=== PATIENT | female | born 2000 | race Caucasian/White ===

== ENCOUNTER 2020-04-17 14:58 | Outpatient (CLI) | payer OTHER, SELFPAY ==
--- NOTE | ~2020-04-17 | US_ITS ---
EXAMINATION:US venous doppler LE BI INDICATION:Morbid obesity. 24 weeks . TECHNIQUE: Multiple grayscale, color flow and Doppler images of the right and left lower extremity de ep venous systems were obtained and reviewed. COMPARISON:No prior studies for comparison. FINDINGS: The common femoral, superficial femoral and popliteal veins demonstrate normal respiratory variation, augmentation and compressibility. Color flow is also seen within the posterior tibial, pe roneal, greater saphenous and profunda veins. IMPRESSION: 1: No lower extremity deep venous thrombosis. Reviewed, dictated and finalized at location B. RACT ADMIN
== END 2020-04-17 14:59 | disposition home or self-care (01) ==
PROVIDERS: PCP Family Medicine; Visit Provider Obstetrics & Gynecology Obstetrics
DX: E66.01 Morbid (severe) obesity due to excess calories (principal); Z68.42 Body mass index [BMI] 45.0-49.9, adult; M79.604 Pain in right leg; M79.605 Pain in left leg; Z82.49 Family history of ischemic heart disease and other diseases of the circulatory system
CPT/HCPCS: 93970

== ENCOUNTER 2020-04-26 12:29 | Outpatient (CLI) | payer OTHER, SELFPAY ==
--- NOTE | 2020-04-26 | ECHO_ITS ---
Patient Info Name: Radha Burch Age: 20 years : 2000 Gender: Female Ht: 60 in Wt: 246 lbs BSA: 2.25 m2 HR: 100 bpm BP: 135 / 92 mmHg Heart Rhythm: Sinus Rhythm Technical Quality: Fair Exam Date: 04/26/2020 1:14 PM Exam Location: [facility] Pulmonary Patient Status: Outpatient Admit Date: 04/26/2020 Staff Ordering Physician: SID LINARES MD Supervisor Instrument Maintenance: Tyler Diaz RDCS Attending Provider: SID LINARES MD Exam Type: CA echo doppler color flow Study Info Indications I10 - Essential (primary) hypertension Complete two-dimensional, color flow and Doppler transthoracic echocardiogram is performed. History/Risk Factors Hypertension and 21 weeks . Summary 1. Complete two-dimensional, color flow and Doppler transthoracic echocardiogram is performed. 2. Left ventricular chamber dimension is normal. 3. Left ventricular systolic function is normal, estimated at 60-65%. 4. There is mildly increased left ventricular wall thickness. 5. Left ventricular septal wall motion is normal. 6. The left ventricular diastolic function is normal. 7. There is mild mitral valve regurgitation. 8. There is mild tricuspid valve regurgitation. Left Ventricle Left ventricular chamber dimension is normal. Left ventricular systolic function is normal, estimated at 60-65%. There is mildly increased left ventricular wall thickness. Left ventricular septal wall motion is normal. The left ventricular diastolic function is normal. Right Ventricle Right ventricular chamber dimension is normal. Right ventricular systolic function is normal. Left Atria Left atrial chamber dimension is normal. Right Atria Right atrial chamber dimension is normal. Atrial Septum Intact interatrial septum visualized by color flow imaging. Aortic Valve The aortic valve is trileaflet. There is no aortic valve sclerosis. There is no aortic valve stenosis. Pulmonic Valve The pulmonic valve is normal. There is no pulmonic valve stenosis. There is trace pulmonic regurgitation. Mitral Valve The mitral valve has normal leaflets. There is no mitral valve stenosis. There is mild mitral valve regurgitation. Tricuspid Valve The tricuspid valve leaflets are normal. There is no significant tricuspid valve stenosis. There is mild tricuspid valve regurgitation. Pericardium/Pleural The pericardium appears normal. There is no pericardial effusion. Inferior Vena Cava Normal inferior vena cava with >50% collapse upon inspiration consistent with normal right atrial pressure, 5 mmHg. Aorta The aortic root size at the sinus of Valsalva is normal. The prox ascending aorta size is normal. Left Ventricular Outflow Tract Name Value Normal LVOT 2D LVOT Diameter 1.9 cm LVOT Doppler LVOT Peak Gradient 5 mmHg LVOT Mean Gradient 3 mmHg LVOT VTI 19 cm LVOT VTI/AV VTI Ratio 0.7 LVOT Stroke Volume 53 ml LVOT CO 4.6
== END 2020-04-26 12:30 | disposition home or self-care (01) ==
LOC: ANHCARD 12:30
PROVIDERS: Family Provider Pediatrics; PCP Family Medicine
DX: O09.629 Supervision of young multigravida, unspecified trimester (principal); I10 Essential (primary) hypertension; Z3A.21 21 weeks gestation of pregnancy; I08.1 Rheumatic disorders of both mitral and tricuspid valves
CPT/HCPCS: 93306

== ENCOUNTER 2020-05-25 12:05 | Outpatient (RCR) | payer OTHER, SELFPAY ==
[2020-05-25 12:51] LABS: Glucose Fasting Gestational 92 mg/dL (>/=95)
[2020-05-25 14:28] LABS: Glucose 1 Hour Gest 191 mg/dL (>/=180)
[2020-05-25 15:39] LABS: Glucose 2 Hour Gest 128 mg/dL (>/= 155)
[2020-05-25 16:14] LABS: Glucose 3 Hour Gest 59 mg/dL (>/=140)
[2020-05-25] MEDS: RHO(D) IMMUNE GLOBULIN 300 MCG/2 ML SYRINGE IM (16:35)
== END 2020-08-23 23:59 | disposition home or self-care (01) ==
LOC: ANHLAB 12:05
PROVIDERS: PCP Family Medicine; Visit Provider Obstetrics & Gynecology
DX: Z29.13 Encounter for prophylactic Rho(D) immune globulin (principal); O36.0990 Maternal care for other rhesus isoimmunization, unspecified trimester, not applicable or unspecified; Z3A.00 Weeks of gestation of pregnancy not specified
CPT/HCPCS: 36415; 82951; 82952; 85461; 90384; 96372; J2790

== ENCOUNTER 2020-06-19 14:17 | Outpatient (CLI) | payer OTHER, SELFPAY ==
[2020-06-19 15:35] LABS: Basophils Percent Auto 0.3 % (0.2-1.2); Eosinophils Absolute Auto 0.1 K/mm3 (0-0.3); Eosinophils Percent Auto 0.8 % (0-4.4); Hematocrit 37.9 % (37.0-47.0); Immature Granulocyte Absolute 0.15 K/mm3 (0.00-0.031); Immature Granulocyte Percent A 1.3 % (0-0.5); Lymphocytes Absolute Auto 2.77 K/mm3 (0.9-3.2); Mean Corpuscular HGB Conc 34.3 g/dl (32-36); Mean Corpuscular Volume 90.2 fl (80-100); Monocytes Absolute Auto 0.6 K/mm3 (0.1-0.6); Monocytes Percent Auto 5.5 % (2.6-8.5); Neutrophils Absolute Auto 7.9 K/mm3 (1.3-6.7); Neutrophils Percent Auto 68.1 % (45.5-73.1); Platelet Count Result 364 k/mm3 (150-375); Red Cell Distribution Width 12.9 % (11.5-14.5); White Blood Count 11.6 K/mm3 (4.5-10.0)
== END 2020-06-19 14:18 | disposition home or self-care (01) ==
PROVIDERS: PCP Family Medicine
DX: O12.00 Gestational edema, unspecified trimester (principal); Z82.49 Family history of ischemic heart disease and other diseases of the circulatory system; Z3A.00 Weeks of gestation of pregnancy not specified
CPT/HCPCS: 36415; 85025

== ENCOUNTER 2020-07-13 18:09 | Outpatient (CLI) | payer OTHER, SELFPAY ==
[2020-07-13] VITALS (11 sets, daily range): BP systolic 115–135; BP diastolic 66–104; PULSE 70–103
== END 2020-07-13 20:40 | disposition home or self-care (01) ==
PROVIDERS: PCP Family Medicine; Visit Provider Obstetrics & Gynecology
DX: O16.3 Unspecified maternal hypertension, third trimester (principal); Z3A.36 36 weeks gestation of pregnancy
CPT/HCPCS: 59025

== ENCOUNTER 2020-07-20 15:22 | Outpatient (RCR) | payer OTHER, SELFPAY ==
--- NOTE | ~2020-07-20 | US_ITS ---
US OB BPP wo non-stress DATE: 07/20/2020 16:10 INDICATION: Hypertension. History of blood clots. TECHNIQUE: Real-time imaging and Doppler analysis COMPARISON: None FINDINGS: Live romano intrauterine gestation, fetus in vertex presentation, longitudinal lie, feta l heart rate of 166 bpm. Anterior placenta. A 4.9 cm deep amniotic fluid pocket is identified. BIOPHYSICAL PROFILE reported by telecom field technician: breathin out of 2 movement: 2 out of 2 tone: 2 out of 2 Amniotic fluid pocket: 2 out of 2 Total score: 8 out of 8 IMPRESSION: Normal biophysical profile score of 8 out of 8 Reviewed, dictated and finalized at Location A. Reviewed, dictated and finalized at location A.
[2020-07-20 15:55] VITALS: BP 134/60; PULSE 89
== END 2020-09-14 11:09 | disposition home or self-care (01) ==
LOC: ANHOBOP 15:22
PROVIDERS: PCP Family Medicine; Visit Provider Obstetrics & Gynecology
DX: O16.3 Unspecified maternal hypertension, third trimester (principal); Z3A.37 37 weeks gestation of pregnancy
CPT/HCPCS: 59025; 76819

== ENCOUNTER 2020-07-23 18:02 | Inpatient (IN) | payer OTHER, SELFPAY ==
[2020-07-23] VITALS (66 sets, daily range): BP systolic 87–151; BP diastolic 46–123; PULSE 41–103; TEMP 36.3; O2SAT 82–100; BMI 51.8
--- OUTSIDE RECORDS SUMMARY | 2020-07-23 18:38 | XMS_ITS ---
:2000 Author Care Team Providers Name Role Phone Prakash Gutierres Primary Care Provider Unavailable Allergies Code Code System Name Reaction Severity Status Onset 20271014 RxNorm Depo-prove ? ? Active ? ra Medications Name Status Start Date Stop Date ? ? alcohol swabs Active ? Not available USE TWICE DAILY amoxicillin 875 mg tablet Completed ? 2016 TK 1 T PO BID aspirin Active 03/30/2020 Not available take 1 tablet po bid [place] Saline 0.65 % nasal spray aerosol Active ? Not available Take 1 spray twice a day by nasal route. Azurette (28) 0.15 mg-0.02 mg (21)/0.01 mg (5) tablet Completed ? 08/26/2016 TK 1 T PO QD BD Insulin Syringe 1 mL 25 x 1 Active ? Not available cephalexin 500 mg capsule Active ? Not av ailable TAKE 1 CAPSULE BY MOUTH EVERY 12 HOURS FOR 14 DAYS dicyclomine 20 mg tablet Completed ? 018 TK 1 T PO Q 6 H PRF ABDOMINAL CRAMPING DOK 100 mg capsule Completed ? 04/04/2017 TK 1 C BY MOUTH ONCE DAILY NEEDED FOR CONSTIPATION famotidine 20 mg tablet Active ? Not avai lable Take 1 tablet twice a day by oral route. famotidine 40 mg tablet Completed ? 04/04/19 18 TK 1 T PO QD ferrous sulfate 325 mg (65 mg Completed ? iron) tablet fluticasone propionate 50 Completed ? 2019 mcg/actuation nasal spray,suspension heparin (porcine) 10,000 unit
--- OUTSIDE RECORDS SUMMARY | 2020-07-23 18:38 | XMS_ITS ---
:2000 Author Care Team Providers Name Role Phone LEWIS SANDERS MD Primary Care Provider [phone] Allergies Code Code System Name Reaction Severity Status Onset NKDA ? Medications Name Status Start Date Stop Date ? ? amoxicillin 875 mg tablet Completed ? 2016 TK 1 T PO BID aspirin Active ? Not available take 1 tablet po bid [place] Saline 0.65 % nasal spray aerosol Active ? Not available Take 1 spray twice a day by nasal route. Azurette (28) 0.15 mg-0.02 mg (21)/0.01 mg (5) tablet Completed ? 08/26/2016 TK 1 T PO QD dicyclomine 20 mg tablet Completed ? 018 [...] QD ferrous sulfate 325 mg (65 mg iron) Completed ? 04/04/2017 tablet fluticasone propionate 50 mcg/actuation Completed ? 01/31/2020 nasal spray,suspension hydroxyzine HCl Completed ? 08/26/2016 hydroxyzine HCl 25 mg tablet Completed ? TK 1 T PO HS [place] 0.33 %-4 % shampoo Completed ? 01/17/2020 lisinopril 10 mg tablet Completed ? 01/17/20 20 magnesium oxide 400 mg (241.3 mg magnesium) tablet Active ? Not available Take 1 tablet every day by oral route for 90 day
--- OUTSIDE RECORDS SUMMARY | 2020-07-23 18:38 | XMS_ITS | Encounter Summary ---
:2000 Author Reason for Visit return OB visit Assessment and Plan 1. Routine care Discussion Note: None recorded.Patient educational handouts: No information available. Plan of Care Reminders Provider Appointments Established Isauro Scott, Patient 15 07/26/2020 3:30PM ? Procedure 15 Nilay Scott, 07/31/2020 6:00AM Lab None recorded. ? ? Referral None recorded. ? ? Procedures None recorded. ? ? Surgeries None recorded. ? ? Imaging None recorded. ? ? Medications Name Start Date ? ? alcohol swabs ? USE TWICE DAILY aspirin 03/30/2020 take 1 tablet po bid [place] Saline 0.65 % nasal spray aerosol ? Take 1 spray twice a day by nasal route. BD Insulin Syringe 1 mL 25 x 1 ? USE TWICE DAILY DIRECTED cephalexin 500 mg capsule ? TAKE 1 CAPSULE BY MOUTH EVERY 12 HOURS FOR 14 DAYS famotidine 20 mg tablet ? Take 1 tablet twice a day by oral route. heparin (porcine) 10,000 unit/mL injection solution ? INJECT 1 ML UNDER THE SKIN TWICE DAILY FOR 30 DAYS hydrocortisone 2.5 % topical cream ? APPLY THIN LAYER TOPICALLY TO THE AFFECTED AREA TWICE DAILY magnesium oxide
--- OUTSIDE RECORDS SUMMARY | 2020-07-23 18:38 | XMS_ITS | Encounter Summary ---
[...] aspirin 03/30/2020 take 1 tablet po bid [place] Saline 0.65 % nasal spray aerosol ? [...]
--- OUTSIDE RECORDS SUMMARY | 2020-07-23 18:38 | XMS_ITS | Encounter Summary ---
[...] aspirin 03/30/2020 take 1 tablet po bid [place] Saline 0.65 % nasal spray aerosol ? [...]
--- OUTSIDE RECORDS SUMMARY | 2020-07-23 18:38 | XMS_ITS | Encounter Summary ---
[...] aspirin 03/30/2020 take 1 tablet po bid [place] Saline 0.65 % nasal spray aerosol ? [...] THE AFFECTED AREA TWICE DAILY magnesium oxide 4
--- OUTSIDE RECORDS SUMMARY | 2020-07-23 18:38 | XMS_ITS | Encounter Summary ---
:2000 Author Care Team Providers Name Role Phone Luisito Gibson MD Primary Care Provider [phone] Reason for Visit return OB visit Assessment and Plan 1. Routine care Discussion Note: None recorded.Patient educational handouts: No information available. Plan of Care Reminders Provider Appointments None ? ? recorded. Lab None ? ? recorded. Referral None ? ? recorded. Procedures None ? ? recorded. Surgeries None ? ? recorded. Imaging None ? ? recorded. Medications Name Start Date ? ? aspirin ? take 1 tablet po bid [place] Saline 0.65 % nasal spray aerosol ? Take 1 spray twice a day by nasal route. famotidine 20 mg tablet ? Take 1 tablet twice a day by oral route. magnesium oxide 400 mg (241.3 mg magnesium) tablet ? Take 1 tablet every day by oral route for 90 days. ondansetron 4 mg disintegrating tablet ? Place 1 tablet every 6-8 hours by translingual route as needed. PRN nausea/vomiting riboflavin (vitamin B2) 400 mg tablet ? Take 1 tablet every day by oral route for 90 days. sertraline 50 mg tablet ? TAKE 1 TABLET BY MOUTH EVERY DAY Notes: Vitamin D, Vitamin C, pre obdulio Medications Administered None recorded. Vitals Height Weight Blood Pressure
--- OUTSIDE RECORDS SUMMARY | 2020-07-23 18:38 | XMS_ITS | Encounter Summary ---
:2000 Author Reason for Visit return OB visit Assessment and Plan 1. Routine care ? streptococcus group B, cul ture, unspecified specimen Discussion Note: None recorded.Patient educational handouts: No information available. Plan of Care Reminders Provider Appointments Established Isauro Scott MD Patient 15 07/26/2020 3:30PM ? Procedure 15 Nilay Scott MD 07/31/2020 6:00AM Lab Streptococcus Edw [facility] Group B, Culture, 07/12/2020 Center Unspecified Specimen Referral None recorded. ? ? Procedures None recorded. ? ? Surgeries None recorded. ? ? Imaging None recorded. ? ? Medications Name Start Date ? ? alcohol swabs ? USE TWICE DAILY aspirin 03/30/2020 take 1 tablet po bid [place] Saline 0.65 % nasal spray aerosol ? Take 1 spray twice a day by nasal route. BD Insulin Syringe 1 mL 25 x 1 ? USE TWICE DAILY DIRECTED cephalexin 500 mg capsule ? TAKE 1 CAPSULE BY MOUTH EVERY 12 HOURS FOR 14 DAYS famotidine 20 mg tablet ?
[2020-07-23 18:58] LABS: Basophils Percent Auto 0.2 % (0.2-1.2); Eosinophils Absolute Auto 0.1 K/mm3 (0-0.3); Eosinophils Percent Auto 0.9 % (0-4.4); Hematocrit 38.6 % (37.0-47.0); Hemoglobin 13.1 g/dL (12.0-15.0); Immature Granulocyte Absolute 0.08 K/mm3 (0.00-0.031); Immature Granulocyte Percent A 0.8 % (0-0.5); Lymphocytes Absolute Auto 2.78 K/mm3 (0.9-3.2); Lymphocytes Percent Auto 27.7 % (18.3-44.2); Mean Corpuscular HGB Conc 33.9 g/dl (32-36); Mean Corpuscular Hemoglobin 30.4 pg (26-34); Mean Corpuscular Volume 89.6 fl (80-100); Monocytes Absolute Auto 0.7 K/mm3 (0.1-0.6); Monocytes Percent Auto 6.9 % (2.6-8.5); Neutrophils Absolute Auto 6.4 K/mm3 (1.3-6.7); Neutrophils Percent Auto 63.5 % (45.5-73.1); Platelet Count Result 372 k/mm3 (150-375); Red Blood Count 4.31 M/mm3 (4.2-5.4); Red Cell Distribution Width 12.8 % (11.5-14.5)
[2020-07-23 19:14] LABS: Alanine Aminotransferase 14 U/L (4-35); Albumin Level 3.6 g/dL (3.5-5.1); Alkaline Phosphatase 197 U/L (38-126); Anion Gap 6 mmol/L (8-16); Aspartate Amino Transferase 21 U/L (14-36); Bilirubin,Total 0.3 mg/dL (0.2-1.3); Blood Urea Nitrogen 10 mg/dL (7-17); Calcium 9.6 mg/dL (8.4-10.2); Carbon Dioxide 22 mmol/L (22-30); Chloride 104 mmol/L (98-107); Estimated Glomerular Filt Rate > 60; Glucose 107 mg/dL (65-105); Potassium 4.2 mmol/L (3.4-5.0); Sodium 132 mmol/L (137-145)
[2020-07-23 19:18] LABS: Uric Acid 6.1 mg/dL (2.5-7.5)
[2020-07-23] MEDS: LACTATED RINGERS 1,000 ML 125 ML IV CONT ×2 (19:24→23:38)
[2020-07-23] MEDS: OXYTOCIN 30 UNITS/NS 500 ML 30 UNITS/500 ML BAG IV CONT (19:25)
--- NOTE | 2020-07-23 19:48 | LDADM ---
This patient, Radha Burch, was admitted to Labor/Delivery/Recovery 106 on 07/23/20 at 18:02. Plans for labor, pain management and were discussed with patient. Patient/family oriented to hospital policies and general routines including ID bracelet, bed and alarms, visiting hours, pain management, procedures, bathroom and other care routines, personal items, smoking policy, room service/diet and guest tray routines, security routines, and visiting hours. Patient/Family are encouraged to report perceived risks to care and to ask questions if they do not understand what they are told or what they should do. See OBIX for further documentation.
[2020-07-23 20:14] LABS: Amphetamine Screen Urine Negative (Negative); Barbiturate Screen Urine Negative (Negative); Benzodiazepines Screen Urine Negative (Negative); Cannabinoid Screen Urine Negative (Negative); Cocaine Screen Urine Negative (Negative); Methadone Screen Urine Negative (Negative); Opiate Screen Urine Negative (Negative); Phencyclidine Screen Urine Negative (Negative)
--- NOTE | 2020-07-23 22:27 | WPDANESEPPF ---
Anes - Initial Pre Proc Eval Procedure: labor epidural Date/Time: 07/23/20 22:03 Surgeon: Prakash Gutierres MD Pre Op Diagnosis: labor pain Pre Op Diagnosis: Leaking Patient Data Age: 20 Gender: F Height: 1.5 m Weight: 116.5 kg Last Vital Signs Temp 36.3 C L 07/23/20 18:45 Pulse 85 07/23/20 22:26 BP 122/73 07/23/20 22:26 Pulse Ox 98 07/23/20 22:25 Allergies Allergy/AdvReac Type Severity Reaction Status Date / Time Latex, Natural Rubber Allergy Mild Itching Verified 08/14/18 05:34 Home Medications Medication Instructions Recorded Confirmed Type PNV cmb#95-ferrous fumarate-FA 1 tablet PO DAILY 07/20/20 07/20/20 History [] heparin (porcine) 10,000 unit SUBCUT BID 07/20/20 07/20/20 History Laboratory Tests 07/23/20 07/23/20 07/23/20 18:52 18:52 18:52 WBC 10.0 K/mm3 K/mm3 (4.5-10.0) RBC 4.31 M/mm3 M/mm3 (4.2-5.4) Hgb 13.1 g/dL g/dL (12.0-15.0) Hct 38.6 % % (37.0-47.0) MCV 89.6 fl fl (80-100) MCH 30.4 pg pg (26-34) MCHC 33.9 g/dl g/dl (32-36) RDW 12.8 % % (11.5-14.5) Plt Count 372 k/mm3 k/mm3 (150-375) MPV 10.0 fl fl (7.4-10.4) Immature Gran % (Auto) 0.8 % H % (0-0.5) Neut % (Auto) 63.5 % % (45.5-73.1) Lymph % (Auto) 27.7 % % (18.3-44.2) [place] % (Auto) 6.9 % % (2.6-8.5) Eos % (Auto) 0.9 % % (0-4.4) Baso % (Auto) 0.2 % % (0.2-1.2) Lymph # (Auto) 2.78 K/mm3 K/mm3 (0.9-3.2) [place] # (Auto) 0.7 K/mm3 H K/mm3 (0.1-0.6) Eos # (Auto) 0.1 K/mm3 K/mm3 (0-0.3) Baso # (Auto) 0.0 K/mm3 K/mm3 (0.0-0.1) Abs Immat Gran (auto) 0.08 K/mm3 H K/mm3 (0.00-0.031) Absolute Neuts (auto) 6.4 K/mm3 K/mm3 (1.3-6.7) Absolute Nucleated RBC 0.0 K/mm3 K/mm3 (0.0-0.012) Nucleated RBC % 0.0 % % (0.0-0.2) Sodium Potassium Chloride Carbon Dioxide Anion Gap BUN Creatinine Estim Creat Clear Calc Estimated GFR Glucose Uric Acid 6.1 mg/dL mg/dL (2.5-7.5) Calcium Total Bilirubin AST ALT Alkaline Phosphatase Total Protein Albumin Urine Opiates Screen Urine Methadone Screen Ur Barbiturates Screen Ur Phencyclidine Scrn Ur Amphetamine Screen U Benzodiazepines Scrn Urine Cocaine Screen U Cannabinoids Screen RPR Pending Blood Type Antibody Screen 07/23/20 07/23/20 07/23/20 18:52 18:52 19:12 WBC RBC Hgb Hct MCV MCH MCHC RDW Plt Count MPV Immature Gran % (Auto) Neut % (Auto) Lymph % (Auto) [place] % (Auto) Eos % (Auto) Baso % (Auto) Lymph # (Auto) [place] # (Auto) Eos # (Auto) Baso # (Auto) Abs Immat Gran (auto) Absolute Neuts (auto) Absolute Nucleated RBC Nucleated RBC % Sodium 132 mmol/L L mmol/L (137-145) Potassium 4.2 mmol/L mmol/L (3.4-5.0) Chloride 104 mmol/L mmol/L (98-107) Carbon Dioxide 22 mmol/L mmol/L (22-30) Anion Gap 6 mmol/L L mmol/L (8-16) BUN 10 mg/dL mg/dL (7-17) Creatinine 0.90 mg/dL mg/dL (0.7-1.0) Estim Creat Clear Calc Not Reportable Estimated GFR > 60 (59 - ) Glucose 107 mg/dL H mg/dL (65-105) Uric Acid Calcium 9.6 mg/dL mg/dL (8.4-10.2)
[2020-07-24] VITALS (162 sets, daily range): BP systolic 67–135; BP diastolic 27–108; PULSE 53–188; RESP 16–18; TEMP 36.1–37.2; O2SAT 78–100
[2020-07-24] MEDS: LACTATED RINGERS 1,000 ML 125 ML IV CONT ×2 (01:02→05:04)
[2020-07-24] MEDS: AMPICILLIN 2 GM/NS 100 ML 2 GM/100 ML BAG IVPB (01:02)
[2020-07-24] MEDS: ONDANSETRON INJ 4 MG/2 ML VIAL IV PUSH (03:48)
[2020-07-24] MEDS: AMPICILLIN 1 GM/NS 50 ML 1 GM/50 ML BAG IVPB ×2 (05:02→08:45)
--- NOTE | 2020-07-24 06:49 | PM.IMHP ---
H&P: HPI History of Present Illness Date/Time: 07/24/20 06:49 Radha is a 20yo @ 38.2wks (MOHSEN 08/05/20) who presented to L&D last night with PROM @ 1900. She reports possible ROM @ 0700 on 07/23/20, but wasn't sure if it was just water, or only urine. She reports good movement. No fever, chills. She is not s/p epidural and comfortable. She was 1cm on admission, was started on pitocin over night, now 5-6cm. She has had regular care with [place] and [facility]. She has also been seeing Urology. 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-- w/ significant proteinuria, following w/ urology - Fetus w/ persistent L SVC; s/p echo, [facility] recommends echo - Rh negative s/p rhogam - Obesity - Elevated glucola; normal 3hr OGTT - Anxiety/depression on Zoloft 50mg daily Chief Complaint: leakage of fluid Review of Systems Review of Systems: All systems reviewed & are unremarkable except as noted in HPI and below (HPI) [facility] Social History Social History Smoking status: Former smoker Tobacco type: cigarettes Second hand tobacco smoke exposure: No Substance use: former Last use: Apr 2019 Gender identity (if verbalized by the patient): Female Sexual Orientation (if Verbalized by the Patient): Straight or Heterosexual Spiritual care concerns: No Meds Home Medications and Allergies Home Medications Medication Instructions Recorded Confirmed Type PNV cmb#95-ferrous fumarate-FA 1 tablet PO DAILY 07/20/20 07/20/20 History [] heparin (porcine) 10,000 unit SUBCUT BID 07/20/20 07/20/20 History Allergies Allergy/AdvReac Type Severity Reaction Status Date / Time Latex, Natural Rubber Allergy Mild Itching Verified 08/14/18 05:34 Vital Signs Vital Signs - 24 hr 07/23/20 18:30 07/23/20 18:32 07/23/20 18:45 Temperature 36.3 C L Pulse Rate 95 92 Blood Pressure 142/93 H 132/106 H Pulse Oximetry 07/23/20 18:46 07/23/20 19:01 07/23/20 19:31 Temperature Pulse Rate 96 74 96 Blood Pressure 139/99 H 137/87 120/73 Pulse Oximetry 07/23/20 19:46 07/23/20 20:01 07/23/20 20:16 Temperature Pulse Rate 83 92 90 Blood Pressure 123/72 114/68 130/82 Pulse Oximetry 07/23/20 20:31 07/23/20 20:46 07/23/20 21:01 Temperature Pulse Rate 85 89 62 Blood Pressure 127/89 136/84 132/89 Pulse Oximetry 07/23/20 21:16 07/23/20 21:31 07/23/20 21:46 Temperature Pulse Rate 67 83 72 Blood Pressure 140/83 151/123 H 123/71 Pulse Oximetry 07/23/20 22:00 07/23/20 22:01 07/23/20 22:04 Temperature Pulse Rate 77 91 Blood Pressure 110/74 87/46 L Pulse Oximetry 98 07/23/20 22:05 07/23/20 22:08 07/23/20 22:10 Temperature Pulse Rate 91 88 Blood Pressure 112/89 125/84 Pulse Oximetry 98 99 07/23/20 22:11 07/23/20 22:14 07/23/20 22:15 Temperature Pulse Rate 81 94 Blood Pressure 129/90 135/85 Pulse Oximetry 99 07/23/20 22:16 07/23/20 22:18 07/23/20 22:20 Temperature Pulse Rate 85 87 Blood Pressure 125/80 137/70 Pulse Oximetry 99 07/23/20 22:21 07/23/20 22:23 07/23/20 22:25 Temperature Pulse Rate 98 85 Blood Pressure 123/65 117/51 L Pulse Oximetry 98 07/23/20 22:26 07/23/20 22:28 07/23/20 22:30 Temperature Pulse Rate 85 83 Blood Pressure 122/73 128/70 Pulse Oximetry 99 07/23/20 22:31 07/23/20 22:33 07/23/20 22:35 Temperature Pulse Rate 79 80 Blood Pressure 105/68 119/62 Pulse Oximetry 100 07/23/20 22:36 07/23/20 22:38 07/23/20 22:40 Temperature Pulse Rate 78 87 Blood Pressure 122/69 105/50 L Pulse Oximetry 100 07/23/20 22:41 07/23/20 22:43 07/23/20 22:45 Temperature Pulse Rate 90 80 Bloo
--- NOTE | 2020-07-24 07:14 | WPDHPUPDATE1 ---
History and Physical Update Update Date/Time: 07/24/20 07:14 History and Physical has been reviewed, including an updated exam of the patient. There are NO changes in the patient's condition. Risks, benefits, and alternatives have been discussed and questions answered. Patient agrees to proceed with procedure.
[2020-07-24 08:00] LABS: Rapid Plasma Reagin Non-Reactive (NonReactive)
--- NOTE | 2020-07-24 09:48 | PM.OBPRVD ---
OB - Delivery Note Procedure Delivery date: 07/24/20 events: Premature Rupture of Membrane and Prolonged Rupture of Membrane (CKD, chronic hypertension, Rh negative, thrombophilia) Delivery augmentation: pitocin Delivery monitor: external FHT and internal uterine Route of delivery: Laceration Description: None Specimen: Yes Quantitative Blood Loss (ml): 150 Anesthesia type: Epidural Disposition: floor [place] Baby Date of : 07/24/20 Time of : 09:34 Weeks of gestation at delivery: 38 gender: Male Weight (pounds): 6 Weight (ounces): 3 presentation: vertex position: Left Occiput Anterior Placenta delivery description: Expressed cord vessel description: 3 Vessels score one minute: 9 score five minutes: 9 Narrative: Patient rapidly progressed to complete dilation with strong desire to push. She pushed for approximately 45 minutes with good maternal effort. She delivered the head over intact perineum. No nuchal was palpated. She delivered the shoulders and body without complications. The baby had spontaneous cry and was immediately placed skin to skin. Delayed cord clamping was performed. The umbilical cord was then clamped and cut. A segment of cord was collected for cord gases. The remaining cord blood was collected for typing. With Pitocin running and gentle downward traction on the cord the placenta delivered without complications. Good fundal tone was noted with minimal bleeding. The cervix, vagina, and perineum were examined and no lacerations were noted. Slight bleeding was then noted but responded with bimanual massage and good uterine tone was noted. Sponge, lap, and instrument counts were correct at the end the procedure. Mom and baby were left bonding in the birthing suite in stable condition.
[2020-07-24] MEDS: OXYTOCIN 30 UNITS/NS 500 ML 30 UNITS/500 ML BAG 125 UNITS IV CONT (10:09)
[2020-07-24] MEDS: ACETAMINOPHEN 325 MG TABLET 650 MG PO (11:38)
--- NOTE | 2020-07-24 11:58 | OBPPTRN ---
Patient transferred to post room # 290 via (wheelchair ). Support person present. Oriented to unit, room, information board, rooming in, admission packet and security measures. Patient verbalizes understanding. Instructions and education this shift provided by one to one discussion and mom baby care guide. No barriers to learning identified. mom and fob both recipients of instructions.
[2020-07-24] MEDS: HYDROcodone/acetaminophen (*CRX) 5-325 MG TABLET 1 TAB PO (17:59)
[2020-07-24] MEDS: DOCUSATE SODIUM 100 MG CAPSULE PO (17:59)
[2020-07-24] MEDS: ENOXAPARIN 40 MG/0.4 ML SYRINGE SUB-Q (23:45)
[2020-07-25 00:17] VITALS: BP 128/70; PULSE 60; PULSE 77; RESP 16; TEMP 36.1; O2SAT 100; O2SAT 98
[2020-07-25] MEDS: HYDROcodone/acetaminophen (*CRX) 5-325 MG TABLET 1 TAB PO (05:20)
[2020-07-25 05:44] LABS: Hematocrit 34.5 % (37.0-47.0); Hemoglobin 11.4 g/dL (12.0-15.0)
[2020-07-25 05:50] VITALS: BP 117/69; PULSE 75; RESP 18; TEMP 36.1; O2SAT 100
[2020-07-25 05:52] LABS: Alanine Aminotransferase 13 U/L (4-35); Alkaline Phosphatase 135 U/L (38-126); Anion Gap 3 mmol/L (8-16); Aspartate Amino Transferase 29 U/L (14-36); Bilirubin,Total 0.2 mg/dL (0.2-1.3); Blood Urea Nitrogen 10 mg/dL (7-17); Calcium 9.4 mg/dL (8.4-10.2); Carbon Dioxide 27 mmol/L (22-30); Chloride 105 mmol/L (98-107); Estimated Glomerular Filt Rate > 60; Glucose 85 mg/dL (65-105); Potassium 4.4 mmol/L (3.4-5.0); Sodium 135 mmol/L (137-145)
[2020-07-25 07:45] VITALS: BP 111/56; PULSE 62; RESP 16; TEMP 36.2; O2SAT 99
[2020-07-25] MEDS: MULTIVIT/MIN/PREN/FOL AC/IRON TABLET 1 TAB PO (08:21)
[2020-07-25] MEDS: ENOXAPARIN 40 MG/0.4 ML SYRINGE SUB-Q (08:21)
--- NOTE | 2020-07-25 08:25 | WPDANLDPN2 ---
Anes-Prog Note L&D Date/Time: 07/25/20 08:25 Comfortable throughout: labor Neuraxial method: epidural Epidural/Spinal procedure site: clean & non-tender Neuro status: Neuro function grossly intact. Cardiovascular status: normal Respiratory status: normal Airway patency: baseline Mental status: baseline Post-Op hydration status: normal Vital Signs: Last Vital Signs Temp 36.2 C L 07/25/20 07:45 Pulse 62 07/25/20 07:45 Resp 16 07/25/20 07:45 BP 111/56 L 07/25/20 07:45 Pulse Ox 99 07/25/20 07:45 Pain score (VAS): 0 I/O: Intake & Output 07/24/20 07/25/20 07/25/20 23:59 07:59 15:59 Intake Total 500 Balance 500 Post-procedural complaints: none Patient feedback: Patient satisfied with anesthetic care.
[2020-07-25] MEDS: RHO(D) IMMUNE GLOBULIN 300 MCG/2 ML SYRINGE IM (10:06)
--- NOTE | 2020-07-25 15:28 | P.PNOB_ITS ---
OB - PN: Subj Subjective Date/time seen: 07/25/20 15:28 PPD#1 Radha reports doing well today. She denies pain. She reports her bleeding is light. She tolerated regular diet w/o issue. She has passed gas and voided w/o issue. She is breast and bottle feeding. She would like her son to be circumcised. She would like to go home today. No CP, fever, chills, PERRY, vision changes, N/V, dizziness or palpitations. OB - PN: Obj Data Labs CBC & Chem 7: 07/25/20 05:19 07/25/20 05:19 Labs: Laboratory Results - last 24 hr 07/25/20 07/25/20 07/25/20 05:19 05:19 05:19 Hgb 11.4 L Hct 34.5 L Sodium 135 L Potassium 4.4 Chloride 105 Carbon Dioxide 27 Anion Gap 3 L BUN 10 Creatinine 0.90 Estim Creat Clear Calc Not Reportable Estimated GFR > 60 Glucose 85 Calcium 9.4 Total Bilirubin 0.2 AST 29 ALT 13 Alkaline Phosphatase 135 H Total Protein 6.0 L Albumin 3.0 L Blood Type B Negative Antibody Screen Negative Screen Negative Baby's Blood Type B pos Baby's TREVOR Negative Doses of RhIg Required 1 OB - PN A/P Assessment and Plan (1) Thrombophilia: Code(s): D68.59 - Other primary thrombophilia Status: Acute (2) Obesity: Qualifiers: Obesity type: due to excess calories Obesity classification: adult class 3 (BMI >= 40) Serious obesity comorbidity presence: without serious comorbidity Body mass index: BMI 45.0-49.9 Qualified Code(s): E66.01 - Morbid (severe) obesity due to excess calories; Z68.42 - Body mass index [BMI] 45.0- 49.9, adult Code(s): E66.9 - Obesity, unspecified Status: Acute (3) Chronic hypertension: Code(s): I10 - Essential (primary) hypertension Status: Acute (4) Normal vaginal delivery of first : Code(s): O80 - Encounter for full-term uncomplicated delivery Status: Acute Plan day: 1 Plan: routine care and discharge home Comments: - will send in meds including lovenox 40mg BID x 6wk - f/u in clinic in 2wks - ER return precautions: fever, bleeding, N/V/abd pain, HTN Time Spent With Patient Time: Total time spent is greater than 50% in coordination of care (as documented) at patient's floor/unit and/or counseling patient: Review of Systems Review of Systems: All systems reviewed & are unremarkable except as noted in HPI and below (HPI) Exam Const: General: cooperative, healthy appearing, comfortable and no acute distress Resp: Effort & Inspection: normal respiratory effort and able to speak in complete sentences Auscultation: clear to auscultation bilaterally Cardio: Rate: regular rate GI: GI Palp: No abdominal tenderness and Yes Soft to palpation Auscultation: normal bowel sounds Other: small lesions from heparin injections : Other: fundus firm below umbilicus Skin: General skin exam: normal color Neuro: General: patient oriented x3 Extrem: General: normal to inspection Psych: Appearance: grossly normal Affect: normal affect Attitude: cooperative
[2020-07-25] MEDS: MEASLES,MUMPS,RUBELLA VACCINE 0.5 ML VIAL SUB-Q (16:53)
[2020-07-26 10:08] VITALS: BP 127/62; PULSE 66; RESP 20; TEMP 36.8; O2SAT 99
--- NOTE | 2020-07-30 17:33 | PM.OBDSVD ---
DS: Admitting Diagnosis Admitting Diagnosis Admitting Diagnosis: leakage of fluid DS: Discharge Diagnosis Discharge Diagnosis (1) Normal vaginal delivery of first : Code(s): O80 - Encounter for full-term uncomplicated delivery Status: Acute (2) Obesity: Qualifiers: Obesity type: due to excess calories Obesity classification: adult class 3 (BMI >= 40) Serious obesity comorbidity presence: without serious comorbidity Body mass index: BMI 45.0-49.9 Qualified Code(s): E66.01 - Morbid (severe) obesity due to excess calories; Z68.42 - Body mass index [BMI] 45.0-49.9, adult Code(s): E66.9 - Obesity, unspecified Status: Acute (3) Chronic kidney disease: Qualifiers: Chronic kidney disease stage: unspecified stage Qualified Code(s): N18.9 - Chronic kidney disease, unspecified Code(s): N18.9 - Chronic kidney disease, unspecified Status: Acute (4) Chronic hypertension: Code(s): I10 - Essential (primary) hypertension Status: Acute (5) Thrombophilia: Code(s): D68.59 - Other primary thrombophilia Status: Acute OB - DS: Summary OB Procedures : NST, PIH Mgmt and Ultrasound OB Procedures Intrapartum: Spontaneous Vag Delivery OB Procedures: : RHo (D) lg Peripartum Data Infant Delivery Method: Natural Vaginal Laceration Description: None complications: none [place] 1: Gender: Male Disposition of : home Status at Discharge Functional status at discharge: independent ambulation Overall status at discharge: patient is back to baseline Time Spent with Patient Time attestation: Total time spent providing and/or coordinating discharge services: Exam Const: General: cooperative, comfortable and no acute distress Nutritional Appearance: obese Resp: Effort & Inspection: normal respiratory effort and able to speak in complete sentences Auscultation: clear to auscultation bilaterally Cardio: Rate: regular rate GI: Inspection: normal to inspection and non-distended GI Palp: No abdominal tenderness and Yes Soft to palpation Auscultation: normal bowel sounds : Other: fundus firm Skin: Lesions: lesion noted (on abdomen from hep injections) Neuro: General: patient oriented x3 Extrem: General: normal to inspection Psych: Appearance: grossly normal Affect: normal affect Attitude: cooperative DS: Data Data Completed and Pending Completed studies during hospitalization: Pending at discharge 05/17/21 10:18 Surgical [PTH] Routine Discharge Plan Discharge Attending physician on discharge: Yvette Scott Discharging Clinician: Yvette Scott Patient Disposition: Home, Self-Care Activity: may shower and pelvic rest Diet: regular Discharge Instructions: Education: Mom and Baby Guide Given to: Mother Follow-Up: Call your delivering provider's office for an appointment to be seen in: 2 Weeks Mom and baby should come to the [facility] for the follow-up appointment. Appointment Date/Time: July 26, 2020 at 10:00 am What to expect at your follow-up visit: Physical Assessment Call [phone] if you are unable to keep your appointment time. BREAST CARE: * Wear a snug supportive bra. * For engorgement discomfort: Bottle Feeding: * May apply ice packs EPISIOTOMY/PERINEAL CARE: * Until bleeding stops, use your trina bottle after urinating * Change your pad frequently throughout the day * No tub baths until seen by your physician - You may shower ACTIVITY: * Rest as much as possible. * Do not exercise or lift anything heavier than your baby (such as laundry or other children.) * Avoid stairs or driving as much as possible. * Do not put anything into the vagina. No douching, tampons, or sexual activity until seen by physician. NOTIFY PHYSICIAN IF YOU HAVE ANY QUESTIONS OR IF ANY OF THE FOLLOWING SYM
== END 2020-07-25 18:10 | disposition home or self-care (01) | DRG 560 ==
LOC: ANHOB2 07-25 16:23 → ANHLDR 07-26 11:30 → ANHOB2 07-26 11:30
PROVIDERS: Admitting Provider Obstetrics & Gynecology; PCP Family Medicine; Visit Provider Obstetrics & Gynecology
DX: O42.92 Full-term premature rupture of membranes, unspecified as to length of time between rupture and onset of labor (principal); Z37.0 Single live birth; Z3A.38 38 weeks gestation of pregnancy; O10.92 Unspecified pre-existing hypertension complicating childbirth; O69.89X0 Labor and delivery complicated by other cord complications, not applicable or unspecified; I12.9 Hypertensive chronic kidney disease with stage 1 through stage 4 chronic kidney disease, or unspecified chronic kidney disease; O75.9 Complication of labor and delivery, unspecified; N18.9 Chronic kidney disease, unspecified; O99.214 Obesity complicating childbirth; E66.01 Morbid (severe) obesity due to excess calories; O99.12 Other diseases of the blood and blood-forming organs and certain disorders involving the immune mechanism complicating childbirth; D68.59 Other primary thrombophilia; O26.893 Other specified pregnancy related conditions, third trimester; Z67.91 Unspecified blood type, Rh negative; O99.344 Other mental disorders complicating childbirth; F41.8 Other specified anxiety disorders; O99.02 Anemia complicating childbirth; D64.9 Anemia, unspecified
CPT/HCPCS: 36415; 80053; 80307; 84112; 84550; 85014; 85018; 85025; 85461; 86592; 86850; 86900; 86901; 88307; 90384; 90710; A9270; J0290; J1650; J2405; J2590; J2790; J2795; J7120

== ENCOUNTER 2021-10-04 12:28 | Observation (INO) | payer OTHER, SELFPAY ==
--- NOTE | ~2021-10-04 | CT_ITS ---
EXAMINATION: CT abdomen pelvis w con INDICATION: Left lower quadrant and left flank pain TECHNIQUE: Computed tomographic images of the abdomen and pelvis were obtained after the administrati on of 100 cc of Omnipaque 300 intravenous contrast. The dose-length product (DLP) was 1386.47 mGy-cm. Automated exposure control and iterative reconstruction technique were employed. COMPARISON: 02/29/2016 FINDINGS: The lung bases are clear. The heart size is normal. There is focal fatty infiltration of th e liver near the falciform ligament. The spleen, pancreas, gallbladder, and adrenal glands are normal . There is a chronic fluid collection in the right renal fossa. The left kidney is enlarged and demon strates patchy perfusion. There is urothelial enhancement of the left renal pelvis and left ureter. N o pathologically enlarged abdominal or pelvic lymph nodes are identified. There is no free intraperit han gas or evidence of bowel obstruction. An IUD is present in the uterus in expected position. The appendix is normal. IMPRESSION: 1. Acute pyelonephritis of the left kidney. Reviewed, dictated and finalized at location B.
[2021-10-04 12:29] VITALS: BP 107/81; PULSE 114; RESP 18; TEMP 37.6; O2SAT 97
[2021-10-04] MEDS: SODIUM CHLORIDE 0.9% IV 1,000 ML 999 ML IV CONT (13:01)
[2021-10-04] MEDS: ONDANSETRON INJ 4 MG/2 ML VIAL IV PUSH (13:02)
[2021-10-04] MEDS: MORPHINE SULFATE (*CRX) 4 MG/ML INJ IV PUSH ×4 (13:02→20:08)
[2021-10-04 13:04] LABS: Alanine Aminotransferase 32 U/L (6-35); Alkaline Phosphatase 124 U/L (38-126); Anion Gap 11 mmol/L (8-16); Aspartate Amino Transferase 28 U/L (14-36); Bilirubin,Total 1.1 mg/dL (0.2-1.3); Blood Urea Nitrogen 14 mg/dL (7-17); Calcium 8.4 mg/dL (8.4-10.2); Carbon Dioxide 26 mmol/L (22-30); Chloride 95 mmol/L (98-107); Estimated Glomerular Filt Rate 51; Glucose 119 mg/dL (65-110); Sodium 132 mmol/L (137-145)
[2021-10-04 13:11] LABS: Appearance Urine Clear (Clear); Bilirubin Urine Negative (Negative); Blood Urine 1+ (Negative); Color Urine Yellow (Yellow); Glucose Urine UA Negative (Negative); Ketones Urine Negative (Negative); Leukocyte Esterase Ur 1+ LEU/UL (Negative); Nitrate Urine Negative (Negative); Protein Urine 2+ mg/dL (Negative)
[2021-10-04 13:23] LABS: Mucus Urine Rare /lpf; RBC Urine 0-2 /hpf (0-2); Squamous Epithelial Cell Urine Few /hpf (Few); WBC Urine 51-75 /hpf
[2021-10-04 13:27] LABS: Basophils Percent Auto 0.2 % (0.2-1.2); Hemoglobin 13.9 g/dL (12.0-15.0); Immature Granulocyte Absolute 0.04 K/mm3 (0.00-0.031); Immature Granulocyte Percent A 0.4 % (0-0.5); Lymphocytes Absolute Auto 1.45 K/mm3 (0.9-3.2); Lymphocytes Percent Auto 13.6 % (18.3-44.2); Mean Corpuscular HGB Conc 32.3 g/dl (32-36); Mean Corpuscular Hemoglobin 28.2 pg (26-34); Mean Corpuscular Volume 87.2 fl (80-100); Mean Platelet Volume 9.7 fl (7.4-10.4); Monocytes Absolute Auto 0.7 K/mm3 (0.1-0.6); Monocytes Percent Auto 6.9 % (2.6-8.5); Neutrophils Absolute Auto 8.4 K/mm3 (1.3-6.7); Neutrophils Percent Auto 78.9 % (45.5-73.1); Platelet Count Result 244 k/mm3 (150-375); Red Blood Count 4.93 M/mm3 (4.2-5.4); Red Cell Distribution Width 13.2 % (11.5-14.5); White Blood Count 10.7 K/mm3 (4.5-10.0)
[2021-10-04 13:33] LABS: Add Urine Microscopic? YES
--- NOTE | 2021-10-04 13:43 | ED.GENADULT ---
HPI - General Adult General Chief complaint: Urogenital-Female Stated complaint: left flank pain - i only have one kidney Time Seen by Provider: 10/04/21 12:42 History of Present Illness HPI narrative: Patient is a 21-year-old female who presents ER with left-sided flank pain left-sided abdominal pain. Worsening over the last 3 days. Subjective fevers and chills. No dysuria. Has urinary frequency. No history of kidney stones. Patient reports she only has her left kidney because the right one at some point when she was a kid. Patient reports mild nausea but no vomiting. No alleviating factors. Related Data Home Medications Medication Instructions Recorded Confirmed No Home Medications 10/04/21 10/04/21 Allergies Allergy/AdvReac Type Severity Reaction Status Date / Time Latex, Natural Rubber Allergy Mild Itching Verified 10/04/21 12:31 Review of Systems Review of Systems: All systems reviewed & are unremarkable except as noted in HPI and below Constitutional: Constitutional: Reports chills and Reports fever(s) ENT: Denies nasal congestion and Denies sore throat Cardiovascular: Cardiovascular: Denies chest pain and Denies rapid heart rate Gastrointestinal: Gastrointestinal: Reports abdominal pain, Denies constipation, Denies diarrhea, Reports nausea and Denies vomiting Genitourinary: Genitourinary: Denies hematuria, Reports nocturia, Denies dysuria and Reports flank pain PMFSH Past Medical History Medical History (Updated 10/04/21 @ 15:45 by Mayco Petersen MD) Anxiety Chronic hypertension Chronic kidney disease Depression Encounter for IUD insertion owen insertion Surgical History Surgical History (Updated 10/04/21 @ 13:45 by Mayco Petersen MD) No pertinent past surgical history Family History Family History (Updated 08/15/21 @ 10:21 by Bebe Brooke MA) Other Diabetes mellitus Social History Social History (Updated 08/15/21 @ 10:22 by Bebe Brooke MA) Smoking status: Former smoker Tobacco type: cigarettes Second hand tobacco smoke exposure: No Alcohol intake: never Substance use: former Last use: Apr 2019 Gender identity (if verbalized by the patient): Female Sexual Orientation (if Verbalized by the Patient): Straight or Heterosexual Spiritual care concerns: No Exam Narrative: GENERAL: Uncomfortable appearing, obese, and in no acute distress. HEAD: Normocephalic, atraumatic. ENT: Mucous membranes moist. CHEST: Clear to auscultation. No respiratory distress. HEART: Regular rate and rhythm. Normal peripheral pulses. ABDOMEN: Soft, mildly tender left lower quadrant and left upper quadrant nondistended, normal active bowel sounds. Left CVA tenderness. EXTREMITIES: Normal range of motion. No edema. SKIN: Warm, dry, no rash. NEURO: N Alert and oriented x3. PSYCH: Normal mood and affect. Course Course Emergency Course: Patient still having pain despite morphine x2. Admit for observation and IV antibiotics given solitary kidney and pyelonephritis. Vital Signs Vital signs: Vital Signs Temperature 99.6 F 10/04/21 12:29 Pulse Rate 114 H 10/04/21 12:29 Respiratory Rate 18 10/04/21 12:29 Blood Pressure 107/81 10/04/21 12:29 Pulse Oximetry 97 10/04/21 12:29 Temperature 99.6 F 10/04/21 12:29 Pulse Rate 114 H 10/04/21 12:29 Respiratory Rate 18 10/04/21 12:29 Blood Pressure 107/81 10/04/21 12:29 Pulse Oximetry 97 10/04/21 12:29 Medical Decision Making Vital Signs Vital Signs: Vital Signs Temperature 99.6 F 10/04/21 12:29 Pulse Rate 114 H 10/04/21 12:29 Respiratory Rate 18 10/04/21 12:29 Blood Pressure 107/81 10/04/21 12:29 Pulse Oximetry 97 10/04/21 12:29 Temperature 99.6 F 10/04/21 12:29 Pulse Rate 114 H 10/04/21 12:29 Respiratory Rate 18 10/04/21 12:29 Blood Pressure 107/81 10/04/21 12:29 Pulse Oximetry 97 10/04/21 12:29 Lab Data Result diagrams:
[2021-10-04 14:30] VITALS: BP 123/88; PULSE 89; RESP 19; O2SAT 97
--- NOTE | 2021-10-04 17:05 | PM.IMHP ---
H&P: HPI History of Present Illness Date/Time: 10/04/21 17:05 <Lianne Cerna PA-C - Last Filed: 10/04/21 22:02> Chief Complaint: Left flank pain. <Lianne Cerna PA-C - Last Filed: 10/04/21 22:02> Narrative: This is a 21-year-old female who presented to the emergency department from home for evaluation of left flank pain. She has not felt well for the last 3 or 4 days with subjective fever, chills, decreased appetite, nausea, and left-sided flank pain that she is unable to qualify. The pain radiates somewhat into the left mid back and she gives no significant aggravating or alleviating factors. She has been taking Tylenol without much benefit. Ultimately she decided to come in today as she was concerned that perhaps she had a kidney stone though she has no history of such.Urinalysis showed 2+ protein, 1+ blood, 1+ leukocyte esterase, 0 to 2 RBCs, and [address] scan of the abdomen and pelvis showed acute pyelonephritis of the left kidney and she is being admitted in this setting for IV antibiotics. Her creatinine was a bit elevated at 1.30 and this is causing her quite a bit of anxiety as she was born with only one working kidney and she is afraid that she may be going into kidney failure. At the time my evaluation she is very anxious and is crying in pain. She denies dysuria and hematuria and goes on to say that she has never had pain with urinary tract infections as she apparently has neurogenic bladder and no feeling. She has not had a documented fever. No vomiting. <Lianne Cerna PA-C - Last Filed: 10/04/21 22:02> Review of Systems Review of Systems: Twelve systems were reviewed. No cold or flu symptoms. No sick contacts. No chest pain or shortness of breath. She has an IUD in place and does not usually have a menstrual cycle. Except as documented, all other systems were reviewed and are negative. <Lianne Cerna PA-C - Last Filed: 10/04/21 22:02> [facility] Past Medical History Medical History: Medical History (Updated 10/04/21 @ 21:59 by Lianne Cerna PA-C) Anxiety Congenital anomaly of kidney Depression <Lianne Cerna PA-C - Last Filed: 10/04/21 22:02> Surgical History Surgical History: Surgical History (Updated 10/04/21 @ 21:54 by Lianne Cerna PA-C) Encounter for IUD insertion Venecia insertion. No pertinent past surgical history <Lianne Cerna PA-C - Last Filed: 10/04/21 22:02> Family History Family History: Family History Other Diabetes mellitus <Lianne Cerna PA-C - Last Filed: 10/04/21 22:02> Social History Social History: Social History (Updated 10/04/21 @ 21:55 by Lianne Cerna PA-C) Social History: Surrogate medical decision maker: Melyssa Burch, mother. Code status: Full code. Smoking status: Former smoker Tobacco type: cigarettes Second hand tobacco smoke exposure: No Alcohol intake: never Additional living arrangements comments: The patient lives with her fiance and children in [place]. Occupation/Education: unemployed Spiritual care concerns: No <Lianne Cerna PA-C - Last Filed: 10/04/21 22:02> Meds Home Medications and Allergies Home medications: Home Medications Medication Instructions Recorded Confirmed Type No Home Medications 10/04/21 10/04/21 History <Lianne Cerna PA-C - Last Filed: 10/04/21 22:02> Allergies/Adverse reactions: Allergies Allergy/AdvReac Type Severity Reaction Status Date / Time Latex, Natural Rubber Allergy Mild Itching Verified 10/04/21 12:31 <Lianne Cerna PA-C - Last Filed: 10/04/21 22:02> Vital Signs Vital Signs - 24 hr 10/04/21 12:29 10/04/21 14:30 Temperature 99.6 F Pulse Rate 114 H 89 Respiratory Rate 18 19 Blood Pressure 107/81 123/88 Pulse Oximetry 97 97 <Lianne Cerna PA-C - Last Filed: 10/04/21 22:02> Ex
[2021-10-04 17:47] VITALS: BP 139/78; PULSE 88; RESP 19; O2SAT 99
[2021-10-04 18:30] VITALS: BP 103/54; PULSE 123; RESP 18; TEMP 37.4; O2SAT 94
[2021-10-04] MEDS: SODIUM CHLORIDE 0.9% IV 1,000 ML 125 ML IV CONT (18:32)
[2021-10-04 18:34] VITALS: BMI 55.3
--- NOTE | 2021-10-04 19:12 | ADMGEN ---
This patient, Radha Burch, was admitted to [facility] Surg Room 327-01. Report received from ALLAN Moralez. Patient/family oriented to hospital policies and general routines including ID bracelet, bed and alarms, visiting hours, pain management, procedures, bathroom and other care routines, personal items, smoking policy, room service/diet, and visiting hours. Information on how to activate the Rapid Response Team has been discussed. Patient/Family are encouraged to report perceived risks to care and to ask questions if they do not understand what they are told or what they should do.
[2021-10-04] MEDS: ALPRAZolam (*CRX) 0.125 MG TABLET PO (21:52)
[2021-10-04 22:00] VITALS: BP 115/83; PULSE 128; RESP 20; TEMP 36.9; O2SAT 97
[2021-10-05] MEDS: MORPHINE SULFATE (*CRX) 4 MG/ML INJ 2 MG IV PUSH (01:53)
[2021-10-05] MEDS: SODIUM CHLORIDE 0.9% IV 1,000 ML 125 ML IV CONT ×2 (04:59→12:12)
[2021-10-05 05:19] VITALS: BP 114/46; PULSE 107; RESP 18; TEMP 36.9; O2SAT 100
[2021-10-05] MEDS: HYDROcodone/acetaminophen (*CRX) 5-325 MG TABLET 1 TAB PO ×2 (06:41→18:50)
[2021-10-05 08:00] VITALS: PULSE 107; RESP 18; O2SAT 100
[2021-10-05 14:00] VITALS: BP 115/68; PULSE 120; RESP 16; TEMP 36.2; O2SAT 96
--- NOTE | 2021-10-05 14:26 | PM.IMPN ---
Progress Note: A&P Assessment and Plan (1) Pyelonephritis of left kidney: Code(s): N12 - Tubulo-interstitial nephritis, not specified as acute or chronic Status: Acute (2) Elevated serum creatinine: Code(s): R79.89 - Other specified abnormal findings of blood chemistry Status: Acute (3) Dehydration: Code(s): E86.0 - Dehydration Status: Acute (4) Anxiety: Code(s): F41.9 - Anxiety disorder, unspecified Status: Acute Plan Acute left pyelonephritis started under ceftriaxone urine culture pending TODD creatinine 1.3 on admission. Likely due to dehydration and UTI. She only has 1 working kidney. Dehydration Anxiety disorder received Xanax Recheck labs today and monitor in the morning. Continue IV fluids Subjective Date/time seen: 10/05/21 14:26 Interval history: HPI:This is a 21-year-old female who presented to the emergency department from home for evaluation of left flank pain. She has not felt well for the last 3 or 4 days with subjective fever, chills, decreased appetite, nausea, and left-sided flank pain that she is unable to qualify. The pain radiates somewhat into the left mid back and she gives no significant aggravating or alleviating factors. She has been taking Tylenol without much benefit. Ultimately she decided to come in today as she was concerned that perhaps she had a kidney stone though she has no history of such.Urinalysis showed 2+ protein, 1+ blood, 1+ leukocyte esterase, 0 to 2 RBCs, and [address] scan of the abdomen and pelvis showed acute pyelonephritis of the left kidney and she is being admitted in this setting for IV antibiotics. Her creatinine was a bit elevated at 1.30 and this is causing her quite a bit of anxiety as she was born with only one working kidney and she is afraid that she may be going into kidney failure. At the time my evaluation she is very anxious and is crying in pain. She denies dysuria and hematuria and goes on to say that she has never had pain with urinary tract infections as she apparently has neurogenic bladder and no feeling. She has not had a documented fever. No vomiting. 10/05/2021 still having pain in the left side of the flank and left upper abdomen. No fever but reports chills. No nausea vomiting. Labs reviewed patient seen and examined. Discussed with the patient. Review of Systems Review of Systems: All systems reviewed & are unremarkable except as noted in HPI and below Exam Narrative: General: Mildly ill-appearing female in the semi-Rosario position in bed. HEENT: PERRL, EOMI. Conjunctivae anicteric. Dry mucous membranes. Neck: Supple. Respiratory: Lungs are clear to auscultation bilaterally. Cardiovascular: Regular rate and rhythm with S1-S2. Gastrointestinal: Abdomen is soft, obese, and nondistended with positive bowel sounds. She is very tender to palpation in the left flank with positive left-sided CVA tenderness. Exhibits voluntary guarding but no rebound tenderness. Skin: Warm and dry. Extremities: No cyanosis, clubbing, or edema. Radial and pedal pulses intact. Neurological: Alert. Cranial nerves 2-12 are grossly intact. No gross focal deficits to casual conversation. Psychiatric: Anxious and tearful. Cooperative. Objective Data Vital Signs Vital Signs: Vital Signs - 24 hr 10/04/21 14:30 10/04/21 17:47 10/04/21 18:30 Temperature 99.4 F Pulse Rate 89 88 123 H Respiratory Rate 19 19 18 Blood Pressure 123/88 139/78 103/54 L Pulse Oximetry 97 99 94 Oxygen Delivery 10/04/21 18:33 10/04/21 22:00 10/04/21 20:00 Temperature 98.5 F Pulse Rate 128 H Respiratory Rate 20 Blood Pressure 115/83 Pulse Oximetry 97 Oxygen Delivery Room Air Room Air 10/05/21 05:19 10/05/21 08:00 Temperature 98.4 F Pulse Rate 107 H 107 H Respiratory Rate 18 18 Blood Pressure 114/46 L Pulse Oximetry 100 100 Oxygen Delivery Room Air Intake/Output Intake/Output: Intake & Output
[2021-10-05 16:31] LABS: Basophils Percent Auto 0.2 % (0.2-1.2); Eosinophils Percent Auto 0.1 % (0-4.4); Hematocrit 36.2 % (37.0-47.0); Hemoglobin 11.6 g/dL (12.0-15.0); Immature Granulocyte Absolute 0.05 K/mm3 (0.00-0.031); Immature Granulocyte Percent A 0.6 % (0-0.5); Lymphocytes Absolute Auto 1.86 K/mm3 (0.9-3.2); Mean Corpuscular Hemoglobin 28.4 pg (26-34); Mean Corpuscular Volume 88.5 fl (80-100); Mean Platelet Volume 9.9 fl (7.4-10.4); Monocytes Absolute Auto 0.9 K/mm3 (0.1-0.6); Neutrophils Percent Auto 68.1 % (45.5-73.1); Platelet Count Result 228 k/mm3 (150-375); Red Blood Count 4.09 M/mm3 (4.2-5.4); Red Cell Distribution Width 13.5 % (11.5-14.5); White Blood Count 8.9 K/mm3 (4.5-10.0)
[2021-10-05 16:42] LABS: Alanine Aminotransferase 25 U/L (6-35); Albumin Level 3.2 g/dL (3.5-5.1); Alkaline Phosphatase 101 U/L (38-126); Anion Gap 7 mmol/L (8-16); Aspartate Amino Transferase 27 U/L (14-36); Bilirubin,Total 0.7 mg/dL (0.2-1.3); Blood Urea Nitrogen 15 mg/dL (7-17); Calcium 7.7 mg/dL (8.4-10.2); Carbon Dioxide 24 mmol/L (22-30); Chloride 99 mmol/L (98-107); Estimated Glomerular Filt Rate 47; Glucose 139 mg/dL (65-110); Magnesium 1.9 mg/dL (1.6-2.3); Potassium 3.7 mmol/L (3.4-5.0); Sodium 130 mmol/L (137-145)
[2021-10-05 22:00] VITALS: BP 114/62; PULSE 120; RESP 16; TEMP 36.4; O2SAT 94
[2021-10-06] MEDS: MORPHINE SULFATE (*CRX) 4 MG/ML INJ 2 MG IV PUSH ×3 (00:04→10:50)
[2021-10-06] MEDS: SODIUM CHLORIDE 0.9% IV 1,000 ML 125 ML IV CONT (04:30)
[2021-10-06 06:00] VITALS: BP 109/74; PULSE 110; RESP 18; TEMP 36.3; O2SAT 92
[2021-10-06 06:28] LABS: Basophils Percent Auto 0.2 % (0.2-1.2); Eosinophils Absolute Auto 0.1 K/mm3 (0-0.3); Eosinophils Percent Auto 0.6 % (0-4.4); Hematocrit 34.1 % (37.0-47.0); Hemoglobin 10.7 g/dL (12.0-15.0); Immature Granulocyte Absolute 0.04 K/mm3 (0.00-0.031); Immature Granulocyte Percent A 0.5 % (0-0.5); Lymphocytes Absolute Auto 2.33 K/mm3 (0.9-3.2); Lymphocytes Percent Auto 27.6 % (18.3-44.2); Mean Corpuscular HGB Conc 31.4 g/dl (32-36); Mean Corpuscular Hemoglobin 28.2 pg (26-34); Monocytes Absolute Auto 1.2 K/mm3 (0.1-0.6); Monocytes Percent Auto 13.6 % (2.6-8.5); Neutrophils Absolute Auto 4.9 K/mm3 (1.3-6.7); Neutrophils Percent Auto 57.5 % (45.5-73.1); Platelet Count Result 231 k/mm3 (150-375); Red Blood Count 3.79 M/mm3 (4.2-5.4); Red Cell Distribution Width 13.7 % (11.5-14.5); White Blood Count 8.4 K/mm3 (4.5-10.0)
[2021-10-06 06:36] LABS: Alanine Aminotransferase 31 U/L (6-35); Alkaline Phosphatase 98 U/L (38-126); Anion Gap 10 mmol/L (8-16); Aspartate Amino Transferase 40 U/L (14-36); Bilirubin,Total 0.7 mg/dL (0.2-1.3); Blood Urea Nitrogen 13 mg/dL (7-17); Calcium 7.6 mg/dL (8.4-10.2); Carbon Dioxide 23 mmol/L (22-30); Chloride 100 mmol/L (98-107); Estimated Glomerular Filt Rate 51; Glucose 115 mg/dL (65-110); Magnesium 2.1 mg/dL (1.6-2.3); Potassium 3.6 mmol/L (3.4-5.0); Sodium 133 mmol/L (137-145)
[2021-10-06 08:00] VITALS: PULSE 110; RESP 18; O2SAT 92
[2021-10-06] MEDS: HYDROcodone/acetaminophen (*CRX) 5-325 MG TABLET 1 TAB PO (08:51)
--- NOTE | 2021-10-06 12:21 | PM.IMPN ---
Progress Note: A&P Assessment and Plan (1) Pyelonephritis of left kidney: Code(s): N12 - Tubulo-interstitial nephritis, not specified as acute or chronic Status: Acute (2) Elevated serum creatinine: Code(s): R79.89 - Other specified abnormal findings of blood chemistry Status: Acute (3) Dehydration: Code(s): E86.0 - Dehydration Status: Acute (4) Anxiety: Code(s): F41.9 - Anxiety disorder, unspecified Status: Acute Plan Acute left pyelonephritis started under ceftriaxone urine culture with E coli which is pansensitive. Change to oral at discharge TODD creatinine 1.3 on admission. Likely due to dehydration and UTI. She only has 1 working kidney. Full stop her IV fluids today kidney function slightly better today but not back to her baseline. Dehydration Anxiety disorder received Xanax Subjective Date/time seen: 10/06/21 12:21 Interval history: HPI:This is a 21-year-old female who presented to the emergency department from home for evaluation of left flank pain. She has not felt well for the last 3 or 4 days with subjective fever, chills, decreased appetite, nausea, and left-sided flank pain that she is unable to qualify. The pain radiates somewhat into the left mid back and she gives no significant aggravating or alleviating factors. She has been taking Tylenol without much benefit. Ultimately she decided to come in today as she was concerned that perhaps she had a kidney stone though she has no history of such.Urinalysis showed 2+ protein, 1+ blood, 1+ leukocyte esterase, 0 to 2 RBCs, and [address] scan of the abdomen and pelvis showed acute pyelonephritis of the left kidney and she is being admitted in this setting for IV antibiotics. Her creatinine was a bit elevated at 1.30 and this is causing her quite a bit of anxiety as she was born with only one working kidney and she is afraid that she may be going into kidney failure. At the time my evaluation she is very anxious and is crying in pain. She denies dysuria and hematuria and goes on to say that she has never had pain with urinary tract infections as she apparently has neurogenic bladder and no feeling. She has not had a documented fever. No vomiting. 10/05/2021 still having pain in the left side of the flank and left upper abdomen. No fever but reports chills. No nausea vomiting. Labs reviewed patient seen and examined. Discussed with the patient. 10/06/2021 feeling a lot better. Left-sided flank pain has improved. No fever chills still tachycardic. Review of Systems Review of Systems: All systems reviewed & are unremarkable except as noted in HPI and below Exam Narrative: General: Well-appearing female in acute distress HEENT: PERRL, EOMI. Conjunctivae anicteric. Dry mucous membranes. Neck: Supple. Respiratory: Lungs are clear to auscultation bilaterally. Cardiovascular: Regular rate and rhythm with S1-S2. Gastrointestinal: Abdomen is soft, obese, and nondistended with positive bowel sounds. Renal angle tenderness has improved Skin: Warm and dry. Extremities: No cyanosis, clubbing, or edema. Radial and pedal pulses intact. Neurological: Alert. Cranial nerves 2-12 are grossly intact. No gross focal deficits to casual conversation. Psychiatric: Anxious and tearful. Cooperative. Objective Data Vital Signs Vital Signs: Vital Signs - 24 hr 10/05/21 14:00 10/05/21 22:00 10/05/21 20:00 Temperature 97.1 F L 97.6 F Pulse Rate 120 H 120 H Respiratory Rate 16 16 Blood Pressure 115/68 114/62 Pulse Oximetry 96 94 Oxygen Delivery Room Air 10/06/21 06:00 10/06/21 08:00 Temperature 97.3 F L Pulse Rate 110 H 110 H Respiratory Rate 18 18 Blood Pressure 109/74 Pulse Oximetry 92 92 Oxygen Delivery Room Air Intake/Output Intake/Output: Intake & Output 10/03/21 10/04/21 10/05/21 10/06/21 23:59 23:59 23:59 23:59 Intake Total 1050 4660 370 Output Total 2550 Balance 105
--- NOTE | 2021-10-06 14:12 | PM.DS ---
DS: Admitting Diagnosis Discharge Date Admitting Diagnosis pyelonephritis DS: Discharge Diagnosis Discharge Diagnosis (1) Pyelonephritis of left kidney: Code(s): N12 - Tubulo-interstitial nephritis, not specified as acute or chronic Status: Acute (2) Elevated serum creatinine: Code(s): R79.89 - Other specified abnormal findings of blood chemistry Status: Acute (3) Dehydration: Code(s): E86.0 - Dehydration Status: Acute (4) Anxiety: Code(s): F41.9 - Anxiety disorder, unspecified Status: Acute Plan Acute left pyelonephritis started under ceftriaxone urine culture with E coli which is pansensitive. Change to oral cefdinir for 7 more days TODD creatinine 1.3 on admission. Likely due to dehydration and UTI. She only has 1 working kidney. continue increased intake and hydration at discharge this was discussed with the patient Dehydration Anxiety disorder received Xanax. Follow-up with PCP for this DS: Summary Hospital Course Hospital Course: see above Time Spent with Patient Time attestation: Total time spent providing and/or coordinating discharge services: Exam Narrative: General: Well-appearing female in acute distress HEENT: PERRL, EOMI. Conjunctivae anicteric. Dry mucous membranes. Neck: Supple. Respiratory: Lungs are clear to auscultation bilaterally. Cardiovascular: Regular rate and rhythm with S1-S2. Gastrointestinal: Abdomen is soft, obese, and nondistended with positive bowel sounds. Renal angle tenderness has improved Skin: Warm and dry. Extremities: No cyanosis, clubbing, or edema. Radial and pedal pulses intact. Neurological: Alert. Cranial nerves 2-12 are grossly intact. No gross focal deficits to casual conversation. Psychiatric: Anxious and tearful. Cooperative. DS: Data Data Completed and Pending Labs on day of discharge: Labs from last 24 hours 10/06/21 10/06/21 10/05/21 05:38 05:38 16:06 WBC 8.4 RBC 3.79 L Hgb 10.7 L Hct 34.1 L MCV 90.0 MCH 28.2 MCHC 31.4 L RDW 13.7 Plt Count 231 MPV 10.0 Immature Gran % (Auto) 0.5 Neut % (Auto) 57.5 Lymph % (Auto) 27.6 Hinds % (Auto) 13.6 H Eos % (Auto) 0.6 Baso % (Auto) 0.2 Lymph # (Auto) 2.33 Hinds # (Auto) 1.2 H Eos # (Auto) 0.1 Baso # (Auto) 0.0 Abs Immat Gran (auto) 0.04 H Absolute Neuts (auto) 4.9 Absolute Nucleated RBC 0.0 Nucleated RBC % 0.0 Sodium 133 L 130 L Potassium 3.6 3.7 Chloride 100 99 Carbon Dioxide 23 24 Anion Gap 10 7 L BUN 13 15 Creatinine 1.30 H 1.40 H Estim Creat Clear Calc Not Reportable Not Reportable Estimated GFR 51 L 47 L Glucose 115 H 139 H Calcium 7.6 L 7.7 L Magnesium 2.1 1.9 Total Bilirubin 0.7 0.7 AST 40 H 27 ALT 31 25 Alkaline Phosphatase 98 101 Total Protein 6.0 L 7.0 Albumin 3.0 L 3.2 L 10/05/21 16:06 WBC 8.9 RBC 4.09 L Hgb 11.6 L Hct 36.2 L MCV 88.5 MCH 28.4 MCHC 32.0 RDW 13.5 Plt Count 228 MPV 9.9 Immature Gran % (Auto) 0.6 H Neut % (Auto) 68.1 Lymph % (Auto) 21.0 Hinds % (Auto) 10.0 H Eos % (Auto) 0.1 Baso % (Auto) 0.2 Lymph # (Auto) 1.86 Hinds # (Auto) 0.9 H Eos # (Auto) 0.0 Baso # (Auto) 0.0 Abs Immat Gran (auto) 0.05 H Absolute Neuts (auto) 6.0 Absolute Nucleated RBC 0.0 Nucleated RBC % 0.0 Sodium Potassium Chloride Carbon Dioxide Anion Gap BUN Creatinine Estim Creat Clear Calc Estimated GFR Glucose Calcium Magnesium Total Bilirubin AST ALT Alkaline Phosphatase Total Protein Albumin Imaging Radiologist's impression: ITS Impressions Abdomen/Pelvis CT 10/04/21 14:49 IMPRESSION: 1. Acute pyelonephritis of the left kidney. Discharge Plan Discharge Attending physician on discharge: Tony Betts Discharging Clinician: Tony Betts Anticipated Discharge Date/Time: 10/06/21 14:0
[2021-10-06] MEDS: ACETAMINOPHEN 325 MG TABLET 650 MG PO (14:20)
--- NOTE | 2021-10-06 14:58 | PC.NURSE ---
IV removed, discharge paperwork explained, verbalized understanding, and awaiting ride home.
== END 2021-10-06 15:50 | disposition home or self-care (01) ==
LOC: ANHED 15:45 → ANH3MEDSUR 17:15
PROVIDERS: Admitting Provider Family Medicine; Emergency Provider Emergency Medicine; PCP Family Medicine; Visit Provider Internal Medicine
DX: N10 Acute pyelonephritis (principal); B96.20 Unspecified Escherichia coli [E. coli] as the cause of diseases classified elsewhere; N17.9 Acute kidney failure, unspecified; N39.0 Urinary tract infection, site not specified; R79.89 Other specified abnormal findings of blood chemistry; E86.0 Dehydration; F41.9 Anxiety disorder, unspecified; Z87.891 Personal history of nicotine dependence
CPT/HCPCS: 36415; 74177; 80053; 81001; 81025; 83735; 85025; 87077; 87086; 87088; 87186; 96361; 96365; 96375; 96376; 99285; A9270; G0378; G0379; J0696; J2270; J2405; J7030; Q9967

== ENCOUNTER 2023-03-22 19:16 | Emergency (ER) | payer OTHER, SELFPAY ==
[2023-03-22 19:26] VITALS: BP 123/111; PULSE 96; RESP 16; TEMP 36.4; O2SAT 100
--- NOTE | 2023-03-22 19:34 | ED.GENADULT ---
HPI - General Adult General Chief complaint: Vaginal Bleeding Stated complaint: MENSTRUATION/PASSING OUT Time Seen by Provider: 03/22/23 19:26 Source: patient and RN notes reviewed Mode of arrival: ambulatory Limitations: no limitations History of Present Illness HPI narrative: Patient presents today complaining of heavy vaginal bleeding that started 4 days ago, headache, dizziness, nausea, lower abdominal cramping, and 2 syncopal episodes. She states 1 syncopal episode was 3 days ago and reports that she was unconscious for approximately 6 hours. The 2nd syncopal episode was yesterday that lasted for approximately 3 hours. Patient states she has had an IUD for 2 years and has not had a period for that period of time until it started heavily 4 days ago. She currently rates her headache 09/16 and has been taking naproxen and Tylenol with relief. She has fully saturated 10 pads today. Related Data Allergies Allergy/AdvReac Type Severity Reaction Status Date / Time Latex, Natural Rubber Allergy Mild Itching Verified 10/04/21 12:31 Review of Systems Review of Systems: CONSTITUTIONAL: Denies body aches, fever, chills, or sweats. EYES: Denies visual changes, redness, or discharge. ENT: Denies rhinorrhea, congestion, sore throat, or otalgia. CARDIOVASCULAR: Denies chest pain, palpitations, or edema. RESPIRATORY: Denies cough or dyspnea. GASTROINTESTINAL: Denies abdominal pain, vomiting, or diarrhea.+ nausea GENITOURINARY: Denies dysuria or hematuria.+ vaginal bleeding SKIN: Denies rash, itching, or wounds. MUSCULOSKELETAL: Denies back pain, joint pain, or myalgia. NEUROLOGIC: Denies headache, numbness, tingling, or weakness.+ dizziness, syncope, headache PMFSH Past Medical History Medical History Anxiety Congenital anomaly of kidney Depression Surgical History Surgical History Encounter for IUD insertion Venecia insertion. No pertinent past surgical history Family History Family History Other Diabetes mellitus Social History Social History Social History: Surrogate medical decision maker: Melyssa Burch, mother. Code status: Full code. Smoking status: Former smoker Tobacco type: cigarettes Second hand tobacco smoke exposure: No Alcohol intake: never Living arrangements: with family Additional living arrangements comments: The patient lives with her fiance and children in [place]. Occupation/Education: unemployed Spiritual care concerns: No Comments At time of signature, I have reviewed and agree with nursing past medical, surgical, social and family history unless otherwise noted. Please see nursing chart for further information. There is no relevant family history pertinent to the presenting complaint Exam Narrative: GENERAL: Well-appearing, well-nourished, and in no acute distress. HEAD: Normocephalic, atraumatic. EYES: EOMI. No redness or drainage. Conjunctivae normal. ENT: Mucous membranes pink and moist. NECK: Normal AROM. CHEST: No respiratory distress. Clear to auscultation. HEART: Regular rate and rhythm. No murmur appreciated. Normal peripheral pulses. ABDOMEN: Soft, nontender, nondistended, normal active bowel sounds. EXTREMITIES: Normal range of motion. No edema. SKIN: Warm, dry, no rash. Capillary refill normal. Normal skin turgor. NEURO: No focal deficits. Alert and oriented x3. Gait steady. PSYCH: Normal affect. No signs of depression or anxiety. Course Course Level of Care: Express Care Visit Vital Signs Vital signs: Vital Signs Temperature 97.5 F L 03/22/23 19:26 Pulse Rate 96 03/22/23 19:26 Respiratory Rate 16 03/22/23 19:26 Blood Pressure 123/111 H 03/22/23 19:26 Pulse Oximetry 100
== END 2023-03-22 19:45 | disposition short-term general hospital (02) ==
PROVIDERS: Emergency Provider Nurse Practitioner; PCP Family Medicine
DX: N93.9 Abnormal uterine and vaginal bleeding, unspecified (principal); R55 Syncope and collapse; R51.9 Headache, unspecified; Z87.891 Personal history of nicotine dependence; Q61.4 Renal dysplasia
CPT/HCPCS: 99212; G0463

== ENCOUNTER 2023-03-30 10:49 | Emergency (ER) | payer OTHER, SELFPAY ==
[2023-03-30 10:50] VITALS: BP 132/73; PULSE 115; RESP 18; TEMP 37.6; O2SAT 99
[2023-03-30 10:58] VITALS: O2SAT 99
[2023-03-30] MEDS: ACETAMINOPHEN 500 MG TABLET 1000 MG PO (11:04)
[2023-03-30] MEDS: KETOROLAC 30 MG/ML VIAL (*BKC) IM (11:04)
[2023-03-30 11:06] VITALS: TEMP 39.1
--- NOTE | 2023-03-30 11:27 | ED.URI ---
HPI - URI/Sore Throat General Chief Complaint: Upper Respiratory Infection Stated Complaint: URI FEVER XFEW DAYS Time Seen by Provider: 03/30/23 10:55 History of Present Illness HPI Narrative: 23F h/o CKD and 1 working kidney p/w chills, congestion, headache, mild cough last few days; hasn't taken anything at home for symptoms. 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 Just got over RSV recently. Related Data Allergies Allergy/AdvReac Type Severity Reaction Status Date / Time Latex, Natural Rubber Allergy Mild Itching Verified 03/30/23 10:59 Review of Systems Review of Systems: CONST: chills HEENT: sore throat, congestion C/V: No chest pain RESP: cough GI: No nausea vomiting : No dysuria. M/S: No joint pain. SKIN: No rash. NEURO: PERRY no numbness/weakness PSYCH: [No depression] [facility] Past Medical History Medical History Anxiety Congenital anomaly of kidney Depression Surgical History Surgical History Encounter for IUD insertion Venecia insertion. No pertinent past surgical history Family History Family History Other Diabetes mellitus Social History Social History Social History: Surrogate medical decision maker: Melyssa Burch, mother. Code status: Full code. Smoking status: Former smoker Tobacco type: cigarettes Second hand tobacco smoke exposure: No Alcohol intake: never Living arrangements: with family Additional living arrangements comments: The patient lives with her fiance and children in [place]. Occupation/Education: unemployed Spiritual care concerns: No Exam Narrative: EXAMINATION OF ORGAN SYSTEMS/BODY AREAS: Constitutional: Vital signs per nursing GENERAL: appears tired and sad HEAD: Normal with no signs of head trauma. EYES: EOMI, conjunctiva normal ENT: pharyngeal erythema, congestion LUNGS: Nonlabored breathing. HEART: tachycardic ABD: [Soft], [nontender to palpation], no CVAT EXT: Normal range of motion SKIN: [No rashes or lesions.] NEURO: [Alert and oriented x 3. No gross focal sensory or strength deficits.] PSYCH: Normal affect Course Vital Signs Vital signs: Vital Signs Temperature 99.7 F H 03/30/23 10:50 Pulse Rate 115 H 03/30/23 10:50 Respiratory Rate 18 03/30/23 10:50 Blood Pressure 132/73 03/30/23 10:50 Pulse Oximetry 99 03/30/23 10:50 Oxygen Delivery Room Air 03/30/23 10:50 Temperature 100.4 F H 03/30/23 11:44 Pulse Rate 97 03/30/23 11:44 Respiratory Rate 17 03/30/23 11:44 Blood Pressure 107/61 03/30/23 11:44 Pulse Oximetry 99 03/30/23 11:44 Oxygen Delivery Room Air 03/30/23 10:58 MDM - URI/Sore Throat MDM Narrative Medical decision making narrative: 23-year-old female with history of CKD presenting with URI symptoms for last few days, she is tachycardic and febrile mom is given antipyretics, since she has not had follow-up with her doctor in a while, I did obtain blood work given her history of CKD. She has also had a recent pyelonephritis episode side did also obtain a UA. She is strep positive, flu positive, and does have a UTI, I will defer start her on antibiotics, give her strict return precautions, have her follow up with a primary care doctor. I have let her know she can return to the ER for any further issues, she is feeling better and vital signs improved on re-evaluation stable for discharge at this time. Lab Data 03/30/23 12:07 03/30/23 11:34 Labs: Lab Results 03/30/23 03/30/23 03/30/23 Range/Units 11:10 11:34 11:53 WBC (4.5-10.0) K/mm3 RBC (4.2-5.4) M/mm3 Hgb (12.0-15.0) g/dL Hct (37.0-47.0) % MCV (80-100) fl MCH (26-34) pg MCHC (32-36) g/
[2023-03-30 11:43] VITALS: TEMP 38
[2023-03-30 11:44] VITALS: BP 107/61; PULSE 97; RESP 17; TEMP 38; O2SAT 99
[2023-03-30 11:51] LABS: Anion Gap 7 mmol/L (8-16); Blood Urea Nitrogen 8 mg/dL (7-17); Calcium 8.7 mg/dL (8.4-10.2); Carbon Dioxide 28 mmol/L (22-30); Chloride 97 mmol/L (98-107); Estimated Glomerular Filt Rate > 60; Glucose 81 mg/dL (65-110); Potassium 3.8 mmol/L (3.4-5.0); Sodium 132 mmol/L (137-145)
[2023-03-30 11:52] LABS: Influenza A QL RT-PCR Positive (Negative); Influenza B QL RT-PCR Negative (Negative); RSV RNA, RT-PCR Negative (Negative); SARS-CoV-2 RNA PCR Negative (Negative)
[2023-03-30 12:06] LABS: Appearance Urine Cloudy (Clear); Bacteria Urine 1+ /hpf; Bilirubin Urine Negative (Negative); Blood Urine Negative (Negative); Color Urine Yellow (Yellow); Glucose Urine UA Negative (Negative); Ketones Urine Trace mg/dL (Negative); Leukocyte Esterase Ur 1+ LEU/UL (Negative); Nitrate Urine Negative (Negative); Non Pathogenic Casts 0-2; Protein Urine Trace mg/dL (Negative); RBC Urine 0-2 /hpf (0-2); Specific Grav Ur 1.015 (1.001-1.035); Squamous Epithelial Cell Urine Many /hpf (Few); WBC Urine 21-50 /hpf
[2023-03-30 12:12] LABS: Add Urine Microscopic? YES
[2023-03-30 12:20] LABS: Strep Group A RT-PCR DETECTED (Negative)
[2023-03-30 12:21] LABS: Basophils Percent Auto 0.5 % (0.2-1.2); Eosinophils Percent Auto 0.2 % (0-4.4); Hematocrit 41.3 % (37.0-47.0); Hemoglobin 13.3 g/dL (12.0-15.0); Immature Granulocyte Absolute 0.01 K/mm3 (0.00-0.031); Immature Granulocyte Percent A 0.2 % (0-0.5); Lymphocytes Absolute Auto 0.78 K/mm3 (0.9-3.2); Lymphocytes Percent Auto 18.6 % (18.3-44.2); Mean Corpuscular HGB Conc 32.2 g/dl (32-36); Mean Corpuscular Hemoglobin 28.6 pg (26-34); Mean Corpuscular Volume 88.8 fl (80-100); Mean Platelet Volume 9.1 fl (7.4-10.4); Monocytes Absolute Auto 0.3 K/mm3 (0.1-0.6); Monocytes Percent Auto 6.2 % (2.6-8.5); Neutrophils Absolute Auto 3.1 K/mm3 (1.3-6.7); Neutrophils Percent Auto 74.3 % (45.5-73.1); Platelet Count Result 258 k/mm3 (150-375); Red Blood Count 4.65 M/mm3 (4.2-5.4); Red Cell Distribution Width 12.6 % (11.5-14.5); White Blood Count 4.2 K/mm3 (4.5-10.0)
[2023-03-30] MEDS: CEFDINIR 300 MG CAPSULE PO (12:43)
== END 2023-03-30 12:48 | disposition home or self-care (01) ==
PROVIDERS: Emergency Provider Emergency Medicine; PCP Family Medicine
DX: J02.0 Streptococcal pharyngitis (principal); J11.89 Influenza due to unidentified influenza virus with other manifestations; N39.0 Urinary tract infection, site not specified; Z20.822 Contact with and (suspected) exposure to COVID-19; N18.9 Chronic kidney disease, unspecified; Z97.5 Presence of (intrauterine) contraceptive device; Z87.891 Personal history of nicotine dependence
CPT/HCPCS: 36415; 80048; 81001; 81025; 85025; 87086; 87088; 87637; 87651; 96372; 99283; A9270; J1885

== ENCOUNTER 2023-06-22 19:23 | Inpatient (IN) | payer OTHER, SELFPAY ==
--- NOTE | ~2023-06-22 | XR_ITS ---
EXAMINATION: XR chest 2V DATE: 06/25/2023 14:24 INDICATION: Left flank pain. Pulmonary embolus. TECHNIQUE: Frontal and lateral views of the chest were obtained. COMPARISON: None. FINDINGS: There is no pneumonia, pleural effusion, or pneumothorax. The heart size is normal. IMPRESSION: 1. No acute cardiopulmonary disease. Reviewed, dictated and finalized at location E.
--- NOTE | ~2023-06-22 | NM_ITS ---
EXAMINATION: NM lung vent and perfusion DATE: 06/25/2023 14:04 INDICATION: Chest pain and elevated troponin TECHNIQUE: 19.9 mCi xenon-133 by inhalation and 5 mCi Tc-99m MAA by intravenous route. Scintigraphic images of the chest were obtained. COMPARISON: Chest radiograph dated 06/25/2023 FINDINGS: There is homogeneous radiotracer activity throughout the lungs on the single breath ventilation seque nce. Single small perfusion defect at the anterior segment of the right upper lobe without evident co rrelate on the chest radiographs. No other perfusion defects identified with relatively homogeneous p erfusion throughout the remainder of the lungs. IMPRESSION: 1. Low probability for pulmonary embolism. Reviewed, dictated and finalized at location A.
--- NOTE | ~2023-06-22 | CT_ITS ---
EXAMINATION: CT abdomen pelvis wo con DATE: 06/22/2023 21:00 INDICATION: Left flank pain. TECHNIQUE: Computed tomography (CT) of the abdomen and pelvis was performed without intravenous contr ast. Automated exposure control and iterative reconstruction technique were employed. The dose-length product was 1386.23 mGy-cm. COMPARISON: None. FINDINGS: The visualized portions of the lung bases are clear without pneumonia or pleural effusion. The heart size is normal. No pericardial effusion. The liver, gallbladder, spleen, pancreas, and adre nal glands are normal. There is severe right hydronephrosis. There is severe right kidney atrophy wit h no significant residual parenchyma. There is a 10 mm nonobstructing stone in right kidney. There is mild focal volume loss of left kidney. There is asymmetric edema around left kidney. There is mild l eft hydronephrosis and hydroureter. There is an intrauterine device in expected position. There are n o dilated loops of bowel. The appendix is normal. There are no pathologically enlarged lymph nodes. T here is no free intraperitoneal fluid. There is mild thoracic and lumbar spondylosis. IMPRESSION: 1. Mild left hydronephrosis and hydroureter. 2. Severe right hydronephrosis. Severe right kidney atrophy. Reviewed, dictated and finalized at location E.
--- NOTE | ~2023-06-22 | NM_ITS ---
EXAMINATION: NM alanna stress w perfusion DATE: 06/26/2023 12:14 INDICATION: Chest pain TECHNIQUE: Rest images were obtained following intravenous administration of 9.8 mCi Tc99m tetrofosmi n (Myoview). The patient was infused intravenously with Lexiscan (Regadenoson). Then, 31.7 mCi Tc99m tetrofosmin (Myoview) was administered intravenously, and stress images were obtained. Data was recon structed into short axis and horizontal and vertical long axis SPECT images. Gated SPECT images were also obtained. COMPARISON: None. FINDINGS: There is no definite reversible or fixed perfusion abnormality to suggest ischemia or infar ction. There is normal left ventricular chamber size, wall motion and ejection fraction. Left ventr icular ejection fraction measures >70%. IMPRESSION: 1. Normal myocardial perfusion at rest and during stress. 2. Left ventricular ejection fraction measuring >70%. Reviewed, dictated and finalized at location A.
[2023-06-22 19:25] VITALS: BP 106/66; PULSE 138; RESP 20; TEMP 37.7; O2SAT 98
[2023-06-22] MEDS: LACTATED RINGERS 1,000 ML 999 ML IV CONT ×3 (19:53→22:02)
[2023-06-22] MEDS: MORPHINE SULFATE (*CRX) 4 MG/ML INJ IV PUSH ×2 (19:54→23:59)
[2023-06-22 20:02] LABS: Basophils Percent Auto 0.2 % (0.2-1.2); Eosinophils Percent Auto 0.1 % (0-4.4); Hematocrit 43.5 % (37.0-47.0); Hemoglobin 14.6 g/dL (12.0-15.0); Immature Granulocyte Absolute 0.05 K/mm3 (0.00-0.031); Immature Granulocyte Percent A 0.4 % (0-0.5); Lymphocytes Absolute Auto 1.72 K/mm3 (0.9-3.2); Lymphocytes Percent Auto 12.1 % (18.3-44.2); Mean Corpuscular HGB Conc 33.6 g/dl (32-36); Mean Corpuscular Hemoglobin 28.9 pg (26-34); Monocytes Absolute Auto 0.9 K/mm3 (0.1-0.6); Monocytes Percent Auto 6.2 % (2.6-8.5); Neutrophils Absolute Auto 11.5 K/mm3 (1.3-6.7); Platelet Count Result 301 k/mm3 (150-375); Red Blood Count 5.06 M/mm3 (4.2-5.4); Red Cell Distribution Width 12.9 % (11.5-14.5); White Blood Count 14.2 K/mm3 (4.5-10.0)
[2023-06-22 20:12] LABS: Alanine Aminotransferase 15 U/L (6-35); Albumin Level 4.6 g/dL (3.5-5.1); Alkaline Phosphatase 116 U/L (38-126); Anion Gap 11 mmol/L (4-12); Aspartate Amino Transferase 20 U/L (14-36); Bilirubin,Total 1.3 mg/dL (0.2-1.3); Blood Urea Nitrogen 13 mg/dL (7-17); Calcium 9.2 mg/dL (8.4-10.2); Carbon Dioxide 23 mmol/L (22-30); Chloride 98 mmol/L (98-107); Estimated Glomerular Filt Rate 46; Glucose 117 mg/dL (65-110); Potassium 3.3 mmol/L (3.4-5.0); Sodium 132 mmol/L (137-145)
[2023-06-22 20:44] LABS: Add Urine Microscopic? YES; Appearance Urine Cloudy (Clear); Bacteria Urine Rare /hpf; Bilirubin Urine Negative (Negative); Blood Urine 1+ (Negative); Color Urine Yellow (Yellow); Glucose Urine UA Negative (Negative); Ketones Urine Negative (Negative); Leukocyte Esterase Ur 2+ LEU/UL (Negative); Nitrate Urine Negative (Negative); Non Pathogenic Casts 0-2; Protein Urine 1+ mg/dL (Negative); RBC Urine 0-2 /hpf (0-2); Specific Grav Ur 1.006 (1.001-1.035); Squamous Epithelial Cell Urine Few /hpf (Few); Urobilinogen Urine 0.2 mg/dL (<2.0); WBC Urine 51-100 /hpf (0-3); pH Urine 6.5 (5.0-9.0)
[2023-06-22] MEDS: ACETAMINOPHEN 500 MG TABLET 1000 MG PO (21:20)
[2023-06-22 22:05] VITALS: BP 138/75; PULSE 113; RESP 18; O2SAT 96
--- NOTE | 2023-06-22 22:31 | ED_ITS ---
HPI - Female Genitourinary General Chief complaint: Abdominal Pain Stated complaint: left side flank pain Time Seen by Provider: 06/22/23 19:36 History of Present Illness HPI Narrative: Patient with 1 working kidney presents here with severe pain to her left flank and dysuria and fevers, started earlier today with nausea vomiting, she is concerned about an infection. Related Data Allergies Allergy/AdvReac Type Severity Reaction Status Date / Time Latex, Natural Rubber Allergy Mild Itching Verified 03/30/23 10:59 Review of Systems Review of Systems: CONST: Fever HEENT: No sore throat C/V: No chest pain RESP: No cough GI: Reports nausea vomiting : dysuria. M/S: No joint pain. SKIN: No rash. NEURO: [No headache or focal numbness or weakness] PSYCH: [No depression] [facility] Past Medical History Medical History Anxiety Congenital anomaly of kidney Depression Surgical History Surgical History Encounter for IUD insertion Venecia insertion. No pertinent past surgical history Family History Family History Other Diabetes mellitus Social History Social History Social History: Surrogate medical decision maker: Melyssa Burch, mother. Code status: Full code. Smoking status: Former smoker Tobacco type: cigarettes Second hand tobacco smoke exposure: No Alcohol intake: never Living arrangements: with family Additional living arrangements comments: The patient lives with her fiance and children in [place]. Occupation/Education: unemployed Spiritual care concerns: No Exam Narrative: EXAMINATION OF ORGAN SYSTEMS/BODY AREAS: Constitutional: Vital signs per nursing GENERAL:[No acute distress, non-toxic appearing.] HEAD: Normal with no signs of head trauma. EYES: EOMI, conjunctiva normal ENT: Hearing grossly intact LUNGS: Nonlabored breathing. HEART: [Regular rate and rhythm] ABD: [Soft], [tender to palpation] L CVA EXT: Normal range of motion SKIN: [No rashes or lesions.] NEURO: [Alert and oriented x 3. No gross focal sensory or strength deficits.] PSYCH: Normal affect Course Vital Signs Vital signs: Vital Signs Temperature 100 F H 06/22/23 19:25 Pulse Rate 138 H 06/22/23 19:25 Respiratory Rate 20 06/22/23 19:25 Blood Pressure 106/66 06/22/23 19:25 Pulse Oximetry 98 06/22/23 19:25 Oxygen Delivery Room Air 06/22/23 19:25 Temperature 100 F H 06/22/23 19:25 Pulse Rate 113 H 06/22/23 22:05 Respiratory Rate 18 06/22/23 22:05 Blood Pressure 138/75 06/22/23 22:05 Pulse Oximetry 96 06/22/23 22:05 Oxygen Delivery Room Air 06/22/23 19:25 MDM - Female Genitourinary MDM Narrative Medical decision making narrative: 23 year-old patient presenting with suprapubic pain and urinary symptoms consistent with pyelonephritis versus possibly stone. Urinalysis is obtained and positive for signs of infection. Urine culture sent. [ test is negative.] Patient started on ceftriaxone given morphine here and IV fluids, on re-evaluation is appearing better within improved vital signs, however she states she is still having severe pain and she would like to be admitted and I feel this is reasonable especially because she has only has 1 kidney and does have leukocytosis and sepsis. Discussed with hospitalist will admit the pat ient. Lab Data 06/22/23 19:53 06/22/23 19:53 Labs: Lab Results 06/22/23 06/22/23 Range/Units 19:53 20:29 WBC 14.2 H (4.5-10.0) K/mm3 RBC 5.06 (4.2-5.4) M/mm3 Hgb 14.6 (12.0-15.0) g/dL Hct 43.5 (37.0-47.0) % MCV 86.0 (80-100) fl MCH 28.9 (26-34) pg MCHC 33.6 (32-36) g/dl RDW 12.9 (11.5-14.5) % Plt Count 301 (150-375) k/mm3 MPV 9.0 (7.4-10.4) fl Immature Gran % (Auto) 0.4 (0-0.5) % Neut % (Auto) 81.0 H (45.5-73.1) % Lymph % (Auto) 12.1 L (18.3-44.2) % [place] % (Auto) 6.2 (2.6-8.5) % Eos % (Auto) 0.1 (0-4.4) % Baso % (Auto) 0.2 (0.2-1.2) % Lymph # (Auto) 1.72 (0.9-3.2) K/mm3 [place]geman # (Auto) 0.9 H (0.1-0.6) K/mm3 Eos # (Auto) 0.0 (0-0.3) K/mm3 Baso # (Auto) 0.0 (0.0-0.1) K/mm3 Abs Immat Gran (auto) 0.05 H (0.00-0.031) K/mm3 Absolute Neuts (auto) 11.5 H (1.3-6.7) K/mm3 Absolute Nucleated RBC 0.000 (0.0-0.012) K/mm3 Nucleated RBC % 0.0 (0.0-0.2) % Sodium 132 L (137-145) mmol/L Potassium 3.3 L (3.4-5.0) mmol/L Chloride 98 (98-107) mmol/L Carbon Dioxide 23 (22-30) mmol/L Anion Gap 11 (4-12) mmol/L BUN 13 D (7-17) mg/dL Creatinine 1.40 H (0.7-1.0) mg/dL Estim Creat Clear Calc Not Reportable Estimated GFR 46 L (59 - ) Glucose 117 H (65-110) mg/dL Calcium 9.2 (8.4-10.2) mg/dL Total Bilirubin 1.3 (0.2-1.3) mg/dL AST 20 (14-36) U/L ALT 15 (6-35) U/L Alkaline Phosphatase 116 (38-126) U/L Total Protein 9.0 H (6.3-8.2) g/dL Albumin 4.6 (3.5-5.1) g/dL Urine Color Yellow (Yellow) Urine Appearance Cloudy H (Clear) Urine pH 6.5 (5.0-9.0) Ur Specific [place] 1.006 (1.001-1.035) Urine Protein 1+ H (Negative) mg/dL Urine Glucose (UA) Negative (Negative) mg/dL Urine Ketones Negative (Negative) mg/dL Ur Blood (Man) 1+ H (Negative) Urine Nitrate Negative (Negative) Urine Bilirubin Negative (Negative) Urine Urobilinogen 0.2 (<2.0) mg/dL Leukocyte Esterase Rfl 2+ H (Negative) CHRISTIAN/UL Urine RBC 0-2 (0-2) /hpf Urine WBC 51-100 H (0-3) /hpf Ur Squamous Epith Cells Few (Few) /hpf Urine Bacteria Rare /hpf Urine Casts 0-2 UCG Bedside Result Negative Reference Range: Negative Critical Care Time Critical Care Time Critical Care Time: Yes Total Critical Care Time: 31 Discharge Plan Discharge Clinical Impression: Pyelonephritis of left kidney, Sepsis Patient Disposition: Still a Patient Condition: Serious Instructions: Antibiotic Form Prescriptions: No Action cefdinir 300 mg capsule 300 mg PO Q12H Qty: 14 0RF cefdinir 300 mg capsule 300 mg PO Q12H 7 Days Qty: 14 0RF acetaminophen [Tylenol Extra Strength] 500 mg tablet 1,000 mg PO Q6H PRN (Reason: pain) Qty: 50 0RF Follow-up/Referrals: Brian Dela Cruz MD [Primary Care Provider] -
[2023-06-22 22:50] LABS: Lactic Acid Reflex 1.3 mmol/L (0.7-2.0)
[2023-06-22 22:57] VITALS: PULSE 100; RESP 16; O2SAT 95
[2023-06-22 23:08] LABS: Procalcitonin 0.9 ng/mL
--- NOTE | 2023-06-22 23:08 | ADMGEN ---
This patient, Radha Burch, was admitted to 2 Medical Room 240-. Patient/family oriented to hospital policies and general routines including ID bracelet, bed and alarms, visiting hours, pain management, procedures, bathroom and other care routines, personal items, smoking policy, room service/diet, and visiting hours. Information on how to activate the Rapid Response Team has been discussed. Patient/Family are encouraged to report perceived risks to care and to ask questions if they do not understand what they are told or what they should do.
[2023-06-22 23:11] VITALS: BMI 55.3
[2023-06-22 23:19] VITALS: BP 121/59; PULSE 93; RESP 18; TEMP 37.6; O2SAT 98; BMI 54.6
--- NOTE | 2023-06-23 03:22 | PM.IMHP ---
H&P: HPI History of Present Illness Date/Time: 06/23/23 03:22 Chief Complaint: left side and abdominal pain Narrative: 23-year-old female with a past medical history history of congenital unilateral functioning kidney (left), neurogenic bladder, morbid obesity, obstructive sleep apnea and anxiety who presented to the ER with left-sided flank pain similar to prior episodes of UTI. She reports that she began having some chills on the . 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 She reports that the pain is severe in intensity and is worse with movement. She has associated decreased appetite. She reports she has chronic neurogenic bladder so never has dysuria. She has noticed a significant increase in the volume of urine that she is passing at 1 time. She denies any foul-smelling urine or hematuria. She denies history of kidney stones. She sees Dr. Guido at [facility] for Urology. She has not seen him since around the time of her sons person 2020. She does practice post coital voiding. Review of Systems Review of Systems: 12 systems were reviewed with pertinent positives and negatives per HPI. Except as documented in the HPI, all other systems were reviewed and are negative. She occasionally has lower extremity swelling when she wears socks. She does not know overweight is changed because she does not weigh herself. She does have obstructive sleep apnea but failed to follow-up whenever there was difficulty with her CPAP being delivered in 2020. 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 Family History Family History Other Diabetes mellitus Social History Social History (Updated 06/23/23 @ 07:05 by Maddison Romero DO) Social History: She reports that she lives at home with her mother, vikram and her son (born 2020). 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 She is a lifelong nonsmoker and denies any significant alcohol use history. Surrogate medical decision maker: Melyssa Burch, mother. Code status: Full code. Smoking status: Never smoker Tobacco type: cigarettes Second hand tobacco smoke exposure: No Alcohol intake: never Substance use: never Substance use type: does not use Do You Feel Safe in your Home?: Yes Lack of Transportation: YES Lack of Food: Sometimes True Current Housing: I Have Housing Concerned About Future Housing: No Difficulty Paying Gas/Electric Bills: No Difficulty Paying for Meds: No Currently Unemployed: No Education: Grade School Difficulty w/ Childcare or Family Care: No Living arrangements: with family Additional living arrangements comments: She lives with her mother, vikram and child. 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 Spiritual care concerns: No Meds Home Medications and Allergies Home Medications Medication Instructions Recorded Confirmed Type No Home Medications 06/22/23 06/22/23 History Allergies Allergy/AdvReac Type Severity Reaction Status Date / Time Latex, Natural Rubber Allergy Mild Itching Verified 03/30/23 10:59 adhesive tape AdvReac Itching Verified 06/22/23 23:40 Vital Signs Vital Signs - 24 hr 06/22/23 19:25 06/22/23 22:05 06/22/23 22:57 Temperature 100 F H Pulse Rate 138 H 113 H 100 Respiratory Rate 20 18 16 Blood Pressure 106/66 138/75 Pulse Oximetry 98 96 95 Oxygen Delivery Room Air 06/22/23 23:11 06/22/23 23:19 Temperature 99.7 F H Pulse Rate 93 Respiratory Rate 18 Blood Pressure 121/59 L Pulse Oximetry 98 Oxygen Delivery Room Air Exam Narrative: Weight 118.7 kg BMI 54.7 Const: Other: Morbidly obese, mildly ill-appearing, lying in bed on her right side in semi-Rosario's position HENMT: Other: Mucous membranes are tacky, crowded posterior oropharynx, fair dentition, head is normocephalic atraumatic Eyes: Other: Pupils are equal and reactive, no scleral icterus Neck: Other: Large neck circumference, no JVD, supple Resp: Other: To auscultation bilaterally, no increased work of breathing Cardio: Other: Tachycardic, 2+ bilateral radial pedal pulses, no murmur GI: Other: Soft, nontender, nondistended, positive bowel sounds Back/Spine/Pelvis: Other: Left flank tenderness to percussion in the mid to lower flank Skin: Other: Hot to touch, mildly diaphoretic Neuro: Other: Alert oriented, moves select equally, no localizing neurologic deficits noted during the course conversation Extrem: Other: No edema, no cyanosis Psych: Other: Anxious, restless, cooperative H&P: Results Labs Labs: Short CBC 06/22/23 Range/Units 19:53 WBC 14.2 H (4.5-10.0) K/mm3 Hgb 14.6 (12.0-15.0) g/dL Hct 43.5 (37.0-47.0) % Plt Count 301 (150-375) k/mm3 BMP 06/22/23 19:53 Sodium 132 L Potassium 3.3 L Chloride 98 Carbon Dioxide 23 BUN 13 D Creatinine 1.40 H Glucose 117 H Calcium 9.2 Liver Function 06/22/23 Range/Units 19:53 Total Bilirubin 1.3 (0.2-1.3) mg/dL AST 20 (14-36) U/L ALT 15 (6-35) U/L Alkaline Phosphatase 116 (38-126) U/L Albumin 4.6 (3.5-5.1) g/dL Urine 06/22/23 Range/Units 20:29 Urine Color Yellow (Yellow) Urine Appearance Cloudy H (Clear) Urine pH 6.5 (5.0-9.0) Ur Specific [place] 1.006 (1.001-1.035) Urine Protein 1+ H (Negative) mg/dL Urine Glucose (UA) Negative (Negative) mg/dL Blood cultures pending, urine culture pending CT of the abdomen pelvis was performed and personally reviewed. Also reviewed the contrasted CT from patient's prior hospitalization in 2021. Given differences in technique imaging appeared stable. Impressions Abdomen/Pelvis CT 06/22/23 21:02 IMPRESSION: 1. Mild left hydronephrosis and hydroureter. 2. Severe right hydronephrosis. Severe right kidney atrophy. Assessment and Plan Assessment and plan (1) Pyelonephritis: Code(s): N12 - Tubulo-interstitial nephritis, not specified as acute or chronic Status: Acute (2) Sepsis: Qualifiers: Sepsis type: sepsis due to unspecified organism Sepsis acute organ dysfunction status: with acute organ dysfunction Severe sepsis acute organ dysfunction type: acute renal failure Acute renal failure type: unspecified Severe sepsis shock status: without septic shock Qualified Code(s): A41.9 - Sepsis, unspecified organism; R65.20 - Severe sepsis without septic shock; N17.9 - Acute kidney failure, unspecified Code(s): A41.9 - Sepsis, unspecified organism Status: Acute (3) Acute kidney injury: Code(s): N17.9 - Acute kidney failure, unspecified Status: Acute (4) Morbid obesity with BMI of 50.0-59.9, adult: Code(s): E66.01 - Morbid (severe) obesity due to excess calories; Z68.43 - Body mass index [BMI] 50.0-59.9, adult Status: Acute (5) Obstructive sleep apnea: Code(s): G47.33 - Obstructive sleep apnea (adult) (pediatric) Status: Acute (6) Anxiety: Code(s): F41.9 - Anxiety disorder, unspecified Status: Acute Plan Patient has sepsis with intractable flank pain due to pyelonephritis is complicated by history of unilateral functioning left kidney and neurogenic bladder. Blood cultures and urine cultures are pending. Patient is started on empiric antibiotic therapy with Rocephin. The last time patient had UTI and hospitalization for pyelonephritis she grew out E coli that was pansensitive (2021). She did have a negative urine culture in the intrum. The patient did receive 3 L of LR in the ER. Will continue IV fluid hydration with normal saline at her 50 mL an hour monitor strict I&O's. I have asked nursing staff to check postvoid residual given patient's history of neurogenic bladder. The patient reports that she does not straight catheterization at home and usually asked to urinate on a timed interval to avoid issues. Pain medications have been ordered with Tylenol, Ultram will and morphine. Patient was reporting pain out of proportion to exam. Tramadol has been ordered for pain level 4-10 with morphine to be given if breakthrough pain after tramadol use. Tylenol has been order for fever as needed. Will avoid NSAIDs given mild acute kidney injury. Will repeat electrolyte panel in a.m. and monitor strict I&O's. Patient would benefit from follow-up with primary care physician and likely repeat polysomnogram with initiation of CPAP therapy given her known history of obstructive sleep apnea. She would also benefit from diet lifestyle modification with significant weight loss. Attempted have provided reassurance the patient's that clinical course should not be is prolonged or protracted is her last hospital stay given she presented earlier in her disease process. I would like to avoid benzodiazepines or sedating medications given patient's body habitus and acute infection. Patient has been admitted as observation status.
[2023-06-23] MEDS: traMADol HCL (*CRX) 50 MG TABLET PO ×3 (05:11→18:52)
[2023-06-23] MEDS: SODIUM CHLORIDE 0.9% IV 1,000 ML 150 ML IV CONT ×3 (05:12→20:02)
[2023-06-23 05:13] LABS: Basophils Percent Auto 0.2 % (0.2-1.2); Hematocrit 39.8 % (37.0-47.0); Hemoglobin 12.5 g/dL (12.0-15.0); Immature Granulocyte Absolute 0.07 K/mm3 (0.00-0.031); Immature Granulocyte Percent A 0.6 % (0-0.5); Lymphocytes Absolute Auto 1.22 K/mm3 (0.9-3.2); Lymphocytes Percent Auto 9.8 % (18.3-44.2); Mean Corpuscular HGB Conc 31.4 g/dl (32-36); Mean Corpuscular Hemoglobin 28.9 pg (26-34); Mean Corpuscular Volume 91.9 fl (80-100); Mean Platelet Volume 9.5 fl (7.4-10.4); Monocytes Percent Auto 8.2 % (2.6-8.5); Neutrophils Absolute Auto 10.1 K/mm3 (1.3-6.7); Neutrophils Percent Auto 81.2 % (45.5-73.1); Platelet Count Result 239 k/mm3 (150-375); Red Blood Count 4.33 M/mm3 (4.2-5.4); Red Cell Distribution Width 12.8 % (11.5-14.5); White Blood Count 12.4 K/mm3 (4.5-10.0)
[2023-06-23 05:32] LABS: Anion Gap 10 mmol/L (4-12); Blood Urea Nitrogen 14 mg/dL (7-17); Calcium 8.6 mg/dL (8.4-10.2); Carbon Dioxide 22 mmol/L (22-30); Chloride 102 mmol/L (98-107); Estimated Glomerular Filt Rate > 60; Glucose 103 mg/dL (65-110); Potassium 3.6 mmol/L (3.4-5.0); Sodium 134 mmol/L (137-145)
[2023-06-23 06:00] VITALS: BP 118/62; PULSE 107; RESP 18; TEMP 38; O2SAT 96
[2023-06-23] MEDS: MORPHINE SULFATE (*CRX) 4 MG/ML INJ IV PUSH (09:46)
[2023-06-23] MEDS: ENOXAPARIN 40 MG/0.4 ML SYRINGE SUB-Q (09:48)
[2023-06-23 14:11] VITALS: BP 130/57; PULSE 113; RESP 28; TEMP 36.7; O2SAT 92
[2023-06-23 21:34] VITALS: BP 118/64; PULSE 100; RESP 16; TEMP 36.8; O2SAT 93
[2023-06-23] MEDS: ACETAMINOPHEN 325 MG TABLET 650 MG PO (23:30)
[2023-06-24] MEDS: traMADol HCL (*CRX) 50 MG TABLET PO ×3 (02:53→16:39)
[2023-06-24] MEDS: SODIUM CHLORIDE 0.9% IV 1,000 ML 150 ML IV CONT ×3 (02:53→20:06)
[2023-06-24 05:01] VITALS: BP 118/68; PULSE 117; RESP 15; TEMP 36.4; O2SAT 91
[2023-06-24 05:32] LABS: Basophils Percent Auto 0.3 % (0.2-1.2); Eosinophils Absolute Auto 0.1 K/mm3 (0-0.3); Eosinophils Percent Auto 0.7 % (0-4.4); Hematocrit 34.3 % (37.0-47.0); Hemoglobin 11.2 g/dL (12.0-15.0); Immature Granulocyte Absolute 0.07 K/mm3 (0.00-0.031); Immature Granulocyte Percent A 0.6 % (0-0.5); Lymphocytes Absolute Auto 1.89 K/mm3 (0.9-3.2); Lymphocytes Percent Auto 16.1 % (18.3-44.2); Mean Corpuscular HGB Conc 32.7 g/dl (32-36); Mean Corpuscular Hemoglobin 28.7 pg (26-34); Mean Corpuscular Volume 87.9 fl (80-100); Mean Platelet Volume 9.5 fl (7.4-10.4); Monocytes Absolute Auto 1.1 K/mm3 (0.1-0.6); Monocytes Percent Auto 9.2 % (2.6-8.5); Neutrophils Absolute Auto 8.6 K/mm3 (1.3-6.7); Neutrophils Percent Auto 73.1 % (45.5-73.1); Platelet Count Result 223 k/mm3 (150-375); Red Cell Distribution Width 13.2 % (11.5-14.5); White Blood Count 11.7 K/mm3 (4.5-10.0)
[2023-06-24 05:45] LABS: Anion Gap 9 mmol/L (4-12); Blood Urea Nitrogen 10 mg/dL (7-17); Calcium 7.8 mg/dL (8.4-10.2); Carbon Dioxide 19 mmol/L (22-30); Chloride 105 mmol/L (98-107); Estimated Glomerular Filt Rate 55; Glucose 112 mg/dL (65-110); Magnesium 1.9 mg/dL (1.6-2.3); Potassium 3.5 mmol/L (3.4-5.0); Sodium 133 mmol/L (137-145)
[2023-06-24] MEDS: ENOXAPARIN 40 MG/0.4 ML SYRINGE SUB-Q (09:01)
--- NOTE | 2023-06-24 09:19 | ECG_ITS ---
SEE SCANNED COPY FOR CONFIRMED REPORT MTDD
--- NOTE | 2023-06-24 09:23 | P.PNIM_ITS ---
Progress Note: A&P Assessment and Plan (1) Obstructive sleep apnea: Code(s): G47.33 - Obstructive sleep apnea (adult) (pediatric) Status: Acute (2) Morbid obesity with BMI of 50.0-59.9, adult: Code(s): E66.01 - Morbid (severe) obesity due to excess calories; Z68.43 - Body mass index [BMI] 50.0-59.9, adult Status: Acute (3) Acute kidney injury: Code(s): N17.9 - Acute kidney failure, unspecified Status: Acute (4) Sepsis: Qualifiers: Acute renal failure type: unspecified Sepsis acute organ dysfunction status: with acute organ dysfunction Sepsis type: sepsis due to unspecified organism Severe sepsis acute organ dysfunction type: acute renal failure Severe sepsis shock status: without septic shock Qualified Code(s): A41.9 - Sepsis, unspecified organism; R65.20 - Severe sepsis without septic shock; N17.9 - Acute kidney failure, unspecified Code(s): A41.9 - Sepsis, unspecified organism Status: Acute (5) Anxiety: Code(s): F41.9 - Anxiety disorder, unspecified Status: Acute (6) Pyelonephritis: Code(s): N12 - Tubulo-interstitial nephritis, not specified as acute or chronic Status: Acute Plan Miss Burch is a 23-year-old female with past medical history morbid obesity, history of congenital unilateral functioning left kidney, neurogenic bladder (follows Dr. Guido at [facility]), obstructive sleep apnea not on CPAP, anxiety presenting to [place] ER with left-sided flank pain similar to prior episodes of UTI. She began having chills on the and vomited on the subsequently developing left-sided flank pain and abdominal pain. Associated symptom of decreased appetite. Admitted on 06/22 for further workup and treatment. Sepsis without shock -leukocytosis resolving. Continue to trend. -admission blood culture on 06/21 growing 1 bottle Gram-negative bacilli. Repeat blood cultures on 06/23 -continue normal saline at 150 cc/hour. She is not eating well and had a mild temperature last night. Complicated urinary tract infection -E coli pansensitive in 2021. -ceftriaxone increased from 1 g to 2 g on 06/23 due to possible bacteremia -continue awaiting culture and sensitivity for urine culture and blood cultures/repeat blood cultures -continue acetaminophen, tramadol, morphine. Abdominal pain better today -complaining of nausea. Start Zofran. Check QTC Nephrolithiasis 10 mm nonobstructing in the right kidney/bilateral hydronephrosis R>L/neurogenic bladder -in the setting of neurogenic bladder and the abdominal CT findings, will consult Urology. She follows with Dr. Guido at [facility] and reports she does not self catheterization at home, instead practicing interval voiding. TODD -possibly some CKD although we will continue to monitor. Serum creatinine 1.4 o n admission now down to 1.2. LINNETTE -reports she never obtained CPAP after sleep study. Patient has been advised to follow up as an outpatient to obtain a CPAP and has been advised to follow therapeutic recommendations. FEN: Normal saline at 150 cc per hour. Regular diet GI prophylaxis: DVT prophylaxis: Lovenox 40 mg subQ daily Lines: Peripheral IV Code Status: Full code Dispo: Stable. Place telemetry due to possible bacteremia Subjective Date/time seen: 06/24/23 09:23 Interval history: Patient reporting chills as well as nausea. She reports improved abdominal pain. Review of Systems Review of Systems: Subjective Exam Const: General: comfortable and no acute distress Other: Slightly anxious feeling ill. HENMT: Mouth: Yes moist mucous membranes Eyes: Pupils: Equal, round and reactive pupils present Neck: Neck: supple Resp: Effort & Inspection: normal respiratory effort Auscultation: clear to auscultation bilaterally Cardio: Rate: regular rate Rhythm: regular rhythm GI: Inspection: non-distended GI Palp: Yes Soft to palpation, No Tenderness to palpation present (GI) and No Guarding due to palpation present (GI) Auscultation: normal bowel sounds : Bimanual exam- vagina & uterus: bladder normal to palpation Extrem: General: no edema Objective Data Vital Signs Vital Signs: Vital Signs - 24 hr 06/23/23 09:50 06/23/23 14:11 06/23/23 20:00 Temperature 98.1 F Pulse Rate 113 H Respiratory Rate 28 H Blood Pressure 130/57 L Pulse Oximetry 92 Oxygen Delivery Room Air Room Air 06/23/23 21:34 06/24/23 05:01 Temperature 98.3 F 97.6 F Pulse Rate 100 117 H Respiratory Rate 16 15 Blood Pressure 118/64 118/68 Pulse Oximetry 93 91 Oxygen Delivery Intake/Output Intake/Output: Intake & Output 06/21/23 06/22/23 06/23/23 06/24/23 23:59 23:59 23:59 23:59 Intake Total 3050 3870 1989 Output Total 1100 1100 Balance 3050 2770 890 Meds/Results Medications: Active Medications Generic Name Dose Route Start Last Admin Trade Name Freq PRN Reason Stop Dose Admin Acetaminophen 650 mg 06/22/23 21:56 06/23/23 23:30 Acetaminophen 325 Mg Tablet PO 650 mg Q4H PRN Administration Mild Pain (1-3) or Fever Enoxaparin Sodium 40 mg 06/23/23 09:00 06/24/23 09:01 Enoxaparin 40 Mg/0.4 Ml Syringe SUB-Q 40 mg DAILY LIBORIO Administration Sodium Chloride 1,000 mls @ 150 mls/hr 06/23/23 05:00 06/24/23 02:53 Normal Saline Iv IV CONT 150 mls/hr .Q6H40M LIBORIO Administration Ceftriaxone Sodium 0.75 gm/ 50 mls @ 100 mls/hr 06/24/23 09:20 Dextrose IVPB 06/24/23 09:49 ONCE STA Ceftriaxone Sodium 2 gm in 100 mls @ 200 mls/hr 06/24/23 21:00 Rocephin 2 Gm/Ns 100 Ml IVPB Q24H LIBORIO Morphine Sulfate 4 mg 06/22/23 21:56 06/23/23 09:46 Morphine Sulfate (*Crx) 4 Mg/Ml Inj IV PUSH 4 mg Q4H PRN Administration Breakthrough Pain Ondansetron HCl 4 mg 06/24/23 09:21 Ondansetron Inj 4 Mg/2 Ml Vial IV PUSH Q4H PRN Nausea And Vomiting Tramadol HCl 50 mg 06/22/23 21:57 06/24/23 09:01 Tramadol Hcl (*Crx) 50 Mg Tablet PO 50 mg Q6H PRN Administration Pain Rated 4-10 Radiology Results: ITS Impressions Abdomen/Pelvis CT 06/22/23 21:02 IMPRESSION: 1. Mild left hydronephrosis and hydroureter. 2. Severe right hydronephrosis. Severe right kidney atrophy. Labs Labs: Laboratory Results - last 24 hr 06/24/23 05:06 WBC 11.7 H RBC 3.90 L Hgb 11.2 L Hct 34.3 L MCV 87.9 MCH 28.7 MCHC 32.7 RDW 13.2 Plt Count 223 MPV 9.5 Immature Gran % (Auto) 0.6 H Neut % (Auto) 73.1 Lymph % (Auto) 16.1 L [place] % (Auto) 9.2 H Eos % (Auto) 0.7 Baso % (Auto) 0.3 Lymph # (Auto) 1.89 [place] # (Auto) 1.1 H Eos # (Auto) 0.1 Baso # (Auto) 0.0 Abs Immat Gran (auto) 0.07 H Absolute Neuts (auto) 8.6 H Absolute Nucleated RBC 0.000 Nucleated RBC % 0.0 Sodium 133 L Potassium 3.5 Chloride 105 Carbon Dioxide 19 L Anion Gap 9 BUN 10 Creatinine 1.20 H Estim Creat Clear Calc Not Reportable Estimated GFR 55 L Glucose 112 H Calcium 7.8 L Magnesium 1.9
[2023-06-24] MEDS: ACETAMINOPHEN 325 MG TABLET 650 MG PO ×2 (10:10→20:05)
--- NOTE | 2023-06-24 11:06 | WPDURCON ---
Assessment and Plan Assessment and plan (1) Pyelonephritis of left kidney: Code(s): N12 - Tubulo-interstitial nephritis, not specified as acute or chronic Status: Acute Assessment and Plan: Cultures still pending. Continue with broad-spectrum antibiotics and sensitivities. Patient had been emptying her bladder well enough. Does not require catheterization at this point time. No other intervention urologically planned at this time. If renal function worsens then will need reimaging to determine if a stent is indicated. (2) Sepsis: Qualifiers: Acute renal failure type: unspecified Sepsis acute organ dysfunction status: with acute organ dysfunction Sepsis type: sepsis due to unspecified organism Severe sepsis acute organ dysfunction type: acute renal failure Severe sepsis shock status: without septic shock Qualified Code(s): A41.9 - Sepsis, unspecified organism; R65.20 - Severe sepsis without septic shock; N17.9 - Acute kidney failure, unspecified Code(s): A41.9 - Sepsis, unspecified organism Status: Acute Assessment and Plan: See above Urology Consult Note HPI Date Seen: 06/24/23 Time Seen: 11:06 Requesting Physician: Maddison Romero DO Primary Care Provider: Brian Dela Cruz MD Consult Narrative Narrative: Radha Burch is a 23 year old female who had a urologist over at [facility] in the past. She states she has essentially a solitary functioning left kidney as the right kidney is atrophic. She also states that she has had difficulty emptying her bladder but does not catheterize. See essentially gets up 6-8 times at night and voids every hour to empty her bladder effectively. A bladder scan was done straight with a residual about 30 cc. She was admitted with fever chills and some left flank pain. Her diagnosis is been pyelonephritis. Her blood cultures to date are positive with some Gram-negative bacilli. Her white count has improved down to 11,000 today. Creatinine has improved from 1.4-1.2. CT scan revealed some mild hydroureter. She does have a stone in her right nonfunctioning kidney measuring 10-12 mm. 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 Family History Family History Other Diabetes mellitus Social History Social History Social History: She reports that she lives at home with her mother, vikram and her son (born 2020). 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 She is a lifelong nonsmoker and denies any significant alcohol use history. Surrogate medical decision maker: Melyssa Burch, mother. Code status: Full code. Smoking status: Never smoker Tobacco type: cigarettes Second hand tobacco smoke exposure: No Alcohol intake: never Substance use: never Substance use type: does not use Do You Feel Safe in your Home?: Yes Lack of Transportation: YES Lack of Food: Sometimes True Current Housing: I Have Housing Concerned About Future Housing: No Difficulty Paying Gas/Electric Bills: No Difficulty Paying for Meds: No Currently Unemployed: No Education: Grade School Difficulty w/ Childcare or Family Care: No Living arrangements: with family Additional living arrangements comments: She lives with her mother, vikram and child. 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 Spiritual care concerns: No Meds Home Medications and Allergies Home Medications Medication Instructions Recorded Confirmed Type No Home Medications 06/22/23 06/22/23 History Allergies Allergy/AdvReac Type Severity Reaction Status Date / Time Latex, Natural Rubber Allergy Mild Itching Verified 03/30/23 10:59 adhesive tape AdvReac Itching Verified 06/22/23 23:40 Vital Signs Vital Signs - 24 hr 06/23/23 14:11 06/23/23 20:00 06/23/23 21:34 Temperature 36.7 C 36.8 C Pulse Rate 113 H 100 Respiratory Rate 28 H 16 Blood Pressure 130/57 L 118/64 Pulse Oximetry 92 93 Oxygen Delivery Room Air 04/16/24 05:01 06/24/23 09:40 Temperature 36.4 C Pulse Rate 117 H Respiratory Rate 15 Blood Pressure 118/68 Pulse Oximetry 91 Oxygen Delivery Room Air Exam Const: General: cooperative and tired appearing Resp: Effort & Inspection: normal respiratory effort Cardio: Rate: regular rate Results Labs 06/24/23 05:06 06/24/23 05:06 Labs: Short CBC 06/24/23 Range/Units 05:06 WBC 11.7 H (4.5-10.0) K/mm3 Hgb 11.2 L (12.0-15.0) g/dL Hct 34.3 L (37.0-47.0) % Plt Count 223 (150-375) k/mm3 [facility] 06/24/23 05:06 Sodium 133 L Potassium 3.5 Chloride 105 Carbon Dioxide 19 L BUN 10 Creatinine 1.20 H Glucose 112 H Calcium 7.8 L
[2023-06-24 12:00] VITALS: PULSE 114
[2023-06-24 14:28] VITALS: BP 118/70; PULSE 107; RESP 20; TEMP 37.6; O2SAT 93
--- NOTE | 2023-06-24 14:33 | PCCCNOTE ---
On 06/24/23, the student, [Diana Castillo], provided care and completed [facility] documentation on this patient. I have reviewed the student's documentation and agree with the findings.
[2023-06-24 16:00] VITALS: PULSE 109
[2023-06-24] MEDS: ONDANSETRON INJ 4 MG/2 ML VIAL IV PUSH (16:54)
--- NOTE | 2023-06-24 19:42 | ECG_ITS ---
SEE SCANNED COPY FOR CONFIRMED REPORT. MTDD
[2023-06-24 20:00] VITALS: PULSE 104; O2SAT 93
[2023-06-24] MEDS: cefTRIAXone 2 GM/NS 100 ML 2 GM/100 ML BAG IVPB (20:05)
[2023-06-24 20:42] LABS: Troponin I 0.348 ng/mL (0.000-0.034)
[2023-06-24 20:44] VITALS: BP 113/93; PULSE 103; RESP 18; TEMP 37.9; O2SAT 95
--- NOTE | 2023-06-24 20:48 | PC.NURSE ---
Labs reviewed with provider; unclear as to why test was ordered as a 6 hour troponin as no other orders or results reported. Lianne will review patient chart.
--- NOTE | 2023-06-24 21:20 | ECG_ITS ---
SEE SCANNED COPY FOR CONFIRMED REPORT MTDD
[2023-06-24] MEDS: ASPIRIN 81 MG CHEWABLE TABLET 324 MG PO (22:11)
[2023-06-24] MEDS: HEPARIN SODIUM 5,000 UNITS/ML VIAL 4000 UNITS SUB-Q (22:25)
[2023-06-24] MEDS: HEPARIN SOD/D5W 100 UNITS/ML 25,000 UNITS/250 ML BAG 9 UNITS IV CONT (22:30)
--- NOTE | 2023-06-24 22:31 | PM.EVENT ---
Event Note Event Note Event Note: 06/24/2023 21:30 I received a call from the patient's nurse who reported a critical troponin of 0.348. Chart was reviewed. She was admitted with sepsis due to a complicated urinary tract infection and acute kidney injury. She had apparently been can complaining of intermittent, vague chest discomfort today. EKG from earlier was reviewed and showed T-wave inversion in lead 3 and V3 through V5. She was without chest pain at the time I spoke with the nurse. Chart was reviewed and discussed with the attending hospitalist. She will be given aspirin 324 mg x 1 and she has also been started on a heparin drip. Patient transferred to the IMU where troponins will be trended. Cardiology has been consulted. D-dimer also ordered and if positive she will need a V/Q scan to rule out PE.
[2023-06-24 23:24] LABS: Basophils Percent Auto 0.2 % (0.2-1.2); Eosinophils Percent Auto 0.5 % (0-4.4); Hematocrit 31.5 % (37.0-47.0); Hemoglobin 10.2 g/dL (12.0-15.0); Immature Granulocyte Absolute 0.04 K/mm3 (0.00-0.031); Immature Granulocyte Percent A 0.5 % (0-0.5); Lymphocytes Absolute Auto 2.57 K/mm3 (0.9-3.2); Lymphocytes Percent Auto 29.7 % (18.3-44.2); Mean Corpuscular HGB Conc 32.4 g/dl (32-36); Mean Corpuscular Hemoglobin 29.1 pg (26-34); Mean Corpuscular Volume 89.7 fl (80-100); Mean Platelet Volume 9.6 fl (7.4-10.4); Monocytes Absolute Auto 0.8 K/mm3 (0.1-0.6); Monocytes Percent Auto 9.7 % (2.6-8.5); Neutrophils Absolute Auto 5.2 K/mm3 (1.3-6.7); Neutrophils Percent Auto 59.4 % (45.5-73.1); Platelet Count Result 198 k/mm3 (150-375); Red Blood Count 3.51 M/mm3 (4.2-5.4); Red Cell Distribution Width 13.3 % (11.5-14.5); White Blood Count 8.7 K/mm3 (4.5-10.0)
[2023-06-24 23:34] LABS: INR 1.1; Prothrombin Time 15.1 Seconds (11.1-14.7)
[2023-06-24 23:35] LABS: Partial Thromboplastin Time 47.1 Seconds (22.3-36.8)
[2023-06-24 23:48] LABS: D Dimer 2.92 ug/mL (<0.48)
[2023-06-24 23:50] LABS: Troponin I 0.316 ng/mL (0.000-0.034)
[2023-06-25] VITALS (16 sets, daily range): BP systolic 97–129; BP diastolic 55–88; PULSE 96–109; RESP 18–27; TEMP 36.4–37.3; O2SAT 91–99
--- NOTE | 2023-06-25 | ECHO_ITS ---
Patient Info Name: Radha Burch Age: 23 years : 2000 Gender: Female Ht: 59 in Wt: 261 lbs BSA: 2.30 m2 HR: 107 bpm BP: 129 / 78 mmHg Heart Rhythm: Sinus Rhythm Technical Quality: Fair Exam Date: 06/25/2023 12:37 PM Exam Location: Echo Lab Patient Status: Inpatient Admit Date: 06/24/2023 Staff Ordering Physician: Kory Brown MD Rod Machine Operator: Elizabeth Urbina RDCS Attending Provider: Maddison Romero DO Referring Physician: Kevin SANTANA; Exam Type: CA echo dop color flow w con Study Info Indications - elevated troponin, cp Complete two-dimensional, color flow and Doppler transthoracic echocardiogram is performed with contrast to opacify the left ventricle and to improve the deliniation of the left ventricle endocardial borders. Contrast/Agitated Saline Contrast/Ag. Saline: Definity Amount: 2.00 ml Administered By: Elizabeth Urbina RDCS Existing IV Access: Yes IV Access Condition: patent with no signs of infiltration Summary 1. Left ventricular chamber dimension is normal. 2. Left ventricular systolic function is normal, estimated at 60-65%. 3. There is no increased left ventricular wall thickness. 4. The left ventricular diastolic function is normal. 5. Right ventricular chamber dimension is mildly enlarged. 6. Right ventricular systolic function is reduced. 7. There is mild tricuspid valve regurgitation. 8. Mild pulmonary hypertension, estimated pulmonary arterial systolic pressure is 41 mmHg. Left Ventricle Left ventricular chamber dimension is normal. Left ventricular systolic function is normal, estimated at 60-65%. There is no increased left ventricular wall thickness. The left ventricular diastolic function is normal. Right Ventricle Right ventricular chamber dimension is mildly enlarged. Right ventricular systolic function is reduced. Left Atria Left atrial chamber dimension is normal. Right Atria Right atrial chamber dimension is normal. Atrial Septum Intact interatrial septum visualized by color flow imaging. Aortic Valve The aortic valve is probable trileaflet. There is mild aortic valve sclerosis. There is no aortic valve stenosis. There is trace aortic valve regurgitation. Pulmonic Valve The pulmonic valve is normal. There is no pulmonic valve stenosis. There is trace pulmonic regurgitation. Mitral Valve The mitral valve has normal leaflets. There is no mitral valve stenosis. There is trace mitral valve regurgitation. Tricuspid Valve The tricuspid valve leaflets are normal. There is no significant tricuspid valve stenosis. There is mild tricuspid valve regurgitation. Mild pulmonary hypertension, estimated pulmonary arterial systolic pressure is 41 mmHg. Pericardium/Pleural The pericardium appears normal. There is trivial pericardial effusion. Inferior Vena Cava Normal inferior vena cava with >50% collapse upon inspiration consistent with normal right atrial pressure, 10 mmHg. Aorta The aortic root size at the sinus of Valsalva is normal. The prox ascending aorta size is normal. Left Ventricular Outflow Tract Name Value Normal LVOT 2D LVOT Diameter 1.93 cm LVOT Doppler LVOT Peak Gradient 3 mmHg LVOT Mean Gradient 1 mmHg LVOT VTI 10.77 cm LVOT VTI/AV VTI Ratio 0.63 LVOT Stroke Volume 31.56 ml LVOT CO 3.36 l/min LVOT CI 1.46 L/min/m2 Pulmonic Valve Name Value Normal RVOT Doppler RVOT Peak Gradient 1 mmHg PV Doppler PV Peak Gradient 3 mmHg Mitral Valve Name Value Normal MV Doppler MV Decel [place] 497.93 cm/s2 MV PHT 0 s MV Area (PHT) 4.53 cm2 4.00-5.00 MV Diastolic Function MV E Peak Velocity 83.35 cm/s MV A Peak Velocity 54.26 cm/s MV E/A 1.54 MV Decel Time 0 s MV Annular TDI MV E/e' (Septal) 7.83 <=8.00 MV E/e' (Lateral) 6.28 <=8.00 MV E/e' (Average) 7.05 Tricuspid Valve Name Value Normal TV Regurgitation Doppler TR Peak Velocity 276.98 cm/s TR Peak Gradient 31 mmHg Estimated PAP/RSVP RA Pressure 10 mmHg <=5 PA Systolic Pressure 41 mmHg <36 RV Systolic Pressure 41 mmHg <36 Aorta Name Value Normal Ascending Aorta Ao Root Diameter (MM) 2.88 cm Ao Root Diam Index (MM) 1.25 cm/m2 Aortic Valve Name Value Normal AV Doppler AV Peak Velocity 120.71 cm/s AV Peak Gradient 6 mmHg AV Mean Gradient 3 mmHg AV VTI 17.19 cm AV Area (Cont Eq VTI) 1.84 cm2 >=3.00 AV Area (Cont Eq Rogelio) 1.95 cm2 AV Regurgitation 2D LVOT Area 2.93 cm2 Ventricles Name Value Normal LV Dimensions 2D/MM IVS Diastolic Thickness (2D) 0.91 cm 0.60-1.00 LVID Diastole (2D) 4.67 cm 3.80-5.20 LVIW Diastolic Thickness (2D) 0.87 cm 0.60-0.90 LVID Systole (2D) 3.14 cm 2.20-3.50 LVOT Diameter 1.93 cm LV Mass (2D Cubed) 138.80 g 67.00-162.00 LV Mass Index (2D Cubed) 0.01 g/cm2 0.00-0.01 Relative Wall Thickness (2D) 0.37 LV Fractional Shortening/Ejection Fraction 2D/MM LV Fractional Shortening (2D) 33 % 27-45 LV EF (2D Teicholz) 61 % 54-74 LV Diastolic Volume (4C MOD) 41.80 ml LV EF (4C MOD) 59 % LV Diastolic Volume (2C MOD) 35.00 ml LV EF (2C MOD) 66 % LV Diastolic Volume (BP MOD) 39.52 ml 46.00-106.00 LV Diastolic Volume Index (BP MOD) 0.02 l/m2 0.03-0.06 LV Systolic Volume (BP MOD) 14.63 ml 14.00-42.00 LV Systolic Volume Index (BP MOD) 0.01 l/m2 0.01-0.02 LV EF (BP MOD) 63 % 54-74 LV Diastolic Length (4C) 6.03 cm LV Systolic Length (4C) 5.38 cm LV Stroke Volume (4C MOD) 24.85 ml Atria Name Value Normal LA Dimensions LA Dimension (MM) 3.73 cm 2.70-3.80 LA Volume (4C A-L) 26.85 ml LA Volume (BP A-L) 30.91 ml RA Dimensions RA Area (4C) 12.46 cm2 <=18.00 Report Signatures
--- NOTE | 2023-06-25 00:31 | PC.NURSE ---
Patient transferred to IMU per bed. Report to ALLAN Hampton.
--- NOTE | 2023-06-25 01:59 | PC.NURSE ---
This patient, Radha Burch, was received from [facility] on 06/25/23 at 0031. Patient/family oriented to unit policies and routines
[2023-06-25] MEDS: SODIUM CHLORIDE 0.9% IV 1,000 ML 150 ML IV CONT ×3 (03:06→17:41)
[2023-06-25 03:27] LABS: Troponin I 0.244 ng/mL (0.000-0.034)
[2023-06-25 04:51] LABS: Basophils Percent Auto 0.3 % (0.2-1.2); Eosinophils Percent Auto 0.5 % (0-4.4); Hematocrit 31.5 % (37.0-47.0); Hemoglobin 9.9 g/dL (12.0-15.0); Immature Granulocyte Absolute 0.03 K/mm3 (0.00-0.031); Immature Granulocyte Percent A 0.4 % (0-0.5); Lymphocytes Absolute Auto 1.97 K/mm3 (0.9-3.2); Lymphocytes Percent Auto 25.3 % (18.3-44.2); Mean Corpuscular HGB Conc 31.4 g/dl (32-36); Mean Corpuscular Hemoglobin 28.3 pg (26-34); Mean Platelet Volume 9.8 fl (7.4-10.4); Monocytes Absolute Auto 0.8 K/mm3 (0.1-0.6); Monocytes Percent Auto 9.9 % (2.6-8.5); Neutrophils Percent Auto 63.6 % (45.5-73.1); Platelet Count Result 228 k/mm3 (150-375); Red Cell Distribution Width 13.3 % (11.5-14.5); White Blood Count 7.8 K/mm3 (4.5-10.0)
[2023-06-25 05:02] LABS: Partial Thromboplastin Time 51.1 Seconds (22.3-36.8)
[2023-06-25 05:03] LABS: Anion Gap 9 mmol/L (4-12); Blood Urea Nitrogen 11 mg/dL (7-17); Calcium 7.9 mg/dL (8.4-10.2); Carbon Dioxide 19 mmol/L (22-30); Chloride 106 mmol/L (98-107); Estimated Glomerular Filt Rate > 60; Glucose 102 mg/dL (65-110); Magnesium 2.2 mg/dL (1.6-2.3); Potassium 3.5 mmol/L (3.4-5.0); Sodium 134 mmol/L (137-145)
[2023-06-25] MEDS: HEPARIN SODIUM 5,000 UNITS/ML VIAL 4000 UNITS IV PUSH (05:38)
[2023-06-25 08:50] LABS: Procalcitonin 0.7 ng/mL
--- NOTE | 2023-06-25 10:56 | P.PNIM_ITS ---
Progress Note: A&P Assessment and Plan (1) Obstructive sleep apnea: Code(s): G47.33 - Obstructive sleep apnea (adult) (pediatric) Status: Acute (2) Morbid obesity with BMI of 50.0-59.9, adult: Code(s): E66.01 - Morbid (severe) obesity due to excess calories; Z68.43 - Body mass index [BMI] 50.0-59.9, adult Status: Acute (3) Acute kidney injury: Code(s): N17.9 - Acute kidney failure, unspecified Status: Acute (4) Sepsis: Qualifiers: Acute renal failure type: unspecified Sepsis acute organ dysfunction status: with acute organ dysfunction Sepsis type: sepsis due to unspecified organism Severe sepsis acute organ dysfunction type: acute renal failure Severe sepsis shock status: without septic shock Qualified Code(s): A41.9 - Sepsis, unspecified organism; R65.20 - Severe sepsis without septic shock; N17.9 - Acute kidney failure, unspecified Code(s): A41.9 - Sepsis, unspecified organism Status: Acute (5) Anxiety: Code(s): F41.9 - Anxiety disorder, unspecified Status: Acute (6) Pyelonephritis: Code(s): N12 - Tubulo-interstitial nephritis, not specified as acute or chronic Status: Acute Plan Miss Burch is a 23-year-old female with past medical history morbid obesity, history of congenital unilateral functioning left kidney, neurogenic bladder (follows Dr. Guido at [facility]), obstructive sleep apnea not on CPAP, anxiety presenting to [facility] with left-sided flank pain similar to prior episodes of UTI. She began having chills on the and vomited on the subsequently developing left-sided flank pain and abdominal pain. Associated symptom of decreased appetite. Admitted on 06/22 for further workup and treatment. Sepsis without shock -leukocytosis resolving. Continue to trend. -admission blood culture on 06/21 growing 1 bottle E coli i. Repeat blood cultures on 06/23 -continue normal saline at 150 cc/hour. She is not eating well and had a mild temperature last night. Blood pressure soft 06/24: Repeat blood culture on June 23, no growth so better so far urine culture grew E coli, susceptible to ceftriaxone Complicated urinary tract infection -E coli pansensitive in 2021. -ceftriaxone increased from 1 g to 2 g on 06/23 due to possible bacteremia -continue awaiting culture and sensitivity for urine culture and blood cultures/repeat blood cultures -continue acetaminophen, tramadol, morphine. Abdominal pain better today -complaining of nausea. Start Zofran. Check QTC Nephrolithiasis 10 mm nonobstructing in the right kidney/bilateral hydronephrosis R>L/neurogenic bladder -in the setting of neurogenic bladder and the abdominal CT findings, will consult Urology. She follows with Dr. Guido at [facility] and reports she does not self catheterization at home, instead practicing interval voiding. 06/24: Patient urologist consultation, no other intervention urologically planned at this time TODD -possibly some CKD although we will continue to monitor. Serum creatinine 1.4 on admission now down to 1.2. LINNETET -reports she never obtained CPAP after sleep study. Patient has been advised to follow up as an outpatient to obtain a CPAP and has been advised to follow therapeutic recommendations. FEN: Normal saline at 150 cc per hour. Regular diet GI prophylaxis: DVT prophylaxis: Lovenox 40 mg subQ daily Lines: Peripheral IV Code Status: Full code Dispo: Stable. Place telemetry due to possible bacteremia Subjective Date/time seen: 06/25/23 10:56 Interval history: patient has low-grade fever, blood pressure soft, labs reviewed, leukocytosis resolved, hemoglobin trending down, BUN creatinine normal. Patient still has low back pain, urinary frequency, denies headache, nausea vomiting, chest pain, shortness breast. Exam Narrative: GENERAL: Pleasant, in no acute distress. Well-nourished. - EYES: EOMI. Anicteric. - HENT: Moist mucous membranes. - LUNGS: Clear to auscultation bilateral ly, no wheezing, rhonchi, or rales. - CARDIOVASCULAR: Regular rate and rhyth m. No murmur. No JVD. - ABDOMEN: Soft, non-tender and non-dist ended. No palpable masses. - EXTREMITIES: No edema. Peripheral puls es 2+. Non-tender. - NEUROLOGIC: No focal neurological defi cits. CN II-XII grossly intact. - PSYCHIATRIC: Awake, Alert and oriented x 3. Appropriate mood and affect. - SKIN: No rashes or lesions. Warm. - LYMPH: No cervical lymphadenopathy. Objective Data Vital Signs Vital Signs: Vital Signs - 24 hr 06/24/23 12:00 06/24/23 14:28 06/24/23 16:00 Temperature 99.6 F Pulse Rate 114 H 107 H 109 H Respiratory Rate 20 Blood Pressure 118/70 Pulse Oximetry 93 Oxygen Delivery 06/24/23 20:00 06/24/23 20:00 06/24/23 20:44 Temperature 100.3 F H Pulse Rate 104 H 104 H 103 H Respiratory Rate 18 Blood Pressure 113/93 H Pulse Oximetry 93 95 Oxygen Delivery Room Air 06/25/23 00:00 06/25/23 00:25 06/25/23 00:40 Temperature 99 F Pulse Rate 108 H 104 H Respiratory Rate 26 H Blood Pressure 100/62 Pulse Oximetry 95 Oxygen Delivery Room Air 06/25/23 04:00 06/25/23 04:00 06/25/23 04:00 Temperature 97.8 F Pulse Rate 107 H 109 H Respiratory Rate 20 Blood Pressure 111/71 Pulse Oximetry 96 Oxygen Delivery Room Air 06/25/23 08:15 06/25/23 08:04 06/25/23 08:00 Temperature 99.2 F Pulse Rate 107 H 103 H Respiratory Rate 27 H Blood Pressure 97/65 L Pulse Oximetry 94 91 Oxygen Delivery Room Air 06/25/23 08:00 Temperature Pulse Rate Respiratory Rate Blood Pressure Pulse Oximetry Oxygen Delivery Room Air Intake/Output Intake/Output: Intake & Output 06/22/23 06/23/23 06/24/23 06/25/23 23:59 23:59 23:59 23:59 Intake Total 3050 3870 5740 1064.2 Output Total 1100 2600 200 Balance 3050 2770 3140 864.2 Meds/Results Medications: Active Medications Generic Name Dose Route Start Last Admin Trade Name Freq PRN Reason Stop Dose Admin Acetaminophen 650 mg 06/22/23 21:56 06/24/23 20:05 Acetaminophen 325 Mg Tablet PO 650 mg Q4H PRN Administration Mild Pain (1-3) or Fever Heparin Sodium (Porcine) 4,000 units 06/24/23 21:23 06/25/23 05:38 Heparin Sodium 5,000 Units/Ml Vial IV PUSH 4,000 units PRN PRN Administration aPTT less than 55 seconds Heparin Sodium (Porcine) 3,000 units 06/24/23 21:23 Heparin Sodium 5,000 Units/Ml Vial IV PUSH PRN PRN aPTT 55 - 70 seconds Sodium Chloride 1,000 mls @ 150 mls/hr 06/23/23 05:00 06/25/23 03:06 Normal Saline Iv IV CONT 150 mls/hr .Q6H40M LIBORIO Administration Ceftriaxone Sodium 2 gm in 100 mls @ 200 mls/hr 06/24/23 21:00 06/24/23 20:35 Rocephin 2 Gm/Ns 100 Ml IVPB Infused Q24H ILBORIO Infusion Heparin Sodium/Dextrose 25,000 units in 250 mls @ 12 mls/hr 06/24/23 21:25 06/25/23 05:38 Heparin Sodium/D5w 100 Units/Ml IV CONT 1,200 units/hr .[id number] LIBORIO 12 mls/hr Titration Protocol 1,200 UNITS/HR Morphine Sulfate 4 mg 06/22/23 21:56 06/23/23 09:46 Morphine Sulfate (*Crx) 4 Mg/Ml Inj IV PUSH 4 mg Q4H PRN Administration Breakthrough Pain Ondansetron HCl 4 mg 06/24/23 09:21 06/24/23 16:54 Ondansetron Inj 4 Mg/2 Ml Vial IV PUSH 4 mg Q4H PRN Administration Nausea And Vomiting Tramadol HCl 50 mg 06/22/23 21:57 06/24/23 16:39 Tramadol Hcl (*Crx) 50 Mg Tablet PO 50 mg Q6H PRN Administration Pain Rated 4-10 Radiology Results: ITS Impressions Abdomen/Pelvis CT 06/22/23 21:02 IMPRESSION: 1. Mild left hydronephrosis and hydroureter. 2. Severe right hydronephrosis. Severe right kidney atrophy. Labs Labs: Laboratory Results - last 24 hr 06/24/23 06/24/23 06/25/23 20:11 23:18 02:53 WBC 8.7 RBC 3.51 L Hgb 10.2 L Hct 31.5 L MCV 89.7 MCH 29.1 MCHC 32.4 RDW 13.3 Plt Count 198 MPV 9.6 Immature Gran % (Auto) 0.5 Neut % (Auto) 59.4 Lymph % (Auto) 29.7 [place] % (Auto) 9.7 H Eos % (Auto) 0.5 Baso % (Auto) 0.2 Lymph # (Auto) 2.57 [place] # (Auto) 0.8 H Eos # (Auto) 0.0 Baso # (Auto) 0.0 Abs Immat Gran (auto) 0.04 H Absolute Neuts (auto) 5.2 Absolute Nucleated RBC 0.000 Nucleated RBC % 0.0 PT 15.1 H INR 1.1 APTT 47.1 H D-Dimer 2.92 H Sodium Potassium Chloride Carbon Dioxide Anion Gap BUN Creatinine Estim Creat Clear Calc Estimated GFR Glucose Calcium Magnesium Troponin I 0.348 H* 0.316 H* 0.244 H* D Procalcitonin 06/25/23 04:39 WBC 7.8 RBC 3.50 L Hgb 9.9 L Hct 31.5 L MCV 90.0 MCH 28.3 MCHC 31.4 L RDW 13.3 Plt Count 228 MPV 9.8 Immature Gran % (Auto) 0.4 Neut % (Auto) 63.6 Lymph % (Auto) 25.3 [place] % (Auto) 9.9 H Eos % (Auto) 0.5 Baso % (Auto) 0.3 Lymph # (Auto) 1.97 [place] # (Auto) 0.8 H Eos # (Auto) 0.0 Baso # (Auto) 0.0 Abs Immat Gran (auto) 0.03 Absolute Neuts (auto) 5.0 Absolute Nucleated RBC 0.000 Nucleated RBC % 0.0 PT INR APTT 51.1 H D-Dimer Sodium 134 L Potassium 3.5 Chloride 106 Carbon Dioxide 19 L Anion Gap 9 BUN 11 Creatinine 1.10 H Estim Creat Clear Calc Not Reportable Estimated GFR > 60 Glucose 102 Calcium 7.9 L Magnesium 2.2 Troponin I Procalcitonin 0.7
--- NOTE | 2023-06-25 11:28 | P.CONCA_ITS ---
Assessment and Plan Assessment and plan (1) Elevated troponin: Code(s): R79.89 - Other specified abnormal findings of blood chemistry Status: Acute Assessment and Plan: Nonspecific troponin elevation of uncertain origin at this point. May be related underlying renal disease. Her chest pain is pleuritic and certainly pulmonary embolism needs to be excluded given her elevated D-dimer. Workup per hospitalist. 2D echocardiogram with Doppler will be ordered and reviewed. Depending on the above test results, will consider stress testing or coronary artery CT scan. Will start low-dose aspirin 81 mg p.o. daily for now until workup complete (2) Obstructive sleep apnea: Code(s): G47.33 - Obstructive sleep apnea (adult) (pediatric) Status: Acute Assessment and Plan: CPAP encouraged (3) Morbid obesity with BMI of 50.0-59.9, adult: Code(s): E66.01 - Morbid (severe) obesity due to excess calories; Z68.43 - Body mass index [BMI] 50.0-59.9, adult Status: Acute Assessment and Plan: Dietary and lifestyle modifications for weight loss (4) Sepsis: Qualifiers: Acute renal failure type: unspecified Sepsis acute organ dysfunction status: with acute organ dysfunction Sepsis type: sepsis due to unspecified organism Severe sepsis acute organ dysfunction type: acute renal failure Severe sepsis shock status: without septic shock Qualified Code(s): A41.9 - Sepsis, unspecified organism; R65.20 - Severe sepsis without septic shock; N17.9 - Acute kidney failure, unspecified Code(s): A41.9 - Sepsis, unspecified organism Status: Acute Assessment and Plan: Continue antibiotic (5) Pyelonephritis: Code(s): N12 - Tubulo-interstitial nephritis, not specified as acute or chronic Status: Acute Assessment and Plan: On antibiotics per hospitalist (6) Chest pain: Code(s): R07.9 - Chest pain, unspecified Status: Acute Assessment and Plan: Atypical and likely musculoskeletal (7) Electrolyte imbalance: Code(s): E87.8 - Other disorders of electrolyte and fluid balance, not elsewhere cl assified Status: Acute Assessment and Plan: Potassium is low. Will replace with 40 mEq KCL p.o. x1 History of Present Illness History of Present Illness Consult date/time: 06/25/23 11:28 Requesting physician: Lianne Cerna PA-C Consult reason: chest pain Reason For Visit: Sepsis, Pyelo Narrative: Reason for consultation: Chest pain, elevated troponins Requesting provider: Lianne Cerna Date of service 06/25/2023: History patient is a 23-year-old female who has some vague left-sided chest d iscomfort resulting in a troponin being ordered. Troponin came back minimally elevated. This resulted in Cardiology consultation. Patient states she has left-sided lateral lower rib pain. She states that she thinks she may have broken her rib in the past. Her symptoms are worsened by breathing. She has no syncope, presyncope, paroxysmal nocturnal dyspnea, orthopnea, unusual edema or palpitations. She does describe dyspnea on exertion which is not new or different. She was admitted to the hospital due to left-sided flank pain and pyelonephritis. Troponins have down trended from 0. 348 down 0.244 Review of Systems Review of Systems: All systems reviewed & are unremarkable except as noted in HPI and below Constitutional: Constitutional: Denies body ache(s) Eyes: Eyes: Denies blurry vision ENT: Reports Normal hearing present Cardiovascular: Cardiovascular: Reports chest pain Respiratory: Respiratory: Denies hemoptysis Gastrointestinal: Gastrointestinal: Denies abdominal pain Genitourinary: Genitourinary: Denies hematuria Musculoskeletal: Musculoskeletal: Denies back pain Integumentary/Breasts: Skin/Breast: Denies pruritus Neurologic: Denies Abnormal speech present Psychiatric: Psychiatric: Denies anxiety Endocrine: Endocrine: Denies excessive sweating Hematologic/Lymphatic: Hematologic/Lymphatic: Denies easy bleeding Allergic/Immunologic: Allergic/Immunologic: Denies GI upset with certain foods PMFSH Past Medical History Medical History Anxiety Congenital anomaly of kidney The patient only has her left kidney that is functioning she has 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 Family History Family History Mother Diabetes mellitus Social History Social History Social History: She reports that she lives at home with her mother, vikram and her son (born 2020). 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 She is a lifelong nonsmoker and denies any significant alcohol use history. Surrogate medical decision maker: Melyssa Burch, mother. Code status: Full code. Smoking status: Never smoker Tobacco type: cigarettes Second hand tobacco smoke exposure: No Alcohol intake: never Substance use: never Substance use type: does not use Do You Feel Safe in your Home?: Yes Lack of Transportation: YES Lack of Food: Sometimes True Current Housing: I Have Housing Concerned About Future Housing: No Difficulty Paying Gas/Electric Bills: No Difficulty Paying for Meds: No Currently Unemployed: No Education: Grade School Difficulty w/ Childcare or Family Care: No Living arrangements: with family Additional living arrangements comments: She lives with her mother, vikram and child. 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 Spiritual care concerns: No Meds Home Medications and Allergies Home Medications Medication Instructions Recorded Confirmed Type No Home Medications 06/22/23 06/22/23 History Allergies Allergy/AdvReac Type Severity Reaction Status Date / Time Latex, Natural Rubber Allergy Mild Itching Verified 03/30/23 10:59 adhesive tape AdvReac Itching Verified 06/22/23 23:40 Vital Signs Vital Signs - 24 hr 06/24/23 12:00 06/24/23 14:28 06/24/23 16:00 Temperature 37.6 C Pulse Rate 114 H 107 H 109 H Respiratory Rate 20 Blood Pressure 118/70 Pulse Oximetry 93 Oxygen Delivery 06/24/23 20:00 06/24/23 20:00 06/24/23 20:44 Temperature 37.9 C H Pulse Rate 104 H 104 H 103 H Respiratory Rate 18 Blood Pressure 113/93 H Pulse Oximetry 93 95 Oxygen Delivery Room Air 06/25/23 00:00 06/25/23 00:25 06/25/23 00:40 Temperature 37.2 C Pulse Rate 108 H 104 H Respiratory Rate 26 H Blood Pressure 100/62 Pulse Oximetry 95 Oxygen Delivery Room Air 06/25/23 04:00 06/25/23 04:00 06/25/23 04:00 Temperature 36.6 C Pulse Rate 107 H 109 H Respiratory Rate 20 Blood Pressure 111/71 Pulse Oximetry 96 Oxygen Delivery Room Air 06/25/23 08:15 06/25/23 08:04 06/25/23 08:00 Temperature 37.3 C Pulse Rate 107 H 103 H Respiratory Rate 27 H Blood Pressure 97/65 L Pulse Oximetry 94 91 Oxygen Delivery Room Air 06/25/23 08:00 Temperature Pulse Rate Respiratory Rate Blood Pressure Pulse Oximetry Oxygen Delivery Room Air Exam Narrative: Awake alert oriented appears no acute distress. Appears stated age Const: General: comfortable HENMT: Face/Nose/Sinus: Normal nares present Mouth: Yes moist mucous membranes Eyes: General: appearance normal, both eyes and all related structures Sclera: sclerae normal Neck: Neck: supple and no JVD Chest: Other: Patient does have reproducible left lateral chest wall/rib pain to palpation Resp: Effort & Inspection: normal respiratory effort Auscultation: clear to auscultation bilaterally Cardio: Rate: regular rate Rhythm: regular rhythm Heart sounds: no murmurs GI: Inspection: non-distended GI Palp: Yes Soft to palpation Ausc ultation: normal bowel sounds Skin: General skin exam: normal color and no rashes or lesions noted Neuro: Speech: normal speech Extrem: General: normal to inspection Psych: Mental Status: mental status grossly normal Affect: normal affect Results Labs and Meds 06/25/23 04:39 06/25/23 04:39 Lab results: Cardiac Enzymes 06/24/23 06/24/23 06/25/23 Range/Units 20:11 23:18 02:53 Troponin I 0.348 H* 0.316 H* 0.244 H* D (0.000-0.034) ng/mL Coagulation 06/24/23 06/25/23 Range/Units 23:18 04:39 PT 15.1 H (11.1-14.7) Seconds APTT 47.1 H 51.1 H (22.3-36.8) Seconds CBC 06/24/23 06/25/23 Range/Units 23:18 04:39 WBC 8.7 7.8 (4.5-10.0) K/mm3 RBC 3.51 L 3.50 L (4.2-5.4) M/mm3 Hgb 10.2 L 9.9 L (12.0-15.0) g/dL Hct 31.5 L 31.5 L (37.0-47.0) % Plt Count 198 228 (150-375) k/mm3 Lymph # (Auto) 2.57 1.97 (0.9-3.2) K/mm3 [place] # (Auto) 0.8 H 0.8 H (0.1-0.6) K/mm3 Eos # (Auto) 0.0 0.0 (0-0.3) K/mm3 Baso # (Auto) 0.0 0.0 (0.0-0.1) K/mm3 Comprehensive Metabolic Panel 06/25/23 Range/Units 04:39 Sodium 134 L (137-145) mmol/L Potassium 3.5 (3.4-5.0) mmol/L Chloride 106 (98-107) mmol/L Carbon Dioxide 19 L (22-30) mmol/L BUN 11 (7-17) mg/dL Creatinine 1.10 H (0.7-1.0) mg/dL Glucose 102 (65-110) mg/dL Calcium 7.9 L (8.4-10.2) mg/dL Intake and Output 06/24/23 06/25/23 06/25/23 23:59 07:59 15:59 Intake Total 2750 1064.2 1000 Output Total 1500 200 Balance 1250 1064.2 800 Intake: IV 1100 1064.2 1000 Heparin Sod/D5w 100 Units/ml 25 64.2 ,000 units In 250 ml @ 1,200 UNITS/HR 12 mls/hr IV CONT . [id number] LIBORIO Rx#:[id number] Sodium Chloride 0.9% IV 1,000 1000 1000 1000 ml @ 150 mls/hr IV CONT .Q6H40M LIBORIO Rx#:[id number] cefTRIAXone 2 GM/NS 100 ML 2 gm 100 In 100 ml @ 200 mls/hr IVPB Q24H LIBORIO Rx#:[id number] Oral 1650 0 Output: Urine 1500 200 Other: # Unmeasured Voids 1 Echocardiogram personally reviewed independently interpreted and 2020 showing ejection fraction 60-65% with mild LVH and mild MR and TR EKG personally reviewed and independently interpreted showing sinus rhythm and anterior T-wave abnormality, consider ischemia
[2023-06-25 12:10] LABS: Partial Thromboplastin Time 69.5 Seconds (22.3-36.8)
[2023-06-25] MEDS: POTASSIUM CHLORIDE 20 MEQ ER TABLET 40 MEQ PO (12:17)
[2023-06-25] MEDS: HEPARIN SODIUM 5,000 UNITS/ML VIAL 3000 UNITS IV PUSH (12:17)
[2023-06-25] MEDS: PERFLUTREN LIPID MICROSPHERES 1.5 ML VIAL DILUTED TO 10 ML TOTAL VOLUME IV PUSH (13:10)
--- NOTE | 2023-06-25 13:52 | IVDEFINITY ---
Prior to administration of IV Definity the patient was educated on the risks and benefits of the imaging enhancing agent including potential adverse side effects. The patient verbalized understanding. Allergies were verified. No exclusion criteria were identified and at least one of the following inclusion criteria were met: 1) physician request, 2) patient technically difficult to image (per the [place] [employer] guidelines of two or more segments not discernable within the apical view), or 3) questionable left ventricular function. ?
[2023-06-25] MEDS: ONDANSETRON INJ 4 MG/2 ML VIAL IV PUSH ×2 (17:41→23:44)
[2023-06-25] MEDS: cefTRIAXone 2 GM/NS 100 ML 2 GM/100 ML BAG IVPB (20:53)
[2023-06-25] MEDS: ACETAMINOPHEN 325 MG TABLET 650 MG PO (22:21)
[2023-06-26] VITALS (7 sets, daily range): BP systolic 115–141; BP diastolic 80–82; PULSE 83–98; RESP 16–20; TEMP 36.4–36.7; O2SAT 98–99
[2023-06-26] MEDS: SODIUM CHLORIDE 0.9% IV 1,000 ML 150 ML IV CONT (05:50)
--- NOTE | 2023-06-26 08:24 | EST_ITS ---
Patient Info Name: Radha Burch Age: 23 years : 2000 Gender: Female Ht: 50 in Wt: 261 lbs BSA: 2.16 m2 HR: 79 bpm BP: 111 / 71 mmHg Heart Rhythm: Sinus Rhythm Exam Date: 06/26/2023 11:25 AM Exam Location: Echo Lab Patient Status: Inpatient Admit Date: 06/24/2023 Staff Ordering Physician: Kory Brown MD Attending Provider: Maddison Romero DO Exercise Technologist: Marla Hudson CT Nurse: Sandy Bates APN Exam Type: CA stress alanna w NM Study Info Indications R07.89 - Other chest pain A regadenoson stress test was performed. Summary 1. Please correlate with nuclear medicine images, reported separately. 2. No abnormal ST-T wave changes with lexiscan. 3. the supervising and interpreting physician is Dr. Kory Brown. Protocol: Lexiscan Stress ECG Details Stage: REST Duration (min): 1 min : 17 sec HR (bpm): 78 SBP (mmHg): 111 DBP (mmHg): 71 Stage: REST Duration (min): 5 min : 5 sec HR (bpm): 78 SBP (mmHg): 111 DBP (mmHg): 71 Stage: STAGE 1 Duration (min): 1 min : 0 sec HR (bpm): 102 SBP (mmHg): 110 DBP (mmHg): 54 Stage: RECOVERY Duration (min): 1 min : 0 sec HR (bpm): 94 SBP (mmHg): 110 DBP (mmHg): 54 Stage: RECOVERY Duration (min): 2 min : 0 sec HR (bpm): 94 SBP (mmHg): 110 DBP (mmHg): 54 Stage: RECOVERY Duration (min): 3 min : 0 sec HR (bpm): 92 SBP (mmHg): 123 DBP (mmHg): 61 Stage: RECOVERY Duration (min): 3 min : 13 sec HR (bpm): 89 SBP (mmHg): 123 DBP (mmHg): 61 Rest HR: 78 bpm Peak HR: 102 bpm Rest Sys BP: 111 mmHg Peak Sys BP: 123 mmHg Max Pred HR: 195 bpm % Max Pred HR: 52 % Target HR: 166 bpm Max RPP: 12,546 bpm*mmHg Target HR Summary: Hemodynamic response to exercise was normal BP Response: Normal blood pressure response Termination Reason: Completed protocol Cardiac Symptoms: None Total Time: 1 min : 0 sec Rest Gorman BP: 71 mmHg Peak Gorman BP: 61 mmHg Total Dose: 0.4 mg Resting ECG Normal sinus rhythm. Resting ST/T wave changes. Stress ECG No abnormal ST/T wave changes with exercise. Arrhythmias None. Report Signatures
--- NOTE | 2023-06-26 10:24 | P.PNIM_ITS ---
Progress Note: A&P Assessment and Plan (1) Obstructive sleep apnea: Code(s): G47.33 - Obstructive sleep apnea (adult) (pediatric) Status: Acute (2) Morbid obesity with BMI of 50.0-59.9, adult: Code(s): E66.01 - Morbid (severe) obesity due to excess calories; Z68.43 - Body mass index [BMI] 50.0-59.9, adult Status: Acute (3) Acute kidney injury: Code(s): N17.9 - Acute kidney failure, unspecified Status: Acute (4) Sepsis: Qualifiers: Acute renal failure type: unspecified Sepsis acute organ dysfunction status: with acute organ dysfunction Sepsis type: sepsis due to unspecified organism Severe sepsis acute organ dysfunction type: acute renal failure Severe sepsis shock status: without septic shock Qualified Code(s): A41.9 - Sepsis, unspecified organism; R65.20 - Severe sepsis without septic shock; N17.9 - Acute kidney failure, unspecified Code(s): A41.9 - Sepsis, unspecified organism Status: Acute (5) Anxiety: Code(s): F41.9 - Anxiety disorder, unspecified Status: Acute (6) Pyelonephritis: Code(s): N12 - Tubulo-interstitial nephritis, not specified as acute or chronic Status: Acute Plan Miss Burch is a 23-year-old female with past medical history morbid obesity, history of congenital unilateral functioning left kidney, neurogenic bladder (follows Dr. Guido at [facility]), obstructive sleep apnea not on CPAP, anxiety presenting to [place] [facility] with left-sided flank pain similar to prior episodes of UTI. She began having chills on the and vomited on the subsequently developing left-sided flank pain and abdominal pain. Associated symptom of decreased appetite. Admitted on 06/22 for further workup and treatment. Sepsis without shock -leukocytosis resolving. Continue to trend. -admission blood culture on 06/21 growing 1 bottle E coli i. Repeat blood cultures on 06/23 -continue normal saline at 150 cc/hour. She is not eating well and had a mild temperature last night. Blood pressure soft 06/24: Repeat blood culture on June 23, no growth so better so far urine culture grew E coli, susceptible to ceftriaxone Complicated urinary tract infection -E coli pansensitive in 2021. -ceftriaxone increased from 1 g to 2 g on 06/23 due to possible bacteremia -continue awaiting culture and sensitivity for urine culture and blood cultures/repeat blood cultures -continue acetaminophen, tramadol, morphine. Abdominal pain better today -complaining of nausea. Start Zofran. Check QTC Nephrolithiasis 10 mm nonobstructing in the right kidney/bilateral hydronephrosis R>L/neurogenic bladder -in the setting of neurogenic bladder and the abdominal CT findings, will consult Urology. [facility] and reports she does not self catheterization at home, instead practicing interval voiding. 06/24: Patient urologist consultation, no other intervention urologically planned at this time TODD -possibly some CKD although we will continue to monitor. Serum creatinine 1.4 on admission now down to 1.2. LINNETTE -reports she never obtained CPAP after sleep study. Patient has been advised to follow up as an outpatient to obtain a CPAP and has been advised to follow therapeutic recommendations. elevated troponin echocardiogram reports ? 1. Left ventricular chamber dimension is normal. ? 2. Left ventricular systolic function is normal, estimated at 60-65%. ? 3. There is no increased left ventricular wall thickness. ? 4. The left ventricular diastolic function is normal. ? 5. Right ventricular chamber dimension is mildly enlarged. ? 6. Right ventricular systolic function is reduced. ? 7. There is mild tricuspid valve regurgitation. ? 8. Mild pulmonary hypertension, estimated pulmonary arterial systolic pressure is 41 mmHg. V/Q scan low probability of PE management per golf course superintendent per nurse report, patient requested to be discharged AMA. when I arrived, patient left Subjective Date/time seen: 06/26/23 10:24 Interval history: patient is afebrile overnight, blood pressure stable, no new issue overnight Exam Narrative: Objective Data Vital Signs Vital Signs: Vital Signs - 24 hr 06/25/23 11:29 06/25/23 12:00 06/25/23 12:00 Temperature 97.8 F Pulse Rate 107 H 107 H Respiratory Rate 20 Blood Pressure 129/78 Pulse Oximetry 96 Oxygen Delivery Room Air 06/25/23 14:00 06/25/23 15:23 06/25/23 16:00 Temperature 97.9 F Pulse Rate 104 H 96 107 H Respiratory Rate 18 Blood Pressure 106/88 Pulse Oximetry 99 Oxygen Delivery 06/25/23 16:00 06/25/23 18:00 06/25/23 19:46 Temperature 97.6 F Pulse Rate 101 H 98 104 H Respiratory Rate 22 H Blood Pressure 104/55 L Pulse Oximetry 98 Oxygen Delivery Room Air 06/25/23 20:00 06/25/23 20:00 06/25/23 23:48 Temperature Pulse Rate 98 Respiratory Rate Blood Pressure Pulse Oximetry Oxygen Delivery Room Air Room Air 06/25/23 23:51 06/26/23 00:00 06/26/23 04:00 Temperature 98.1 F Pulse Rate 100 98 Respiratory Rate 19 Blood Pressure 107/70 Pulse Oximetry 97 Oxygen Delivery Room Air 06/26/23 04:40 06/26/23 04:00 06/26/23 07:35 Temperature 98.1 F 97.5 F L Pulse Rate 90 86 94 Respiratory Rate 20 16 Blood Pressure 115/80 141/82 H Pulse Oximetry 98 98 Oxygen Delivery Intake/Output Intake/Output: Intake & Output 06/23/23 06/24/23 06/25/23 06/26/23 23:59 23:59 23:59 23:59 Intake Total 3870 5740 4705.5 1000 Output Total 1100 2600 700 Balance 2770 3140 4005.5 1000 Meds/Results Medications: Active Medications Generic Name Dose Route Start Last Admin Trade Name Freq PRN Reason Stop Dose Admin Acetaminophen 650 mg 06/22/23 21:56 06/25/23 22:21 Acetaminophen 325 Mg Tablet PO 650 mg Q4H PRN Administration Mild Pain (1-3) or Fever Sodium Chloride 1,000 mls @ 150 mls/hr 06/23/23 05:00 06/26/23 05:50 Normal Saline Iv IV CONT 150 mls/hr .Q6H40M LIBORIO Administration Ceftriaxone Sodium 2 gm in 100 mls @ 200 mls/hr 06/24/23 21:00 06/25/23 21:58 Rocephin 2 Gm/Ns 100 Ml IVPB Infused Q24H LIBORIO Infusion Morphine Sulfate 4 mg 06/22/23 21:56 06/23/23 09:46 Morphine Sulfate (*Crx) 4 Mg/Ml Inj IV PUSH 4 mg Q4H PRN Administration Breakthrough Pain Ondansetron HCl 4 mg 06/24/23 09:21 06/25/23 23:44 Ondansetron Inj 4 Mg/2 Ml Vial IV PUSH 4 mg Q4H PRN Administration Nausea And Vomiting Tramadol HCl 50 mg 06/22/23 21:57 06/24/23 16:39 Tramadol Hcl (*Crx) 50 Mg Tablet PO 50 mg Q6H PRN Administration Pain Rated 4-10 Radiology Results: ITS Impressions Abdomen/Pelvis CT 06/22/23 21:02 IMPRESSION: 1. Mild left hydronephrosis and hydroureter. 2. Severe right hydronephrosis. Severe right kidney atrophy. Pulmonary Perfusion Imaging 06/25/23 14:13 IMPRESSION: 1. Low probability for pulmonary embolism. Chest X-Ray 06/25/23 15:08 IMPRESSION: 1. No acute cardiopulmonary disease. Labs Labs: Laboratory Results - last 24 hr 06/25/23 11:36 APTT 69.5 H
--- NOTE | 2023-06-26 11:38 | PM.PNCARD ---
Progress Note: A&P Assessment and Plan (1) Elevated troponin: Code(s): R79.89 - Other specified abnormal findings of blood chemistry Status: Acute Assessment and Plan: Nonspecific troponin elevation of uncertain origin at this point. May be related underlying renal disease. -Underwent lexiscan stress test today which was normal, no ischemia. -Echo showed normal LVEF, mild TR, mild pHTN -Chest pain has resolved and based on the above findings not cardiac chest pain. No further workup indicated. -She can discharge from a cardiac perspective (2) Obstructive sleep apnea: Code(s): G47.33 - Obstructive sleep apnea (adult) (pediatric) Status: Acute Assessment and Plan: CPAP encouraged (3) Morbid obesity with BMI of 50.0-59.9, adult: Code(s): E66.01 - Morbid (severe) obesity due to excess calories; Z68.43 - Body mass index [BMI] 50.0-59.9, adult Status: Acute Assessment and Plan: Dietary and lifestyle modifications for weight loss (4) Sepsis: Qualifiers: Acute renal failure type: unspecified Sepsis acute organ dysfunction status: with acute organ dysfunction Sepsis type: sepsis due to unspecified organism Severe sepsis acute organ dysfunction type: acute renal failure Severe sepsis shock status: without septic shock Qualified Code(s): A41.9 - Sepsis, unspecified organism; R65.20 - Severe sepsis without septic shock; N17.9 - Acute kidney failure, unspecified Code(s): A41.9 - Sepsis, unspecified organism Status: Acute Assessment and Plan: Continue antibiotic (5) Pyelonephritis: Code(s): N12 - Tubulo-interstitial nephritis, not specified as acute or chronic Status: Acute Assessment and Plan: On antibiotics per hospitalist (6) Chest pain: Code(s): R07.9 - Chest pain, unspecified Status: Acute Assessment and Plan: Atypical and likely musculoskeletal Subjective Date/time seen: 06/26/23 11:38 Interval history: Cardiology follow up for chest pain Date of service 06/26/2023: Feeling better today. Still has some nausea. Denies chest pain. Review of Systems Review of Systems: All systems reviewed & are unremarkable except as noted in HPI and below Constitutional: Constitutional: Denies body ache(s) and Denies excessive sweating Eyes: Eyes: Denies blurry vision ENT: Reports Normal hearing present Cardiovascular: Cardiovascular: Reports chest pain Respiratory: Respiratory: Denies hemoptysis Gastrointestinal: Gastrointestinal: Denies abdominal pain Genitourinary: Genitourinary: Denies hematuria Musculoskeletal: Musculoskeletal: Denies back pain Integumentary/Breasts: Skin/Breast: Denies pruritus Neurologic: Reports Normal hearing present and Denies Abnormal speech present Psychiatric: Psychiatric: Denies anxiety Endocrine: Endocrine: Denies excessive sweating Hematologic/Lymphatic: Hematologic/Lymphatic: Denies easy bleeding Allergic/Immunologic: Allergic/Immunologic: Denies GI upset with certain foods Exam Narrative: Awake alert oriented appears no acute distress. Appears stated age Const: General: comfortable HENMT: Face/Nose/Sinus: Normal nares present Mouth: Yes moist mucous membranes Eyes: General: appearance normal, both eyes and all related structures Sclera: sclerae normal Neck: Neck: supple and no JVD Resp: Effort & Inspection: normal respiratory effort Auscultation: clear to auscultation bilaterally Cardio: Rate: regular rate Rhythm: regular rhythm Heart sounds: no murmurs GI: Inspection: non-distended Auscultation: normal bowel sounds Skin: General skin exam: normal color and no rashes or lesions noted Neuro: Cranial nerves: Yes Normal hearing present Speech: normal speech and No Abnormal speech present Extrem: General: normal to inspection Psych: Mental Status: mental status grossly normal Affect: normal affect Objective Data Vital Signs Vital Signs: Vital Signs - 24 hr 06/25/23 12:00 06/25/23 12:00 06/25/23 14:00 Temperature Pulse Rate 107 H 104 H Respiratory Rate Blood Pressure Pulse Oximetry Oxygen Delivery Room Air 06/25/23 15:23 06/25/23 16:00 06/25/23 16:00 Temperature 36.6 C Pulse Rate 96 107 H 101 H Respiratory Rate 18 Blood Pressure 106/88 Pulse Oximetry 99 Oxygen Delivery Room Air 06/25/23 18:00 06/25/23 19:46 06/25/23 20:00 Temperature 36.4 C Pulse Rate 98 104 H Respiratory Rate 22 H Blood Pressure 104/55 L Pulse Oximetry 98 Oxygen Delivery Room Air 06/25/23 20:00 06/25/23 23:48 06/25/23 23:51 Temperature 36.7 C Pulse Rate 98 100 Respiratory Rate 19 Blood Pressure 107/70 Pulse Oximetry 97 Oxygen Delivery Room Air 06/26/23 00:00 06/26/23 04:00 06/26/23 04:40 Temperature 36.7 C Pulse Rate 98 90 Respiratory Rate 20 Blood Pressure 115/80 Pulse Oximetry 98 Oxygen Delivery Room Air 06/26/23 04:00 06/26/23 07:35 06/26/23 10:32 Temperature 36.4 C L Pulse Rate 86 94 Respiratory Rate 16 Blood Pressure 141/82 H Pulse Oximetry 98 99 Oxygen Delivery Room Air 06/26/23 08:00 06/26/23 10:00 Temperature Pulse Rate 89 83 Respiratory Rate Blood Pressure Pulse Oximetry Oxygen Delivery Intake/Output Intake/Output: Intake & Output 06/23/23 06/24/23 06/25/23 06/26/23 23:59 23:59 23:59 23:59 Intake Total 3870 5740 4705.5 1000 Output Total 1100 2600 700 Balance 2770 3140 4005.5 1000 Meds/Results Medications: Active Medications Generic Name Dose Route Start Last Admin Trade Name Freq PRN Reason Stop Dose Admin Acetaminophen 650 mg 06/22/23 21:56 06/25/23 22:21 Acetaminophen 325 Mg Tablet PO 650 mg Q4H PRN Administration Mild Pain (1-3) or Fever Sodium Chloride 1,000 mls @ 150 mls/hr 06/23/23 05:00 06/26/23 05:50 Normal Saline Iv IV CONT 150 mls/hr .Q6H40M LIBORIO Administration Ceftriaxone Sodium 2 gm in 100 mls @ 200 mls/hr 06/24/23 21:00 06/25/23 21:58 Rocephin 2 Gm/Ns 100 Ml IVPB Infused Q24H LIBORIO Infusion Morphine Sulfate 4 mg 06/22/23 21:56 06/23/23 09:46 Morphine Sulfate (*Crx) 4 Mg/Ml Inj IV PUSH 4 mg Q4H PRN Administration Breakthrough Pain Ondansetron HCl 4 mg 06/24/23 09:21 06/25/23 23:44 Ondansetron Inj 4 Mg/2 Ml Vial IV PUSH 4 mg Q4H PRN Administration Nausea And Vomiting Tramadol HCl 50 mg 06/22/23 21:57 06/24/23 16:39 Tramadol Hcl (*Crx) 50 Mg Tablet PO 50 mg Q6H PRN Administration Pain Rated 4-10 Radiology Results: ITS Impressions Abdomen/Pelvis CT 06/22/23 21:02 IMPRESSION: 1. Mild left hydronephrosis and hydroureter. 2. Severe right hydronephrosis. Severe right kidney atrophy. Pulmonary Perfusion Imaging 06/25/23 14:13 IMPRESSION: 1. Low probability for pulmonary embolism. Chest X-Ray 06/25/23 15:08 IMPRESSION: 1. No acute cardiopulmonary disease. Labs Labs: Laboratory Results - last 24 hr 06/25/23 11:36 APTT 69.5 H
--- NOTE | 2023-06-26 12:35 | PC.NURSE ---
pt attempting to remove IV's and telemetry. Says she feels fine and wants to leave. Notified Dr. Joshi pt is signing out AMA.
--- NOTE | 2023-06-26 14:42 | PCCCNOTE ---
On 06/26/23, the student, Diana Castillo, provided care and completed [facility] documentation on this patient. I have reviewed the student's documentation and agree with the findings.
--- NOTE | 2023-06-26 17:33 | PM.DS ---
DS: Admitting Diagnosis Discharge Date 06/26/23 Admitting Diagnosis (1) Obstructive sleep apnea: ?Code(s): G47.33 - Obstructive sleep apnea (adult) (pediatric) ?Status:?Acute (2) Morbid obesity with BMI of 50.0-59.9, adult: ?Code(s): E66.01 - Morbid (severe) obesity due to excess calories; Z68.43 - Body mass index [BMI] 50.0-59.9, adult ?Status:?Acute (3) Acute kidney injury: ?Code(s): N17.9 - Acute kidney failure, unspecified ?Status:?Acute (4) Sepsis: ?Qualifiers: DS: Discharge Diagnosis Discharge Diagnosis (1) Obstructive sleep apnea: Code(s): G47.33 - Obstructive sleep apnea (adult) (pediatric) Status: Acute (2) Morbid obesity with BMI of 50.0-59.9, adult: Code(s): E66.01 - Morbid (severe) obesity due to excess calories; Z68.43 - Body mass index [BMI] 50.0-59.9, adult Status: Acute (3) Acute kidney injury: Code(s): N17.9 - Acute kidney failure, unspecified Status: Acute (4) Sepsis: Qualifiers: Acute renal failure type: unspecified Sepsis acute organ dysfunction status: with acute organ dysfunction Sepsis type: sepsis due to unspecified organism Severe sepsis acute organ dysfunction type: acute renal failure Severe sepsis shock status: without septic shock Qualified Code(s): A41.9 - Sepsis, unspecified organism; R65.20 - Severe sepsis without septic shock; N17.9 - Acute kidney failure, unspecified Code(s): A41.9 - Sepsis, unspecified organism Status: Acute (5) Anxiety: Code(s): F41.9 - Anxiety disorder, unspecified Status: Acute (6) Pyelonephritis: Code(s): N12 - Tubulo-interstitial nephritis, not specified as acute or chronic Status: Acute DS: Summary Hospital Course Hospital Course: Miss Burch is a 23-year-old female with past medical history morbid obesity, history of congenital unilateral functioning left kidney, neurogenic bladder (follows Dr. Guido at [facility]), obstructive sleep apnea not on CPAP, anxiety presenting to [place] [facility] with left-sided flank pain similar to prior episodes of UTI. She began having chills on the and vomited on the subsequently developing left-sided flank pain and abdominal pain. Associated symptom of decreased appetite. Admitted on 06/22 for further workup and treatment. the following med issues have been addressed during hospitalization Sepsis without shock -leukocytosis resolving. Continue to trend. -admission blood culture on 06/21 growing 1 bottle E coli i. Repeat blood cultures on 06/23 -continue normal saline at 150 cc/hour. She is not eating well and had a mild temperature last night. Blood pressure soft 06/24: Repeat blood culture on June 23, no growth so better so far urine culture grew E coli, susceptible to ceftriaxone Complicated urinary tract infection -E coli pansensitive in 2021. -ceftriaxone increased from 1 g to 2 g on 06/23 due to possible bacteremia -continue awaiting culture and sensitivity for urine culture and blood cultures/repeat blood cultures -continue acetaminophen, tramadol, morphine. Abdominal pain better today -complaining of nausea. Start Zofran. Check QTC Nephrolithiasis 10 mm nonobstructing in the right kidney/bilateral hydronephrosis R>L/neurogenic bladder -in the setting of neurogenic bladder and the abdominal CT findings, will consult Urology. She follows with Dr. Guido at [facility] and reports she does not self catheterization at home, instead practicing interval voiding. 06/24: Patient urologist consultation, no other intervention urologically planned at this time TODD -possibly some CKD although we will continue to monitor. Serum creatinine 1.4 on admission now down to 1.2. LINNETTE -reports she never obtained CPAP after sleep study. Patient has been advised to follow up as an outpatient to obtain a CPAP and has been advised to follow therapeutic recommendations. elevated troponin echocardiogram reports ? 1. Left ventricular chamber dimension is normal. ? 2. Left ventricular systolic function is normal, estimated at 60-65%. ? 3. There is no increased left ventricular wall thickness. ? 4. The left ventricular diastolic function is normal. ? 5. Right ventricular chamber dimension is mildly enlarged. ? 6. Right ventricular systolic function is reduced. ? 7. There is mild tricuspid valve regurgitation. ? 8. Mild pulmonary hypertension, estimated pulmonary arterial systolic pressure is 41 mmHg. V/Q scan low probability of PE management per mortgage accounting clerk per nurse report, patient requested to be discharged AMA. before I arrived, patient left Time Spent with Patient Time attestation: Total time spent providing and/or coordinating discharge services: DS: Data Data Completed and Pending Labs on day of discharge: Preliminary micro results at discharge 06/24/23 10:05 Blood Culture - Preliminary Blood 06/24/23 10:14 Blood Culture - Preliminary Blood 06/22/23 22:26 Blood Culture - Preliminary Blood Discharge Plan Discharge Consulting providers: Juwan Cooper; Kory Brown Patient Disposition: Left Against Medical Advice Patient Instructions: Pain Management (DC), Kidney Infection (DC), Sepsis (DC) Discharge Medications: No Action No Home Medications Date of admission: 06/24/23 10:00 Primary Care Provider: Brian Dela Cruz Admitting Provider: Maddison Romero Attending physician on admission: Maddison Romero Condition: Serious
== END 2023-06-26 12:40 | disposition left against medical advice (07) | DRG 720 ==
LOC: ANHED 22:33 → ANH2MED 22:58 → ANHIMU 06-27 11:00
PROVIDERS: General Practice; Physician Assistant; Admitting Provider Internal Medicine; Emergency Provider Emergency Medicine; PCP Family Medicine; Visit Provider Hospitalist
DX: A41.9 Sepsis, unspecified organism (principal); R65.20 Severe sepsis without septic shock; N17.9 Acute kidney failure, unspecified; F41.9 Anxiety disorder, unspecified; E66.01 Morbid (severe) obesity due to excess calories; Z68.43 Body mass index [BMI] 50.0-59.9, adult; F32.A Depression, unspecified; G47.33 Obstructive sleep apnea (adult) (pediatric); N31.9 Neuromuscular dysfunction of bladder, unspecified; Z87.891 Personal history of nicotine dependence; Q60.0 Renal agenesis, unilateral; R07.89 Other chest pain
CPT/HCPCS: 36415; 71046; 74176; 78452; 78582; 80048; 80053; 81001; 81025; 83605; 83735; 84145; 84484; 85025; 85380; 85610; 85730; 87040; 87077; 87086; 87088; 87186; 93005; 93017; 96361; 96365; 96372; 96374; 96375; 96376; 99285; A9270; A9502; A9540; A9558; C8929; G0378; G0379; J0696; J1644; J1650; J2270; J2405; J2785; J7030; J7120; Q9957

== ENCOUNTER 2024-04-17 20:25 | Emergency (ER) | payer OTHER, SELFPAY ==
--- OUTSIDE RECORDS SUMMARY | 2024-04-17 20:27 | XMS_ITS | Clinical Summary ---
Author Organization [facility] Address [address] [place] [address] Care Team Providers Care Aerobics Instructor Name Role Phone Brian Dela Cruz MD Primary Care Provider Source Comments [facility],non-owned Affiliates and Associated Physician Practices is amultiple site organization consisting of ambulatory clinics and hospital sitesin [place], [place], [place] and [place]. This disclosure is being madepursuant to the Care Everywhere program and may not contain all information available regarding this patient. Last updated 17.[facility] Allergies Active Allergy Reactions Criticality Noted Date Comments Methylprednisolone Hematologic High 07/12/2020 Medications * Be aware that medications may not be up to date on this document. Alwaysverify current medications with the patient. Medication Sig Dispensed Refills Start Date End Date Status Calcium Carbonate-Vitamin D (CALCIUM + D PO) Active docusate sodium (COLACE) 100 MG capsuleIndications: Chronic constipation Take 1 Cap by mouth once daily as needed for Constipation 30 Cap 3 07/12/2015 Active ferrous sulfate 325 (65 FE) MG tabletIndications:I burton deficiency Take 1 Tab by mouth 2 times daily with morning and evening meal Take with orange juice and use colace for constipation 60 Tab 3 06/12/2016 Active Additional Information Patient not taking.Reported on 03/22/2020 hydrOXYzine hcl (ATARAX) 25 MG tablet Take 1 Tab by mouth at bedtime 30 Tab 06/12/2016 Active Additional Information Patient not taking.Reported on 03/22/2020 melatonin 5 MG tablet Take 1 Tab by mouth at bedtime 30 Tab 5 06/12/2016 Active Additional Information Patient not taking.Reported on 03/22/2020 fluticasone propionate (FLONASE) 50 MCG/ACT nasal spray Radcliffe 1 Radcliffe into each nostril once daily 1 Bottle 5 06/12/2016 Active Additional Information Patient not taking.Reported on 03/22/2020 Vit-Fe Fumarate-FA ( VITAMIN) 28-0.8 MG tabletIndications:P regnancy Take 1 tablet by mouth once daily Reasons: Active sertraline (ZOLOFT) 25 MG tabletIndications:G eneralized Anxiety Disorder Take 50 mg by mouth once daily Reasons: Generalized Anxiety Disorder Active aspirin (ASPIRIN) 81 MG chew tablet Take 81 mg by mouth 2 times daily Active famotidine (PEPCID) 20 MG tablet Take 1 tablet by mouth 2 times daily Active Heparin Sodium, Porcine, 75256 UNIT/ML injection Inject 1 mL subcutaneously 2 times daily Active Active Problems Problem Noted Date Diagnosed Date Cellulitis 07/12/2020 Assessment & Plan (07/12/2020 7:18 PM CDT): Concern for injection site cellulitis. Patient without systemic symptoms. Maternal Medicine recommendations: 1. given request to perform CBC to check for significantly elevated white blood cell count or significantly reduced platelet count 2. Prescription called in for cephalexin 500 mg to take by mouth every 12 hr for 14 days 3. Patient instructed to go the emergency room if the skin infection does not get better or it gets worse cardiac anomaly affecting , 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 Overview (07/12/2020): persistent left superior vena cava Assessment & Plan (07/12/2020 7:21 PM CDT): I explained that the abnormal Doppler pattern demonstrated on the last ultrasound exam may reflect the underlying cardiovascular anomaly. The abdominal circumference on the last measurement was in the 70th percentile. This Doppler testing does not warrant serial re-evaluation. echocardiogram is recommended for the and is planned. Abnormal O'Boyd glucose challenge test, ante 05/24/2020 Overview (05/24/2020): 3/16: 164. GTT to be done this week. Assessment & Plan (07/12/2020 1:31 PM CDT): Reports that she passed a glucose tolerance test. No record of the final test available for review. growth is appropriate for gestational age. Swelling of lower extremity during and leg pain 04/17/2020 Overview (04/17/2020): Reports thrombophilia history with her sister and maternal grandmother. Sister had DVT during and following a MVA. [facility] [place] history of pulmonary embolism. Reports intermittent LLE pain since prior to when she suffered from a fall. Has never had venous doppler study. + Joanne sign on LLE, tenderness noted anteriorly. Denies SOB. 1+ edema bilaterally. Sent to [facility] for LE venous doppler studies, 04/17. Thrombophilia work up/APLAS work up ordered, 04/17. Assessment & Plan (04/17/2020 4:33 PM PAPERHANGER PIPE): Reports thrombophilia history with her sister and maternal grandmother. Sister had DVT during and following a MVA. [facility] [place] history of pulmonary embolism. Reports intermittent LLE pain since prior to when she suffered from a fall. Has never had venous doppler study. + Joanne sign on LLE today, tenderness noted anteriorly. Denies SOB. 1+ edema bilaterally. [facility] recommendations: 1. Sent to [facility] for LE venous doppler studies, 04/17. Report received after exam, negative for DVT, scanned into chart. 2. Thrombophilia work up/APLAS work up ordered, 04/17. 3. DVT warnings reviewed and when to seek medical evaluation. Family history of blood clots 04/17/2020 Overview (07/12/2020): [facility] history of pulmonary embolism. Sister with history of DVT during . Thrombophilia labs : Factor V Leiden: negative, Protein C: 191, Protein S: not done given . Antithrombin III: 68 (L), prothrombin G mutation: negative APLAS: cardiolipin: IgM: 39 (low med positive), cardiolipin IgG: negative, beta 2 glycoprotein IgM and IgG: negative. Lupus anticoagulant: negative Assessment & Plan (07/12/2020 1:37 PM CDT): Using heparin in the limited area of the abdomen. Appears to have skin infection. no complaints consistent with systemic infection. Otherwise tolerating heparin. warrants evaluation by vulcanizing press operator to determine left long risk of thrombophilia given anti thrombin 3 deficiency--most thrombogenic thrombophilia. The anticardiolipin elevation was mild and warrants being repeated between mid August to September, [facility] recommendations: 1. prescription provided for cephalexin 500 mg p.o. q.12 hours for 14 days 2. Referral to vulcanizing press operator for evaluation recommended 3. Continue heparin 98308 units q.12 hours 4. repeat anticardiolipin IgG IgM testing between mid August to September, 5. Convert to Lovenox 40 mg q.12 hours and continue for 6 weeks Assessment & Plan (05/24/2020 12:24 PM CDT): [facility] history of pulmonary embolism Sister with history of DVT during . Thrombophilia labs are pending, ordered at last visit on 04/17. Patient had drawn this Friday, 05/22 at [facility] outpatient. Patient with LE doppler studies that were normal, 04/17. Asymptomatic today for DVT. [facility] recommendations: 1. Nursing called [place] requesting labs today, message left. Unable to talk to quality lab technician. 2. DVT warnings reviewed. Also instructed to seek medical evaluation with any SOB at rest, chest pain. Nausea and vomiting 04/17/2020 Assessment & Plan (05/24/2020 12:29 PM CDT): Improved with use of famotidine and ondansetron. Requested refill for ondansetron. Interval weight gain, negative ketones. Asymptomatic for preeclampsia. Assessment & Plan (04/17/2020 3:50 PM PAPERHANGER PIPE): Reports nausea with vomiting 4x daily for last several weeks. Notes simultaneous GERD. Negative abdominal exam today. No current anti-emetic or antacid regimen. Negative urine for ketones and interval weight gain noted. [facility] recommendations 1. Famotidine sent to pharmacy for GERD complaints. Lifestyle education also discussed with patient for both GERD and N/V complaints. 2. Ondansetron sent to pharmacy to use only as needed for persistent nausea/vomiting. 3. Instructed to seek obstetrical evaluation if persistent nausea and vomiting. 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 Still has left kidney present. patient bony sent the right kidney moves around in the abdomen (? Pelvic kidney). There is also a grandfather who had renal failure in his 50s related to something inheritable/genetic. macro proteinuria at baseline, 24 hour urine: 402mg S/p visit with nephrology, goal for blood pressures 160/100 or less Recommend repeating: CBC, CMP, uric acid, UA and spot Ur p/c ratio monthly Recommend that the pt check BP daily and call us if SBP is > 160s or DBP >100s Renal ultrasound from 04/11/20 : completed with normal appearance of the left kidney. Right kidney is essentially replaced by a thin walled cyst, with severe renal atrophy. Scanned into Risk Management Solution. Monthly labs: 05/22/20: CBC: WBC: 11.7 H/H/P: 12.1/36.2/347 CMP: creatinine: 0.68, BUN: 10, ALT/AST: 02/2704/13/20: CBC: WBC: 12.1, H/H/P: 12.2/37.2/352 CMP: creatinine: 0.7, ALT: 10, AST: 14, BUN: 7 Uric acid: 4.4 Protein, creatinine ratio: 0.15 Maternal echo: EF: 60-65%, mildly increased left ventricular wall thickness with mild mitral valve regurgitation, mild tricuspid regurgitation. Assessment & Plan (07/12/2020 7:20 PM CDT): Has plans to see accounts payable associate this week. [facility] Recommendations: 1. maintain follow-up with accounts payable associate 2. Gave patient order today to have repeat complete metabolic panel drawn 3. Continue to monitor blood pressure at home 1. agree with nephrology goals: Recommend that the pt check BP daily and call us if SBP is > 160s or DBP >100s. 4. Continue LD ASA 5. Strict preeclampsia warnings again reviewed. 6. follow up with cardiology as recommended. Assessment & Plan (05/24/2020 12:28 PM CDT): macro proteinuria at baseline, 24 hour urine: 402mg S/p visit with nephrology, goal for blood pressures 160/100 or less Monthly labs to be repeated: CBC, CMP, uric acid, urine protein/creatinine ratio Renal ultrasound: completed with normal appearance of the left kidney. Right kidney is essentially replaced by a thin walled cyst, with severe renal atrophy. Scheduled with nephrology again in 07/2020. Monthly labs: 04/29/20: CBC: WBC: 12.1, H/H/P: 12.2/37.2/352 CMP: creatinine: 0.7, ALT: 10, AST: 14, BUN: 7 Uric acid: 4.4 Protein, creatinine ratio: 0.15 May: collected, not yet received although requested [facility] Recommendations: 1. Continue to monitor blood pressure at home, agree with nephrology goals: Recommend that the pt check BP daily and call us if SBP is > 160s or DBP >100s. 2. Continue LD ASA 3. Strict preeclampsia warnings again reviewed. 4. Maternal echo and EKG, both of which have been completed, records requested from [facility] today. 5. Serial growth ultrasound. 6. Begin testing at 32 weeks with weekly 10 point BPP/NST. Assessment & Plan (04/17/2020 4:21 PM PAPERHANGER PIPE): macro proteinuria at baseline, 24 hour urine: 402mg S/p visit with nephrology, goal for blood pressures 160/100 or less Monthly labs to be repeated: CBC, CMP, uric acid, urine protein/creatinine ratio Renal ultrasound: completed with normal appearance of the left kidney. Right kidney is essentially replaced by a thin walled cyst, with severe renal atrophy. Monthly labs: 04/29/20: CBC: WBC: 12.1, H/H/P: 12.2/37.2/352 CMP: creatinine: 0.7, ALT: 10, AST: 14, BUN: 7 Uric acid: 4.4 Protein, creatinine ratio: 0.15 [facility] Recommendations: 1. Continue to monitor blood pressure at home, agree with nephrology goals: Recommend that the pt check BP daily and call us if SBP is > 160s or DBP >100s. 2. Continue LD ASA 3. Strict preeclampsia warnings again reviewed. 4. Renal ultrasound completed and scanned into media. 5. Reviewed recommendation for maternal echo and EKG, both of which are scheduled on 04/26 at [facility]. 6. Serial growth ultrasound. 7. Begin testing at 32 weeks with weekly 10 point BPP/NST. Chronic hypertension affecting 021 Overview (07/12/2020): Baseline macroproteinuria. Assessment & Plan (07/12/2020 1:33 PM CDT): Normotensive without antihypertensive medication. Remains at risk for superimposed preeclampsia. M recommendations 1. Continue to check blood pressure at home, parameters per accounts payable associate. 2. Strict surveillance for preeclampsia, reviewed again today. Handout provided. 3. No current indication for anti-hypertensive therapy. 4. Continue LD ASA. Report to primary OB with any blood pressure elevations or concerns for preeclampsia symptoms. 5. Repeated CBC and CMP monthly--given request for repeat labs today. 6. Magnesium oxide to be continued for aid in headache prevention. Assessment & Plan (05/24/2020 12:26 PM CDT): Reports home blood pressures to be normotensive. Normotensive in office today with manual asessment. Asymptomatic for preeclampsia. Baseline macroproteinuria. [facility] recommendations 1. Continue to check blood pressure at home, parameters per accounts payable associate. 2. Strict surveillance for preeclampsia, reviewed again today. Handout provided. 3. No current indication for anti-hypertensive therapy. 4. Continue LD ASA. Report to primary OB with any blood pressure elevations or concerns for preeclampsia symptoms. 5. Repeated CBC and CMP Friday, awaiting results. 6. Magnesium oxide to be continued for aid in headache prevention. Assessment & Plan (04/17/2020 4:25 PM PAPERHANGER PIPE): Reports home blood pressures to be normotensive. Normotensive in office today. Frequent headaches and nausea and vomiting. Normotensive today without proteinuria. MFM recommendations 1. Continue to check blood pressure at home, parameters per accounts payable associate. 2. Strict surveillance for preeclampsia. 3. No current indication for anti-hypertensive therapy. 4. Continue LD ASA. Report to primary OB with any blood pressure elevations or concerns for preeclampsia symptoms, including persistent headache not relieved with intervention. 5. Repeated CBC and CMP today given persistent headache and nausea/vomiting complaints and patient's risk of preeclampsia given co-morbid conditions. 6. Magnesium oxide sent to pharmacy for aid in headache prevention. Maternal morbid obesity, antepartum 07/14/2015 Assessment & Plan (07/12/2020 1:38 PM CDT): 2lb interval weight loss, TW pounds. Reports passing GTT MFM recommendations: 1. Serial growth ultrasounds. 2. testing driven by co-morbidity of chronic hypertension. Assessment & Plan (05/24/2020 12:31 PM CDT): 13lb interval weight gain, TW pounds. Did not have early GCT, completed this week and failed at 164. Reports following healthy diet at home, recently stopped soda drinking MFM recommendations: 1. GTT now, please send us results. Will need to be seen earlier than 3 weeks if GDM is confirmed. 2. Praised her elimination of soda. Briefly reviewed carbohydrate counting with meals today. 3. I encouraged 30 minutes of walking 5 days a week. 4. Serial growth ultrasounds. 5. testing driven by co-morbidity of chronic hypertension. Assessment & Plan (04/17/2020 4:23 PM PAPERHANGER PIPE): 9lb interval weight gain, TW pounds. Did not have early GCT. Reports following healthy diet at home, denies frequent sweetened beverages. [facility] recommendations: 1. GCT at 26 weeks. 2. Would benefit from nutrition counseling, can arrange at her next visit here with CDE. 3. Serial growth ultrasounds. 4. testing driven by co-morbidity of chronic hypertension. Chronic constipation 08/17/2014 Psychiatric diagnosis 03/10/2014 Overview (07/12/2020): just was started by OB on setraline 25 mg Assessment & Plan (07/12/2020 7:25 PM CDT): Not interested in getting counseling. Reports that in the past she would have frequently changing counselors and that this was difficult her for her because it takes her a while to build rapport and trust with a provider. Maternal Medicine recommendations: 1. the load out person should be notified of sertraline use as the would benefit from increased supervision within the 1st 48 hr of life Resolved Problems Problem Noted Date Diagnosed Date Resolved Date History of nephrectomy 02/22/202003/22 Overview (03/22/2020): 08/2015 Kidney US in imaging large cyst-nonfunctioning R kidney. B-, Neg, Non Immune, Rpr-NR, HIV- NR, Hbsag-NR H/h/p 13.1//38.8/357 Pelvic mass in female 08/18/20152019 Voiding dysfunction 07/14/2015 02/22/20 20 LINNETTE (obstructive sleep apnea) 09/25/2014 02/22/2020 Overview (11/17/2015): Mild LINNETTE Repeat diag psg 11/10/15 RDI 7.9 AHI: 7.3 Obstructive AHI: 7.1 Min 02 sat 91% Mild LINNETTE diag psg 09/17/14 SUMMARY RDI Min SaO2 3.4 92.0% AHI: 3.4 Sleep disorder 08/17/2014 09/25/2014 Family History Medical History Relation Name Comments Asthma Brother Asthma Father Cancer - Lung Maternal Grandfather Hypertension Maternal Grandmother Venous Thromboembolism Maternal Grandmother Pulmonary embolus Diabetes - Type 2 Mother Hypertension Mother Muscular/Skeletal Condition Other leg / back problems Blood Clots Sister Anesthesia Reaction Neg Hx Bleeding Disorders Neg Hx Ear Infections Neg Hx Hearing Loss Neg Hx Relation Name Status Comments Brother Alive Father Alive Half-Sibling Alive Maternal Grandfather Maternal Grandmother Alive Mother Alive Other Paternal Grandfather Paternal Grandmother Alive Sister Alive Social History Tobacco Use Types Packs/Day Years Used Date Smoking Tobacco: Never Cigarettes Smokeless Tobacco: Never Alcohol Use Standard Drinks/Week Comments Not Currently 0 (1 standard drink = 0.6 oz pur e alcohol) Sex and Gender Information Value Date Recorded Sex Assigned at Not on file Gender Identity Not on file Sexual Orientation Not on file Last Filed Vital Signs Vital Sign Reading Time Taken Comments Blood Pressure 125/94 07/13/2020 8:30 AM CDT Pulse 78 07/13/2020 8:30 AM CDT Temperature 36.3 C (97.3 F) 07/13/2020 8:30 AM CDT Respiratory Rate 22 03/13/2016 9:50 AM PAPERHANGER PIPE Oxygen Saturation 100% 07/13/2020 8:30 AM CDT Inhaled Oxygen Concentration - - Weight 115.4 kg (254 lb 6.4 oz) 07/13/2020 8:30 AM CDT Height 152.1 cm (4' 11.9 ) 04/13/2020 8:44 AM CS T Body Mass Index 49.85 04/13/2020 8:44 AM PAPERHANGER PIPE Plan of Treatment Health Maintenance Due Date Last Done Comments PAP SMEAR 1998 HIV SCREENING 2013 HPV VACCINE (1 - 3-dose series) 2013 HEPATITIS C SCREENING 02/28/2016 CHLAMYDIA/GONORRHEA SCREENING 08/09/2016 08/10/2015 DTAP/TDAP/TD VACCINES (1 - Tdap) 2017 HEPATITIS B VACCINE (1 of 3 - 19+ 3-dose series) 2017 COVID-19 VACCINE (1 - 2023-2 5 season) 2023 INFLUENZA VACCINE (#1) 2023 6, 01/09/2015 DEPRESSION SCREENING 03/10/2024 ZOSTER VACCINE (1 of 2) 2048 HIB VACCINE Aged Out No longer eligi ble based on patient's age to complete this topic MENINGOCOCCAL (Group B) VACCINE Aged Out No longer eligible b ased on patient's age to complete this topic MENINGOCOCCAL VACCINE Aged Out No marina mitra eligible based on patient's age to complete this topic PNEUMOCOCCAL VACCINE Aged Out No long er eligible based on patient's age to complete this topic Procedures Procedure Name Priority Date/Time Associated Diagnosis Comments CHLAMYDIA + GC AMPLIFIED PROBE Routine 08/10/2015 4:39 PM CDT DUB (dysfunctional uterine bleeding) from Last 3 Months or Most Recently Relevant to Health Maintenance Results * CHLAMYDIA + GC AMPLIFIED PROBE (08/10/2015 4:39 PM CDT) Chlamydia Amplified Probe Negative Negative 08/11/2015 8:43 AM CDT [facility] GC Amplified Probe Negative Negative 08/11/2015 8:43 AM CDT [facility] Urine URINE / Unknown 08/10/2015 4 :39 PM CDT 08/10/2015 5:15 PM CDT Narrative [facility] - 08/11/2015 8:43 AM CDT This test was developed and its performance characteristics determined by the [facility], [facility]. Female urine specimens tested by the [facility] have not been cleared or approved by the U.S. Food and Drug Administration (FDA). The laboratory is regulated under the Clinical Laboratory Improvement Amendments (CLIA) as qualified to perform high-complexity testing. This test is used for clinical purposes. It should not be regarded as investigational or for research. Results based on detection/no detection of ribosomal RNA by amplified method. Gi Jones MD LAB - MICROBIO LOGY ORDERABLES [facility] [address] [place] [address], [facility] [phone] from Last 3 Months or Most Recently Relevant to Health Maintenance Care Teams Aerobics Instructor Relationship Specialty Start Date End Date Brian Dela Cruz MD [address] [facility] [place] [address] PCP - General Family Medicine 07/13/20
--- OUTSIDE RECORDS SUMMARY | 2024-04-17 20:27 | XMS_ITS | Clinical Summary ---
Author Organization [facility] Address [address] [place] [address] Phone Care Team Providers Care Chip Crusher Operator Name Role Phone Brian Dela Cruz MD Primary Care Provider + [phone] Allergies Active Allergy Reactions Criticality Noted Date Comments Estradiol Other (see Comments) 11/05/2021 kills all her WBCs Medications No known medications Social History Tobacco Use Types Packs/Day Years Used Date Smoking Tobacco: Never Smokeless Tobacco: Never Alcohol Use Standard Drinks/Week Comments Never 0 (1 standard drink = 0.6 oz pur e alcohol) Comments No Sex and Gender Information Value Date Recorded Sex Assigned at Not on file Legal Sex Female 12:23 PM CDT Gender Identity Not on file Sexual Orientation Not on file Last Filed Vital Signs Vital Sign Reading Time Taken Comments Blood Pressure 119/81 11/05/2021 2:30 PM CDT Pulse 69 11/05/2021 2:30 PM CDT Temperature 36.5 C (97.7 F) 11/05/2021 12:27 PM CDT Respiratory Rate 17 11/05/2021 12:27 PM CDT Oxygen Saturation 96% 11/05/2021 2:44 PM CDT Inhaled Oxygen Concentration - - Weight 95.3 kg (210 lb) 11/05/2021 12:27 PM CDT Height 147.3 cm (4' 10 ) 11/05/2021 12:27 PM CDT Body Mass Index 43.89 11/05/2021 12:27 PM CDT Plan of Treatment Health Maintenance Due Date Last Done Comments Hepatitis C Virus (HCV) Screening 1998 Hepatitis B Immunization (2 of 3 - 3-dose series) 1998 1998 Pap Smear 2019 Influenza Immunization (#1) 2023 09/0 08/2015, 01/09/2015, 11/22/2010 SARS-COV-2 Immunization (2023- season) 2023 Respiratory Syncytial Virus (RSV) Immunization (Adult) (1 - 1-dose 75+ series) 2073 DTaP/Tdap/Td Immunization Discontinued 2009, 11/28/2003, 01/04/2003, Additional history exists TdaP Immunization Completed 11/02/2009 Human Papillomavirus (HPV) Immunization Completed 04/22/2013, 10/22/2012 Meningococcal Immunization (ACWY) Completed 01/09/2015 Pneumococcal Immunization Combined Aged Out No longer eligible based on patient's age to complete this topic Rotavirus Immunization Aged Out No lo nger eligible based on patient's age to complete this topic Insurance Care Teams Chip Crusher Operator Relationship Specialty Start Date End Date Brian Dela Cruz MD [address] [place] [address] PCP - General Family Medicine 11/05/21
--- OUTSIDE RECORDS SUMMARY | 2024-04-17 20:27 | XMS_ITS | Patient Health Summary ---
Author Organization [facility] Address [address] [place] [address] Care Team Providers Care Coal Deliverer Name Role Phone Brian Dela Cruz MD Primary Care Provider [phone] Note from [facility],non-owned Affiliates and Associated Physician Practices is amultiple site organization consisting of ambulatory clinics and hospital sitesin [place], [place], [place] and [place]. This disclosure is being madepursuant to the Care Everywhere program and may not contain all information available regarding this patient. Last updated 17.[facility] Allergies * Methylprednisolone(Hematologic) -High Criticality Medications * Be aware that medications may not be up to date on this document. Alwaysverify current medications with the patient. * Calcium Carbonate-Vitamin D (CALCIUM + D PO) * docusate sodium (COLACE) 100 MG capsule(Started 07/12/2015) Take 1 Cap by mouth once daily as needed for Constipation 3 refills left * ferrous sulfate 325 (65 FE) MG tablet(Started 06/12/2016) Take 1 Tab by mouth 2 times daily with morning and evening meal Take with orange juice and use colace for constipation 3 refills remaining * hydrOXYzine hcl (ATARAX) 25 MG tablet(Started 06/12/2016) Take 1 Tab by mouth at bedtime * melatonin 5 MG tablet(Started 06/12/2016) Take 1 Tab by mouth at bedtime 5 refills remaining * fluticasone propionate (FLONASE) 50 MCG/ACT nasal spray(Started 06/12/2016) Laveen 1 Laveen into each nostril once daily 5 refills remaining * Vit-Fe Fumarate-FA ( VITAMIN) 28-0.8 MG tablet Take 1 tablet by mouth once daily Reasons: * sertraline (ZOLOFT) 25 MG tablet Take 50 mg by mouth once daily Reasons: Generalized Anxiety Disorder * aspirin (ASPIRIN) 81 MG chew tablet Take 81 mg by mouth 2 times daily * famotidine (PEPCID) 20 MG tablet Take 1 tablet by mouth 2 times daily * Heparin Sodium, [place]cine, 38575 UNIT/ML injection Inject 1 mL subcutaneously 2 times daily Active Problems Problem Noted Date Diagnosed Date Cellulitis 07/12/2020 cardiac anomaly affecting , 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 Abnormal O'Boyd glucose challenge test, ante 05/24/2020 Swelling of lower extremity during and leg pain 04/17/2020 Family history of blood clots 04/17/2020 Nausea and vomiting 04/17/2020 Supervision of high-risk of silvia betts 04/03/2020 Nonfunctioning kidney with chronic kidney diseas e 03/22/2020 Chronic hypertension affecting 021 Maternal morbid obesity, antepartum 07/14/2015 Chronic constipation 08/17/2014 Psychiatric diagnosis 03/10/2014 Resolved Problems Problem Noted Date Diagnosed Date Resolved Date History of nephrectomy 02/22/202003/22 Pelvic mass in female 08/18/20152019 Voiding dysfunction 07/14/2015 02/22/20 20 LINNETTE (obstructive sleep apnea) 09/25/2014 02/22/2020 Sleep disorder 08/17/2014 09/25/2014 Social History Tobacco Use Types Packs/Day Years [...] CDT Respiratory Rate 22 03/13/2016 9:50 AM BUSINESS OBJECTS Oxygen Saturation 100% 07/13/2020 8:30 AM CDT Inhaled Oxygen Concentration - - Weight 115.4 kg (254 lb 6.4 oz) 07/13/2020 8:30 AM CDT Height 152.1 cm (4' 11.9 ) 04/13/2020 8:44 AM CS T Body Mass Index 49.85 04/13/2020 8:44 AM BUSINESS OBJECTS Procedures * LUPUS ANTICOAGULANT PANEL(Performed 07/13/2020) Performed for Chronic hypertension affecting ([facility]) * BETA-2 GLYCOPROTEIN 1 ANTIBODY IGG/IGM PANEL(Performed 07/13/2020) Performed for Chronic hypertension affecting ([facility]), Supervision of high-risk ofyoung multigravida ([facility]), Family history of DVT * CARDIOLIPIN ANTIBODY IGG/IGM PANEL(Performed 07/13/2020) Performed for Chronic hypertension affecting ([facility]), Supervision of high-risk ofyoung multigravida ([facility]), Family history of DVT * FACTOR V LEIDEN MUTATION PANEL(Performed 07/13/2020) Performed for Chronic hypertension affecting ([facility]), Supervision of high-risk ofyoung multigravida ([facility]), Family history of DVT * PROTHROMBIN [id number] PANEL(Performed 07/13/2020) Performed for Chronic hypertension affecting ([facility]), Supervision of high-risk ofyoung multigravida ([facility]), Family history of DVT * COMPREHENSIVE METABOLIC PANEL(Performed 07/13/2020) Performed for Chronic hypertension affecting ([facility]), Supervision of high-risk ofyoung multigravida ([facility]), Bilious vomiting with nausea * PROTEIN C ACTIVITY(Performed 07/13/2020) Performed for Chronic hypertension affecting ([facility]), Supervision of high-risk ofyoung multigravida ([facility]), Family history of DVT * CBC W AUTO DIFFERENTIAL(Performed 07/13/2020) Performed for Swelling of lower extremity during and leg pain, Family history of blood clots * BIOPHYSICAL PROFILE W NST(Performed 07/10/2020) Performed for Morbid obesity with BMI of 45.0-49.9, adult (HCC), Nonfunctioning kidney with chronickidney disease, Chronic hypertension affecting (HCC) * BIOPHYSICAL PROFILE W NST(Performed 07/03/2020) Performed for Morbid obesity with BMI of 45.0-49.9, adult (HCC), Nonfunctioning kidney with chronickidney disease, Chronic hypertension affecting (HCC) * BIOPHYSICAL PROFILE W NST(Performed 06/26/2020) Performed for Morbid obesity with BMI of 45.0-49.9, adult (HCC), Nonfunctioning kidney with chronickidney disease, Chronic hypertension affecting (HCC) * BIOPHYSICAL PROFILE W NST(Performed 06/19/2020) Performed for Morbid obesity with BMI of 45.0-49.9, adult (HCC), Nonfunctioning kidney with chronickidney disease, Chronic hypertension affecting (HCC) * BIOPHYSICAL PROFILE W NST(Performed 06/12/2020) Performed for Morbid obesity with BMI of 45.0-49.9, adult (HCC), Nonfunctioning kidney with chronickidney disease, Chronic hypertension affecting (HCC) * SONOGRAM - COMPLETE(Performed 05/15/2020) Performed for Encounter for anatomic survey (HCC), Chronic constipation, Morbid obesity with BMI of 45.0-49.9, adult (HCC), History of nephrectomy * ECHO CONSULT - (Performed 04/27/2020) Performed for Abnormal ultrasonic finding on screening of mother * SONOGRAM - COMPLETE(Performed 04/17/2020) Performed for Encounter for anatomic survey (HCC), Chronic constipation, Morbid obesity with BMI of 45.0-49.9, adult (HCC), History of nephrectomy * PROTEIN URINE RANDOM QUANTITATIVE(Performed 04/13/2020) Performed for Proteinuria, unspecified type * MICROALB/CREAT RATIO URINE RANDOM PANEL(Performed 04/13/2020) Performed for Proteinuria, unspecified type * URINALYSIS REFLEX TO MICROSCOPIC NO CULTURE(Performed 04/13/2020) Performed for Proteinuria, unspecified type * URIC ACID BLOOD(Performed 04/13/2020) Performed for Proteinuria, unspecified type * COMPREHENSIVE METABOLIC PANEL(Performed 04/13/2020) Performed for Proteinuria, unspecified type * CBC W AUTO DIFFERENTIAL(Performed 04/13/2020) Performed for Proteinuria, unspecified type * SONOGRAM - COMPLETE(Performed 03/22/2020) Performed for Encounter for anatomic survey (HCC), Chronic constipation, Morbid obesity with BMI of 45.0-49.9, adult (HCC), History of nephrectomy * VITAMIN D 25-HYDROXY(Performed 06/12/2016) Performed for Restless sleeper * FERRITIN(Performed 06/12/2016) Performed for Restless sleeper * VITAMIN D 25-HYDROXY(Performed 03/13/2016) Performed for Restless legs syndrome (RLS) * FERRITIN(Performed 03/13/2016) Performed for Restless legs syndrome (RLS) * URINE MICROSCOPIC ONLY(Performed 01/11/2016) Performed for Voiding dysfunction * CALCIUM/CREAT RATIO URINE RANDOM PANEL(Performed 01/11/2016) Performed for Voiding dysfunction * URINALYSIS REFLEX TO MICROSCOPIC NO CULTURE(Performed 01/11/2016) Performed for Voiding dysfunction * CULTURE URINE(Performed 01/11/2016) Performed for Voiding dysfunction * REDUCED POLYSOMNOGRAPHY 4 OR MORE PARAMETERS WITHOUT CPAP(Performed 11/10/2015) Performed for LINNETTE (obstructive sleep apnea) * NM RENAL SCAN W FLOW AND FUNCTION(Performed 09/28/2015) Performed for Right renal atrophy * EMG ACC(Performed 09/22/2015) Performed for Voiding dysfunction * CYSTOMETROGRAM ACC(Performed 09/22/2015) Performed for Voiding dysfunction * LDH BLOOD(Performed 09/07/2015) Performed for Liver mass * ALPHA FETOPROTEIN BLOOD TUMOR MARKER(Performed 09/07/2015) Performed for Liver mass * PT PTT PANEL(Performed 09/07/2015) Performed for Liver mass * GGT(Performed 09/07/2015) Performed for Liver mass * HEPATIC FUNCTION PANEL(Performed 09/07/2015) Performed for Liver mass * UROFLOWMETRY(Performed 09/06/2015) * URINE MICROSCOPIC ONLY(Performed 08/30/2015) Performed for Voiding dysfunction * URINALYSIS REFLEX TO MICROSCOPIC NO CULTURE(Performed 08/30/2015) Performed for Voiding dysfunction * CULTURE URINE(Performed 08/30/2015) Performed for Voiding dysfunction * FL CYSTOGRAM(Performed 08/30/2015) Performed for Voiding dysfunction * MRI PELVIS WWO CONTRAST(Performed 08/23/2015) Performed for Pelvic mass in female * MRI ABDOMEN WWO CONTRAST(Performed 08/23/2015) Performed for Mass * CHLAMYDIA + GC AMPLIFIED PROBE(Performed 08/10/2015) Performed for DUB (dysfunctional uterine bleeding) * US PELVIS W TRANSVAG NON OB(Performed 08/10/2015) Performed for Lower abdominal pain, DUB (dysfunctional uterine bleeding) * US KIDNEYS W BLADDER(Performed 08/10/2015) Performed for Enuresis * URINALYSIS - POCT (IP) BEAKER(Performed 08/10/2015) Performed for DUB (dysfunctional uterine bleeding) * HEMOGLOBIN A1C(Performed 07/15/2015) Performed for Abnormal weight gain, Enuresis, Enureses, Chronic constipation, Dysmenorrhea, LINNETTE (obstructive sleep apnea) * CBC W AUTO DIFFERENTIAL(Performed 07/15/2015) Performed for Abnormal weight gain * T4 TOTAL(Performed 07/15/2015) Performed for Abnormal weight gain * TSH(Performed 07/15/2015) Performed for Abnormal weight gain * LIPID PROFILE(Performed 07/15/2015) Performed for Abnormal weight gain * FERRITIN(Performed 07/15/2015) Performed for Abnormal weight gain * COMPREHENSIVE METABOLIC PANEL(Performed 07/15/2015) Performed for Abnormal weight gain * URINE MICROSCOPIC ONLY(Performed 07/12/2015) Performed for Enuresis * CALCIUM/CREAT RATIO URINE RANDOM PANEL(Performed 07/12/2015) Performed for Enuresis * URINALYSIS REFLEX TO MICROSCOPIC NO CULTURE(Performed 07/12/2015) Performed for Enuresis * CULTURE URINE(Performed 07/12/2015) Performed for Enuresis * SPLIT NIGHT STUDY(Performed 09/17/2014) Performed for Sleep disorder * LAB RESULTS ORDER(Performed 08/22/2014) * URINE MICROSCOPIC ONLY(Performed 08/17/2014) Performed for Enureses * CALCIUM/CREAT RATIO URINE RANDOM PANEL(Performed 08/17/2014) Performed for Enureses * URINALYSIS REFLEX TO MICROSCOPIC NO CULTURE(Performed 08/17/2014) Performed for Enureses * CULTURE URINE(Performed 08/17/2014) Performed for Enureses Results * LUPUS ANTICOAGULANT PANEL (07/13/2020 2:04 PM CDT) APTT 29.8 23.0 - 38.4 Seconds 07/14/2020 4:09 PM [facility] PT 12.8 12.1 - 14.8 Seconds 07/14/2020 4:09 PM [facility] INR 1.0 See Comment 07/14/2020 4:09 PM CDT [facility] Buffer 36.1 Seconds 021 4:09 PM CDT [facility] Phospholipid 38.6 Seconds 07/14/2020 4:09 PM CDT [facility] Delta -2.5 <8.0 Seconds 07/14/2020 4:09 PM CDT [facility] Interpretation [facility] Negative 07/14/2020 4:09 PM CDT [facility] Comment:Up to 15-20% of morgan ents with lupus anticoagulant associated with antiphospholipid antibody syndrome (APAS) will have negative STACLOT-LA results. For these patients we recommend additional testing to include the Dilute Nicola Viper Venom Time (DRVVT) test. Immunoassay measurements of anti-cardiolipin and anti-beta-2 glycoprotein 1 are recommended if the DRVVT, and STACLOT-LA tests are negative and there is clinical suspicion of APAS. Blood BLOOD SPECIMEN / Unknown Lab Venipuncture / Unknown 07/13/2020 2:04 PM CDT 07/13/2020 2:10 PM CDT Noa Jiang MD LAB - HEMATOLOGY ORDERABLES [facility] [address] [place] [id number], [facility] [phone] * PROTHROMBIN [id number] PANEL (07/13/2020 1:55 PM CDT) [facility] Factor II DNA Analysis Comment 07/18/2020 5:08 PM CDT [facility] ([facility]) Comment: NEGATIVE No mutation identified. Comment: A point mutation ([id number]) in the factor II (prothrombin) gene is the second most common cause of inherited thrombophilia. The incidence of this mutation in the [place] population is about 2% and in the population it is approximately 0.5%. This mutation is rare in the and population. Being heterozygous for a prothrombin mutation increases the risk for developing venous thrombosis about 2 to 3 times above the general population risk. Being homozygous for the prothrombin gene mutation increases the relative risk for venous thrombosis further, although it is not yet known how much further the risk is increased. In women heterozygous for the prothrombin gene mutation, the use of estrogen containing oral contraceptives increases the relative risk of venous thrombosis about 16 times and the risk of developing cerebral thrombosis is also significantly increased. In the prothrombin gene mutation increases risk for venous thrombosis and may increase risk for stillbirth, placental abruption, pre-eclampsia and growth restriction. If the patient possesses two or more congenital or acquired thrombophilic risk factors, the risk for thrombosis may rise to more than the sum of the risk ratios for the individual mutations. This assay detects only the prothrombin [id number] mutation and does not measure genetic abnormalities elsewhere in the genome. Other thrombotic risk factors may be pursued through systematic clinical laboratory analysis. These factors include the R506Q (Leiden) mutation in the Factor V gene, plasma homocysteine levels, as well as testing for deficiencies of antithrombin III, protein C and protein S. Genetic Counselors are available for health care providers to discuss results at [phone] ([phone]). Methodology: DNA analysis of the Factor II gene was performed by PCR amplification followed by restriction analysis. The diagnostic sensitivity is >99% for both. All the tests must be combined with clinical information for the most accurate interpretation. Molecular-based testing is highly accurate, but as in any laboratory test, diagnostic errors may occur. This test was developed and its performance characteristics determined by [employer]. It has not been cleared or approved by the Food and Drug Administration. Johnt SR, et al. Blood. 1996; 88:3278-7938. Magy EA. Circulation. 2004; 110:e15-e18. Marek I, et al. Arterioscler Thromb Vasc Biol. 1999; 19:700-703. Donell Wolff, PhD, [facility] Luisa Murphy, PhD, [facility] Carmen Spivey, PhD, [facility] Gill Rodriguez, PhD, FAC Giorgi Davis, PhD, FAC Devon Shea, PhD, FAC Blood BLOOD SPECIMEN / Unknown Lab Venipuncture / Unknown 07/13/2020 1:55 PM CDT 07/13/2020 1:55 PM CDT [facility] ([facility]) - 07/18/2020 5:08 PM CDT Performed at: 01 - [facility] [address], [place], [place] [id number] Tapping Machine Operator Automatic: Ольга Wise [facility], Phone: [phone] Noa Jiang MD LAB - COAGULATION ORDERABLES [facility] ([facility]) [address] [place] [address] * FACTOR V LEIDEN MUTATION PANEL (07/13/2020 1:55 PM CDT) [facility] Factor V Leiden Comment 11:09 AM CDT [facility] ([facility]) Comment: Result: Negative (no mutation found) Factor V Leiden is a specific mutation (R506Q) in the factor V gene that is associated with an increased risk of venous thrombosis. Factor V Leiden is more resistant to inactivation by activated protein C. As a result, factor V persists in the circulation leading to a mild hyper- coagulable state. The Leiden mutation accounts for 90% - 95% of APC resistance. Factor V Leiden has been reported in patients with deep vein thrombosis, pulmonary embolus, central retinal vein occlusion, cerebral sinus thrombosis and hepatic vein thrombosis. Other risk factors to be considered in the workup for venous thrombosis include the [id number] mutation in the factor II (prothrombin) gene, protein S and C deficiency, and antithrombin deficiencies. Anticardiolipin antibody and lupus anticoagulant analysis may be appropriate for certain patients, as well as homocysteine levels. Contact your local [facility] for information on how to order additional testing if desired. Genetic counselors are available for health care providers to discuss results at [phone] ([phone]). Methodology: DNA analysis of the Factor V gene was performed by allele-specific PCR. The diagnostic sensitivity and specificity is >99% for both. Molecular-based testing is highly accurate, but as in any laboratory test, diagnostic errors may occur. All test results must be combined with clinical information for the most accurate interpretation. This test was developed and its performance characteristics determined by [facility]. It has not been cleared or approved by the Food and Drug Administration. References: Yoel Pineda (1996). Clin Lab Med 16:169-186. Donell Wolff, PhD, [facility] Luisa Murphy, PhD, [facility] Carmen Spivey, PhD, [facility] Gill Rodriguez, PhD, FAC Giorgi Davis, PhD, FAC Devon Shea PhD, FAC Blood BLOOD SPECIMEN / Unknown Lab Venipuncture / Unknown 07/13/2020 1:55 PM CDT 07/13/2020 1:55 PM CDT Narrative [facility] ([facility]) - 07/20/2020 11:09 AM CDT [facility]formed [facility]: [facility] [address], [place], [place] [id number] Tapping Machine Operator Automatic: Ольга Wise [facility], Phone: [phone] Noa Jiang MD LAB - COAGULATION ORDERABLES Performing Organization Address City/[facility] Co de Phone Number [facility] ([facility]) [address] [place] [address] * (ABNORMAL) CARDIOLIPIN ANTIBODY IGG/IGM PANEL (07/13/2020 1:55 PM CDT) [facility] Cardiolipin Antibody IgG <9 0 - 14 GPL U/mL 07/15/2020 3:07 PM CDT [facility] ([facility]) Comment: Negative: <15 Indeterminate: 15 - 20 Low-Med Positive: >20 - 80 High Positive: >80 Cardiolipin Antibody IgM 22(H) 0 - 12 MPL U/mL 07/15/2020 3:07 PM CDT [facility] ([facility]) Comment: Negative: <13 Indeterminate: 13 - 20 Low-Med Positive: >20 - 80 High Positive: >80 Blood BLOOD SPECIMEN / Unknown Lab Venipuncture / Unknown 07/13/2020 1:55 PM CDT 07/13/2020 1:56 PM CDT Narrative [facility] ([facility]) - 07/15/2020 3:07 PM CDT Performed at: [address] [id number] Tapping Machine Operator Automatic: Zurdo Lira PhD, Phone: [phone] Noa Jiang MD LAB - SEROLOGY OR DERABLES Performing Organization Address City/[facility]/ZIP Co de Phone Number [facility] ([facility]) [address] [place] [address] * BETA-2 GLYCOPROTEIN 1 ANTIBODY IGG/IGM PANEL (07/13/2020 1:55 PM CDT) [facility] Beta-2 Glycoprotein I Antibody IgG <9 0 - 20 GPI IgG units 07/16/2020 10:06 PM CDT [facility] ([facility]) Comment: The reference interval reflects a 3SD or 99th percentile interval, which is thought to represent a potentially clinically significant result in accordance with the International Consensus Statement on the classification criteria for definitive antiphospholipid syndrome (APS). J Thromb Haem 2006;4:295-306. Beta-2 Glycoprotein I Antibody IgM <9 0 - 32 GPI IgM units 07/16/2020 10:06 PM CDT [facility] ([facility]) Comment: The reference interval reflects a 3SD or 99th percentile interval, which is thought to represent a potentially clinically significant result in accordance with the International Consensus Statement on the classification criteria for definitive antiphospholipid syndrome (APS). J Thromb Haem 2006;4:295-306. Blood BLOOD SPECIMEN / Unknown Lab Venipuncture / Unknown 07/13/2020 1:55 PM CDT 07/13/2020 1:56 PM CDT Narrative [facility] ([facility]) - 07/16/2020 10:06 PM CDT Performed at: [address] [place] [id number] Tapping Machine Operator Automatic: Ivy Menchaca MD, Phone: [phone] Noa Jiang MD LAB - CHEMISTRY O RDERABLES Performing Organization Address City/[facility]/ZIP Co de Phone Number [facility] ([facility]) [address] [place] [address] * (ABNORMAL) COMPREHENSIVE METABOLIC PANEL (07/13/2020 1:55 PM CDT) Only the most recent of3 resultswithin the time period is included. [facility] Glucose 74 70 - 105 mg/dL 07/13/2020 3:30 PM CDT [facility] Sodium 133(L) 136 - 145 mmol/L 07/13/2020 3:30 PM CDT [facility] Potassium 4.3 3.5 - 5.1 mmol/L 07/13/2020 3:30 PM CDT [facility] Chloride 101 98 - 107 mmol/L 07/13/2020 3:30 PM CDT [facility] CO2 18(L) 23 - 31 mmol/L 07/13/2020 3:30 PM CDT [facility] Calcium 9.7 8.4 - 10.4 mg/dL 07/13/2020 3:30 PM CDT [facility] Anion Gap 14 8 - 18 mmol/L 07/13/2020 3:30 PM CDT [facility] Comment:Attention clinician: Reference Range change. BUN 12 7 - 18.7 mg/dL 07/13/2020 3:30 PM CDT [facility] Creatinine 0.86 0.57 - 1.11 mg/dL 07/13/2020 3:30 PM CDT [facility] Alkaline Phosphatase 165(H) 40 - 150 U/L 07/13/2020 3:30 PM CDT [facility] Comment:Attention clinician: Reference Range change. ALT 13 0 - 61 U/L 07/13/2020 3:30 PM CDT [facility] AST 13 5 - 34 U/L 07/13/2020 3:30 PM CDT [facility] Protein Total 7.6 6.4 - 8.3 gm/dL 07/13/2020 3:30 PM CDT [facility] Albumin 3.3(L) 3.5 - 5.2 gm/dL 07/13/2020 3:30 PM CDT [facility] Bilirubin Total 0.3 0.2 - 1.2 mg/dL 07/13/2020 3:30 PM CDT [facility] Comment:Attention clinician: Reference Range change. eGFR by MDRD >60 >60 mL/min/1.7 3m2 07/13/2020 3:30 PM CDT [facility] eGFR by MDRD >60 >60 mL/min/1.7 3m2 07/13/2020 3:30 PM CDT [facility] Blood BLOOD SPECIMEN / Unknown Lab Venipuncture / Unknown 07/13/2020 1:55 PM CDT 07/13/2020 1:55 PM CDT Noa Jiang MD LAB - CHEMISTRY O RDERABLES Performing Organization Address City/[facility] Co de Phone Number [facility] [address] [place] [address] * (ABNORMAL) PROTEIN C FUNCTIONAL (07/13/2020 1:54 PM CDT) [facility] Protein C Activity >199(H) % 07/18/2020 4:10 PM CDT [facility] ([facility]) Comment: Elevated protein C activity is of no known clinical significance. Reference Range: 17 years and older: 73 - 180 Blood BLOOD SPECIMEN / Unknown Lab Venipuncture / Unknown 07/13/2020 1:54 PM CDT 07/13/2020 1:55 PM CDT Narrative [facility] ([facility]) - 07/18/2020 4:10 PM CDT Performed at: [facility] [employer] [facility] [email or web address] [address] [id number] Tapping Machine Operator Automatic: Cali Ford MD, Phone: [phone] Noa Jiang MD LAB - COAGULATION ORDERABLES Performing Organization Address City/[facility] Co de Phone Number [facility] ([facility]) [address] [place] [address] * (ABNORMAL) CBC WITH DIFFERENTIAL (07/13/2020 1:53 PM CDT) Only the most recent of3 resultswithin the time period is included. Pathologist [facility] WBC 12.4(H) 4.4 - 10.7 x10E9/L 07/13/2020 2:29 PM CDT [facility] WBC Corrected 07/13/2020 2:29 PM CDT [facility] RBC 4.43 3.80 - 5.20 x10E12/L 07/13/2020 2:29 PM CDT [facility] Hemoglobin 13.6 12.0 - 15.6 gm/dL 07/13/2020 2:29 PM CDT [facility] Hematocrit 40.0 35.9 - 45.5 % 07/13/2020 2:29 PM CDT [facility] MCV 90.3 80.7 - 98.3 fl 07/13/2020 2:29 PM [facility] MCH 30.7 26.7 - 34.0 pg 07/13/2020 2:29 PM [facility] MCHC 34.0 30.8 - 35.9 gm/dL 07/13/2020 2:29 PM [facility] Platelet Count 369 153 - 416 x10E9/L 07/13/2020 2:29 PM [facility] RDW-CV 13.1 12.1 - 14.9 % 07/13/2020 2:29 PM [facility] MPV 10.9 9.4 - 12.9 fl 07/13/2020 2:29 PM [facility] Neutrophils % 70.1 44.0 - 73.0 % 07/13/2020 2:29 PM [facility] Lymphocytes % 21.7 20.0 - 43.0 % 07/13/2020 2:29 PM [facility] Monocytes % 6.2 5.0 - 13.0 % 07/13/2020 2:29 PM [facility] Eosinophils % 0.7 0.0 - 6.0 % 07/13/2020 2:29 PM [facility] Basophils % 0.3 0.0 - 2.0 % 07/13/2020 2:29 PM [facility] Immature Granulocytes 1.0 0 - 1 % 07/13/2020 2:29 PM [facility] Neutrophil Absolute 8.66(H) 2.01 - 7.14 x10E9/L 07/13/2020 2:29 PM [facility] Lymphocytes Absolute 2.68 1.07 - 3.94 x10E9/L 07/13/2020 2:29 PM [facility] Monocytes Absolute 0.76 0.26 - 1.07 x10E9/L 07/13/2020 2:29 PM [facility] Eosinophils Absolute 0.09 0 - 0.47 x10E9/L 07/13/2020 2:29 PM [facility] Basophils Absolute 0.04 0 - 0.08 x10E9/L 07/13/2020 2:29 PM [facility] Immature Granulocytes Absolute 0.12(H) 0.00 - 0.06 x10E9/L 07/13/2020 2:29 PM CDT [facility] nRBC Auto 0 /100 WBC 07/13/2020 2:29 PM CDT [facility] Blood BLOOD SPECIMEN / Unknown Lab Venipuncture / Unknown 07/13/2020 1:53 PM CDT 07/13/2020 1:53 PM CDT Cordelai Emily ELEMENTARY ESL TEACHER-FARM MACHINERY ENGINE MECHANIC LAB - HEMATOLOG Y ORDERABLES [facility] [address] [place], [place] [id number] * BIOPHYSICAL PROFILE W NST (07/10/2020 1:08 PM CDT) Only the most recent of5 resultswithin the time period is included. Anatomical Region Laterality Modality Other 07/10/2020 1:08 PM CDT Narrative 07/10/2020 1:57 PM CDT [facility] PHONE: FAX: Pat. Name: CJ RONQUILLONANCY Lora. No: [id number] Study Date: 07/10/2020 1:08pm , Age: 10 2000, 20 Pregnancies: 2, Para 0, Ab 1 Height: 58 in Weight: 217 lb LMP: 10/30/2019 GA by LMP: 36w2d GA by Base: 36w2d MOHSEN: 08/05/2020 GA by US: 34w0d MOHSEN: 08/21/2020 GA Selected: 36w2d (LMP) MOHSEN: 08/05/2020 Referring MD: Prakash Gutierres MD Liquid Sugar Melter: Winter Hirsch RDMS CPT4: 46084,44370 BMI: 45.35 Hist/Ind: MOB non-functioning right kidney Class III Obesity (BMI 45 ECHO: Left Persistant SVC Normal ECHO MEASUREMENTS & AGE GROWTH EVALUATION Measurement GA Range Srce %for GA Ratios ----- ---- ------- BPD 8.3 cm 33w2d (88l5h-13o2e) Hadl BPD 1% FL/BPD 0.80 (0.71 - 0.87) HC 30.2 cm 33w4d (78h7w-06g3b) Hadl HC <01 FL/AC 0.20 (0.20 - 0.24) AC 33.0 cm 36w6d (11o2j-07r7x) Hadl AC 76% HC/AC 0.92 (0.92 - 1.11* FL 6.6 cm 34w1d (01s9y-26w3k) Hadl FL 5% CI 0.76 (0.70 - 0.86) HL 5.8 cm 33w4d (69s0m-56d6x) Mendez HL 6% GA for sonogram 34w0d (89u9g-09e0g) Weight Estimate: based on (BPD,HC,AC,FL) Hadlock Weight: 2674 gm (2284-3065gm) Had : 5lbs, 14oz Normal: 2878 gm (2158-3597gm) Had Wt% 29% for 36w2d Heart Rate: 130 bpm Amniotic Fluid Index: 20.1cm (07.6-24.8) Q1: 6.3cm Q2: 4.3cm Q3: 7.4cm Q4: 2.2cm Biophysical Profile: 12/17 Breathin Tone: 2 NST: 2 Movement: 2 AFV: 2 EVAL, PLACENTA Presentation: cephalic Placenta: anterior Heart Rate: 130 bpm Amniotic Fluid Volume: normal DOPPLER Umbilical - Mid Cord S/D 2.50(1.63 - 3.49) PI 0.93 (0.57 - 1.15) Middle Cerebral Artery PSV 51.5cm/s PI 0.98 (1.36 - 2.48) * Med PSV 54.3cm/s MoM 0.95(<1.5) CLINICAL SUMMARY Study Number: 8 A single fetus is seen in cephalic presentation. The measurements today are consistent with less than expected interval growth. The MOHSEN selected is based on LMP and a prior ultrasound. The amniotic fluid volume is within normal limits. The FHR baseline was 125 bpm during today's reactive NST. The FHR variability was moderate. IMPRESSION: Single, live intrauterine at 36w2d Amniotic fluid volume: Normal size is less than expected Biophysical profile: Reassuring Doppler studies: consistent with cephalization of blood flow RECOMMEND: Continue weekly NST/BPP testing and Doppler studies Thank you for allowing us the opportunity to care for your patient. Tyler Sauer MD <Electronic Signature> 07/10/2020 01:57pm Prakash Gutierres MD [facility] ORDERABLES * SONOGRAM - COMPLETE (05/15/2020 1:00 PM BUSINESS OBJECTS) Only the most recent of3 resultswithin the time period is included. Anatomical Region Laterality Modality Other 05/15/2020 1:00 PM BUSINESS OBJECTS Narrative 05/15/2020 4:53 PM BUSINESS OBJECTS [facility] PHONE: FAX: Pat. Name: LEVY RONQUILLO Geno. No: [id number] Study Date: 05/15/2020 1:00pm , Age: 10 2000, 20 Pregnancies: 2, Para 0, Ab 1 Height: 58 in Weight: 217 lb LMP: 10/30/2019 GA by LMP: 28w2d GA by Base: 28w2d MOHSEN: 08/05/2020 GA by US: 28w3d MOHSEN: 08/04/2020 GA Selected: 28w2d (LMP) MOHSEN: 08/05/2020 Referring MD: Praksah Gutierres MD Liquid Sugar Melter: Ranjana Vasquez RDMS CPT4: 44472 BMI: 45.35 Hist/Ind: MOB non-functioning right kidney Class III Obesity (BMI 45 Complete Anatomy ECHO: Left Persistant SVC Normal ECHO MEASUREMENTS & AGE GROWTH EVALUATION Measurement GA Range Srce %for GA Ratios ----- ---- ------- BPD 7.0 cm 28w0d (39k0p-21r1z) Hadl BPD 26% FL/BPD 0.80 (0.71 - 0.87) HC 25.7 cm 27w6d (68p9p-78j8h) Hadl HC 10% FL/AC 0.23 (0.20 - 0.24) AC 24.0 cm 28w2d (29h3g-68v5g) Hadl AC 42% HC/AC 1.07 (0.99 - 1.18) FL 5.6 cm 29w3d (92a7l-12q0l) Hadl FL 67% CI 0.76 (0.70 - 0.86) HL 5.4 cm 31w2d (08i1a-93b1v) Mendez HL >95 GA for sonogram 28w3d (95b2j-65x6l) Weight Estimate: based on (BPD,HC,AC,FL) Avg Weight: 1256 gm (1073-1440gm) Had : 2lbs, 12oz Normal: 1261 gm (946-1576gm) Hadl Wt% 49% for 28w2d Heart Rate: 131 bpm Amniotic Fluid Index: 15.6cm (09.3-22.9) Q1: 4.2cm Q2: 4.7cm Q3: 4.1cm Q4: 2.7cm EVAL, PLACENTA Presentation: cephalic Umbilical Cord: 3 Vessels Placenta: anterior Heart Rate: 131 bpm Amniotic Fluid Volume: normal Anatomy!Normal!Abnormal!Suboptimal!Prev. Seen!Comments Cranium ! x ! ! ! x ! Mdl (CSP/Thal! ! ! ! x ! Ventricles ! ! ! ! x ! Choroid Plexu! ! ! ! x ! Cerebellum ! ! ! ! x ! Cerebellar Ve! ! ! ! x ! Cisterna M. ! ! ! ! x ! Nuchal Fold ! ! ! ! x ! Orbits ! ! ! ! x ! Profile ! ! ! ! x ! Nasal Bone ! ! ! ! x ! Lip ! ! ! ! x ! Maxilla ! ! ! ! x ! Mandible ! ! ! ! x ! Neck ! x ! ! ! ! Spine ! ! ! ! x ! Lungs ! ! ! ! x ! 4 Chamber Hea! x ! ! ! x ! LVOT ! ! ! ! x ! RVOT ! x ! ! ! ! 3 Vessel View! ! ! ! x ! 3 Vessel Trac! ! ! ! x ! Cross-over ! ! ! ! x ! Ductal Arch ! x ! ! ! ! Aortic Arch ! x ! ! ! x ! Caval View ! x ! ! ! ! Situs ! ! ! ! x ! Diaphragm ! ! ! ! x ! Stomach ! x ! ! ! x ! Liver ! ! ! ! x ! Bowel ! x ! ! ! x ! Kidneys ! x ! ! ! x ! Bladder ! x ! ! ! x ! 3 Vessel Cord! x ! ! ! x ! Cord In! x ! ! ! x ! Upper Extremi! ! ! ! x ! Hands ! ! ! ! x ! Lower Extremi! ! ! ! x ! Feet ! ! ! ! x ! External Lizeth! ! ! ! x ! Placental Cor! ! ! ! x ! CLINICAL SUMMARY Study Number: 3 A single fetus is seen in cephalic presentation. The measurements today are consistent with appropriate interval growth. The MOHSEN is based on her LMP and a prior ultrasound. The amniotic fluid volume is within normal limits. anatomy was technically adequate. No major malformations were seen within the limitations of ultrasound. IMPRESSION: Single, live, intrauterine at 28w2d size is within normal limits Amniotic fluid volume: within normal limits RECOMMEND: Ultrasound in 4 weeks for weekly BPP/NST Thank you for allowing us the opportunity to care for your patient Tyler Sauer MD <Electronic Signature> 05/15/2020 04:52pm Prakash Gutierres MD [facility] ORDERABLES * ECHO CONSULT - (04/27/2020 11:04 AM BUSINESS OBJECTS) 04/27/2020 11:0 4 AM BUSINESS OBJECTS Narrative Procedure Note Svetlana Connelly MD - 04/27/2020 [facility] [place] [address] Fax Echocardiogram Report Pat.Name: LEVY RONQUILLO Pat.ID: [id number] .Date: 04/27/2020 Refer.MD: Hai Islas Exam Time: 11:04:00 AM Study Type: Echo Age: 10 2000,20Y Sex: FEMALE Sonogrphr: Angeles Murillo RDCS Pat. Stat.:Outpatient CPT - 4: 81676, 29758, 23843, 93176, 79684 Reason for Study: Suspected Cardiac Abnormality SUMMARY: Study Data: GA: 25 5/7 weeks. MOHSEN: 08/05/20 . : 3. Para: 0. Type: Terrazas. Lie: Vertex. Impression: Technically difficult study. Persistent left SVC to dilated coronary sinus, normal variant. Otherwise, the echocardiogram was within normal limits; however small atrial and ventricular septal defects and persistent ductus arteriosus cannot be excluded as findings. Recommend echocardiogram for reevaluation. Findings: Anatomic Relationships: Left sided cardiac apex (levocardia). There is normal visceral-cardiac situs, and normal segmental cardiac anatomical relationship. Systemic Veins: There is normal systemic venous return. Persistent left SVC to dilated coronary sinus. Pulmonary Veins: The visualized pulmonary veins drain normally to the left atrium. Right Atrium: The right atrial size is normal. Left Atrium: The left atrial size is normal. Atrial Septum: Patent foramen ovale is seen with the foramen flap bowing from right to left and color flow is right to left. Tricuspid Valve: The tricuspid valve is structurally normal. The inflow pattern is normal. Tricuspid velocity is within the normal range. There is no regurgitation present. Mitral Valve: The mitral valve is structurally normal. The inflow pattern is normal. Mitral velocity is within the normal range. There is no regurgitation present. Right Ventricle: The cavity size is normal. The wall thickness is normal. The systolic function is normal. RV Outflow Tract: The outflow tract is normal. Left Ventricle: The cavity size is normal. The wall thickness is normal. The systolic function is normal. LV Outflow Tract: The outflow tract is normal. Ventricular Septum: There is no defect with no shunting. Pulmonary Valve: Leaflets exhibited normal mobility. The transpulmonic velocity is within the normal range. There is no regurgitation present. Aortic Valve: Leaflets exhibited normal mobility. The transaortic velocity is within the normal range. There is no regurgitation present. Pulmonary Artery: The MPA is normal with confluent branch pulmonary arteries. Aorta: aortic arch visualized and is without obstruction by 2D, color flow and Doppler. Ductus Arteriosus: The antegrade flow velocity and pattern in the ductal arch is normal. A normal ductus arteriosus is appreciated. Hydrops Assessment: No pericardial effusion. No evidence of ascites or pleural effusion. Rhythm: The rhythm is normal. There is 1:1 AV conduction. Dopplers: Flow in the ductus venosus is normal. The umbilical vein flow pattern is normal. The umbilical artery flow pattern is normal. MEASUREMENTS: DOPPLER Mitral Valve MV pkE -0.33 m/s MV E/A 0.52 no unit MV pkA -0.63 m/s Tricuspid Valve TV pkE -0.4 m/s TV E/A 0.67 no unit TV pkA -0.59 m/s Aortic Valve AVpkVel 0.8 m/s Pulmonic Valve PV pkVel 0.73 m/s HR HR 143 bpm (zsc 0) Signed 04/27/2020 05:19 PM Svetlana Connelly MD Hai Islas MD ECHO ORDERABLES Performing Organization Address City/[facility]/ZIP Co de Phone Number [facility] [address] [place] [address] * URIC ACID BLOOD (04/13/2020 9:57 AM BUSINESS OBJECTS) Uric Acid 4.4 2.6 - 7.2 mg/dL 04/13/2020 10:55 AM [facility] Blood BLOOD SPECIMEN / Unknown Lab Venipuncture / Unknown 04/13/2020 9:57 AM BUSINESS OBJECTS 04/13/2020 10:24 AM BUSINESS OBJECTS Vesta Guido MD LAB - CHEMISTRY GEORGINA DANIELS Performing Organization Address [facility] Co de Phone Number [facility] [address] [place] [address], [facility] [phone] * MICROALB/CREAT RATIO URINE RANDOM PANEL (04/13/2020 9:57 AM BUSINESS OBJECTS) Albumin Random Urine 15.9 Not Established mcg/mL 04/13/2020 10:56 AM [facility] Creatinine Urine 91 Not Established mg/dL 04/13/2020 10:56 AM [facility] Comment:Result obtained by d ilution. Urine Albumin/Creati nine Ratio 17 <30 mg/g 04/13/2020 10:56 AM [facility] Urine URINE SPECIMEN OBTAINED BY CLEAN CATCH PROCEDURE / Unknown Collection / Unknown 04/13/2020 9:57 AM BUSINESS OBJECTS 04/13/2020 10:24 AM BUSINESS OBJECTS Vesta Guido MD LAB - URINE CHEMISTR Y ORDERABLES [facility] [address] [place] [address], [facility] [phone] * (ABNORMAL) URINALYSIS REFLEX TO MICROSCOPIC NO CULTURE (04/13/2020 9:57 AM [facility]) Only the most recent of5 resultswithin the time period is included. Color UA Yellow Straw, Yellow, Colorless 04/13/2020 10:43 AM [facility] Clarity UA Slt Cloudy Clear, Slt Cloudy 04/13/2020 10:43 AM [facility] Specific Neal UA 1.013 1.005 - 1.030 04/13/2020 10:43 AM [facility] pH UA 6.0 5.0 - 8.0 pH 04/13/2020 10:43 AM [facility] Protein UA Negative Negative mg/dL 04/13/2020 10:43 AM [facility] Glucose UA Negative Negative mg/dL 04/13/2020 10:43 AM [facility] Ketone UA Negative Negative mg/dL 04/13/2020 10:43 AM [facility] Bilirubin UA Negative Negative mg/dL 04/13/2020 10:43 AM [facility] Blood UA Negative Negative 04/13/2020 10:43 AM [facility] Nitrite UA Negative Negative 04/13/2020 10:43 AM [facility] Leukocyte Esterase Negative Negative 04/13/2020 10:43 AM [facility] Urobilinogen UA Negative Negative mg/dL 04/13/2020 10:43 AM [facility] RBC UA 0-2 None Seen, 0-2, 3-5 /HPF 04/13/2020 10:43 AM [facility] WBC UA 0-5 None Seen, 0-5 /HPF 04/13/2020 10:43 AM [facility] Bacteria UA Trace None, Trace /HPF 04/13/2020 10:43 AM [facility] Squamous Epithelial Cells UA 6-10(A) None Seen, 0-2 /HPF 04/13/2020 10:43 AM [facility] Mucus UA 1+ None, 1+ /LPF 04/13/2020 10:43 AM BUSINESS OBJECTS [facility] Urine URINE SPECIMEN OBTAINED BY CLEAN CATCH PROCEDURE / Unknown Collection / Unknown 04/13/2020 9:57 AM BUSINESS OBJECTS 04/13/2020 10:24 AM BUSINESS OBJECTS Narrative [facility] - 04/13/2020 10:43 AM BUSINESS OBJECTS Vesta Guido MD LAB - URINALYSIS ORD ERABLES Performing Organization Address [facility]/ZIP Co de Phone Number [address] [address], [facility] [phone] * PROTEIN URINE RANDOM QUANTITATIVE (04/13/2020 9:57 AM BUSINESS OBJECTS) Protein Urine 14 Not Established mg/dL 04/13/2020 10:56 AM BUSINESS OBJECTS [facility] Urine URINE SPECIMEN OBTAINED BY CLEAN CATCH PROCEDURE / Unknown Collection / Unknown 04/13/2020 9:57 AM BUSINESS OBJECTS 04/13/2020 10:24 AM BUSINESS OBJECTS Vesta Guido MD LAB - URINE CHEMISTR Y ORDERABLES Performing Organization Address [facility] Co de Phone Number [address] [address], [facility] [phone] * (ABNORMAL) VITAMIN D (25-HYDROXY) (06/12/2016 9:27 AM CDT) Only the most recent of2 resultswithin the time period is included. Vitamin D, 25 Hydroxy 8.54(L) 30 - 100 ng/mL 06/12/2016 3:18 PM CDT [facility] Blood BLOOD SPECIMEN / Unknown Lab Venipuncture / Unknown 06/12/2016 9:27 AM CDT 06/12/2016 10:16 AM CDT Narrative [facility] - 06/12/2016 3:18 PM CDT Vitamin D Status: Deficiency <20 ng/mL Insufficiency 20-30 ng/mL Sufficiency 30-100 ng/mL Toxicity >100 ng/mL Stella Pike APRN-FARM MACHINERY ENGINE MECHANIC LAB - CHEMISTR Y ORDERABLES Performing Organization Address City/[facility]/ZIP Co de Phone Number [facility] [address] [place] [address] * FERRITIN (06/12/2016 9:27 AM CDT) Only the most recent of3 resultswithin the time period is included. Ferritin 53 10 - 120 ng/mL 06/12/2016 11:13 AM CDT [facility] Blood BLOOD SPECIMEN / Unknown Lab Venipuncture / Unknown 06/12/2016 9:27 AM CDT 06/12/2016 10:16 AM CDT Stella Pike ELEMENTARY ESL TEACHER-FARM MACHINERY ENGINE MECHANIC LAB - CHEMISTR Y ORDERABLES Performing Organization Address [facility] Co de Phone Number [facility] [address] [place] [phone] * (ABNORMAL) URINALYSIS MICROSCOPIC ONLY (01/11/2016 5:12 PM CDT) Only the most recent of4 resultswithin the time period is included. RBC UA 0-2 0-2, 2-5 # /hpf 01/11/2016 10:39 PM CDT [facility] WBC UA 2-5 0-2, 2-5 # /hpf 01/11/2016 10:39 PM CDT [facility] Bacteria UA 2+(A) None Seen, Trace 01/11/2016 10:39 PM CDT [facility] Epithelial Cell UA 10-20(A) 0-2, 2-5 # /hpf 01/11/2016 10:39 PM CDT [facility] Mucus UA 1+ 01/11/2016 10:39 PM CDT [facility] Urine URINE SPECIMEN OBTAINED BY CLEAN CATCH PROCEDURE / Unknown 01/11/2016 5:12 PM CDT 01/11/2016 6:35 PM CDT Siria Pizarro ELEMENTARY ESL TEACHER-FARM MACHINERY ENGINE MECHANIC LAB - URINALYS IS ORDERABLES Performing Organization Address [facility]/ZIP Co de Phone Number [facility] [address] [place] [phone] * CULTURE URINE (01/11/2016 5:12 PM CDT) Only the most recent of4 resultswithin the time period is included. Culture 10,000-50,000 CFU/mL urogenital nora ESSENCE 01/13/2016 9:32 AM CDT [facility] MICROBIOLOGY Urine URINE SPECIMEN OBTAINED BY CLEAN CATCH PROCEDURE / Unknown 01/11/2016 5:12 PM CDT 01/11/2016 6:35 PM CDT Siria Pizarro APRN-[facility] LAB - MICROBIO LOGY ORDERABLES [facility] MICROBIOLOGY [address] [place] [address], [facility] [phone] * CALCIUM/CREAT RATIO URINE RANDOM PANEL (01/11/2016 5:12 PM CDT) Only the most recent of3 resultswithin the time period is included. Calcium Urine 6.61 mg/dL 01/11/2016 8:53 PM CDT [facility] Creatinine Urine 180.44 mg/dL 01/11/2016 8:53 PM CDT [facility] Calcium/Creatin ine Ratio Urine 0.04 01/11/2016 8:53 PM CDT [facility] Urine URINE SPECIMEN OBTAINED BY CLEAN CATCH PROCEDURE / Unknown 01/11/2016 5:12 PM CDT 01/11/2016 6:35 PM CDT Narrative [facility] - 01/11/2016 8:53 PM CDT Normal <0.16 Borderline 0.16-0.20 Abnormal >0.20 Siria Pizarro [facility] LAB - URINE CH EMISTRY ORDERABLES [facility] [place] [address] * CPAP/BIPAP TITRATION (11/10/2015) Linked Results See Linked Results SLEEP CENTER 11/10/2015 Stella Pike ELEMENTARY ESL TEACHER-FARM MACHINERY ENGINE MECHANIC [facility] * NM RENOGRAM W FLOW AND FUNCTION (09/28/2015 12:13 PM CDT) Anatomical Region Laterality Modality Abdomen Nuclear Medicine 09/28/2015 12:1 6 PM CDT Impressions 09/28/2015 1:51 PM CDT 1. No evidence of flow or function within the right kidney. 2. The left kidney has normal flow and function without evidence of obstruction. 3. Relative function is 100% for the left kidney and 0% for the right kidney. Dictated by Fidel Muro on 09/28/2015 1:02 PM I, Lolita Pena DO, have personally reviewed the images and I agree with this report. Narrative 09/28/2015 1:51 PM CDT MAG3 renal scan with pharmacologic intervention. HISTORY: 15-year-old female with right renal atrophy. TECHNIQUE: An IV bolus of 3.9 mCi of Tc- 99m MAG 3 was administered. Sequential dynamic blood flow images of the abdomen were obtained in the anterior and posterior projections for 30 minutes following radiotracer injection. Whole kidney time-activity curves were produced with quantitative indices. FINDINGS: The blood flow phase of the study shows adequate perfusion to the left kidney without evidence of blood flow to the right kidney. The left kidney kidney is grossly normal in size and contours. The right kidney is not visualized throughout the study. There is prompt uptake and excretion of the tracer from the left kidney without evidence of obstruction. The left ureter is intermittently visualized during the study. The quantitative values are as follows: Quantitative function Left Right 5.5 NA Time to peak (mins) 13 NA T 1/2 (mins) 100 - Differential function (%) Procedure Note Lolita Pena DO - 09/28/2015 MAG3 renal scan with pharmacologic intervention. HISTORY: 15-year-old female with right renal atrophy. TECHNIQUE: An IV bolus of 3.9 mCi of Tc- 99m MAG 3 was administered. Sequential dynamic blood flow images of the abdomen were obtained in the anterior and posterior projections for 30 minutes following radiotracer injection. Whole kidney time-activity curves were produced with quantitative indices. FINDINGS: The blood flow phase of the study shows adequate perfusion to the left kidney without evidence of blood flow to the right kidney. The left kidney kidney is grossly normal in size and contours. The right kidney is not visualized throughout the study. There is prompt uptake and excretion of the tracer from the left kidney without evidence of obstruction. The left ureter is intermittently visualized during the study. The quantitative values are as follows: Quantitative function Left Right 5.5 NA Time to peak (mins) 13 NA T 1/2 (mins) 100 - Differential function (%) IMPRESSION 1. No evidence of flow or function within the right kidney. 2. The left kidney has normal flow and function without evidence of obstruction. 3. Relative function is 100% for the left kidney and 0% for the right kidney. Dictated by Fidel Muro on 09/28/2015 1:02 PM I, Lolita Pena DO, have personally reviewed the images and I agree with this report. Russell Bellamy MD NM ORDERABLES * EMG ACC (09/22/2015 12:33 PM CDT) Narrative Russell Bellamy MD - 09/22/2015 12:33 PM CDT Russell Bellamy MD 09/22/2015 12:33 PM VIDEO-URODYNAMICS: EMG patches placed: 1 on either side of rectum in the 3 & 9 o'clock positions; 1 on hip (ground). 8 Fr air-charged cystometry catheter placed per urethra, 8 Fr air-charged abdominal sensor catheter placed per rectum. Sterile contrast infused at an average rate of 20 ml/min. CMG Volume infused (ml) = 280 Volume Pdet>30 cmH2O (ml) = 250 ml Leak point volume (ml) = 273 Leak point pressure (cmH2O) = 33 Pelvic floor EMG tracings = quiet except with repositioning for obliques @ 143 ml, coughing @ 263 ml, and leak @ 273 ml. Summary: Smaller than expected capacity for age, low pressures with fill, and emptied to completion with void. Please note, CMG/EMG done in conjunction with cystogram under fluoro. Please see the report generated by the Department of Radiology for additional information. RECOMMENDATIONS: Consider anticholingergic medications Yohana Watters ELEMENTARY ESL TEACHER-FARM MACHINERY ENGINE MECHANIC PROCEDURE ORDERABLES * CYSTOMETROGRAM ACC (09/22/2015 12:33 PM CDT) Anatomical Region Laterality Modality Other Narrative 09/22/2015 12:33 PM CDT Russell Bellamy MD 09/22/2015 12:33 PM VIDEO-URODYNAMICS: EMG patches placed: 1 on either side of rectum in the 3 & 9 o'clock positions; 1 on hip (ground). 8 Fr air-charged cystometry catheter placed per urethra, 8 Fr air-charged abdominal sensor catheter placed per rectum. Sterile contrast infused at an average rate of 20 ml/min. CMG Volume infused (ml) = 280 Volume Pdet>30 cmH2O (ml) = 250 ml Leak point volume (ml) = 273 Leak point pressure (cmH2O) = 33 Pelvic floor EMG tracings = quiet except with repositioning for obliques @ 143 ml, coughing @ 263 ml, and leak @ 273 ml. Summary: Smaller than expected capacity for age, low pressures with fill, and emptied to completion with void. Please note, CMG/EMG done in conjunction with cystogram under fluoro. Please see the report generated by the Department of Radiology for additional information. RECOMMENDATIONS: Consider anticholingergic medications Yohana Watters ELEMENTARY ESL TEACHER-[facility] FLUOROSCOPY ORDERABLES * ALPHA FETOPROTEIN BLOOD TUMOR (09/07/2015 10:43 AM CDT) Alpha-Fetoprotei n Tumor Marker 1.3 0.0 - 8.3 ng/mL 09/08/2015 5:15 AM CDT [facility] ([facility]) Comment:Elizabeth ECLIA methodol ogy Blood specimen (specimen) BLOOD SPECIMEN / Unknown Lab Venipuncture / Unknown 09/07/2015 10:43 AM CDT 09/07/2015 11:03 AM CDT Narrative [facility] ([facility]) - 09/08/2015 5:15 AM CDT Performed at: [address] [place] [id number] Tapping Machine Operator Automatic: Zurdo Lira PhD, Phone: [phone] Yohana Watters ELEMENTARY ESL TEACHER-[facility] LAB - CHEMIS TRY ORDERABLES [facility] ([facility]) [address] [place] [address] * PT PTT PANEL (09/07/2015 10:43 AM CDT) Pathologist [facility] PT 9.5 9.5 - 11.6 sec 09/07/2015 2:18 PM T [facility] INR 0.9 0.9 - 1.1 09/07/2015 2:18 PM T [facility] PTT 24.3 21.0 - 32.0 sec 09/07/2015 2:18 PM T [facility] Blood BLOOD SPECIMEN / Unknown Lab Venipuncture / Unknown 09/07/2015 10:43 AM CDT 09/07/2015 11:03 AM CDT [facility] - 09/07/2015 2:18 PM CDT Conventional Warfarin Anticoagulant Therapy: INR Reference Range: 2.0-3.0 Intensive Warfarin Anticoagulant Therapy: INR Reference Range: 2.5-3.5 Heparin Therapeutic Range for PTT: 47.7 - 68.6 seconds. Yohana Watters APRN-FARM MACHINERY ENGINE MECHANIC LAB - COAGUL ATION ORDERABLES Performing Organization Address City/State/[facility] Co de Phone Number [facility] [address] [place], [place] [phone] * HEPATIC FUNCTION PANEL (09/07/2015 10:43 AM CDT) Pathologist [facility] Alkaline Phosphatase 113 100 - 390 U/L 09/07/2015 11:42 AM T [facility] ALT 21 8 - 65 U/L 09/07/2015 11:42 AM [facility] AST 15 3 - 35 U/L 09/07/2015 11:42 AM [facility] Protein Total 7.5 6.3 - 8.2 gm/dL 09/07/2015 11:42 AM [facility] Albumin 4.0 3.3 - 4.9 gm/dL 09/07/2015 11:42 AM [facility] Bilirubin Total 0.4 0.3 - 1.2 mg/dL 09/07/2015 11:42 AM [facility] Bilirubin Direct 0.15 0.11 - 0.64 mg/dL 09/07/2015 11:42 AM T [facility] Blood BLOOD SPECIMEN / Unknown Lab Venipuncture / Unknown 09/07/2015 10:43 AM CDT 09/07/2015 11:03 AM CDT Yohana Watters ELEMENTARY ESL TEACHER-FARM MACHINERY ENGINE MECHANIC LAB - CHEMIS TRY ORDERABLES Performing Organization Address [facility] Co de Phone Number [facility] [address] [place] [phone] * (ABNORMAL) LDH BLOOD (09/07/2015 10:43 AM CDT) LDH 274(H) 140 - 260 U/L 09/07/2015 11:42 AM CDT [facility] Blood BLOOD SPECIMEN / Unknown Lab Venipuncture / Unknown 09/07/2015 10:43 AM CDT 09/07/2015 11:03 AM CDT Yohana Watters ELEMENTARY ESL TEACHER-FARM MACHINERY ENGINE MECHANIC LAB - CHEMIS TRY ORDERABLES Performing Organization Address [facility] Co de Phone Number [facility] [address] [place] [phone] * GGT (09/07/2015 10:43 AM CDT) GGT 28 8 - 69 U/L 09/07/2015 11:42 AM CDT [facility] Blood BLOOD SPECIMEN / Unknown Lab Venipuncture / Unknown 09/07/2015 10:43 AM CDT 09/07/2015 11:03 AM CDT Yohana Watters ELEMENTARY ESL TEACHER-FARM MACHINERY ENGINE MECHANIC LAB - CHEMIS TRY ORDERABLES Performing Organization Address [facility] de Phone Number [facility] [address] [place] [phone] * UROFLOWMETRY (09/06/2015 11:15 AM CDT) Narrative 09/06/2015 11:15 AM CDT Ordered by an unspecified provider. Scanned Document PROCEDURE ORDERAB LES * FL FLUORO CYSTOGRAM (08/30/2015 10:52 AM CDT) Anatomical Region Laterality Modality Abdomen, Pelvis Radio Fluoroscop y 08/30/2015 10:5 9 AM CDT Impressions 08/30/2015 11:33 AM CDT Smaller than expected bladder capacity otherwise normal voiding cystourethrogram. Please see the report generated by the Department of urodynamics for additional information. Report dictated by Tiara Frey MD (sales consultant residential manager). Fluoroscopy Time: 1.5 minute Dose Area Prod: 157.63 (uGy*m^2) Entrance Dose: 4.8 (mGy) I, Chioma Benavides, have personally reviewed the images and I agree with this report. Narrative 08/30/2015 11:33 AM CDT EXAMINATION: Video Voiding cystourethrogram dated 08/30/2015. HISTORY: 15-year-old female with urinary tract infections, frequency, as well as daytime and night wetting. FLUOROSCOPY TIME: 1.5 minute TECHNIQUE: Utilizing aseptic technique the patient was cleaned, and then a feeding tube was introduced into the bladder in retrograde fashion. Manometry equipment was also in place. After draining the bladder, 270cc of cystographic contrast was instilled. FINDINGS: No prior study is available for comparison. Terminal Computer Operator radiograph demonstrates a nonspecific bowel gas pattern. No osseous abnormalities are appreciated. The study was performed in conjunction with the Department of urodynamics. Films were obtained after initial filling and after the instillation of 50, 80, 125, 250, and 270 cc of contrast. The patient first felt the sensation of needing to void after the instillation of 80 cc of contrast. The bladder neck was open at 250 cc of contrast and the patient voided to completion after the instillation of 270 cc of contrast. The urethra is normal. Other than a smaller than expected capacity the bladder is normal. Bilateral oblique views were obtained after the instillation of 125 cc of contrast. There was no evidence of vesicoureteral reflux. Procedure Note Chioma Benavides MD - 08/30/2015 EXAMINATION: Video Voiding cystourethrogram dated 08/30/2015. HISTORY: 15-year-old female with urinary tract infections, frequency, as well as daytime and night wetting. FLUOROSCOPY TIME: 1.5 minute TECHNIQUE: Utilizing aseptic technique the patient was cleaned, and then a feeding tube was introduced into the bladder in retrograde fashion. Manometry equipment was also in place. After draining the bladder, 270cc of cystographic contrast was instilled. FINDINGS: No prior study is available for comparison. Terminal Computer Operator radiograph demonstrates a nonspecific bowel gas pattern. No osseous abnormalities are appreciated. The study was performed in conjunction with the Department of urodynamics. Films were obtained after initial filling and after the instillation of 50, 80, 125, 250, and 270 cc of contrast. The patient first felt the sensation of needing to void after the instillation of 80 cc of contrast. The bladder neck was open at 250 cc of contrast and the patient voided to completion after the instillation of 270 cc of contrast. The urethra is normal. Other than a smaller than expected capacity the bladder is normal. Bilateral oblique views were obtained after the instillation of 125 cc of contrast. There was no evidence of vesicoureteral reflux. IMPRESSION Smaller than expected bladder capacity otherwise normal voiding cystourethrogram. Please see the report generated by the Department of urodynamics for additional information. Report dictated by Tiara Frey MD (sales consultant residential manager). Fluoroscopy Time: 1.5 minute Dose Area Prod: 157.63 (uGy*m^2) Entrance Dose: 4.8 (mGy) I, Chioma Benavides, have personally reviewed the images and I agree with this report. Yohana Watters ELEMENTARY ESL TEACHER-FARM MACHINERY ENGINE MECHANIC FLUOROSCOPY ORDERABLES * MRI PELVIS WITH AND WITHOUT CONTRAST (08/23/2015 10:31 AM CDT) Anatomical Region Laterality Modality Pelvis Magnetic Resonan ce 08/23/2015 11:0 7 AM CDT Impressions 08/23/2015 11:43 AM CDT 1. 1.1 x 1.0 cm T1 hypointense and T2 isointense lesion located adjacent to the right hepatic vein which contains fat. Differential diagnoses include focal fat or adenoma. It does not have the characteristic imaging appearance of a hemangioma or focal nodular hyperplasia. 2. 7.0 x 7.4 x 9.3 cm cystic structure in the right renal fossa with thin rim of enhancement, likely representing marked right pelvicalyceal dilatation or large renal cyst with severe renal parenchymal atrophy. Narrative 08/23/2015 11:43 AM CDT EXAMINATION: 1. MRI abdomen without and with contrast 2. MRI pelvis without and with contrast HISTORY: 15-year-old with possible right renal anomaly and liver lesion on recent abdominal ultrasound. Evaluation of the ovaries is also requested as the ovaries could not be seen by transabdominal or transvaginal ultrasound. COMPARISON: Correlation is made with ultrasound dated 08/10/2015. TECHNIQUE: Multiplanar, multisequence MRI of the abdomen and pelvis is performed prior to and after the uneventful intravenous administration of 8.8 mL Eovist. A dynamic liver with the Eovist protocol including the kidneys is performed for evaluation of the liver lesion and right renal anomaly. The female pelvis protocol is performed for evaluation of the ovaries. FINDINGS: A 1.1 x 1.0 cm T1 hypointense and T2 isointense lesion is located adjacent to the right hepatic vein as it courses into the inferior vena cava (series 27, image 35). This lesion remains hypointense relative to the adjacent liver parenchyma on the dynamic postcontrast imaging and does not retain contrast on the hepatobiliary phase images. There is no perilesional signal abnormality or enhancement abnormality. No associated restricted diffusion is present. On in and opposed phase imaging, this lesion demonstrates signal dropout suggesting the presence of fat. There is no intra-or extrahepatic biliary ductal dilatation. The gallbladder, adrenal glands, spleen, and pancreas are normal. The left kidney is normal without hydronephrosis or focal abnormality. 7.0 x 7.4 x 9.3 cm T1 hypointense and T2 hyperintense cystic structure is seen within the right renal fossa with a thin rim of enhancement either a large simple renal cyst or marked right pelvicalyceal dilatation with associated severe renal parenchymal atrophy. No contrast excretion is seen into the right collecting system during the examination. Contrast is observed in the left collecting system and left ureter. There is no evidence of ureteral dilatation. The abdominal aorta is normal in course and caliber. There is no evidence of bowel obstruction. No ascites or lymphadenopathy is identified. The uterus is present. Gonadal tissue, likely the ovaries, located high in the pelvis is seen bilaterally that are associated with the utero-ovarian ligaments. Small scattered follicles are seen bilaterally. There is no evidence of adnexal mass. There is no free fluid in the pelvis. The urinary bladder is decompressed. Examination is partially degraded by motion artifact. Procedure Note Carolyn Mcginnis MD - 08/23/2015 EXAMINATION: 1. MRI abdomen without and with contrast 2. MRI pelvis without and with contrast HISTORY: 15-year-old with possible right renal anomaly and liver lesion on recent abdominal ultrasound. Evaluation of the ovaries is also requested as the ovaries could not be seen by transabdominal or transvaginal ultrasound. COMPARISON: Correlation is made with ultrasound dated 08/10/2015. TECHNIQUE: Multiplanar, multisequence MRI of the abdomen and pelvis is performed prior to and after the uneventful intravenous administration of 8.8 mL Eovist. A dynamic liver with the Eovist protocol including the kidneys is performed for evaluation of the liver lesion and right renal anomaly. The female pelvis protocol is performed for evaluation of the ovaries. FINDINGS: A 1.1 x 1.0 cm T1 hypointense and T2 isointense lesion is located adjacent to the right hepatic vein as it courses into the inferior vena cava (series 27, image 35). This lesion remains hypointense relative to the adjacent liver parenchyma on the dynamic postcontrast imaging and does not retain contrast on the hepatobiliary phase images. There is no perilesional signal abnormality or enhancement abnormality. No associated restricted diffusion is present. On in and opposed phase imaging, this lesion demonstrates signal dropout suggesting the presence of fat. There is no intra-or extrahepatic biliary ductal dilatation. The gallbladder, adrenal glands, spleen, and pancreas are normal. The left kidney is normal without hydronephrosis or focal abnormality. 7.0 x 7.4 x 9.3 cm T1 hypointense and T2 hyperintense cystic structure is seen within the right renal fossa with a thin rim of enhancement either a large simple renal cyst or marked right pelvicalyceal dilatation with associated severe renal parenchymal atrophy. No contrast excretion is seen into the right collecting system during the examination. Contrast is observed in the left collecting system and left ureter. There is no evidence of ureteral dilatation. The abdominal aorta is normal in course and caliber. There is no evidence of bowel obstruction. No ascites or lymphadenopathy is identified. The uterus is present. Gonadal tissue, likely the ovaries, located high in the pelvis is seen bilaterally that are associated with the utero-ovarian ligaments. Small scattered follicles are seen bilaterally. There is no evidence of adnexal mass. There is no free fluid in the pelvis. The urinary bladder is decompressed. Examination is partially degraded by motion artifact. IMPRESSION 1. 1.1 x 1.0 cm T1 hypointense and T2 isointense lesion located adjacent to the right hepatic vein which contains fat. Differential diagnoses include focal fat or adenoma. It does not have the characteristic imaging appearance of a hemangioma or focal nodular hyperplasia. 2. 7.0 x 7.4 x 9.3 cm cystic structure in the right renal fossa with thin rim of enhancement, likely representing marked right pelvicalyceal dilatation or large renal cyst with severe renal parenchymal atrophy. Yohana Watters ELEMENTARY ESL TEACHER-FARM MACHINERY ENGINE MECHANIC MR ORDERABLE S * MRI ABDOMEN WITH AND WITHOUT CONTRAST (08/23/2015 10:30 AM CDT) Anatomical Region Laterality Modality Abdomen Magnetic Resonan ce 08/23/2015 11:0 7 AM CDT Impressions 08/23/2015 11:43 AM CDT 1. 1.1 x 1.0 cm T1 hypointense and T2 isointense lesion located adjacent to the right hepatic vein which contains fat. Differential diagnoses include focal fat or adenoma. It does not have the characteristic imaging appearance of a hemangioma or focal nodular hyperplasia. 2. 7.0 x 7.4 x 9.3 cm cystic structure in the right renal fossa with thin rim of enhancement, likely representing marked right pelvicalyceal dilatation or large renal cyst with severe renal parenchymal atrophy. Narrative 08/23/2015 11:43 AM CDT EXAMINATION: 1. MRI abdomen without and with contrast 2. MRI pelvis without and with contrast HISTORY: 15-year-old with possible right renal anomaly and liver lesion on recent abdominal ultrasound. Evaluation of the ovaries is also requested as the ovaries could not be seen by transabdominal or transvaginal ultrasound. COMPARISON: Correlation is made with ultrasound dated 08/10/2015. TECHNIQUE: Multiplanar, multisequence MRI of the abdomen and pelvis is performed prior to and after the uneventful intravenous administration of 8.8 mL Eovist. A dynamic liver with the Eovist protocol including the kidneys is performed for evaluation of the liver lesion and right renal anomaly. The female pelvis protocol is performed for evaluation of the ovaries. FINDINGS: A 1.1 x 1.0 cm T1 hypointense and T2 isointense lesion is located adjacent to the right hepatic vein as it courses into the inferior vena cava (series 27, image 35). This lesion remains hypointense relative to the adjacent liver parenchyma on the dynamic postcontrast imaging and does not retain contrast on the hepatobiliary phase images. There is no perilesional signal abnormality or enhancement abnormality. No associated restricted diffusion is present. On in and opposed phase imaging, this lesion demonstrates signal dropout suggesting the presence of fat. There is no intra-or extrahepatic biliary ductal dilatation. The gallbladder, adrenal glands, spleen, and pancreas are normal. The left kidney is normal without hydronephrosis or focal abnormality. 7.0 x 7.4 x 9.3 cm T1 hypointense and T2 hyperintense cystic structure is seen within the right renal fossa with a thin rim of enhancement either a large simple renal cyst or marked right pelvicalyceal dilatation with associated severe renal parenchymal atrophy. No contrast excretion is seen into the right collecting system during the examination. Contrast is observed in the left collecting system and left ureter. There is no evidence of ureteral dilatation. The abdominal aorta is normal in course and caliber. There is no evidence of bowel obstruction. No ascites or lymphadenopathy is identified. The uterus is present. Gonadal tissue, likely the ovaries, located high in the pelvis is seen bilaterally that are associated with the utero-ovarian ligaments. Small scattered follicles are seen bilaterally. There is no evidence of adnexal mass. There is no free fluid in the pelvis. The urinary bladder is decompressed. Examination is partially degraded by motion artifact. Procedure Note Carolyn Mcginnis MD - 08/23/2015 EXAMINATION: 1. MRI abdomen without and with contrast 2. MRI pelvis without and with contrast HISTORY: 15-year-old with possible right renal anomaly and liver lesion on recent abdominal ultrasound. Evaluation of the ovaries is also requested as the ovaries could not be seen by transabdominal or transvaginal ultrasound. COMPARISON: Correlation is made with ultrasound dated 08/10/2015. TECHNIQUE: Multiplanar, multisequence MRI of the abdomen and pelvis is performed prior to and after the uneventful intravenous administration of 8.8 mL Eovist. A dynamic liver with the Eovist protocol including the kidneys is performed for evaluation of the liver lesion and right renal anomaly. The female pelvis protocol is performed for evaluation of the ovaries. FINDINGS: A 1.1 x 1.0 cm T1 hypointense and T2 isointense lesion is located adjacent to the right hepatic vein as it courses into the inferior vena cava (series 27, image 35). This lesion remains hypointense relative to the adjacent liver parenchyma on the dynamic postcontrast imaging and does not retain contrast on the hepatobiliary phase images. There is no perilesional signal abnormality or enhancement abnormality. No associated restricted diffusion is present. On in and opposed phase imaging, this lesion demonstrates signal dropout suggesting the presence of fat. There is no intra-or extrahepatic biliary ductal dilatation. The gallbladder, adrenal glands, spleen, and pancreas are normal. The left kidney is normal without hydronephrosis or focal abnormality. 7.0 x 7.4 x 9.3 cm T1 hypointense and T2 hyperintense cystic structure is seen within the right renal fossa with a thin rim of enhancement either a large simple renal cyst or marked right pelvicalyceal dilatation with associated severe renal parenchymal atrophy. No contrast excretion is seen into the right collecting system during the examination. Contrast is observed in the left collecting system and left ureter. There is no evidence of ureteral dilatation. The abdominal aorta is normal in course and caliber. There is no evidence of bowel obstruction. No ascites or lymphadenopathy is identified. The uterus is present. Gonadal tissue, likely the ovaries, located high in the pelvis is seen bilaterally that are associated with the utero-ovarian ligaments. Small scattered follicles are seen bilaterally. There is no evidence of adnexal mass. There is no free fluid in the pelvis. The urinary bladder is decompressed. Examination is partially degraded by motion artifact. IMPRESSION 1. 1.1 x 1.0 cm T1 hypointense and T2 isointense lesion located adjacent to the right hepatic vein which contains fat. Differential diagnoses include focal fat or adenoma. It does not have the characteristic imaging appearance of a hemangioma or focal nodular hyperplasia. 2. 7.0 x 7.4 x 9.3 cm cystic structure in the right renal fossa with thin rim of enhancement, likely representing marked right pelvicalyceal dilatation or large renal cyst with severe renal parenchymal atrophy. Yohana Watters ELEMENTARY ESL TEACHER-FARM MACHINERY ENGINE MECHANIC MR ORDERABLE S * CHLAMYDIA + GC AMPLIFIED PROBE (08/10/2015 4:39 PM CDT) Chlamydia Amplified Probe Negative Negative 08/11/2015 8:43 AM CDT [facility]CRO[facility] GC Amplified Probe Negative Negative 08/11/2015 8:43 AM CDT [facility]CRO[facility] Urine URINE / Unknown 08/10/2015 4 :39 PM CDT 08/10/2015 5:15 PM CDT Narrative [facility] MICROBIOLOG[facility] - 08/11/2015 8:43 AM CDT This test was developed and its performance characteristics determined by the [facility], [facility]. Female urine specimens tested by the [facility] have not been cleared or approved by [...] Jones MD LAB - MICROBIO LOGY ORDERABLES [facility] MICROBIOLOG[facility] [address] [place] [address], [facility] [phone] * US PELVIS WITH TRANSVAG NON OB (08/10/2015 3:50 PM CDT) Anatomical Region Laterality Modality Pelvis Ultrasound 08/10/2015 4:21 PM CDT Impressions 08/10/2015 4:22 PM CDT The ovaries were not able to be seen on this exam secondary to the patient's body habitus. Further evaluation of the pelvic mass or may be obtained with an MRI pelvis. Narrative 08/10/2015 4:22 PM CDT EXAMINATION: Transvaginal pelvic ultrasound HISTORY: 15-year-old female with pelvic pain undergoing evaluation for polycystic ovarian syndrome COMPARISON: None FINDINGS: The exam is limited by the patient's body habitus. The uterus is adult in appearance. It measures 3.1 x 6.7 x 2.0 cm. The endometrial stripe is not identifiable. The ovaries were not able to be seen on this exam. No free pelvic fluid is seen. Procedure Note Maddison Seymour MD - 08/10/2015 EXAMINATION: Transvaginal pelvic ultrasound HISTORY: 15-year-old female with pelvic pain undergoing evaluation for polycystic ovarian syndrome COMPARISON: None FINDINGS: The exam is limited by the patient's body habitus. The uterus is adult in appearance. It measures 3.1 x 6.7 x 2.0 cm. The endometrial stripe is not identifiable. The ovaries were not able to be seen on this exam. No free pelvic fluid is seen. IMPRESSION The ovaries were not able to be seen on this exam secondary to the patient's body habitus. Further evaluation of the pelvic mass or may be obtained with an MRI pelvis. Gi Jones MD US ORDERABLES * US KIDNEY AND BLADDER (08/10/2015 3:47 PM CDT) Anatomical Region Laterality Modality Ultrasound 08/10/2015 4:16 PM CDT Impressions 08/10/2015 4:20 PM CDT A single large cyst is seen in the region of the right kidney without identifiable renal parenchyma. Compensatory hypertrophy of the left kidney. Hyperechoic lesion in the posterior aspect of the right hepatic lobe may represent a hemangioma or focal fatty infiltration. Further evaluation with MRI abdomen with and without contrast should be considered. Narrative 08/10/2015 4:20 PM CDT EXAMINATION: Renal sonogram HISTORY: 15-year-old female with urinary incontinence. COMPARISON: None FINDINGS: A single large cyst is seen in the region of the right kidney which measures 13.7 x 5.2 x 6.3 cm. No identifiable right renal parenchyma is seen. The left kidney measures 12.7 x 5.4 x 5.5 cm. The mean renal length for children age 17-18 years is 10.53 cm with a standard deviation of 0.29 cm. Therefore, the left kidney is large in size for the patient's age. There is no hydronephrosis and the left renal architecture is normal. No renal mass or calculus is seen. The bladder is normal. The bladder volume is 61 mL. The bladder wall measures 5 mm, likely secondary to its partially collapsed state. A hyperechoic lesion is seen in the posterior aspect of the right hepatic lobe with surrounding hyperemia. Procedure Note Maddison Seymour MD - 08/10/2015 EXAMINATION: Renal sonogram HISTORY: 15-year-old female with urinary incontinence. COMPARISON: None FINDINGS: A single large cyst is seen in the region of the right kidney which measures 13.7 x 5.2 x 6.3 cm. No identifiable right renal parenchyma is seen. The left kidney measures 12.7 x 5.4 x 5.5 cm. The mean renal length for children age 17-18 years is 10.53 cm with a standard deviation of 0.29 cm. Therefore, the left kidney is large in size for the patient's age. There is no hydronephrosis and the left renal architecture is normal. No renal mass or calculus is seen. The bladder is normal. The bladder volume is 61 mL. The bladder wall measures 5 mm, likely secondary to its partially collapsed state. A hyperechoic lesion is seen in the posterior aspect of the right hepatic lobe with surrounding hyperemia. IMPRESSION A single large cyst is seen in the region of the right kidney without identifiable renal parenchyma. Compensatory hypertrophy of the left kidney. Hyperechoic lesion in the posterior aspect of the right hepatic lobe may represent a hemangioma or focal fatty infiltration. Further evaluation with MRI abdomen with and without contrast should be considered. Siria Pizarro ELEMENTARY ESL TEACHER-[facility] US ORDERABLES * URINALYSIS - POCT () MEIR (08/10/2015 3:25 PM CDT) Glucose UA Negative Negative [facility] POC T TESTING Bilirubin UA Negative Negative [facility] P OCT TESTING Ketone UA Negative Negative [facility] POCT TESTING Specific Neal UA POCT 1.020 1.000 - 1.030 [facility] POCT TESTING Blood UA Negative Negative [facility] POCT TESTING pH UA 6.5 5.0 - 8.0 pH units [facility] POCT TESTING Protein UA Negative Negative [facility] POC T TESTING Urobilinogen UA 0.2 0.2 - 1.0 EU/dL [facility] POCT TESTING Nitrite UA Negative Negative [facility] POC T TESTING Leukocyte UA Negative Negative [facility] P OCT TESTING QC Verified Yes Yes [facility] PO CT TESTING Urine specimen (specimen) URINE / Unknown 08/10/2015 3:25 PM CDT Gi Jones MD LAB - POINT OF CARE ORDERABLES [facility] POCT TESTING [address] [phone] * HEMOGLOBIN A1C (07/15/2015 11:09 AM CDT) Hemoglobin A1c 4.9 3.4 - 6.1 % 07/17/2015 11:18 AM CDT [facility] Estimated Average Glucose 94 mg/dL 07/17/2015 11:18 AM CDT [facility] Whole Blood BLOOD SPECIMEN WITH EDTA / Unknown 07/15/2015 11:09 AM CDT 07/17/2015 9:27 AM CDT Siriarosa Pizarro ELEMENTARY ESL TEACHER-FARM MACHINERY ENGINE MECHANIC LAB - CHEMISTR Y ORDERABLES Performing Organization Address City/[facility]/ZIP Co de Phone Number [facility] [address] [place] [phone] * TSH (07/15/2015 11:09 AM CDT) Pathologist [facility] TSH 1.64 0.35 - 4.95 uIU/mL 07/15/2015 12:47 PM CDT [facility] Blood BLOOD SPECIMEN / Unknown Lab Venipuncture / Unknown 07/15/2015 11:09 AM CDT 07/15/2015 11:19 AM CDT Siria Pizarro ELEMENTARY ESL TEACHER-FARM MACHINERY ENGINE MECHANIC LAB - CHEMISTR Y ORDERABLES Performing Organization Address [facility] Co de Phone Number [facility] [address] [place] [phone] * T4 TOTAL (07/15/2015 11:09 AM CDT) Pathologist [facility] T4 Total 11.11 4.87 - 11.7 ug/dL 07/15/2015 12:47 PM CDT [facility] Blood BLOOD SPECIMEN / Unknown Lab Venipuncture / Unknown 07/15/2015 11:09 AM CDT 07/15/2015 11:19 AM CDT Siriarosa Pizarro ELEMENTARY ESL TEACHER-FARM MACHINERY ENGINE MECHANIC LAB - CHEMISTR Y ORDERABLES Performing Organization Address City/[facility]/ZIP Co de Phone Number [facility] [address] [place] [phone] * (ABNORMAL) LIPID PROFILE (07/15/2015 11:09 AM CDT) Cholesterol 187(H) <170 mg/dL 07/15/2015 12:12 PM T [facility] Triglycerides 110 46 - 227 mg/dL 07/15/2015 12:12 PM CDT [facility] HDL Cholesterol 53 >40 mg/dL 07/15/2015 12:12 PM CDT [facility] LDL Calculated 112(H) <100 mg/dL 07/15/2015 12:12 PM T [facility] VLDL Calculated 22 12 - 38 mg/dL 07/15/2015 12:12 PM T [facility] Chol HDL Ratio 3.5 <=5.0 07/15/2015 12:12 PM T [facility] Blood BLOOD SPECIMEN / Unknown Lab Venipuncture / Unknown 07/15/2015 11:09 AM CDT 07/15/2015 11:19 AM CDT Narrative [facility] - 07/15/2015 12:12 PM CDT Lipid Profile Comment: Adult references ranges are the recommendation of the [employer] , for those patients >18 years old. Cholestrol LDL Triglycerides HDL -- -- -- <40 Low <170 <100 <150 Desirable 170-199 130-159 150-199 Borderline High >200 160-189 200-499 >60 High Risk factor status for Coronary Artery Disease is necessary to place these lab findings in perspective. Note: This test is for fasting patients only. A non-fasting state may alter some of these results. Siria Pizarro [facility] LAB - CHEMISTR Y ORDERABLES [facility] [address] [facility] [place] [address] * SPLIT NIGHT STUDY (09/17/2014) Siria Pizarro [facility] O RDERABLES * LAB RESULTS ORDER (08/22/2014 3:54 PM CDT) Narrative 08/22/2014 3:54 PM CDT Ordered by an unspecified provider. Scanned Document LAB - THERAPEUTIC DR CONRAD MONITORING ORDERABLES Care Teams Coal Deliverer Relationship Specialty Start Date End Date Brian Dela Cruz MD [address] [place] [address] PCP - General Family Medicine 07/13/20
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
[2024-04-17 20:33] VITALS: BP 132/101; PULSE 104; RESP 19; TEMP 36.9; O2SAT 98
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
--- OUTSIDE RECORDS SUMMARY | 2024-04-17 21:20 | XMS_ITS | Patient Health Summary ---
Author Organization [facility] Address [address] [place] [address] Care Team Providers Care Drying Frame Operator Name Role Phone Brian Dela Cruz MD Primary Care Provider [phone] Note [address] [facility],non-owned Affiliates and Associated Physician Practices is amultiple site organization consisting of ambulatory clinics and hospital sitesin [place], [place], [place] and [place]. This disclosure is being madepursuant to the Care Everywhere program and may not contain all information available regarding this patient. Last updated 17.[facility] Allergies * Methylprednisolone(Hematologic) -High Criticality Medications * [...] propionate (FLONASE) 50 MCG/ACT nasal spray(Started 06/12/2016) Hines 1 Hines into each nostril once daily 5 refills [...] 2 times daily * Heparin Sodium, Porcine, 42561 UNIT/ML injection Inject 1 mL subcutaneously 2 [...] CDT Respiratory Rate 22 03/13/2016 9:50 AM [facility] Oxygen Saturation 100% 07/13/2020 8:30 AM CDT Inhaled Oxygen Concentration - - Weight 115.4 kg (254 lb 6.4 oz) 07/13/2020 8:30 AM CDT Height 152.1 cm (4' 11.9 ) 04/13/2020 8:44 AM CS T Body Mass Index 49.85 04/13/2020 8:44 AM [facility] Procedures * LUPUS ANTICOAGULANT PANEL(Performed 07/13/2020) Performed for Chronic hypertension affecting ([facility]) * BETA-2 GLYCOPROTEIN 1 ANTIBODY IGG/IGM PANEL(Performed 07/13/2020) Performed for Chronic hypertension affecting ([facility]), Supervision of high-risk ofyoung multigravida ([facility]), Family history of DVT * CARDIOLIPIN ANTIBODY IGG/IGM PANEL(Performed 07/13/2020) Performed for Chronic hypertension affecting ([facility]), Supervision of high-risk ofyoung multigravida ([facility]), Family history of DVT * FACTOR V LEIDEN MUTATION PANEL(Performed 07/13/2020) Performed for Chronic hypertension affecting ([facility]), Supervision of high-risk ofyoung multigravida ([facility]), Family history of DVT * PROTHROMBIN [id number] PANEL(Performed 07/13/2020) Performed for Chronic hypertension affecting ([facility]), Supervision of high-risk ofyoung multigravida ([facility]), Family history of DVT * COMPREHENSIVE METABOLIC PANEL(Performed 07/13/2020) Performed for Chronic hypertension affecting ([facility]), Supervision of high-risk ofyoung multigravida ([facility]), Bilious vomiting with nausea * PROTEIN C ACTIVITY(Performed 07/13/2020) Performed for Chronic hypertension affecting ([facility]), Supervision of high-risk ofyoung multigravida ([facility]), Family history of DVT * CBC W [...] 23.0 - 38.4 Seconds 07/14/2020 4:09 PM [facility] PT 12.8 12.1 - 14.8 Seconds 07/14/2020 4:09 PM [facility] INR 1.0 See Comment 07/14/2020 4:09 PM CDT [facility] Buffer 36.1 Seconds 021 4:09 PM CDT [facility] [place] Phospholipid 38.6 Seconds 07/14/2020 4:09 PM CDT [facility] [place] Delta -2.5 <8.0 Seconds 07/14/2020 4:09 PM CDT [facility] Interpretation [place] Negative 07/14/2020 4:09 PM CDT [facility] Comment:Up to 15-20% of morgan ents [...] Noa Jiang MD LAB - HEMATOLOGY ORDERABLES [facility] [address] [place] [address], [facility] [phone] * PROTHROMBIN [id number] PANEL (07/13/2020 1:55 PM CDT) [facility] Factor II DNA Analysis Comment 07/18/2020 5:08 PM CDT [facility] ([facility]) Comment: NEGATIVE No mutation identified. Comment: A point mutation ([id number]) in the factor II (prothrombin) gene is [...] mutations. This assay detects only the prothrombin [id number] mutation and does not measure genetic abnormalities [...] health care providers to discuss results at [phone] ([id number]). Methodology: DNA analysis of the Factor II gene was performed by PCR amplification followed by restriction analysis. The diagnostic sensitivity is >99% for both. All the tests must be combined with clinical information for the most accurate interpretation. Molecular-based testing is highly accurate, but as in any laboratory test, diagnostic errors may occur. This test was developed and its performance characteristics determined by [facility]. It has not been cleared or approved by the Food and Drug Administration. Johnt SR, et al. Blood. 1996; 88:6209-0260. Magy EA. Circulation. 2004; 110:e15-e18. Marek I, et al. Arterioscler Thromb Vasc Biol. 1999; 19:700-703. Donell Wolff, PhD, [facility] Luisa Murphy, PhD, FACMG Carmen Spivey, PhD, FACMG Gill Rodriguez, PhD, FAC Giorgi Davis, PhD, FAC Devon Shea, PhD, FAC Blood BLOOD SPECIMEN / Unknown Lab Venipuncture / Unknown 07/13/2020 1:55 PM CDT 07/13/2020 1:55 PM CDT [facility] ([facility]) - 07/18/2020 5:08 PM CDT Performed at: 01 - [facility] [address], [place], [place] [id number] Performance Manager: Ольга Wise [facility], Phone: [phone] Noa Jiang MD LAB - COAGULATION ORDERABLES [facility] ([facility]) [address] [place] [address] * FACTOR V LEIDEN MUTATION PANEL (07/13/2020 1:55 PM CDT) [facility] Factor V Leiden Comment 11:09 AM CDT [facility] ([facility]) Comment: Result: Negative (no mutation found) Factor [...] the workup for venous thrombosis include the [id number] mutation in the factor II (prothrombin) gene, protein S and C deficiency, and antithrombin deficiencies. Anticardiolipin antibody and lupus anticoagulant analysis may be appropriate for certain patients, as well as homocysteine levels. Contact your local [facility] for information on how to order additional testing if desired. Genetic counselors are available for health care providers to discuss results at [phone] ([phone]). Methodology: DNA analysis of the Factor V gene was performed by allele-specific PCR. The diagnostic sensitivity and specificity is >99% for both. Molecular-based testing is highly accurate, but as in any laboratory test, diagnostic errors may occur. All test results must be combined with clinical information for the most accurate interpretation. This test was developed and its performance characteristics determined by [facility]. It has not been cleared or approved by the Food and Drug Administration. References: Yoel Pineda (1996). Clin Lab Med 16:169-186. Donell Wolff, PhD, [facility] Luisa Murphy, PhD, FACMG Carmen Spivey, PhD, FACMG Gill Rodriguez, PhD, FAC Giorgi Davis, PhD, FAC Devon Shea PhD, FAC Blood BLOOD SPECIMEN / Unknown Lab Venipuncture / Unknown 07/13/2020 1:55 PM CDT 07/13/2020 1:55 PM CDT Narrative [facility] ([facility]) - 07/20/2020 11:09 AM CDT [facility]formed at: [facility] [address], [place], [place] [id number] Performance Manager: Ольга Wise [facility], Phone: [phone] Noa Jiang MD LAB - COAGULATION ORDERABLES Performing Organization Address City/[facility] Co de Phone [facility] ([facility]) [address] [place] [address] * (ABNORMAL) CARDIOLIPIN ANTIBODY IGG/IGM PANEL (07/13/2020 1:55 PM CDT) [facility] Cardiolipin Antibody IgG <9 0 - 14 GPL U/mL 07/15/2020 3:07 PM CDT [facility] ([facility]) Comment: Negative: <15 Indeterminate: 15 - 20 Low-Med Positive: >20 - 80 High Positive: >80 Cardiolipin Antibody IgM 22(H) 0 - 12 MPL U/mL 07/15/2020 3:07 PM CDT [facility] ([facility]) Comment: Negative: <13 Indeterminate: 13 - 20 Low-Med Positive: >20 - 80 High Positive: >80 Blood BLOOD SPECIMEN / Unknown Lab Venipuncture / Unknown 07/13/2020 1:55 PM CDT 07/13/2020 1:56 PM CDT Narrative [facility] ([facility]) - 07/15/2020 3:07 PM CDT Performed at: [address] [id number] Performance Manager: Zurdo Lira PhD, Phone: [phone] Noa Jiang MD LAB - SEROLOGY OR DERABLES Performing Organization Address City/[facility]/ZIP Co de Phone Number [facility] ([facility]) [address] [place] [address] * BETA-2 GLYCOPROTEIN 1 ANTIBODY IGG/IGM PANEL (07/13/2020 1:55 PM CDT) [facility] Beta-2 Glycoprotein I Antibody IgG <9 0 - 20 GPI IgG units 07/16/2020 10:06 PM CDT [facility] ([facility]) Comment: The reference interval reflects a 3SD or 99th percentile interval, which is thought to represent a potentially clinically significant result in accordance with the International Consensus Statement on the classification criteria for definitive antiphospholipid syndrome (APS). J Thromb Haem 2006;4:295-306. Beta-2 Glycoprotein I Antibody IgM <9 0 - 32 GPI IgM units 07/16/2020 10:06 PM CDT [facility] ([facility]) Comment: The reference interval reflects a 3SD or 99th percentile interval, which is thought to represent a potentially clinically significant result in accordance with the International Consensus Statement on the classification criteria for definitive antiphospholipid syndrome (APS). J Thromb Haem 2006;4:295-306. Blood BLOOD SPECIMEN / Unknown Lab Venipuncture / Unknown 07/13/2020 1:55 PM CDT 07/13/2020 1:56 PM CDT Narrative [facility] ([facility]) - 07/16/2020 10:06 PM CDT Performed at: [address] [place] [id number] Performance Manager: Ivy Menchaca MD, Phone: [phone] Noa Jiang MD LAB - CHEMISTRY O RDERABLES Performing Organization Address City/[facility]/ZIP Co de Phone Number [facility] ([facility]) [address] [place] [address] * (ABNORMAL) COMPREHENSIVE METABOLIC PANEL (07/13/2020 1:55 PM CDT) Only the most recent of3 resultswithin the time period is included. [facility] Glucose 74 70 - 105 mg/dL 07/13/2020 3:30 PM CDT [facility] Sodium 133(L) 136 - 145 mmol/L 07/13/2020 3:30 PM CDT [facility] Potassium 4.3 3.5 - 5.1 mmol/L 07/13/2020 3:30 PM CDT [facility] Chloride 101 98 - 107 mmol/L 07/13/2020 3:30 PM CDT [facility] CO2 18(L) 23 - 31 mmol/L 07/13/2020 3:30 PM CDT [facility] Calcium 9.7 8.4 - 10.4 mg/dL 07/13/2020 3:30 PM CDT [facility] Anion Gap 14 8 - 18 mmol/L 07/13/2020 3:30 PM CDT [facility] Comment:Attention clinician: Reference Range change. BUN 12 7 - 18.7 mg/dL 07/13/2020 3:30 PM CDT [facility] Creatinine 0.86 0.57 - 1.11 mg/dL 07/13/2020 3:30 PM CDT [facility] Alkaline Phosphatase 165(H) 40 - 150 U/L 07/13/2020 3:30 PM CDT [facility] Comment:Attention clinician: Reference Range change. ALT 13 0 - 61 U/L 07/13/2020 3:30 PM CDT [facility] AST 13 5 - 34 U/L 07/13/2020 3:30 PM CDT [facility] Protein Total 7.6 6.4 - 8.3 gm/dL 07/13/2020 3:30 PM CDT [facility] Albumin 3.3(L) 3.5 - 5.2 gm/dL 07/13/2020 3:30 PM CDT [facility] Bilirubin Total 0.3 0.2 - 1.2 mg/dL 07/13/2020 3:30 PM CDT [facility] Comment:Attention clinician: Reference Range change. eGFR by MDRD >60 >60 mL/min/1.7 3m2 07/13/2020 3:30 PM CDT [facility] eGFR by MDRD >60 >60 mL/min/1.7 3m2 07/13/2020 3:30 PM CDT [facility] Blood BLOOD SPECIMEN / Unknown Lab Venipuncture / Unknown 07/13/2020 1:55 PM CDT 07/13/2020 1:55 PM CDT Noa Jiang MD LAB - CHEMISTRY O RDERABLES Performing Organization Address City/[facility] Co de Phone Number [facility] [address] [place] [address] * (ABNORMAL) PROTEIN C FUNCTIONAL (07/13/2020 1:54 PM CDT) [facility] Protein C Activity >199(H) % 07/18/2020 4:10 PM CDT [facility] ([facility]) Comment: Elevated protein C activity is of no known clinical significance. Reference Range: 17 years and older: 73 - 180 Blood BLOOD SPECIMEN / Unknown Lab Venipuncture / Unknown 07/13/2020 1:54 PM CDT 07/13/2020 1:55 PM CDT Narrative [facility] ([facility]) - 07/18/2020 4:10 PM CDT Performed at: [facility] Spinal Modulation [facility] [address] [id number] Performance Manager: Cali Ford MD, Phone: [phone] Noa Jiang MD LAB - COAGULATION ORDERABLES Performing Organization Address City/[facility] Co de Phone Number [facility] ([facility]) [address] [place] [address] * (ABNORMAL) CBC WITH DIFFERENTIAL (07/13/2020 1:53 PM CDT) Only the most recent of3 resultswithin the time period is included. Pathologist [facility] WBC 12.4(H) 4.4 - 10.7 x10E9/L 07/13/2020 2:29 PM CDT [facility] WBC Corrected 07/13/2020 2:29 PM CDT [facility] RBC 4.43 3.80 - 5.20 x10E12/L 07/13/2020 2:29 PM CDT [facility] Hemoglobin 13.6 12.0 - 15.6 gm/dL 07/13/2020 2:29 PM CDT [facility] Hematocrit 40.0 35.9 - 45.5 % 07/13/2020 2:29 PM CDT [facility] MCV 90.3 80.7 - 98.3 fl 07/13/2020 2:29 PM [facility] MCH 30.7 26.7 - 34.0 pg 07/13/2020 2:29 PM [facility] MCHC 34.0 30.8 - 35.9 gm/dL 07/13/2020 2:29 PM [facility] Platelet Count 369 153 - 416 x10E9/L 07/13/2020 2:29 PM [facility] RDW-CV 13.1 12.1 - 14.9 % 07/13/2020 2:29 PM [facility] MPV 10.9 9.4 - 12.9 fl 07/13/2020 2:29 PM [facility] Neutrophils % 70.1 44.0 - 73.0 % 07/13/2020 2:29 PM [facility] Lymphocytes % 21.7 20.0 - 43.0 % 07/13/2020 2:29 PM [facility] Monocytes % 6.2 5.0 - 13.0 % 07/13/2020 2:29 PM [facility] Eosinophils % 0.7 0.0 - 6.0 % 07/13/2020 2:29 PM [facility] Basophils % 0.3 0.0 - 2.0 % 07/13/2020 2:29 PM [facility] Immature Granulocytes 1.0 0 - 1 % 07/13/2020 2:29 PM [facility] Neutrophil Absolute 8.66(H) 2.01 - 7.14 x10E9/L 07/13/2020 2:29 PM [facility] Lymphocytes Absolute 2.68 1.07 - 3.94 x10E9/L 07/13/2020 2:29 PM [facility] Monocytes Absolute 0.76 0.26 - 1.07 x10E9/L 07/13/2020 2:29 PM [facility] Eosinophils Absolute 0.09 0 - 0.47 x10E9/L 07/13/2020 2:29 PM [facility] Basophils Absolute 0.04 0 - 0.08 x10E9/L 07/13/2020 2:29 PM [facility] Immature Granulocytes Absolute 0.12(H) 0.00 - 0.06 x10E9/L 07/13/2020 2:29 PM CDT [facility] nRBC Auto 0 /100 WBC 07/13/2020 2:29 PM CDT [facility] Blood BLOOD SPECIMEN / Unknown Lab Venipuncture / Unknown 07/13/2020 1:53 PM CDT 07/13/2020 1:53 PM CDT Cordelia Emily SENIOR PHP WEB DEVELOPER-[facility]AGE COOKER LAB - HEMATOLOG Y ORDERABLES [facility] [address] [place], [place] [id number] * BIOPHYSICAL PROFILE W NST (07/10/2020 1:08 PM CDT) Only the most recent of5 resultswithin the time period is included. Anatomical Region Laterality Modality Other 07/10/2020 1:08 PM CDT Narrative 07/10/2020 1:57 PM CDT [facility] PHONE: FAX: Pat. Name: CJ RONQUILLONANCY Lora. 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 Obesity (BMI 45 ECHO: Left Persistant SVC Normal ECHO MEASUREMENTS & AGE GROWTH EVALUATION Measurement GA Range Srce %for GA Ratios ----- ---- ------- BPD 8.3 cm 33w2d (82g2f-54d7b) Hadl BPD 1% FL/BPD 0.80 (0.71 - 0.87) HC 30.2 cm 33w4d (07c5f-56z0x) Hadl HC <01 FL/AC 0.20 (0.20 - 0.24) AC 33.0 cm 36w6d (76r0t-84p0c) Hadl AC 76% HC/AC 0.92 (0.92 - 1.11* FL 6.6 cm 34w1d (54r1o-09z9b) Hadl FL 5% CI 0.76 (0.70 - 0.86) HL 5.8 cm 33w4d (63k7o-42b3v) Mendez HL 6% GA for sonogram 34w0d (98g1h-47n3s) Weight Estimate: based on (BPD,HC,AC,FL) Hadlock Weight: [...] <Electronic Signature> 07/10/2020 01:57pm Prakash Gutierres MD [facility] ORDERABLES * SONOGRAM - COMPLETE (05/15/2020 1:00 PM [facility]) Only the most recent of3 resultswithin the time period is included. Anatomical Region Laterality Modality Other 05/15/2020 1:00 PM [facility] Narrative 05/15/2020 4:53 PM [facility] PHONE: FAX: Pat. Name: LEVY RONQUILLO Geno. No: [id number] Study Date: 05/15/2020 1:00pm , Age: 10 2000, 20 Pregnancies: 2, Para 0, Ab 1 Height: 58 in Weight: 217 lb LMP: 10/30/2019 GA by LMP: 28w2d GA by Base: 28w2d MOHSEN: 08/05/2020 GA by US: 28w3d MOHSEN: 08/04/2020 GA Selected: 28w2d (LMP) MOHSEN: 08/05/2020 Referring MD: Prakash Gutierres MD Associate Professor Of Music: Ranjana Vasquez RDMS CPT4: 06919 BMI: 45.35 Hist/Ind: MOB non-functioning right kidney Class III Obesity (BMI 45 Complete Anatomy ECHO: Left Persistant SVC Normal ECHO MEASUREMENTS & AGE GROWTH EVALUATION Measurement GA Range Srce %for GA Ratios ----- ---- ------- BPD 7.0 cm 28w0d (01f3o-05h2n) Hadl BPD 26% FL/BPD 0.80 (0.71 - 0.87) HC 25.7 cm 27w6d (80l1q-02y2c) Hadl HC 10% FL/AC 0.23 (0.20 - 0.24) AC 24.0 cm 28w2d (97a8p-35u3h) Hadl AC 42% HC/AC 1.07 (0.99 - 1.18) FL 5.6 cm 29w3d (85j2c-17h0e) Hadl FL 67% CI 0.76 (0.70 - 0.86) HL 5.4 cm 31w2d (95q2w-86l6s) Mendez HL >95 GA for sonogram 28w3d (02n4l-71j3r) Weight Estimate: based on (BPD,HC,AC,FL) Avg Weight: [...] <Electronic Signature> 05/15/2020 04:52pm Prakash Gutierres MD [facility] ORDERABLES * ECHO CONSULT - (04/27/2020 11:04 AM [facility]) 04/27/2020 11:0 4 AM [facility] Narrative Procedure Note Svetlana Connelly MD - 04/27/2020 [facility] [place] [address] Fax Echocardiogram Report Pat.Name: LEVY RONQUILLO Pat.ID: [id number] .Date: 04/27/2020 Refer.MD: Hai Islas Exam Time: 11:04:00 AM Study Type: Echo Age: 10 2000,20Y Sex: FEMALE Sonogrphr: Angeles Murillo RDCS Pat. Stat.:Outpatient CPT - 4: 91604, 86232, 99688, 80686, 19565 Reason for Study: Suspected Cardiac Abnormality SUMMARY: [...] Islas MD ECHO ORDERABLES Performing Organization Address City/[facility]/ZIP Co de Phone Number [facility] [address] [place] [address] * URIC ACID BLOOD (04/13/2020 9:57 AM [facility]) Uric Acid 4.4 2.6 - 7.2 mg/dL 04/13/2020 10:[address] [facility] Blood BLOOD SPECIMEN / Unknown Lab Venipuncture / Unknown 04/13/2020 9:57 AM [facility] 04/13/2020 10:24 AM [facility] Vesta Guido MD LAB - CHEMISTRY GEORGINA DANIELS Performing Organization Address [facility] Co de Phone Number [facility] [address] [place] [address], [facility] [phone] * MICROALB/CREAT RATIO URINE RANDOM PANEL (04/13/2020 9:57 AM [facility]) Albumin Random Urine 15.9 Not Established mcg/mL 04/13/2020 10:56 AM [facility] Creatinine Urine 91 Not Established mg/dL 04/13/2020 10:[address] [facility] Comment:Result obtained by d ilution. Urine Albumin/Creati nine Ratio 17 <30 mg/g 04/13/2020 10:[address] [facility] Urine URINE SPECIMEN OBTAINED BY CLEAN CATCH PROCEDURE / Unknown Collection / Unknown 04/13/2020 9:57 AM [facility] 04/13/2020 10:24 AM [facility] Vesta Guido MD LAB - URINE CHEMISTR Y ORDERABLES [facility] [address] [place] [address], [facility] [phone] * (ABNORMAL) URINALYSIS REFLEX TO MICROSCOPIC NO CULTURE (04/13/2020 9:57 AM [facility]) Only the most recent of5 resultswithin the time period is included. Color UA Yellow Straw, Yellow, Colorless 04/13/2020 10:[address] [facility] Clarity UA Slt Cloudy Clear, Slt Cloudy 04/13/2020 10:[address] [facility] Specific [place] UA 1.013 1.005 - 1.030 04/13/2020 10:[address] [facility] pH UA 6.0 5.0 - 8.0 pH 04/13/2020 10:[address] [facility] Protein UA Negative Negative mg/dL 04/13/2020 10:[address] [facility] Glucose UA Negative Negative mg/dL 04/13/2020 10:[address] [facility] Ketone UA Negative Negative mg/dL 04/13/2020 10:[address] [facility] Bilirubin UA Negative Negative mg/dL 04/13/2020 10:[address] [facility] Blood UA Negative Negative 04/13/2020 10:[address] [facility] Nitrite UA Negative Negative 04/13/2020 10:[address] [facility] Leukocyte Esterase Negative Negative 04/13/2020 10:[address] [facility] Urobilinogen UA Negative Negative mg/dL 04/13/2020 10:[address] [facility] RBC UA 0-2 None Seen, 0-2, 3-5 /HPF 04/13/2020 10:[address] [facility] WBC UA 0-5 None Seen, 0-5 /HPF 04/13/2020 10:[address] [facility] Bacteria UA Trace None, Trace /HPF 04/13/2020 10:[address] [facility] Squamous Epithelial Cells UA 6-10(A) None Seen, 0-2 /HPF 04/13/2020 10:[address] [facility] Mucus UA 1+ None, 1+ /LPF 04/13/2020 10:43 AM [facility] Urine URINE SPECIMEN OBTAINED BY CLEAN CATCH PROCEDURE / Unknown Collection / Unknown 04/13/2020 9:57 AM [facility] 04/13/2020 10:24 AM [facility] Narrative [facility] - 04/13/2020 10:43 AM [facility] Vesta Guido MD LAB - URINALYSIS ORD ERABLES Performing Organization Address [facility]/ZIP Co de Phone Number [address] [address], [facility] [phone] * PROTEIN URINE RANDOM QUANTITATIVE (04/13/2020 9:57 AM [facility]) Protein Urine 14 Not Established mg/dL 04/13/2020 10:56 AM [facility] Urine URINE SPECIMEN OBTAINED BY CLEAN CATCH PROCEDURE / Unknown Collection / Unknown 04/13/2020 9:57 AM [facility] 04/13/2020 10:24 AM [facility] Vesta Guido MD LAB - URINE CHEMISTR Y ORDERABLES Performing Organization Address [facility] Co de Phone Number [address] [address], [facility] [phone] * (ABNORMAL) VITAMIN D (25-HYDROXY) (06/12/2016 9:27 AM CDT) Only the most recent of2 resultswithin the time period is included. Vitamin D, 25 Hydroxy 8.54(L) 30 - 100 ng/mL 06/12/2016 3:18 PM CDT [facility] Blood BLOOD SPECIMEN / Unknown Lab Venipuncture / Unknown 06/12/2016 9:27 AM CDT 06/12/2016 10:16 AM CDT Narrative [facility] - 06/12/2016 3:18 PM CDT Vitamin D Status: Deficiency <20 ng/mL Insufficiency 20-30 ng/mL Sufficiency 30-100 ng/mL Toxicity >100 ng/mL Stella Pkie APRN-SAUSAGE COOKER LAB - CHEMISTR Y ORDERABLES Performing Organization Address City/[facility]/ZIP Co de Phone Number [facility] [address] [place] [address] * FERRITIN (06/12/2016 9:27 AM CDT) Only the most recent of3 resultswithin the time period is included. Ferritin 53 10 - 120 ng/mL 06/12/2016 11:13 AM CDT [facility] Blood BLOOD SPECIMEN / Unknown Lab Venipuncture / Unknown 06/12/2016 9:27 AM CDT 06/12/2016 10:16 AM CDT Stella Pike SENIOR PHP WEB DEVELOPER-[employer]AGE COOKER LAB - CHEMISTR Y ORDERABLES Performing Organization Address [facility] Co de Phone Number [facility] [address] [place] [phone] * (ABNORMAL) URINALYSIS MICROSCOPIC ONLY (01/11/2016 5:12 PM CDT) Only the most recent of4 resultswithin the time period is included. RBC UA 0-2 0-2, 2-5 # /hpf 01/11/2016 10:39 PM CDT [facility] WBC UA 2-5 0-2, 2-5 # /hpf 01/11/2016 10:39 PM CDT [facility] Bacteria UA 2+(A) None Seen, Trace 01/11/2016 10:39 PM CDT [facility] Epithelial Cell UA 10-20(A) 0-2, 2-5 # /hpf 01/11/2016 10:39 PM CDT [facility] Mucus UA 1+ 01/11/2016 10:39 PM CDT [facility] Urine URINE SPECIMEN OBTAINED BY CLEAN CATCH PROCEDURE / Unknown 01/11/2016 5:12 PM CDT 01/11/2016 6:35 PM CDT Siria Pizarro SENIOR PHP WEB DEVELOPER-[employer]OOK[employer] LAB - URINALYS IS ORDERABLES Performing Organization Address [facility]/ZIP Co de Phone Number [facility] [address] [place] [phone] * CULTURE URINE (01/11/2016 5:12 PM CDT) Only the most recent of4 resultswithin the time period is included. Culture 10,000-50,000 CFU/mL urogenital nora ESSENCE 01/13/2016 9:32 AM CDT [facility]CROBIOLOGY Urine URINE SPECIMEN OBTAINED BY CLEAN CATCH PROCEDURE / Unknown 01/11/2016 5:12 PM CDT 01/11/2016 6:35 PM CDT Siria Pizarro APRN-[facility] LAB - MICROBIO LOGY ORDERABLES [facility] MICROBIOLOGY [address] [place] [address], [facility] [phone] * CALCIUM/CREAT RATIO URINE RANDOM PANEL (01/11/2016 5:12 PM CDT) Only the most recent of3 resultswithin the time period is included. Calcium Urine 6.61 mg/dL 01/11/2016 8:53 PM CDT [facility] Creatinine Urine 180.44 mg/dL 01/11/2016 8:53 PM CDT [facility] Calcium/Creatin ine Ratio Urine 0.04 01/11/2016 8:53 PM CDT [facility] Urine URINE SPECIMEN OBTAINED BY CLEAN CATCH PROCEDURE / Unknown 01/11/2016 5:12 PM CDT 01/11/2016 6:35 PM CDT Narrative [facility] - 01/11/2016 8:53 PM CDT Normal <0.16 Borderline 0.16-0.20 Abnormal >0.20 Siria Pizarro [facility] LAB - URINE CH EMISTRY ORDERABLES [facility] [place] [address] * CPAP/BIPAP TITRATION (11/10/2015) Linked Results See Linked Results SLEEP CENTER 11/10/2015 Stella Pike SENIOR PHP WEB DEVELOPER-[facility] * [...] information. RECOMMENDATIONS: Consider anticholingergic medications Yohana Watters SENIOR PHP WEB DEVELOPER-[employer]OOKER PROCEDURE ORDERABLES * CYSTOMETROGRAM ACC (09/22/2015 12:33 [...] information. RECOMMENDATIONS: Consider anticholingergic medications Yohana Watters SENIOR PHP WEB DEVELOPER-[facility] FLUOROSCOPY ORDERABLES * ALPHA FETOPROTEIN BLOOD TUMOR (09/07/2015 10:43 AM CDT) Alpha-Fetoprotei n Tumor Marker 1.3 0.0 - 8.3 ng/mL 09/08/2015 5:15 AM CDT [facility] ([facility]) Comment:Elizabeth ECLIA methodol ogy Blood specimen (specimen) BLOOD SPECIMEN / Unknown Lab Venipuncture / Unknown 09/07/2015 10:43 AM CDT 09/07/2015 11:03 AM CDT Narrative [facility] ([facility]) - 09/08/2015 5:15 AM CDT Performed at: [address] [place] [address] [id number] Performance Manager: Zurdo Lira PhD, Phone: [phone] Yohana Watters SENIOR PHP WEB DEVELOPER-[facility] LAB - CHEMIS TRY ORDERABLES [facility] ([facility]) [address] [place] [address] * PT PTT PANEL (09/07/2015 10:43 AM CDT) Pathologist [facility] PT 9.5 9.5 - 11.6 sec 09/07/2015 2:18 PM T [facility] INR 0.9 0.9 - 1.1 09/07/2015 2:18 PM T [facility] PTT 24.3 21.0 - 32.0 sec 09/07/2015 2:18 PM T [facility] Blood BLOOD SPECIMEN / Unknown Lab Venipuncture / Unknown 09/07/2015 10:43 AM CDT 09/07/2015 11:03 AM CDT [facility]AT[facility] - 09/07/2015 2:18 PM CDT Conventional Warfarin Anticoagulant Therapy: INR Reference Range: 2.0-3.0 Intensive Warfarin Anticoagulant Therapy: INR Reference Range: 2.5-3.5 Heparin Therapeutic Range for PTT: 47.7 - 68.6 seconds. Yohana Watters APRN-[employer] [facility] LAB - COAGUL ATION ORDERABLES Performing Organization Address City/State/[facility] Co de Phone Number [facility] [address] [place], [place] [phone] * HEPATIC FUNCTION PANEL (09/07/2015 10:43 AM CDT) Pathologist [facility] Alkaline Phosphatase 113 100 - 390 U/L 09/07/2015 11:42 AM T [facility] ALT 21 8 - 65 U/L 09/07/2015 11:42 AM [facility] AST 15 3 - 35 U/L 09/07/2015 11:42 AM [facility] Protein Total 7.5 6.3 - 8.2 gm/dL 09/07/2015 11:42 AM [facility] Albumin 4.0 3.3 - 4.9 gm/dL 09/07/2015 11:42 AM [facility] Bilirubin Total 0.4 0.3 - 1.2 mg/dL 09/07/2015 11:42 AM [facility] Bilirubin Direct 0.15 0.11 - 0.64 mg/dL 09/07/2015 11:42 AM T [facility] Blood BLOOD SPECIMEN / Unknown Lab Venipuncture / Unknown 09/07/2015 10:43 AM CDT 09/07/2015 11:03 AM CDT Yohana Watters SENIOR PHP WEB DEVELOPER-[employer] LAB - CHEMIS TRY ORDERABLES Performing Organization Address [facility] Co de Phone Number [facility] [address] [place] [phone] * (ABNORMAL) LDH BLOOD (09/07/2015 10:43 AM CDT) LDH 274(H) 140 - 260 U/L 09/07/2015 11:42 AM CDT [facility] Blood BLOOD SPECIMEN / Unknown Lab Venipuncture / Unknown 09/07/2015 10:43 AM CDT 09/07/2015 11:03 AM CDT Yohana Watters SENIOR PHP WEB DEVELOPER-[employer]OOK[employer] LAB - CHEMIS TRY ORDERABLES Performing Organization Address [facility] Co de Phone Number [facility] [address] [place] [address] * GGT (09/07/2015 10:43 AM CDT) GGT 28 8 - 69 U/L 09/07/2015 11:42 AM CDT [facility] Blood BLOOD SPECIMEN / Unknown Lab Venipuncture / Unknown 09/07/2015 10:43 AM CDT 09/07/2015 11:03 AM CDT Yohana Watters SENIOR PHP WEB DEVELOPER-[employer]OOKER LAB - CHEMIS TRY ORDERABLES Performing Organization Address [facility] de Phone Number [facility] [address] [place] [phone] * UROFLOWMETRY (09/06/2015 11:15 AM CDT) Narrative [...] information. Report dictated by Tiara Frey MD (vice president global advertising sales). Fluoroscopy Time: 1.5 minute Dose Area Prod: [...] No prior study is available for comparison. Social Media Content Manager radiograph demonstrates a nonspecific bowel gas pattern. [...] No prior study is available for comparison. Social Media Content Manager radiograph demonstrates a nonspecific bowel gas pattern. [...] information. Report dictated by Tiara Frey MD (vice president global advertising sales). Fluoroscopy Time: 1.5 minute Dose Area Prod: 157.63 (uGy*m^2) Entrance Dose: 4.8 (mGy) I, Chioma Benavides, have personally reviewed the images and I agree with this report. Yohana Watters SENIOR PHP WEB DEVELOPER-[employer] FLUOROSCOPY ORDERABLES * MRI PELVIS WITH AND [...] with severe renal parenchymal atrophy. Yohana Watters SENIOR PHP WEB DEVELOPER-[employer]OOKER MR ORDERABLE S * MRI ABDOMEN WITH [...] with severe renal parenchymal atrophy. Yohana Watters SENIOR PHP WEB DEVELOPER-[employer]OOKER MR ORDERABLE S * CHLAMYDIA + GC AMPLIFIED PROBE (08/10/2015 4:39 PM CDT) Chlamydia Amplified Probe Negative Negative 08/11/2015 8:43 AM CDT [facility] MICROBIOLOG[facility] GC Amplified Probe Negative Negative 08/11/2015 8:43 AM CDT [facility] MICROBIOLOG[facility] Urine URINE / Unknown 08/10/2015 4 :39 PM CDT 08/10/2015 5:15 PM CDT Narrative [facility] MICROBIOLOG[facility] - 08/11/2015 8:43 AM CDT This test was developed and its performance characteristics determined by the [facility], [facility]. Female urine specimens tested by the Gen-Probe [place] have not been cleared or approved by [...] Jones MD LAB - MICROBIO LOGY ORDERABLES [facility] MICROBIOLOGY [address] [place] [address], [facility] [phone] * US PELVIS WITH TRANSVAG NON OB [...] be obtained with an MRI pelvis. Gi oJnes MD US ORDERABLES * US KIDNEY AND [...] without contrast should be considered. Siria Pizarro SENIOR PHP WEB DEVELOPER-[facility] US ORDERABLES * URINALYSIS - POCT () MEIR (08/10/2015 3:25 PM CDT) Glucose UA Negative Negative [facility] T TESTING Bilirubin UA Negative Negative [facility] P OCT TESTING Ketone UA Negative Negative [facility] PO[facility] TEST[facility] Specific [place] UA POCT 1.020 1.000 - 1.030 [facility] Blood UA Negative Negative [facility] pH UA 6.5 5.0 - 8.0 pH units [facility] Protein UA Negative Negative [facility] T TESTING Urobilinogen UA 0.2 0.2 - 1.0 EU/dL [facility] Nitrite UA Negative Negative [facility] T TESTING Leukocyte UA Negative Negative [facility] P OCT TESTING QC Verified Yes Yes [facility] PO CT TESTING Urine specimen (specimen) URINE / Unknown 08/10/2015 3:25 PM CDT Gi Jones MD LAB - POINT OF CARE ORDERABLES [facility] PO[facility] TESTING [address] [phone] * HEMOGLOBIN A1C (07/15/2015 11:09 AM CDT) Hemoglobin A1c 4.9 3.4 - 6.1 % 07/17/2015 11:18 AM CDT [facility] Estimated Average Glucose 94 mg/dL 07/17/2015 11:18 AM CDT [facility] Whole Blood BLOOD SPECIMEN WITH EDTA / Unknown 07/15/2015 11:09 AM CDT 07/17/2015 9:27 AM CDT Siriarosa Pizarro SENIOR PHP WEB DEVELOPER-[employer]OOK[employer] LAB - CHEMISTR Y ORDERABLES Performing Organization Address City/[facility]/ZIP Co de Phone Number [facility] [address] [place] [phone] * TSH (07/15/2015 11:09 AM CDT) Pathologist [facility] TSH 1.64 0.35 - 4.95 uIU/mL 07/15/2015 12:47 PM CDT [facility] Blood BLOOD SPECIMEN / Unknown Lab Venipuncture / Unknown 07/15/2015 11:09 AM CDT 07/15/2015 11:19 AM CDT Siria Pizarro SENIOR PHP WEB DEVELOPER-[employer]OOKER LAB - CHEMISTR Y ORDERABLES Performing Organization Address [facility] Co de Phone Number [facility] [address] [place] [address] * T4 TOTAL (07/15/2015 11:09 AM CDT) Pathologist [facility] T4 Total 11.11 4.87 - 11.7 ug/dL 07/15/2015 12:47 PM CDT [facility] Blood BLOOD SPECIMEN / Unknown Lab Venipuncture / Unknown 07/15/2015 11:09 AM CDT 07/15/2015 11:19 AM CDT Siriarosa Pizarro SENIOR PHP WEB DEVELOPER-[employer]USAGE COOKER LAB - CHEMISTR Y ORDERABLES Performing Organization Address City/[facility]/ZIP Co de Phone Number [facility] [address] [place] [phone] * (ABNORMAL) LIPID PROFILE (07/15/2015 11:09 AM CDT) Cholesterol 187(H) <170 mg/dL 07/15/2015 12:12 PM T [facility] Triglycerides 110 46 - 227 mg/dL 07/15/2015 12:12 PM CDT [facility] HDL Cholesterol 53 >40 mg/dL 07/15/2015 12:12 PM CDT [facility] LDL Calculated 112(H) <100 mg/dL 07/15/2015 12:12 PM T [facility] VLDL Calculated 22 12 - 38 mg/dL 07/15/2015 12:12 PM T [facility] Chol HDL Ratio 3.5 <=5.0 07/15/2015 12:12 PM T [facility] Blood BLOOD SPECIMEN / Unknown Lab Venipuncture / Unknown 07/15/2015 11:09 AM CDT 07/15/2015 11:19 AM CDT Narrative [facility] - 07/15/2015 12:12 PM CDT Lipid Profile Comment: Adult references ranges are the recommendation of the [place] [employer] , for those patients >18 [...] some of these results. Siria Pizarro [facility] LAB - CHEMISTR Y ORDERABLES [facility] [address] [facility] [place] [address] * SPLIT NIGHT STUDY (09/17/2014) Siria Pizarro [facility] SLEEP [facility] O RDERABLES * LAB RESULTS ORDER (08/22/2014 3:54 PM CDT) Narrative 08/22/2014 3:54 PM CDT Ordered by an unspecified provider. Scanned Document LAB - THERAPEUTIC DR CONRAD MONITORING ORDERABLES Care Teams Drying Frame Operator Relationship Specialty Start Date End Date Brian Dela Cruz MD [address] [place] [address] PCP - General Family Medicine 07/13/20
--- OUTSIDE RECORDS SUMMARY | 2024-04-17 21:20 | XMS_ITS | Clinical Summary ---
Author Organization [facility] [place] [facility] Address [address] [place] [address] Phone Care Team Providers Care Development Scientist Name Role Phone Brian Dela Cruz MD Primary Care Provider + [phone] Allergies Active Allergy Reactions Criticality Noted Date [...] to complete this topic Insurance Care Teams Development Scientist Relationship Specialty Start Date End Date Brian Dela Cruz MD [address] [place] [address] PCP - General Family Medicine 11/05/21
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
[2024-04-17 21:25] LABS: Influenza A QL RT-PCR Negative (Negative); Influenza B QL RT-PCR Negative (Negative); RSV RNA, RT-PCR Negative (Negative); SARS-CoV-2 RNA PCR Negative (Negative)
--- NOTE | 2024-04-17 22:03 | ED.URI ---
HPI - URI/Sore Throat General Chief Complaint: Upper Respiratory Infection Stated Complaint: 8 weeks , I dont feel well Time Seen by Provider: 04/17/24 21:03 Source: patient Mode of arrival: ambulatory Limitations: no limitations History of Present Illness HPI Narrative: Patient is a 24-year-old female who presents the ED with report of URI symptoms. patient reports she began feeling ill this morning with cough, congestion, chills, diaphoresis, nausea, vomiting. Her significant other has had similar symptoms for the last few days. patient has not taken anything for her symptoms. Denies known fever. Denies shortness of breath. Denies significant abdominal pain. Patient is and currently [address] weeks [address] Gutierres, has had confirmed IUP. Denies vaginal bleeding. Related Data Home Medications ?Medication ?Instructions ?Recorded ?Confirmed ?Last Taken ?Type propranolol 20 mg tablet mg PO 12/24/23 03/23/24 Unknown History sertraline 100 mg tablet mg PO 12/24/23 03/23/24 Unknown History Allergies Allergy/AdvReac Type Severity Reaction Status Date / Time Latex, Natural Rubber Allergy Mild Itching Verified 03/23/24 15:28 medroxyprogesterone (From AdvReac Severe Other Verified 03/23/24 15:28 Depo-Provera) adhesive tape AdvReac Itching Verified 03/23/24 15:28 Review of Systems Review of Systems: All systems reviewed & are unremarkable except as noted in HPI. 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 Family History Family History Mother Diabetes mellitus Social History Social History Social History: She reports that she lives at home with her mother, vikram and her son (born 2020). 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 She is a lifelong nonsmoker and denies any significant alcohol use history. Surrogate medical decision maker: Melyssa Burch, mother. Code status: Full code. Smoking status: Never smoker Tobacco type: cigarettes Second hand tobacco smoke exposure: No Alcohol intake: never Substance use: never Substance use type: does not use Do You Feel Safe in your Home?: Yes Lack of Transportation: YES Lack of Food: Never True Current Housing: Decline to Answer Concerned About Future Housing: YES Difficulty Paying Gas/Electric Bills: No Difficulty Paying for Meds: No Currently Unemployed: YES Education: High School Diploma/GED Difficulty w/ Childcare or Family Care: No Living arrangements: with family Additional living arrangements comments: She lives with her mother, vikram and child. 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 Gender identity (if verbalized by the patient): Female Sexual Orientation (if Verbalized by the Patient): Bisexual Spiritual care concerns: No Exam Narrative: GENERAL: well appearing, morbidly obese with BMI of 44.0, non-toxic, in no acute distress. HEAD: Normocephalic, atraumatic. RESPIRATORY: Airway patent, respirations nonlabored. Clear to auscultation bilaterally, no rales, rhonchi, wheezing. no significant focal lung sounds. Occasional coughing on exam CARDIOVASCULAR: Regular rate and rhythm. ABDOMINAL: Soft, nontender, nondistended. Normoactive BS. MUSCULOSKELETAL: Moves all extremities. No gross deformities. SKIN: Warm, dry, normal color. NEURO: A&O X3. Speech clear. PSYCHIATRIC: Appropriate mood and affect. Normal interaction. Course Vital Signs Vital signs: Vital Signs Temperature 98.5 F 04/17/24 20:33 Pulse Rate 104 H 04/17/24 20:33 Respiratory Rate 19 04/17/24 20:33 Blood Pressure 132/101 H 04/17/24 20:33 Pulse Oximetry 98 04/17/24 20:33 Oxygen Delivery Room Air 04/17/24 20:33 Temperature 98.5 F 04/17/24 20:33 Pulse Rate 91 04/17/24 22:53 Respiratory Rate 16 04/17/24 22:53 Blood Pressure 138/88 04/17/24 22:53 Pulse Oximetry 98 04/17/24 22:53 Oxygen Delivery Room Air 04/17/24 22:19 MDM - URI/Sore Throat MDM Narrative Medical decision making narrative: patient presented to ED with upper respiratory symptoms that began this morning. Her significant other has had similar symptoms as well. patient was initially mildly tachycardic upon arrival. This was improved at the time of my evaluation. Viral swabs are negative. Patient given Tylenol and Zofran in the ED with improvement of symptoms. Able to tolerate p.o. intake. Discussed likelihood of viral URI, continue management of such. Discussed [id number] therapies that patient can use that are safe in . she has had confirmed IUP, denying significant abdominal pain or vaginal bleeding. Recommended she have close follow-up with OBGYN for further evaluation. Given return precautions. She agrees with plan. Discharged in stable condition. Medical Records Attestation: I reviewed the patient's medical records. Lab Data Attestation: I reviewed the patient's lab results. Labs: Lab Results 04/17/24 Range/Units 20:43 Influenza A (RT-PCR) Negative (Negative) Influenza B (RT-PCR) Negative (Negative) RSV (RT-PCR) Negative (Negative) SARS-CoV-2 RNA (RT-PCR) Negative (Negative) Discharge Plan Discharge Clinical Impression: 8 weeks gestation of Upper respiratory infection Qualifiers: URI type: unspecified URI Qualified Code(s): J06.9 - Acute upper respiratory infection, unspecified Patient Disposition: Home, Self-Care Condition: Stable Instructions: Antibiotic Form, Upper Respiratory Infection (ED), Viral Syndrome (ED), Cold Symptoms (ED) Additional Instructions: Your testing for COVID, influenza, RSV was negative. It is likely you have a viral upper respiratory infection that will take some time to resolve. Stay well hydrated at home. Recommend Tylenol as needed for fevers and/or discomfort. Zofran as needed for nausea. You may take Mucinex, Delsym/Robitussin, chlorpheniramine as needed for cold symptoms. These are safe in . Follow-up closely with your primary care doctor and OBGYN for further evaluation. Return to the ED if you experience worsening or severe symptoms, unable to keep down food or drink, severe abdominal pain, vaginal bleeding, shortness of breath, chest pain, or any other symptoms of concern. Patient Language: Icelandic Prescriptions: New ondansetron 4 mg tablet,disintegrating 4 mg PO Q8H PRN (Reason: nausea and vomiting) Qty: 15 0RF No Action propranolol 20 mg tablet PO sertraline 100 mg tablet PO Follow-up/Referrals: Prakash Gutierres MD [Physician] - (OBGYN) Brian Dela Cruz MD [Primary Care Provider] - Stand Alone Forms: Work/School Release IP Time of Disposition: 22:37
[2024-04-17] MEDS: ACETAMINOPHEN 500 MG TABLET 1000 MG PO (22:15)
[2024-04-17] MEDS: ONDANSETRON HCL ODT 4 MG TABLET PO (22:15)
[2024-04-17 22:19] VITALS: O2SAT 98
[2024-04-17 22:53] VITALS: BP 138/88; PULSE 91; RESP 16; O2SAT 98
== END 2024-04-17 22:56 | disposition home or self-care (01) ==
PROVIDERS: Student in an Organized Health Care Education/Training Program; Emergency Provider Physician Assistant; PCP Family Medicine
DX: O99.511 Diseases of the respiratory system complicating pregnancy, first trimester (principal); J06.9 Acute upper respiratory infection, unspecified; Z20.822 Contact with and (suspected) exposure to COVID-19; O99.211 Obesity complicating pregnancy, first trimester; E66.01 Morbid (severe) obesity due to excess calories; O99.891 Other specified diseases and conditions complicating pregnancy; N31.9 Neuromuscular dysfunction of bladder, unspecified; O99.341 Other mental disorders complicating pregnancy, first trimester; F41.9 Anxiety disorder, unspecified; F32.A Depression, unspecified; Q60.3 Renal hypoplasia, unilateral; Z79.899 Other long term (current) drug therapy; Z3A.01 Less than 8 weeks gestation of pregnancy
CPT/HCPCS: 87637; 99283; A9270

== ENCOUNTER 2024-05-06 14:53 | Outpatient (CLI) | payer OTHER, SELFPAY ==
[2024-05-06 16:02] LABS: Basophils Percent Auto 0.2 % (0.2-1.2); Eosinophils Absolute Auto 0.1 K/mm3 (0-0.3); Eosinophils Percent Auto 0.7 % (0-4.4); Hematocrit 40.1 % (37.0-47.0); Hemoglobin 13.2 g/dL (12.0-15.0); Immature Granulocyte Absolute 0.02 K/mm3 (0.00-0.031); Immature Granulocyte Percent A 0.2 % (0-0.5); Lymphocytes Absolute Auto 2.47 K/mm3 (0.9-3.2); Lymphocytes Percent Auto 29.3 % (18.3-44.2); Mean Corpuscular HGB Conc 32.9 g/dl (32-36); Mean Corpuscular Hemoglobin 30.1 pg (26-34); Mean Corpuscular Volume 91.3 fl (80-100); Mean Platelet Volume 8.9 fl (7.4-10.4); Monocytes Absolute Auto 0.4 K/mm3 (0.1-0.6); Monocytes Percent Auto 5.1 % (2.6-8.5); Neutrophils Absolute Auto 5.4 K/mm3 (1.3-6.7); Neutrophils Percent Auto 64.5 % (45.5-73.1); Platelet Count Result 333 k/mm3 (150-375); Red Blood Count 4.39 M/mm3 (4.2-5.4); Red Cell Distribution Width 13.2 % (11.5-14.5); White Blood Count 8.4 K/mm3 (4.5-10.0)
[2024-05-06 16:13] LABS: Glucose 1 Hour PP 50gm Dose 106 mg/dL
[2024-05-06 18:32] LABS: HIV 1/2 Ab P24 Ag Result Negative (Negative); Syphilis IgG/IgM Antibody Negative (Negative)
[2024-05-06 18:36] LABS: Hepatitis B Surface Antigen Negative (Negative)
[2024-05-07 17:09] LABS: CMV IgG Antibody <0.60 U/mL; Varicella IgG Antibody 2.95 S/CO
== END 2024-05-06 14:54 | disposition home or self-care (01) ==
LOC: ANHLAB 14:54
PROVIDERS: PCP Family Medicine; Referring Provider Student in an Organized Health Care Education/Training Program; Visit Provider Obstetrics & Gynecology
DX: N91.2 Amenorrhea, unspecified (principal); Z34.90 Encounter for supervision of normal pregnancy, unspecified, unspecified trimester
CPT/HCPCS: 36415; 82947; 84702; 85025; 86593; 86644; 86703; 86747; 86762; 86787; 86850; 86900; 86901; 87086; 87340; G0432

== ENCOUNTER 2024-05-14 01:17 | Emergency (ER) | payer OTHER, SELFPAY ==
[2024-05-14 01:18] VITALS: BP 142/96; PULSE 97; RESP 15; TEMP 36.6; O2SAT 100
--- OUTSIDE RECORDS SUMMARY | 2024-05-14 01:20 | XMS_ITS | Clinical Summary ---
Author Organization [facility] Address [address] [place] [address] Phone Care Team Providers Care Personal Companion Name Role Phone Brian Dela Cruz MD Primary Care Provider + [phone] Allergies Active Allergy Reactions Criticality Noted Date [...] to complete this topic Insurance Care Teams Personal Companion Relationship Specialty Start Date End Date Brian Dela Cruz MD [address] [place] [address] PCP - General Family Medicine 11/05/21
--- OUTSIDE RECORDS SUMMARY | 2024-05-14 01:20 | XMS_ITS | Patient Health Summary ---
Author Organization [facility] Address [address] [place] [address] Care Team Providers Care Chemical Laboratory Technician Name Role Phone Brian Dela Cruz MD Primary Care Provider [phone] Note from [facility] [place] [facility] [place]non-owned Affiliates and Associated Physician Practices is amultiple site organization consisting of ambulatory clinics and hospital sitesin [place], [place], [place]. This disclosure is being madepursuant to the Care Everywhere program and may not contain all information available regarding this patient. Last updated 17.[facility] Allergies * Methylprednisolone(Hematologic) -High Criticality [...] propionate (FLONASE) 50 MCG/ACT nasal spray(Started 06/12/2016) [place] 1 [place] into each nostril once daily 5 refills [...] 2 times daily * Heparin Sodium, [place], [address] UNIT/ML injection Inject 1 mL subcutaneously 2 [...] drink = 0.6 oz pur e alcohol) Estimated Date of Delivery Comme nts Yes 12/04/2024 Based on Ultraso und Sex and Gender Information Value Date Recorded Sex Assigned at Not on file Gender Identity Not on file Sexual Orientation Not on file Last Filed Vital Signs Vital Sign Reading Time Taken Comments Blood Pressure 125/94 07/13/2020 8:30 AM CDT Pulse 78 07/13/2020 8:30 AM CDT Temperature 36.3 C (97.3 F) 07/13/2020 8:30 AM CDT Respiratory Rate 22 03/13/2016 9:50 AM SHEETMETAL PATTERNMAKER Oxygen Saturation 100% 07/13/2020 8:30 AM CDT Inhaled Oxygen Concentration - - Weight 115.4 kg (254 lb 6.4 oz) 07/13/2020 8:30 AM CDT Height 152.1 cm (4' 11.9 ) 04/13/2020 8:44 AM CS T Body Mass Index 49.85 04/13/2020 8:44 AM SHEETMETAL PATTERNMAKER Procedures * SONOGRAM - COMPLETE(Performed 05/03/2024) Performed for BMI 50.0-59.9, adult ([facility]), hydronephrosis during , antepartum, singleor unspecified fetus ([facility]), Maternal morbid obesity, antepartum ([facility]), Uncertain dates, antepartum,unspecified trimester ([facility]) * LUPUS ANTICOAGULANT PANEL(Performed 07/13/2020) Performed for Chronic hypertension affecting ([facility]) * BETA-2 GLYCOPROTEIN 1 ANTIBODY IGG/IGM PANEL(Performed 07/13/2020) Performed for Chronic hypertension affecting ([facility]), Supervision of high-risk ofyoung multigravida ([facility]), Family history of DVT * CARDIOLIPIN ANTIBODY IGG/IGM PANEL(Performed 07/13/2020) Performed for Chronic hypertension affecting ([facility]), Supervision of high-risk ofyoung multigravida ([facility]), Family history of DVT * FACTOR V LEIDEN MUTATION PANEL(Performed 07/13/2020) Performed for Chronic hypertension affecting ([facility]), Supervision of high-risk ofyoung multigravida ([facility]), Family history of DVT * PROTHROMBIN [id number] PANEL(Performed 07/13/2020) Performed for Chronic hypertension affecting ([facility]), Supervision of high-risk ofyoung multigravida ([facility]), Family history of DVT * COMPREHENSIVE METABOLIC PANEL(Performed 07/13/2020) Performed for Chronic hypertension affecting ([facility]), Supervision of high-risk ofyoung multigravida (HCC), Bilious vomiting with nausea * PROTEIN C ACTIVITY(Performed 07/13/2020) Performed for Chronic hypertension affecting ([facility]), Supervision of high-risk ofyoung multigravida (HCC), Family history of DVT * CBC W [...] URINE(Performed 08/17/2014) Performed for Enureses Results * SONOGRAM - COMPLETE (05/03/2024 2:21 PM SHEETMETAL PATTERNMAKER) Only the most recent of4 resultswithin the time period is included. 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 Para 1 Maternal Assessment Physical Exam Height 150 cm, 4 ft 11 in. Weight 138 kg, 305 lb. Initial weight 113 kg, 250 lb. BMI 61.60 kg/m . Initial BMI 50.49 kg/m . Weight gain 25 kg, 55 lb Method ====== Transabdominal and transvaginal ultrasound examination. View: limited secondary to challenging acoustic properties ========= [place] . Number of embryos: 1 Dating ====== Date Details Gest. age MOHSEN LMP 01/18/2024 15 w + 1 d 10/24/2024 U/S 05/03/2024 based upon GS 7 w + 4 d 12/16/2024 Assigned dating based on ultrasound (GS), selected on 05/03/2024 7 w + 4 d 12/16/2024 Assessment Gestational sac: visualized. Location: intrauterine Yolk sac: not visualized Embryo: not visualized Cardiac activity: absent GS 26.2 mm 7w 4d 50% Rempen FHR 0 bpm Maternal Structures Right Ovary Not visualized Left Ovary Not visualized Impression ========= Intrauterine gestational sac at 7w 4d No yolk sac or pole visualized on today's exam Exam was limited by patient's body habitus Comment ======== Unsure dates and size raise questions - recommend quant HCG now/soon, and a follow up quant in 48-72 hrs ; then repeat US when results are in Follow-up ======== Serial Beta HCG and repeat evaluation for viability is recommended [facility] Anatomical Region Laterality Modality Other 05/03/2024 2:21 PM SHEETMETAL PATTERNMAKER Prakash Gutierres MD [facility] ORDERABLES * LUPUS ANTICOAGULANT PANEL (07/13/2020 2:04 PM CDT) APTT 29.8 23.0 - 38.4 Seconds 07/14/2020 4:09 PM CDT [facility] PT 12.8 12.1 - 14.8 Seconds 07/14/2020 4:09 PM [facility] INR 1.0 See Comment 07/14/2020 4:09 PM [facility] [place] Buffer 36.1 Seconds 021 4:09 PM [facility] [place] Phospholipid 38.6 Seconds 07/14/2020 4:09 PM [facility] [place] Delta -2.5 <8.0 Seconds 07/14/2020 4:09 PM [facility] Interpretation [place] Negative 07/14/2020 4:09 PM [facility] Comment:Up to 15-20% of morgan ents [...] Noa Jiang MD LAB - HEMATOLOGY ORDERABLES [facility] [address] [place] [id number], [facility] [phone] * PROTHROMBIN [id number] PANEL (07/13/2020 1:55 PM CDT) [facility] Factor II DNA Analysis Comment 07/18/2020 5:08 PM CDT [facility] ([facility]) Comment: NEGATIVE No mutation identified. Comment: A point mutation ([id number]) in the factor II (prothrombin) gene is [...] mutations. This assay detects only the prothrombin [id number] mutation and does not measure genetic abnormalities [...] health care providers to discuss results at [phone] ([phone]). Methodology: DNA analysis of the Factor II gene was performed by PCR amplification followed by restriction analysis. The diagnostic sensitivity is >99% for both. All the tests must be combined with clinical information for the most accurate interpretation. Molecular-based testing is highly accurate, but as in any laboratory test, diagnostic errors may occur. This test was developed and its performance characteristics determined by [employer]. It has not been cleared or approved by the Food and Drug Administration. Johnt SR, et al. Blood. 1996; 88:0857-1891. Mayg HOLBROOK. Circulation. 2004; 110:e15-e18. Marek I, et al. Arterioscler Thromb Vasc Biol. 1999; 19:700-703. Donell Wolff, PhD, [facility] Luisa Murphy, PhD, [facility] Carmen Spivey, PhD, [facility] Gill Rodriguez, PhD, [facility] Giorgi Davis, PhD, [facility] Devon Shea, PhD, [facility] Blood BLOOD SPECIMEN / Unknown Lab Venipuncture / Unknown 07/13/2020 1:55 PM CDT 07/13/2020 1:55 PM CDT [facility] ([facility]) - 07/18/2020 5:08 PM CDT Performed at: [address] [place] [address] [id number] Manager [place]: Ольга Wise [facility], Phone: [phone] Noa Jiang MD LAB - COAGULATION ORDERABLES [facility] ([facility]) [address] [place] [address] * FACTOR V LEIDEN MUTATION PANEL (07/13/2020 1:55 PM CDT) [facility] Factor V Leiden Comment 11:09 AM CDT [facility] ([facility]) Comment: Result: Negative (no mutation found) Factor [...] the workup for venous thrombosis include the [id number] mutation in the factor II (prothrombin) gene, protein S and C deficiency, and antithrombin deficiencies. Anticardiolipin antibody and lupus anticoagulant analysis may be appropriate for certain patients, as well as homocysteine levels. Contact your local [facility] for information on how to order additional testing if desired. Genetic counselors are available for health care providers to discuss results at [phone] ([phone]). Methodology: DNA analysis of the Factor V gene was performed by allele-specific PCR. The diagnostic sensitivity and specificity is >99% for both. Molecular-based testing is highly accurate, but as in any laboratory test, diagnostic errors may occur. All test results must be combined with clinical information for the most accurate interpretation. This test was developed and its performance characteristics determined by [facility]. It has not been cleared or approved by the Food and Drug Administration. References: Yoel Pineda (1995). Clin Lab Med 16:169-186. Donell Wolff, PhD, FAC Luisa Murphy, PhD, FAC Carmen Spivey, PhD, FAC Gill Rodriguez, PhD, FAC Giorgi Davis, PhD, [facility] Devon Shea PhD, FAC Blood BLOOD SPECIMEN / Unknown Lab Venipuncture / Unknown 07/13/2020 1:55 PM CDT 07/13/2020 1:55 PM CDT Narrative [facility] ([facility]) - 07/20/2020 11:09 AM CDT Performed at: [address] [place] [address] [id number] Manager [place]: Ольга Wise [facility], Phone: [phone] Noa Jiang MD LAB - COAGULATION ORDERABLES [facility] ([facility]) [address] [place] [address] * (ABNORMAL) CARDIOLIPIN ANTIBODY IGG/IGM PANEL (07/13/2020 1:55 PM CDT) [facility] Cardiolipin Antibody IgG <9 0 - 14 GPL U/mL 07/15/2020 3:07 PM CDT [facility] ([facility]) Comment: Negative: <15 Indeterminate: 15 - 20 Low-Med Positive: >20 - 80 High Positive: >80 Cardiolipin Antibody IgM 22(H) 0 - 12 MPL U/mL 07/15/2020 3:07 PM CDT [facility] ([facility]) Comment: Negative: <13 Indeterminate: 13 - 20 Low-Med Positive: >20 - 80 High Positive: >80 Blood BLOOD SPECIMEN / Unknown Lab Venipuncture / Unknown 07/13/2020 1:55 PM CDT 07/13/2020 1:56 PM CDT [facility] ([facility]) - 07/15/2020 3:07 PM CDT Performed at: [address] [place] [id number] Manager Harbor: Zurdo Lira PhD, Phone: [phone] Noa Jiang MD LAB - SEROLOGY OR DERABLES [facility]) [address] [place] [address] * BETA-2 GLYCOPROTEIN 1 ANTIBODY IGG/IGM PANEL (07/13/2020 1:55 PM CDT) [facility] Beta-2 Glycoprotein I Antibody IgG <9 0 - 20 GPI IgG units 07/16/2020 10:06 PM CDT [facility] ([facility]) Comment: The reference interval reflects a 3SD or 99th percentile interval, which is thought to represent a potentially clinically significant result in accordance with the International Consensus Statement on the classification criteria for definitive antiphospholipid syndrome (APS). J Thromb Haem 2006;4:295-306. Beta-2 Glycoprotein I Antibody IgM <9 0 - 32 GPI IgM units 07/16/2020 10:06 PM CDT [facility] ([facility]) Comment: The reference interval reflects a 3SD or 99th percentile interval, which is thought to represent a potentially clinically significant result in accordance with the International Consensus Statement on the classification criteria for definitive antiphospholipid syndrome (APS). J Thromb Haem 2006;4:295-306. Blood BLOOD SPECIMEN / Unknown Lab Venipuncture / Unknown 07/13/2020 1:55 PM CDT 07/13/2020 1:56 PM CDT [facility] ([facility]) - 07/16/2020 10:06 PM CDT Performed at: 01 - [facility] [address] [place], [place] [id number] Manager Harbor: Ivy Menchaca MD, Phone: [phone] Noa Jiang MD LAB - CHEMISTRY O RDERABLES [facility] ([facility]) [address] [place] [address] * (ABNORMAL) COMPREHENSIVE METABOLIC PANEL (07/13/2020 1:55 PM CDT) Only the most recent of3 resultswithin the time period is included. Glucose 74 70 - 105 mg/dL 07/13/2020 3:30 PM CDT [facility] Sodium 133(L) 136 - 145 mmol/L 07/13/2020 3:30 PM CDT [facility] Potassium 4.3 3.5 - 5.1 mmol/L 07/13/2020 3:30 PM CDT [facility] Chloride 101 98 - 107 mmol/L 07/13/2020 3:30 PM CDT [facility] CO2 18(L) 23 - 31 mmol/L 07/13/2020 3:30 PM CDT [facility] Calcium 9.7 8.4 - 10.4 mg/dL 07/13/2020 3:30 PM CDT [facility] Anion Gap 14 8 - 18 mmol/L 07/13/2020 3:30 PM CDT [facility] Comment:Attention clinician: Reference Range change. BUN 12 7 - 18.7 mg/dL 07/13/2020 3:30 PM CDT [facility] Creatinine 0.86 0.57 - 1.11 mg/dL 07/13/2020 3:30 PM CDT [facility] Alkaline Phosphatase 165(H) 40 - 150 U/L 07/13/2020 3:30 PM CDT [facility] Comment:Attention clinician: Reference Range change. ALT 13 0 - 61 U/L 07/13/2020 3:30 PM CDT [facility] AST 13 5 - 34 U/L 07/13/2020 3:30 PM CDT [facility] Protein Total 7.6 6.4 - 8.3 gm/dL 07/13/2020 3:30 PM CDT [facility] Albumin 3.3(L) 3.5 - 5.2 gm/dL 07/13/2020 3:30 PM CDT [facility] Bilirubin Total 0.3 0.2 - 1.2 mg/dL 07/13/2020 3:30 PM CDT [facility] Comment:Attention clinician: Reference Range change. eGFR by MDRD >60 >60 mL/min/1.7 3m2 07/13/2020 3:30 PM CDT [facility] eGFR by MDRD >60 >60 mL/min/1.7 3m2 07/13/2020 3:30 PM CDT [facility] Blood BLOOD SPECIMEN / Unknown Lab Venipuncture / Unknown 07/13/2020 1:55 PM CDT 07/13/2020 1:55 PM CDT Noa Jiang MD LAB - CHEMISTRY O RDERABLES Performing Organization Address [facility]/ZIP Co de Phone Number [facility] [address] [place] [address] * (ABNORMAL) PROTEIN C FUNCTIONAL (07/13/2020 1:54 PM CDT) [facility] Protein C Activity >199(H) % 07/18/2020 4:10 PM CDT [facility] ([facility]) Comment: Elevated protein C activity is of no known clinical significance. Reference Range: 17 years and older: 73 - 180 Blood BLOOD SPECIMEN / Unknown Lab Venipuncture / Unknown 07/13/2020 1:54 PM CDT 07/13/2020 1:55 PM CDT Narrative [facility] ([facility]) - 07/18/2020 4:10 PM CDT Performed at: [facility] xiao qu wu you [address] [id number] Manager [place]: Cali Ford MD, Phone: [phone] Noa Jiang MD LAB - COAGULATION ORDERABLES [facility] ([facility]) [address] [place] [address] * (ABNORMAL) CBC WITH DIFFERENTIAL (07/13/2020 1:53 PM CDT) Only the most recent of3 resultswithin the time period is included. WBC 12.4(H) 4.4 - 10.7 x10E9/L 07/13/2020 2:29 PM CDT [facility] WBC Corrected 07/13/2020 2:29 PM CDT [facility] RBC 4.43 3.80 - 5.20 x10E12/L 07/13/2020 2:29 PM CDT [facility] Hemoglobin 13.6 12.0 - 15.6 gm/dL 07/13/2020 2:29 PM CDT [facility] Hematocrit 40.0 35.9 - 45.5 % 07/13/2020 2:29 PM CDT [facility] MCV 90.3 80.7 - 98.3 fl 07/13/2020 2:29 PM CDT [facility] MCH 30.7 26.7 - 34.0 pg 07/13/2020 2:29 PM CDT [facility] MCHC 34.0 30.8 - 35.9 gm/dL 07/13/2020 2:29 PM CDT [facility] Platelet Count 369 153 - 416 x10E9/L 07/13/2020 2:29 PM CDT [facility] RDW-CV 13.1 12.1 - 14.9 % 07/13/2020 2:29 PM CDT [facility] MPV 10.9 9.4 - 12.9 fl 07/13/2020 2:29 PM CDT [facility] Neutrophils % 70.1 44.0 - 73.0 % 07/13/2020 2:29 PM CDT [facility] Lymphocytes % 21.7 20.0 - 43.0 % 07/13/2020 2:29 PM CDT [facility] Monocytes % 6.2 5.0 - 13.0 % 07/13/2020 2:29 PM CDT [facility] Eosinophils % 0.7 0.0 - 6.0 % 07/13/2020 2:29 PM CDT [facility] Basophils % 0.3 0.0 - 2.0 % 07/13/2020 2:29 PM CDT [facility] Immature Granulocytes 1.0 0 - 1 % 07/13/2020 2:29 PM CDT [facility] Neutrophil Absolute 8.66(H) 2.01 - 7.14 x10E9/L 07/13/2020 2:29 PM CDT [facility] Lymphocytes Absolute 2.68 1.07 - 3.94 x10E9/L 07/13/2020 2:29 PM CDT [facility] Monocytes Absolute 0.76 0.26 - 1.07 x10E9/L 07/13/2020 2:29 PM CDT [facility] Eosinophils Absolute 0.09 0 - 0.47 x10E9/L 07/13/2020 2:29 PM CDT [facility] Basophils Absolute 0.04 0 - 0.08 x10E9/L 07/13/2020 2:29 PM CDT [facility] Immature Granulocytes Absolute 0.12(H) 0.00 - 0.06 x10E9/L 07/13/2020 2:29 PM CDT [facility] nRBC Auto 0 /100 WBC 07/13/2020 2:29 PM CDT [facility] Blood BLOOD SPECIMEN / Unknown Lab Venipuncture / Unknown 07/13/2020 1:53 PM CDT 07/13/2020 1:53 PM CDT Cordelia Diaz TITLE SEARCHER-FINISHING DEPARTMENT SUPERVISOR LAB - HEMATOLOG Y ORDERABLES [facility] [address] [place], [place] [id number] * BIOPHYSICAL PROFILE W NST (07/10/2020 1:08 PM CDT) Only the most recent of5 resultswithin the time period is included. Anatomical Region Laterality Modality Other 07/10/2020 1:08 PM CDT Narrative 07/10/2020 1:[address] [facility] PHONE: FAX: Pat. Name: LEVY RONQUILLO. No: [id number] Study Date: 07/10/2020 1:08pm , Age: 10 2000, 20 Pregnancies: 2, Para 0, Ab 1 Height: 58 in Weight: 217 lb LMP: 10/30/2019 GA by LMP: 36w2d GA by Base: 36w2d MOHSEN: 08/05/2020 GA by US: 34w0d MOHSEN: 08/21/2020 GA Selected: 36w2d (LMP) MOHSEN: 08/05/2020 Referring MD: Prakash Gutierres MD Level Glass Vial Filler: Winter Hirsch RDMS CPT4: 48186,66971 BMI: 45.35 Hist/Ind: MOB non-functioning right kidney Class III Obesity (BMI 45 ECHO: Left Persistant SVC Normal ECHO MEASUREMENTS & AGE GROWTH EVALUATION Measurement GA Range Srce %for GA Ratios ----- ---- ------- BPD 8.3 cm 33w2d (79n2u-99k9h) Hadl BPD 1% FL/BPD 0.80 (0.71 - 0.87) HC 30.2 cm 33w4d (95v1o-38f7h) Hadl HC <01 FL/AC 0.20 (0.20 - 0.24) AC 33.0 cm 36w6d (56n4f-99x0i) Hadl AC 76% HC/AC 0.92 (0.92 - 1.11* FL 6.6 cm 34w1d (89i9q-21n8g) Hadl FL 5% CI 0.76 (0.70 - 0.86) HL 5.8 cm 33w4d (00y4l-58x5q) Mendez HL 6% GA for sonogram 34w0d (90e7f-82x4v) Weight Estimate: based on (BPD,HC,AC,FL) Hadlock Weight: [...] <Electronic Signature> 07/10/2020 01:57pm Prakash Gutierres MD [facility] ORDERABLES * ECHO CONSULT - (04/27/2020 11:04 AM SHEETMETAL PATTERNMAKER) 04/27/2020 11:0 4 AM SHEETMETAL PATTERNMAKER Narrative Procedure Note Svetlana Connelly MD - 04/27/[address] [place] [address] Fax Echocardiogram Report Pat.Name: LEVY RONQUILLO Pat.ID: [id number] .Date: 04/27/2020 Refer.MD: Hai Islas Exam Time: 11:04:00 AM Study Type: Echo Age: 10 2000,20Y Sex: FEMALE Sonogrphr: Angeles Murillo RDCS Pat. Stat.:Outpatient CPT - 4: 07064, 82863, 02860, 62611, 73922 Reason for Study: Suspected Cardiac Abnormality SUMMARY: [...] Islas MD ECHO ORDERABLES Performing Organization Address [facility]/ZIP Co de Phone Number [facility] [address] [place] [address] * URIC ACID BLOOD (04/13/2020 9:57 AM [facility]) Uric Acid 4.4 2.6 - 7.2 mg/dL 04/13/2020 10:55 AM [facility] Blood BLOOD SPECIMEN / Unknown Lab Venipuncture / Unknown 04/13/2020 9:57 AM SHEETMETAL PATTERNMAKER 04/13/2020 10:24 AM [facility] Vesta Guido MD LAB - CHEMISTRY ORDE FRANCES Performing Organization Address City/[facility]/ZIP Co de Phone Number [facility] [address] [place] [address], [facility] [phone] * MICROALB/CREAT RATIO URINE RANDOM PANEL (04/13/2020 9:57 AM SHEETMETAL PATTERNMAKER) Albumin Random Urine 15.9 Not Established mcg/mL 04/13/2020 10:56 AM [facility] Creatinine Urine 91 Not Established mg/dL 04/13/2020 10:56 AM [facility] Comment:Result obtained by trent marino. Urine Albumin/Creati nine Ratio 17 <30 mg/g 04/13/2020 10:56 AM [facility] Urine URINE SPECIMEN OBTAINED BY CLEAN CATCH PROCEDURE / Unknown Collection / Unknown 04/13/2020 9:57 AM SHEETMETAL PATTERNMAKER 04/13/2020 10:24 AM SHEETMETAL PATTERNMAKER Vesta Guido MD LAB - URINE CHEMISTR Y ORDERABLES [facility] [address] [place] [address], [facility] [phone] * (ABNORMAL) URINALYSIS REFLEX TO MICROSCOPIC NO CULTURE (04/13/2020 9:57 AM [facility]) Only the most recent of5 resultswithin the time period is included. Color UA Yellow Straw, Yellow, Colorless 04/13/2020 10:43 AM [facility] Clarity UA Slt Cloudy Clear, Slt Cloudy 04/13/2020 10:43 AM [facility] Specific [place] UA 1.013 1.005 - 1.030 04/13/2020 10:43 AM [facility] pH UA 6.0 5.0 - 8.0 pH 04/13/2020 10:43 AM [facility] Protein UA Negative Negative mg/dL 04/13/2020 10:43 AM [facility] Glucose UA Negative Negative mg/dL 04/13/2020 10:43 AM [facility] Ketone UA Negative Negative mg/dL 04/13/2020 10:43 AM [facility] Bilirubin UA Negative Negative mg/dL 04/13/2020 10:43 AM [facility] Blood UA Negative Negative 04/13/2020 10:43 AM [facility] Nitrite UA Negative Negative 04/13/2020 10:43 AM [facility] Leukocyte Esterase Negative Negative 04/13/2020 10:43 AM [facility] Urobilinogen UA Negative Negative mg/dL 04/13/2020 10:43 AM [facility] RBC UA 0-2 None Seen, 0-2, 3-5 /HPF 04/13/2020 10:43 AM [facility] WBC UA 0-5 None Seen, 0-5 /HPF 04/13/2020 10:43 AM [facility] Bacteria UA Trace None, Trace /HPF 04/13/2020 10:43 AM [facility] Squamous Epithelial Cells UA 6-10(A) None Seen, 0-2 /HPF 04/13/2020 10:43 AM [facility] Mucus UA 1+ None, 1+ /LPF 04/13/2020 10:43 AM [facility] Urine URINE SPECIMEN OBTAINED BY CLEAN CATCH PROCEDURE / Unknown Collection / Unknown 04/13/2020 9:57 AM SHEETMETAL PATTERNMAKER 04/13/2020 10:24 AM [facility] Narrative [facility] - 04/13/2020 10:43 AM SHEETMETAL PATTERNMAKER Vesta Guido MD LAB - URINALYSIS ORD ERABLES Performing Organization Address City/[facility]/ZIP Co de Phone Number [address] [address], [facility] [phone] * PROTEIN URINE RANDOM QUANTITATIVE (04/13/2020 9:57 AM [facility] PATTERN[facility]) Protein Urine 14 Not Established mg/dL 04/13/2020 10:56 AM [facility] Urine URINE SPECIMEN OBTAINED BY CLEAN CATCH PROCEDURE / Unknown Collection / Unknown 04/13/2020 9:57 AM SHEETMETAL PATTERNMAKER 04/13/2020 10:24 AM SHEETMETAL PATTERNMAKER Vesta Guido MD LAB - URINE CHEMISTR Y ORDERABLES [address] [address], [facility] [phone] * (ABNORMAL) VITAMIN D (25-HYDROXY) (06/12/2016 9:27 AM CDT) Only the most recent of2 resultswithin the time period is included. Vitamin D, 25 Hydroxy 8.54(L) 30 - 100 ng/mL 06/12/2016 3:18 PM CDT [facility] Blood BLOOD SPECIMEN / Unknown Lab Venipuncture / Unknown 06/12/2016 9:27 AM CDT 06/12/2016 10:16 AM CDT Narrative [facility] - 06/12/2016 3:18 PM CDT Vitamin D Status: Deficiency <20 ng/mL Insufficiency 20-30 ng/mL Sufficiency 30-100 ng/mL Toxicity >100 ng/mL Stella Juan Pike TITLE SEARCHER-FINISHING DEPARTMENT SUPERVISOR LAB - CHEMISTR Y ORDERABLES Performing Organization Address City/[facility]/ZIP Co de Phone Number [facility] [address] [place] [address] * FERRITIN (06/12/2016 9:27 AM CDT) Only the most recent of3 resultswithin the time period is included. Pathologist [facility] Ferritin 53 10 - 120 ng/mL 06/12/2016 11:13 AM CDT [facility] Blood BLOOD SPECIMEN / Unknown Lab Venipuncture / Unknown 06/12/2016 9:27 AM CDT 06/12/2016 10:16 AM CDT [email or web address] TITLE SEARCHER-FINISHING DEPARTMENT SUPERVISOR LAB - CHEMISTR Y ORDERABLES Performing Organization Address [facility] Co de Phone Number [facility] [address] [place] [address] * (ABNORMAL) URINALYSIS MICROSCOPIC ONLY (01/11/2016 5:12 PM CDT) Only the most recent of4 resultswithin the time period is included. RBC UA 0-2 0-2, 2-5 # /hpf 01/11/2016 10:39 PM CDT [facility] WBC UA 2-5 0-2, 2-5 # /hpf 01/11/2016 10:39 PM T [facility] Bacteria UA 2+(A) None Seen, Trace 01/11/2016 10:39 PM CDT [facility] Epithelial Cell UA 10-20(A) 0-2, 2-5 # /hpf 01/11/2016 10:39 PM CDT [facility] Mucus UA 1+ 01/11/2016 10:39 PM CDT [facility] Urine URINE SPECIMEN OBTAINED BY CLEAN CATCH PROCEDURE / Unknown 01/11/2016 5:12 PM CDT 01/11/2016 6:35 PM CDT [facility] - URINALYS IS ORDERABLES [facility] [place] [address] * CULTURE URINE (01/11/2016 5:12 PM CDT) Only the most recent of4 resultswithin the time period is included. Culture 10,000-50,000 CFU/mL urogenital nora ESSENCE 01/13/2016 9:32 AM CDT [facility] Urine URINE SPECIMEN OBTAINED BY CLEAN CATCH PROCEDURE / Unknown 01/11/2016 5:12 PM CDT 01/11/2016 6:35 PM CDT [facility] - MICROBIO LOGY ORDERABLES [facility] [address] [place] [address], [facility] [phone] * CALCIUM/CREAT RATIO URINE RANDOM PANEL (01/11/2016 5:12 PM CDT) Only the most recent of3 resultswithin the time period is included. Calcium Urine 6.61 mg/dL 01/11/2016 8:53 PM CDT [facility] Creatinine Urine 180.44 mg/dL 01/11/2016 8:53 PM CDT [facility] Calcium/Creatin ine Ratio Urine 0.04 01/11/2016 8:53 PM CDT [facility] Urine URINE SPECIMEN OBTAINED BY CLEAN CATCH PROCEDURE / Unknown 01/11/2016 5:12 PM CDT 01/11/2016 6:35 PM CDT Narrative [facility] - 01/11/2016 8:53 PM CDT Normal <0.16 Borderline 0.16-0.20 Abnormal >0.20 [facility] - URINE CH EMISTRY ORDERABLES [facility] [place] [address] * CPAP/BIPAP TITRATION (11/10/2015) Linked Results See Linked Results SLEEP CENTER 11/10/2015 Stella Pike TITLE SEARCHER-FINISHING DEPARTMENT SUPERVISOR SLEEP CENTER O RDERABLES SLEEP CENTER * NM RENOGRAM W FLOW [...] information. RECOMMENDATIONS: Consider anticholingergic medications Yohana Watters TITLE SEARCHER-[facility] PROCEDURE ORDERABLES * CYSTOMETROGRAM ACC (09/22/2015 12:33 [...] information. RECOMMENDATIONS: Consider anticholingergic medications Yohana Watters TITLE SEARCHER-[facility] FLUOROSCOPY ORDERABLES * ALPHA FETOPROTEIN BLOOD TUMOR (09/07/2015 10:43 AM CDT) Alpha-Fetoprotei n Tumor Marker 1.3 0.0 - 8.3 ng/mL 09/08/2015 5:15 AM CDT [facility] ([facility]) Comment:Elizabeth ECLIA methodol ogy Blood specimen (specimen) BLOOD SPECIMEN / Unknown Lab Venipuncture / Unknown 09/07/2015 10:43 AM CDT 09/07/2015 11:03 AM CDT Narrative [facility] ([facility]) - 09/08/2015 5:15 AM CDT Performed at: - [facility] [address] [place], [place] [id number] Manager [place]: Zurdo Lira PhD, Phone: [phone] Yohana Watters APRN-FINISHING DEPARTMENT SUPERVISOR LAB - CHEMIS TRY ORDERABLES Performing Organization Address [facility] Co de Phone Number [facility]) [address] [place] [address] * PT PTT PANEL (09/07/2015 10:43 AM CDT) Pathologist [facility] PT 9.5 9.5 - 11.6 sec 09/07/2015 2:18 PM CDT [facility] INR 0.9 0.9 - 1.1 09/07/2015 2:18 PM CDT [facility] PTT 24.3 21.0 - 32.0 sec 09/07/2015 2:18 PM CDT [facility] Blood BLOOD SPECIMEN / Unknown Lab Venipuncture / Unknown 09/07/2015 10:43 AM CDT 09/07/2015 11:03 AM CDT Narrative [facility] - 09/07/2015 2:18 PM CDT Conventional Warfarin Anticoagulant Therapy: INR Reference Range: 2.0-3.0 Intensive Warfarin Anticoagulant Therapy: INR Reference Range: 2.5-3.5 Heparin Therapeutic Range for PTT: 47.7 - 68.6 seconds. Yohana Watters APRN-FINISHING DEPARTMENT SUPERVISOR LAB - COAGUL ATION ORDERABLES Performing Organization Address City/[facility] Co de Phone Number [facility] [address] [place] [phone] * HEPATIC FUNCTION PANEL (09/07/2015 10:43 AM CDT) Alkaline Phosphatase 113 100 - 390 U/L 09/07/2015 11:42 AM CDT [facility] ALT 21 8 - 65 U/L 09/07/2015 11:42 AM CDT [facility] AST 15 3 - 35 U/L 09/07/2015 11:42 AM CDT [facility] Protein Total 7.5 6.3 - 8.2 gm/dL 09/07/2015 11:42 AM CDT [facility] Albumin 4.0 3.3 - 4.9 gm/dL 09/07/2015 11:42 AM CDT [facility] Bilirubin Total 0.4 0.3 - 1.2 mg/dL 09/07/2015 11:42 AM CDT [facility] Bilirubin Direct 0.15 0.11 - 0.64 mg/dL 09/07/2015 11:42 AM CDT [facility] Blood BLOOD SPECIMEN / Unknown Lab Venipuncture / Unknown 09/07/2015 10:43 AM CDT 09/07/2015 11:03 AM CDT Yohana Watters TITLE SEARCHER-FINISHING DEPARTMENT SUPERVISOR LAB - CHEMIS TRY ORDERABLES Performing Organization Address [facility]/ZIP Co de Phone Number [facility] [address] [place] [address] * (ABNORMAL) LDH BLOOD (09/07/2015 10:43 AM CDT) LDH 274(H) 140 - 260 U/L 09/07/2015 11:42 AM CDT [facility] Blood BLOOD SPECIMEN / Unknown Lab Venipuncture / Unknown 09/07/2015 10:43 AM CDT 09/07/2015 11:03 AM CDT Yohana Watters TITLE SEARCHER-FINISHING DEPARTMENT SUPERVISOR LAB - CHEMIS TRY ORDERABLES Performing Organization Address [facility] Co de Phone Number [facility] [address] [place] [address] * GGT (09/07/2015 10:43 AM CDT) GGT 28 8 - 69 U/L 09/07/2015 11:42 AM CDT [facility] Blood BLOOD SPECIMEN / Unknown Lab Venipuncture / Unknown 09/07/2015 10:43 AM CDT 09/07/2015 11:03 AM CDT Yohana Watters TITLE SEARCHER-FINISHING DEPARTMENT SUPERVISOR LAB - CHEMIS TRY ORDERABLES [facility] [address] [place] [address] * UROFLOWMETRY (09/06/2015 11:15 AM CDT) Narrative [...] dictated by Tiara Frey MD (vice president business & corporate development). Fluoroscopy Time: 1.5 minute Dose Area Prod: [...] No prior study is available for comparison. Senior Applications Engineer radiograph demonstrates a nonspecific bowel gas pattern. [...] No prior study is available for comparison. Senior Applications Engineer radiograph demonstrates a nonspecific bowel gas pattern. [...] dictated by Tiara Frey MD (vice president business & corporate development). Fluoroscopy Time: 1.5 minute Dose Area Prod: 157.63 (uGy*m^2) Entrance Dose: 4.8 (mGy) I, Chioma Benavides, have personally reviewed the images and I agree with this report. Yohana Watters TITLE SEARCHER-FINISHING DEPARTMENT SUPERVISOR FLUOROSCOPY ORDERABLES * MRI PELVIS WITH AND [...] with severe renal parenchymal atrophy. Yohana Watters TITLE SEARCHER-FINISHING DEPARTMENT SUPERVISOR MR ORDERABLE S * MRI ABDOMEN WITH [...] with severe renal parenchymal atrophy. Yohana Watters TITLE SEARCHER-FINISHING DEPARTMENT SUPERVISOR MR ORDERABLE S * CHLAMYDIA + GC AMPLIFIED PROBE (08/10/2015 4:39 PM CDT) Chlamydia Amplified Probe Negative Negative 08/11/2015 8:43 AM CDT [facility] GC Amplified Probe Negative Negative 08/11/2015 8:43 AM CDT [facility] Urine URINE / Unknown 08/10/2015 4 :39 PM CDT 08/10/2015 5:15 PM CDT Narrative [facility] - 08/11/2015 8:43 AM CDT This test was developed and its performance characteristics determined by the [facility], [facility]. Female urine specimens tested by the [facility] have not been cleared or approved by [...] Jones MD LAB - MICROBIO LOGY ORDERABLES [facility] [address] [place] [address], [facility] [phone] * US PELVIS WITH TRANSVAG NON OB [...] without contrast should be considered. Siria Pizarro TITLE SEARCHER-FINISHING DEPARTMENT SUPERVISOR US ORDERABLES * URINALYSIS - POCT (IP) MEIR (08/10/2015 3:25 PM CDT) Glucose UA Negative Negative [facility] POC T TESTING Bilirubin UA Negative Negative [facility] P OCT TESTING Ketone UA Negative Negative [facility] POCT TESTING Specific [place] UA POCT 1.020 1.000 - 1.030 [facility] POCT TESTING Blood UA Negative Negative [facility] POCT TESTING pH UA 6.5 5.0 - 8.0 pH units [facility] POCT TESTING Protein UA Negative Negative [facility] POC T TESTING Urobilinogen UA 0.2 0.2 - 1.0 EU/dL [facility] POCT TESTING Nitrite UA Negative Negative [facility] POC T TESTING Leukocyte UA Negative Negative [facility] P OCT TESTING QC Verified Yes Yes [facility] PO CT TESTING Urine specimen (specimen) URINE / Unknown 08/10/2015 3:25 PM CDT Gi Jones MD LAB - POINT OF CARE ORDERABLES Performing Organization Address [facility]/ZIP Co de Phone Number [facility] POCT TESTING [address] [place] [phone] [place] [address] * HEMOGLOBIN A1C (07/15/2015 11:09 AM CDT) Hemoglobin A1c 4.9 3.4 - 6.1 % 07/17/2015 11:18 AM CDT [facility] Estimated Average Glucose 94 mg/dL 07/17/2015 11:18 AM CDT [facility] Whole Blood BLOOD SPECIMEN WITH EDTA / Unknown 07/15/2015 11:09 AM CDT 07/17/2015 9:27 AM CDT Siria Pizarro APRN-FINISHING DEPARTMENT SUPERVISOR LAB - CHEMISTR Y ORDERABLES Performing Organization Address City/[facility] Co de Phone Number [facility] [address] [place] [phone] * TSH (07/15/2015 11:09 AM CDT) Pathologist [facility] TSH 1.64 0.35 - 4.95 uIU/mL 07/15/2015 12:47 PM CDT [facility] Blood BLOOD SPECIMEN / Unknown Lab Venipuncture / Unknown 07/15/2015 11:09 AM CDT 07/15/2015 11:19 AM CDT Siria Pizarro TITLE SEARCHER-FINISHING DEPARTMENT SUPERVISOR LAB - CHEMISTR Y ORDERABLES Performing Organization Address [facility] Co de Phone Number [facility] [address] [place] [address] * T4 TOTAL (07/15/2015 11:09 AM CDT) T4 Total 11.11 4.87 - 11.7 ug/dL 07/15/2015 12:47 PM CDT [facility] Blood BLOOD SPECIMEN / Unknown Lab Venipuncture / Unknown 07/15/2015 11:09 AM CDT 07/15/2015 11:19 AM CDT Siria Pizarro TITLE SEARCHER-FINISHING DEPARTMENT SUPERVISOR LAB - CHEMISTR Y ORDERABLES Performing Organization Address City/[facility]/ZIP Co de Phone Number [facility] [address] [place] [address] * (ABNORMAL) LIPID PROFILE (07/15/2015 11:09 AM CDT) Cholesterol 187(H) <170 mg/dL 07/15/2015 12:12 PM T [facility] Triglycerides 110 46 - 227 mg/dL 07/15/2015 12:12 PM T [facility] HDL Cholesterol 53 >40 mg/dL 07/15/2015 12:12 PM T [facility] LDL Calculated 112(H) <100 mg/dL 07/15/2015 12:12 PM T [facility] VLDL Calculated 22 12 - 38 mg/dL 07/15/2015 12:12 PM T [facility] Chol HDL Ratio 3.5 <=5.0 07/15/2015 12:12 PM T [facility] Blood BLOOD SPECIMEN / Unknown Lab Venipuncture / Unknown 07/15/2015 11:09 AM CDT 07/15/2015 11:19 AM CDT Narrative [facility] - 07/15/2015 12:12 PM T Lipid Profile Comment: Adult references ranges are the recommendation of the [place] [employer] , for those patients >18 [...] may alter some of these results. Siria A Moira TITLE SEARCHER-FINISHING DEPARTMENT SUPERVISOR LAB - CHEMISTR Y ORDERABLES Performing Organization Address City/[facility]/ZIP Co de Phone Number [facility] [address] [place] [address] * SPLIT NIGHT STUDY (09/17/2014) Siria Pizarro APRN-[facility] SLEEP [facility]ENTER O GARTH * LAB RESULTS ORDER (08/22/2014 3:54 PM CDT) Narrative 08/22/2014 3:54 PM CDT Ordered by an unspecified provider. Scanned Document LAB - THERAPEUTIC DR CONRAD MONITORING ORDERABLES Care Teams Chemical Laboratory Technician Relationship Specialty Start Date End Date Brian Dela Cruz MD [address] [facility] [place] [address] PCP - General Family Medicine 07/13/20
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
--- OUTSIDE RECORDS SUMMARY | 2024-05-14 01:20 | XMS_ITS | Encounter Summary ---
Author Organization [facility] Address [address] [place] [address] Care Team Providers Care Assistant News Director Name Role Phone Brian Dela Cruz MD Primary Care Provider Reason for Visit * Reason Comments Ultrasound Encounter Details Date Type Department Care Team (Late st Contact Info) Description 05/14/2024 1:45 PM WELDER APPRENTICE Hospital Encounter [facility] Women's Health Maternal & Care [address] [place] [address] Wale Thomson MD [address] [facility] [address] [place] [address] Social History Tobacco Use Types Packs/Day Years [...] on file Sexual Orientation Not on file documented as of this encounter Plan of Treatment Not on file documented as of this encounter Visit Diagnoses Diagnosis BMI 50.0-59.9, adult (HCC)- Primary Body Mass Index 50.0-59.9, adult Uncertain dates, antepartum, unspecified trimester (HCC) Encounter to determine viability of , single or unspecified fetus (HCC) hydronephrosis during , antepartum, single or unspecified fetus (HCC) documented in this encounter Care Teams Assistant News Director Relationship Specialty Start Date End Date Brian Dela Cruz MD [address] [place] [address] PCP - General Family Medicine 07/13/20 documented as of this encounter
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
[2024-05-14 02:01] LABS: Basophils Percent Auto 0.2 % (0.2-1.2); Eosinophils Absolute Auto 0.1 K/mm3 (0-0.3); Hematocrit 39.9 % (37.0-47.0); Hemoglobin 13.1 g/dL (12.0-15.0); Immature Granulocyte Absolute 0.02 K/mm3 (0.00-0.031); Immature Granulocyte Percent A 0.2 % (0-0.5); Lymphocytes Absolute Auto 2.97 K/mm3 (0.9-3.2); Lymphocytes Percent Auto 36.4 % (18.3-44.2); Mean Corpuscular HGB Conc 32.8 g/dl (32-36); Mean Corpuscular Volume 91.5 fl (80-100); Mean Platelet Volume 8.9 fl (7.4-10.4); Monocytes Absolute Auto 0.5 K/mm3 (0.1-0.6); Monocytes Percent Auto 5.6 % (2.6-8.5); Neutrophils Absolute Auto 4.6 K/mm3 (1.3-6.7); Neutrophils Percent Auto 56.6 % (45.5-73.1); Platelet Count Result 304 k/mm3 (150-375); Red Blood Count 4.36 M/mm3 (4.2-5.4); Red Cell Distribution Width 12.9 % (11.5-14.5); White Blood Count 8.2 K/mm3 (4.5-10.0)
[2024-05-14 02:13] LABS: Alanine Aminotransferase 20 U/L (6-35); Alkaline Phosphatase 96 U/L (38-126); Anion Gap 10 mmol/L (4-12); Aspartate Amino Transferase 19 U/L (14-36); Bilirubin,Total 0.5 mg/dL (0.2-1.3); Blood Urea Nitrogen 13 mg/dL (7-17); Calcium 8.6 mg/dL (8.4-10.2); Carbon Dioxide 23 mmol/L (22-30); Chloride 103 mmol/L (98-107); Estimated Glomerular Filt Rate > 60; Glucose 109 mg/dL (65-110); Potassium 3.9 mmol/L (3.4-5.0); Sodium 136 mmol/L (137-145)
[2024-05-14 02:19] LABS: INR 0.9; Partial Thromboplastin Time 28.1 Seconds (22.3-36.8); Prothrombin Time 12.9 Seconds (11.1-14.7)
--- NOTE | 2024-05-14 02:40 | ED.GENADULT ---
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 Patient reports that she had a positive test and was somewhere between 12 and 7 weeks the patient has been seen by OBGYN and had a ultrasound that showed a 7 week IUP but no cardiac activity at that time we ultrasound. The been trending patient's ECGs and patient reports that today she started having vaginal bleeding patient reports that she does notice that she was bleeding and came immediately to emergency department the patient reports she is having some abdominal cramping Related Data Home Medications ?Medication ?Instructions ?Recorded ?Confirmed ?Last Taken ?Type propranolol 20 mg tablet mg PO 12/24/23 05/07/24 Unknown History sertraline 100 mg tablet mg PO 12/24/23 05/07/24 Unknown History Allergies Allergy/AdvReac Type Severity Reaction Status Date / Time Latex, Natural Rubber Allergy Mild Itching Verified 05/14/24 01:18 medroxyprogesterone (From AdvReac Severe Other Verified 05/14/24 01:18 Depo-Provera) adhesive tape AdvReac Itching Verified 05/14/24 01:18 Review of Systems Review of Systems: A 10 system review of systems was completed on the patient and is negative except for what is stated in the HPI. Nursing and ancillary documentation was reviewed. [facility] Past Medical History Medical History Encounter for IUD removal 12/31/23 Obstructive sleep apnea She never followed up to obtain CPAP Morbid obesity with BMI of 50.0-59.9, adult Neurogenic bladder Congenital anomaly of kidney The patient only has her left kidney that is functioning she has chronic severe hydro nephrosis with severe atrophy of the right kidney Depression Anxiety Surgical History Surgical History Encounter for IUD insertion Venecia insertion. Family History Family History Mother Diabetes mellitus Social History Social History Social History: She reports that she lives at home with her mother, vikram and her son (born 2020). 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 She is a lifelong nonsmoker and denies any significant alcohol use history. Surrogate medical decision maker: Melyssa Burch, mother. Code status: Full code. Smoking status: Never smoker Tobacco type: cigarettes Second hand tobacco smoke exposure: No Alcohol intake: never Substance use: never Substance use type: does not use Do You Feel Safe in your Home?: Yes Lack of Transportation: YES Lack of Food: Never True Current Housing: Decline to Answer Concerned About Future Housing: YES Difficulty Paying Gas/Electric Bills: No Difficulty Paying for Meds: No Currently Unemployed: YES Education: High School Diploma/GED Difficulty w/ Childcare or Family Care: No Living arrangements: with family Additional living arrangements comments: She lives with her mother, vikram and child. 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 Gender identity (if verbalized by the patient): Female Sexual Orientation (if Verbalized by the Patient): Bisexual Spiritual care concerns: No Exam Narrative: GENERAL: Well-appearing, well-nourished, and in no acute distress. HEAD: Normocephalic, atraumatic. EYES: PERRLA and EOMI. ENT: Nares clear, no rhinorrhea or epistaxis. Mucous membranes moist. NECK: Supple. CHEST: Clear to auscultation. No respiratory distress. HEART: Regular rate and rhythm. No murmur heard. Normal peripheral pulses. ABDOMEN: Soft, nontender, nondistended, normal active bowel sounds. EXTREMITIES: Normal range of motion. No edema. SKIN: Warm, dry, no rash. NEURO: No focal deficits. Alert and oriented x3. PSYCH: Normal mood and affect. Course Vital Signs Vital signs: Vital Signs Temperature 36.6 C 05/14/24 01:18 Pulse Rate 97 05/14/24 01:18 Respiratory Rate 15 05/14/24 01:18 Blood Pressure 142/96 H 05/14/24 01:18 Pulse Oximetry 100 05/14/24 01:18 Oxygen Delivery Room Air 05/14/24 01:18 Temperature 36.6 C 05/14/24 01:18 Pulse Rate 97 05/14/24 01:18 Respiratory Rate 15 05/14/24 01:18 Blood Pressure 142/96 H 05/14/24 01:18 Pulse Oximetry 100 05/14/24 01:18 Oxygen Delivery Room Air 05/14/24 01:18 Medical Decision Making MDM Narrative Medical decision making narrative: Differential diagnosis includes miscarriage, threatened miscarriage, Patient had a documented intrauterine The patient is Rh negative and was given a dose of RhoGAM in the emergency department. The patient had scant blood in the vaginal vault Vital Signs Vital Signs: Vital Signs Temperature 36.6 C 05/14/24 01:18 Pulse Rate 97 05/14/24 01:18 Respiratory Rate 15 05/14/24 01:18 Blood Pressure 142/96 H 05/14/24 01:18 Pulse Oximetry 100 05/14/24 01:18 Oxygen Delivery Room Air 05/14/24 01:18 Temperature 36.6 C 05/14/24 01:18 Pulse Rate 97 05/14/24 01:18 Respiratory Rate 15 05/14/24 01:18 Blood Pressure 142/96 H 05/14/24 01:18 Pulse Oximetry 100 05/14/24 01:18 Oxygen Delivery Room Air 05/14/24 01:18 Lab Data 05/14/24 01:52 05/14/24 01:51 Labs: Lab Results 05/14/24 05/14/24 Range/Units 01:51 01:52 WBC 8.2 (4.5-10.0) K/mm3 RBC 4.36 (4.2-5.4) M/mm3 Hgb 13.1 (12.0-15.0) g/dL Hct 39.9 (37.0-47.0) % MCV 91.5 (80-100) fl MCH 30.0 (26-34) pg MCHC 32.8 (32-36) g/dl RDW 12.9 (11.5-14.5) % Plt Count 304 (150-375) k/mm3 MPV 8.9 (7.4-10.4) fl Immature Gran % (Auto) 0.2 (0-0.5) % Neut % (Auto) 56.6 (45.5-73.1) % Lymph % (Auto) 36.4 (18.3-44.2) % [place] % (Auto) 5.6 (2.6-8.5) % Eos % (Auto) 1.0 (0-4.4) % Baso % (Auto) 0.2 (0.2-1.2) % Lymph # (Auto) 2.97 (0.9-3.2) K/mm3 [place] # (Auto) 0.5 (0.1-0.6) K/mm3 Eos # (Auto) 0.1 (0-0.3) K/mm3 Baso # (Auto) 0.0 (0.0-0.1) K/mm3 Abs Immat Gran (auto) 0.02 (0.00-0.031) K/mm3 Absolute Neuts (auto) 4.6 (1.3-6.7) K/mm3 Absolute Nucleated RBC 0.000 (0.0-0.012) K/mm3 Nucleated RBC % 0.0 (0.0-0.2) % PT 12.9 (11.1-14.7) Seconds INR 0.9 APTT 28.1 (22.3-36.8) Seconds Sodium 136 L (137-145) mmol/L Potassium 3.9 (3.4-5.0) mmol/L Chloride 103 (98-107) mmol/L Carbon Dioxide 23 (22-30) mmol/L Anion Gap 10 (4-12) mmol/L BUN 13 (7-17) mg/dL Creatinine 0.79 (0.7-1.0) mg/dL Estim Creat Clear Calc Not Reportable Estimated GFR > 60 (59 - ) Glucose 109 (65-110) mg/dL Calcium 8.6 (8.4-10.2) mg/dL Total Bilirubin 0.5 (0.2-1.3) mg/dL AST 19 (14-36) U/L ALT 20 (6-35) U/L Alkaline Phosphatase 96 (38-126) U/L Total Protein 7.0 (6.3-8.2) g/dL Albumin 4.0 (3.5-5.1) g/dL Beta HCG, Quant 1161.00 mIU/ML Blood Type B Negative Antibody Screen Negative Screen Not Reportable Baby's Blood Type Not Reportable Baby's TREVOR Not Reportable Doses of RhIg Required 1 Discharge Plan Discharge Clinical Impression: Threatened miscarriage Patient Disposition: Home, Self-Care Condition: Stable Instructions: Antibiotic Form, Rh (By injection), Threatened Miscarriage (ED) Additional Instructions: Please follow-up with your OBGYN as soon as possible. Your given a dose of RhoGAM in the emergency department Patient Language: Cuban Prescriptions: No Action propranolol 20 mg tablet PO sertraline 100 mg tablet PO ondansetron 4 mg tablet,disintegrating 4 mg PO Q8H PRN (Reason: nausea and vomiting) Qty: 15 0RF Follow-up/Referrals: Brian Dela Cruz MD [Primary Care Provider] - Time of Disposition: 04:03
--- OUTSIDE RECORDS SUMMARY | 2024-05-14 03:35 | XMS_ITS | Encounter Summary ---
Author Organization [facility] Address [address] [place] [address] Care Team Providers Care Mandrel Puller Name Role Phone Brian Dela Cruz MD Primary Care Provider [phone] Reason for Visit * Reason Comments Ultrasound Encounter Details Date Type Department Care Team (Late st Contact Info) Description 05/14/2024 1:45 PM HOSPITAL NURSING ASSISTANT Hospital Encounter [facility] Women's Health Maternal & Care [address] [place] [id number] Wale Thomson MD [address] [facility] [address] [place] [address] Social History Tobacco Use Types [...] (HCC) documented in this encounter Care Teams Mandrel Puller Relationship Specialty Start Date End Date Brian Dela Cruz MD [address] [place] [address] PCP - General Family Medicine 07/13/20 documented as of this encounter
--- OUTSIDE RECORDS SUMMARY | 2024-05-14 03:35 | XMS_ITS | Clinical Summary ---
Author Organization [facility] Address [address] [place] [address] Phone Care Team Providers Care Hardwood Floor Layer Name Role Phone Brian Dela Cruz MD Primary Care Provider + [phone] Allergies Active Allergy Reactions Criticality Noted Date [...] to complete this topic Insurance Care Teams Hardwood Floor Layer Relationship Specialty Start Date End Date Brian Dela Cruz MD [address] [place] [address] PCP - General Family Medicine 11/05/21
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
--- OUTSIDE RECORDS SUMMARY | 2024-05-14 03:35 | XMS_ITS | Patient Health Summary ---
Author Organization [facility] Address [address] [place] [address] Care Team Providers Care Epic [facility] Name Role Phone Brian Dela Cruz MD Primary Care Provider [phone] Note from [facility],non-owned Affiliates and Associated Physician Practices is amultiple site organization consisting of ambulatory clinics and hospital sitesin [place], [place], [place] and [place]. This disclosure is being madepursuant to the Care Everywhere program and may not contain all information available regarding this patient. Last updated 17.[facility] Allergies * Methylprednisolone(Hematologic) -High Criticality [...] propionate (FLONASE) 50 MCG/ACT nasal spray(Started 06/12/2016) Eltopia 1 Eltopia into each nostril once daily 5 refills [...] 2 times daily * Heparin Sodium, [place]cine, 63089 UNIT/ML injection Inject 1 mL subcutaneously 2 [...] CDT Respiratory Rate 22 03/13/2016 9:50 AM ACTUARIAL ASSOCIATE Oxygen Saturation 100% 07/13/2020 8:30 AM CDT Inhaled Oxygen Concentration - - Weight 115.4 kg (254 lb 6.4 oz) 07/13/2020 8:30 AM CDT Height 152.1 cm (4' 11.9 ) 04/13/2020 8:44 AM CS T Body Mass Index 49.85 04/13/2020 8:44 AM ACTUARIAL ASSOCIATE Procedures * SONOGRAM - COMPLETE(Performed 05/03/2024) Performed for BMI 50.0-59.9, adult ([facility]), hydronephrosis during , antepartum, singleor unspecified fetus ([facility]), Maternal morbid obesity, antepartum ([facility]), Uncertain dates, antepartum,unspecified trimester ([facility]) * LUPUS ANTICOAGULANT PANEL(Performed 07/13/2020) Performed for Chronic hypertension affecting ([facility]) * BETA-2 GLYCOPROTEIN 1 ANTIBODY IGG/IGM PANEL(Performed 07/13/2020) Performed for Chronic hypertension affecting ([facility]), Supervision of high-risk ofyoung multigravida ([facility]), Family history of DVT * CARDIOLIPIN ANTIBODY IGG/IGM PANEL(Performed 07/13/2020) Performed for Chronic hypertension affecting ([facility]), Supervision of high-risk ofyoung multigravida ([facility]), Family history of DVT * FACTOR V LEIDEN MUTATION PANEL(Performed 07/13/2020) Performed for Chronic hypertension affecting ([facility]), Supervision of high-risk ofyoung multigravida ([facility]), Family history of DVT * PROTHROMBIN [id number] PANEL(Performed 07/13/2020) Performed for Chronic hypertension affecting ([facility]), Supervision of high-risk ofyoung multigravida ([facility]), Family history of DVT * COMPREHENSIVE METABOLIC PANEL(Performed 07/13/2020) Performed for Chronic hypertension affecting ([facility]), Supervision of high-risk ofyoung multigravida ([facility]), [...] * SONOGRAM - COMPLETE (05/03/2024 2:21 PM ACTUARIAL ASSOCIATE) Only the most recent of4 resultswithin the time period is included. 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/ atrophy of right kidney, Neurogenic bladder Hx Kidney failure/sepsis in March 2023 with abnormal cardiac testing - following with liability claims representative Obesity, Class III History ====== OB History [...] repeat evaluation for viability is recommended [facility] Anatomical Region Laterality Modality Other 05/03/2024 2:21 PM ACTUARIAL ASSOCIATE Prakash Gutierres MD [facility] ORDERABLES * LUPUS ANTICOAGULANT PANEL (07/13/2020 2:04 PM CDT) APTT 29.8 23.0 - 38.4 Seconds 07/14/2020 4:09 PM CDT [facility] PT 12.8 12.1 - 14.8 Seconds [...] Noa Jiang MD LAB - HEMATOLOGY ORDERABLES [facility] [address] [place] [address], [facility] [phone] * PROTHROMBIN [id number] PANEL (07/13/2020 1:55 PM CDT) [facility] Factor II DNA Analysis Comment 07/18/2020 5:08 PM CDT [facility] ([facility]) Comment: NEGATIVE No mutation identified. Comment: A point mutation ([id number]) in the factor II (prothrombin) gene is [...] mutations. This assay detects only the prothrombin [id number] mutation and does not measure genetic abnormalities [...] health care providers to discuss results at [phone] ([phone]). Methodology: DNA analysis of the Factor II gene was performed by PCR amplification followed by restriction analysis. The diagnostic sensitivity is >99% for both. All the tests must be combined with clinical information for the most accurate interpretation. Molecular-based testing is highly accurate, but as in any laboratory test, diagnostic errors may occur. This test was developed and its performance characteristics determined by [facility]. It has not been cleared or approved by the Food and Drug Administration. Johnt SR, et al. Blood. 1996; 88:0844-8635. Magy HOLBROOK. Circulation. 2004; 110:e15-e18. Marek I, et al. Arterioscler Thromb Vasc Biol. 1999; 19:700-703. Donell Wolff, PhD, [facility] Luisa Murphy, PhD, [facility] Carmen Spivey, PhD, [facility] Gill Rodriguez, PhD, [facility] Giorgi Davis, PhD, [facility] Devon Shea, PhD, [facility] Blood BLOOD SPECIMEN / Unknown Lab Venipuncture / Unknown 07/13/2020 1:55 PM CDT 07/13/2020 1:55 PM CDT [facility] ([facility]) - 07/18/2020 5:08 PM CDT Performed at: [address] [place] [address] [id number] Specialty Trimmer: Ольга [facility], Phone: [phone] Noa Jiang MD LAB - COAGULATION ORDERABLES [facility] ([facility]) [address] [place] [address] * FACTOR V LEIDEN MUTATION PANEL (07/13/2020 1:55 PM CDT) [facility] Factor V Leiden Comment 11:09 AM CDT [facility] ([facility]) Comment: Result: Negative (no mutation found) [...] the workup for venous thrombosis include the [id number] mutation in the factor II (prothrombin) gene, protein S and C deficiency, and antithrombin deficiencies. Anticardiolipin antibody and lupus anticoagulant analysis may be appropriate for certain patients, as well as homocysteine levels. Contact your local [facility] for information on how to order additional testing if desired. Genetic counselors are available for health care providers to discuss results at [phone] ([phone]). Methodology: DNA analysis of the Factor V gene was performed by allele-specific PCR. The diagnostic sensitivity and specificity is >99% for both. Molecular-based testing is highly accurate, but as in any laboratory test, diagnostic errors may occur. All test results must be combined with clinical information for the most accurate interpretation. This test was developed and its performance characteristics determined by [facility]. It has not been cleared or approved by the Food and Drug Administration. References: oYel Pineda (1995). Clin Lab Med 16:169-186. Donell Wolff, PhD, FAC Luisa Murphy, PhD, FAC Carmen Spivey, PhD, FAC Gill Rodriguez, PhD, FAC Giorgi Davis, PhD, [facility] Devon Shea PhD, FAC Blood BLOOD SPECIMEN / Unknown Lab Venipuncture / Unknown 07/13/2020 1:55 PM CDT 07/13/2020 1:55 PM CDT Narrative [facility] ([facility]) - 07/20/2020 11:09 AM CDT Performed at: [address] [place] [address] [id number] Specialty Trimmer: Ольга [facility], Phone: [phone] Noa Jiang MD LAB - COAGULATION ORDERABLES [facility] ([facility]) [address] [place] [address] * (ABNORMAL) CARDIOLIPIN ANTIBODY IGG/IGM PANEL (07/13/2020 1:55 PM CDT) [facility] Cardiolipin Antibody IgG <9 0 - 14 GPL U/mL 07/15/2020 3:07 PM CDT [facility] ([facility]) Comment: Negative: <15 Indeterminate: 15 - 20 Low-Med Positive: >20 - 80 High Positive: >80 Cardiolipin Antibody IgM 22(H) 0 - 12 MPL U/mL 07/15/2020 3:07 PM CDT [facility] ([facility]) Comment: Negative: <13 Indeterminate: 13 - 20 Low-Med Positive: >20 - 80 High Positive: >80 Blood BLOOD SPECIMEN / Unknown Lab Venipuncture / Unknown 07/13/2020 1:55 PM CDT 07/13/2020 1:56 PM CDT [facility] ([facility]) - 07/15/2020 3:07 PM CDT Performed at: [address] [place] [id number] Specialty Trimmer: Zurdo Lira PhD, Phone: [phone] Noa Jiang MD LAB - SEROLOGY OR DERABLES [facility] ([facility]) [address] [place] [address] * BETA-2 GLYCOPROTEIN 1 ANTIBODY IGG/IGM PANEL (07/13/2020 1:55 PM CDT) [facility] Beta-2 Glycoprotein I Antibody IgG <9 0 - 20 GPI IgG units 07/16/2020 10:06 PM CDT [facility] ([facility]) Comment: The reference interval reflects a 3SD or 99th percentile interval, which is thought to represent a potentially clinically significant result in accordance with the International Consensus Statement on the classification criteria for definitive antiphospholipid syndrome (APS). J Thromb Haem 2006;4:295-306. Beta-2 Glycoprotein I Antibody IgM <9 0 - 32 GPI IgM units 07/16/2020 10:06 PM CDT [facility] ([facility]) Comment: The reference interval reflects a 3SD or 99th percentile interval, which is thought to represent a potentially clinically significant result in accordance with the International Consensus Statement on the classification criteria for definitive antiphospholipid syndrome (APS). J Thromb Haem 2006;4:295-306. Blood BLOOD SPECIMEN / Unknown Lab Venipuncture / Unknown 07/13/2020 1:55 PM CDT 07/13/2020 1:56 PM CDT [facility] ([facility]) - 07/16/2020 10:06 PM CDT Performed at: 01 - [facility] [address] [place], [place] [id number] Specialty Trimmer: Ivy Menchaca MD, Phone: [phone] Noa Jiang MD LAB - CHEMISTRY O RDERABLES [facility] ([facility]) [address] [place] [address] * (ABNORMAL) COMPREHENSIVE METABOLIC PANEL (07/13/2020 1:55 PM CDT) Only the most recent of3 resultswithin the time period is included. Glucose 74 70 - 105 mg/dL 07/13/2020 3:30 PM CDT [facility] Sodium 133(L) 136 - 145 mmol/L 07/13/2020 3:30 PM CDT [facility] Potassium 4.3 3.5 - 5.1 mmol/L 07/13/2020 3:30 PM CDT [facility] Chloride 101 98 - 107 [...] - 18.7 mg/dL 07/13/2020 3:30 PM CDT [facility] Creatinine 0.86 0.57 - 1.11 [...] - 8.3 gm/dL 07/13/2020 3:30 PM CDT [facility] Albumin 3.3(L) 3.5 - 5.2 gm/dL 07/13/2020 3:30 PM CDT [facility] Bilirubin Total 0.3 0.2 - 1.2 mg/dL 07/13/2020 3:30 PM CDT [facility] Comment:Attention clinician: Reference Range change. eGFR by MDRD >60 >60 mL/min/1.7 3m2 07/13/2020 3:30 PM CDT [facility] eGFR by MDRD >60 >60 mL/min/1.7 3m2 07/13/2020 3:30 PM CDT [facility] Blood BLOOD SPECIMEN / Unknown Lab Venipuncture / Unknown 07/13/2020 1:55 PM CDT 07/13/2020 1:55 PM CDT Noa Jiang MD LAB - CHEMISTRY O RDERABLES Performing Organization Address [facility]/ZIP Co de Phone Number [facility] [address] [place] [address] * (ABNORMAL) PROTEIN C FUNCTIONAL (07/13/2020 1:54 PM CDT) [facility] Protein C Activity >199(H) % 07/18/2020 4:10 PM CDT [facility] ([facility]) Comment: Elevated protein C activity is of no known clinical significance. Reference Range: 17 years and older: 73 - 180 Blood BLOOD SPECIMEN / Unknown Lab Venipuncture / Unknown 07/13/2020 1:54 PM CDT 07/13/2020 1:55 PM CDT Narrative [facility] ([facility]) - 07/18/2020 4:10 PM CDT Performed at: [facility] [address] [id number] Specialty Trimmer: Cali Ford MD, Phone: [phone] Noa Jiang MD LAB - COAGULATION ORDERABLES [facility] ([facility]) [address] [place] [address] * (ABNORMAL) CBC WITH DIFFERENTIAL (07/13/2020 1:53 PM CDT) Only the most recent of3 resultswithin the time period is included. WBC 12.4(H) 4.4 - 10.7 x10E9/L 07/13/2020 2:29 PM CDT [facility] WBC Corrected 07/13/2020 2:29 PM CDT [facility] RBC 4.43 3.80 - 5.20 x10E12/L 07/13/2020 2:29 PM CDT [facility] Hemoglobin 13.6 12.0 - 15.6 gm/dL 07/13/2020 2:29 PM CDT [facility] Hematocrit 40.0 35.9 - 45.5 % 07/13/2020 2:29 PM CDT [facility] MCV 90.3 80.7 - 98.3 fl 07/13/2020 2:29 PM CDT [facility] MCH 30.7 26.7 - 34.0 pg 07/13/2020 2:29 PM CDT [facility] MCHC 34.0 30.8 - 35.9 gm/dL 07/13/2020 2:29 PM CDT [facility] Platelet Count 369 153 - 416 x10E9/L 07/13/2020 2:29 PM CDT [facility] RDW-CV 13.1 12.1 - 14.9 % 07/13/2020 2:29 PM CDT [facility] MPV 10.9 9.4 - 12.9 fl 07/13/2020 2:29 PM CDT [facility] Neutrophils % 70.1 44.0 - 73.0 % 07/13/2020 2:29 PM CDT [facility] Lymphocytes % 21.7 20.0 - 43.0 % 07/13/2020 2:29 PM CDT [facility] Monocytes % 6.2 5.0 - 13.0 % 07/13/2020 2:29 PM CDT [facility] Eosinophils % 0.7 0.0 - 6.0 % 07/13/2020 2:29 PM CDT [facility] Basophils % 0.3 0.0 - 2.0 % 07/13/2020 2:29 PM CDT [facility] Immature Granulocytes 1.0 0 - 1 % 07/13/2020 2:29 PM CDT [facility] Neutrophil Absolute 8.66(H) 2.01 - 7.14 x10E9/L 07/13/2020 2:29 PM CDT [facility] Lymphocytes Absolute 2.68 1.07 - 3.94 x10E9/L 07/13/2020 2:29 PM CDT [facility] Monocytes Absolute 0.76 0.26 - 1.07 x10E9/L 07/13/2020 2:29 PM CDT [facility] Eosinophils Absolute 0.09 0 - 0.47 x10E9/L 07/13/2020 2:29 PM CDT [facility] Basophils Absolute 0.04 0 - 0.08 x10E9/L 07/13/2020 2:29 PM CDT [facility] Immature Granulocytes Absolute 0.12(H) 0.00 - 0.06 x10E9/L 07/13/2020 2:29 PM CDT [facility] nRBC Auto 0 /100 WBC 07/13/2020 2:29 PM CDT [facility] Blood BLOOD SPECIMEN / Unknown Lab Venipuncture / Unknown 07/13/2020 1:53 PM CDT 07/13/2020 1:53 PM CDT Cordelia Diaz ROUTING EQUIPMENT TENDER-COMPLEX DIRECTOR LAB - HEMATOLOG Y ORDERABLES [facility] [address] [place], [place] [id number] * BIOPHYSICAL PROFILE W NST (07/10/2020 1:08 PM CDT) Only the most recent of5 resultswithin the time period is included. Anatomical Region Laterality Modality Other 07/10/2020 1:08 PM CDT Narrative 07/10/2020 1:57 PM CDT [facility] PHONE: FAX: Pat. Name: LEVY RONQUILLO. No: [id number] Study Date: 07/10/2020 1:08pm , Age: 10 2000, 20 Pregnancies: 2, Para 0, Ab 1 Height: 58 in Weight: 217 lb LMP: 10/30/2019 GA by LMP: 36w2d GA by Base: 36w2d MOHSEN: 08/05/2020 GA by US: 34w0d MOHSEN: 08/21/2020 GA Selected: 36w2d (LMP) MOHSEN: 08/05/2020 Referring MD: Prakash Gutierres MD Instrument Repair Technician: Winter Hirsch RDMS CPT4: 56387,69815 BMI: 45.35 Hist/Ind: MOB non-functioning right kidney Class III Obesity (BMI 45 ECHO: Left Persistant SVC Normal ECHO MEASUREMENTS & AGE GROWTH EVALUATION Measurement GA Range Srce %for GA Ratios ----- ---- ------- BPD 8.3 cm 33w2d (97v0y-98o7y) Hadl BPD 1% FL/BPD 0.80 (0.71 - 0.87) HC 30.2 cm 33w4d (94z9a-91q6j) Hadl HC <01 FL/AC 0.20 (0.20 - 0.24) AC 33.0 cm 36w6d (68q2h-82r2p) Hadl AC 76% HC/AC 0.92 (0.92 - 1.11* FL 6.6 cm 34w1d (37t7p-62o8d) Hadl FL 5% CI 0.76 (0.70 - 0.86) HL 5.8 cm 33w4d (11v8q-44o8p) Mendez HL 6% GA for sonogram 34w0d (75z7p-74l2x) Weight Estimate: based on (BPD,HC,AC,FL) Hadlock Weight: [...] <Electronic Signature> 07/10/2020 01:57pm Prakash Gutierres MD [facility] ORDERABLES * ECHO CONSULT - (04/27/2020 11:04 AM ACTUARIAL ASSOCIATE) 04/27/2020 11:0 4 AM ACTUARIAL ASSOCIATE Narrative Procedure Note Svetlana Connelly MD - 04/27/[address] [place] [address] Fax Echocardiogram Report Pat.Name: LEVY RONQUILLO Pat.ID: [id number] .Date: 04/27/2020 Refer.MD: Hai Islas Exam Time: 11:04:00 AM Study Type: Echo Age: 10 2000,20Y Sex: FEMALE Sonogrphr: Angeles Murillo RDCS Pat. Stat.:Outpatient CPT - 4: 27334, 86259, 60329, 13944, 48168 Reason for Study: Suspected Cardiac Abnormality SUMMARY: [...] Islas MD ECHO ORDERABLES Performing Organization Address [facility]/ZIP Co de Phone Number [facility] [address] [place] [address] * URIC ACID BLOOD (04/13/2020 9:57 AM [facility]) Uric Acid 4.4 2.6 - 7.2 mg/dL 04/13/2020 10:[address] [facility] Blood BLOOD SPECIMEN / Unknown Lab Venipuncture / Unknown 04/13/2020 9:57 AM ACTUARIAL ASSOCIATE 04/13/2020 10:24 AM [facility] Vesta Guido MD LAB - CHEMISTRY ORDE FRANCES Performing Organization Address City/[facility]/ZIP Co de Phone Number [facility] [address] [place] [address], [facility] [phone] * MICROALB/CREAT RATIO URINE RANDOM PANEL (04/13/2020 9:57 AM ACTUARIAL ASSOCIATE) Albumin Random Urine 15.9 Not Established mcg/mL 04/13/2020 10:[address] [facility] Creatinine Urine 91 Not Established mg/dL 04/13/2020 10:[address] [facility] Comment:Result obtained by trent marino. Urine Albumin/Creati nine Ratio 17 <30 mg/g 04/13/2020 10:[address] [facility] Urine URINE SPECIMEN OBTAINED BY CLEAN CATCH PROCEDURE / Unknown Collection / Unknown 04/13/2020 9:57 AM ACTUARIAL ASSOCIATE 04/13/2020 10:24 AM ACTUARIAL ASSOCIATE Vesta Guido MD LAB - URINE CHEMISTR Y ORDERABLES [facility] [address] [place] [address], [facility] [phone] * (ABNORMAL) URINALYSIS REFLEX TO MICROSCOPIC NO CULTURE (04/13/2020 9:57 AM [facility]) Only the most recent of5 resultswithin the time period is included. Color UA Yellow Straw, Yellow, Colorless 04/13/2020 10:[address] [facility] Clarity UA Slt Cloudy Clear, Slt Cloudy 04/13/2020 10:[address] [facility] Specific [place] UA 1.013 1.005 - 1.030 04/13/2020 10:43 [...] 1+ None, 1+ /LPF 04/13/2020 10:[address] [facility] Urine URINE SPECIMEN OBTAINED BY CLEAN CATCH PROCEDURE / Unknown Collection / Unknown 04/13/2020 9:57 AM ACTUARIAL ASSOCIATE 04/13/2020 10:24 AM [facility] Narrative [facility] - 04/13/2020 10:43 AM ACTUARIAL ASSOCIATE Vesta Guido MD LAB - URINALYSIS ORD ERABLES Performing Organization Address City/[facility]/ZIP Co de Phone Number [address] [address], [facility] [phone] * PROTEIN URINE RANDOM QUANTITATIVE (04/13/2020 9:57 AM ACTUARIAL ASSOCIATE) Protein Urine 14 Not Established mg/dL 04/13/2020 10:[address] [facility] Urine URINE SPECIMEN OBTAINED BY CLEAN CATCH PROCEDURE / Unknown Collection / Unknown 04/13/2020 9:57 AM ACTUARIAL ASSOCIATE 04/13/2020 10:24 AM ACTUARIAL ASSOCIATE Vesta Guido MD LAB - URINE CHEMISTR Y ORDERABLES [address] [address], [facility] [phone] * (ABNORMAL) VITAMIN D (25-HYDROXY) (06/12/2016 9:27 AM CDT) Only the most recent of2 resultswithin the time period is included. Vitamin D, 25 Hydroxy 8.54(L) 30 - 100 ng/mL 06/12/2016 3:18 PM CDT [facility] Blood BLOOD SPECIMEN / Unknown Lab Venipuncture / Unknown 06/12/2016 9:27 AM CDT 06/12/2016 10:16 AM CDT Narrative [facility] - 06/12/2016 3:18 PM CDT Vitamin D Status: Deficiency <20 ng/mL Insufficiency 20-30 ng/mL Sufficiency 30-100 ng/mL Toxicity >100 ng/mL Stella Juan Pike ROUTING EQUIPMENT TENDER-COMPLEX DIRECTOR LAB - CHEMISTR Y ORDERABLES Performing Organization Address City/[facility]/ZIP Co de Phone Number [facility] [address] [place] [address] * FERRITIN (06/12/2016 9:27 AM CDT) Only the most recent of3 resultswithin the time period is included. Pathologist [facility] Ferritin 53 10 - 120 ng/mL 06/12/2016 11:13 AM CDT [facility] Blood BLOOD SPECIMEN / Unknown Lab Venipuncture / Unknown 06/12/2016 9:27 AM CDT 06/12/2016 10:16 AM CDT Glaritylando ROUTING EQUIPMENT TENDER-COMPLEX DIRECTOR LAB - CHEMISTR Y ORDERABLES Performing Organization Address [facility] Co de Phone Number [facility] [address] [place] [address] * (ABNORMAL) URINALYSIS MICROSCOPIC ONLY (01/11/2016 5:12 PM CDT) Only the most recent of4 resultswithin the time period is included. RBC UA 0-2 0-2, 2-5 # /hpf 01/11/2016 10:39 PM CDT [facility] WBC UA 2-5 0-2, 2-5 # /hpf 01/11/2016 10:39 PM T [facility] Bacteria UA 2+(A) None Seen, Trace 01/11/2016 10:39 PM CDT [facility] Epithelial Cell UA 10-20(A) 0-2, 2-5 # /hpf 01/11/2016 10:39 PM CDT [facility] Mucus UA 1+ 01/11/2016 10:39 PM CDT [facility] Urine URINE SPECIMEN OBTAINED BY CLEAN CATCH PROCEDURE / Unknown 01/11/2016 5:12 PM CDT 01/11/2016 6:35 PM CDT [facility] - URINALYS IS ORDERABLES [facility] [place] [address] * CULTURE URINE (01/11/2016 5:12 PM CDT) Only the most recent of4 resultswithin the time period is included. Culture 10,000-50,000 CFU/mL urogenital nora ESSENCE 01/13/2016 9:[address] [facility]CRO[facility] Urine URINE SPECIMEN OBTAINED BY CLEAN CATCH PROCEDURE / Unknown 01/11/2016 5:12 PM CDT 01/11/2016 6:35 PM CDT [facility] - MICROBIO LOGY ORDERABLES [facility]CRO[facility] [address] [place] [address], [facility] [phone] * CALCIUM/CREAT RATIO URINE RANDOM PANEL (01/11/2016 5:12 PM CDT) Only the most recent of3 resultswithin the time period is included. Calcium Urine 6.61 mg/dL 01/11/2016 8:53 PM CDT [facility] Creatinine Urine 180.44 mg/dL 01/11/2016 8:53 PM CDT [facility] Calcium/Creatin ine Ratio Urine 0.04 01/11/2016 8:53 PM CDT [facility] Urine URINE SPECIMEN OBTAINED BY CLEAN CATCH PROCEDURE / Unknown 01/11/2016 5:12 PM CDT 01/11/2016 6:35 PM CDT Narrative [facility] - 01/11/2016 8:53 PM CDT Normal <0.16 Borderline 0.16-0.20 Abnormal >0.20 [facility] EMISTRY ORDERABLES [facility] [place] [address] * CPAP/BIPAP TITRATION (11/10/2015) Linked Results See Linked Results [facility] 11/10/2015 Stella Pike [employer]MENT [employer]-COMPLEX DIRECTOR [facility] O RDERABLES [facility] * [...] information. RECOMMENDATIONS: Consider anticholingergic medications Yohana Watters [employer]OUTING EQUIPMENT TENDER-[facility] PROCEDURE ORDERABLES * CYSTOMETROGRAM ACC (09/22/2015 [...] information. RECOMMENDATIONS: Consider anticholingergic medications Yohana Watters [employer]ING EQUIPMENT TENDER-[facility] FLUOROSCOPY ORDERABLES * ALPHA FETOPROTEIN BLOOD TUMOR (09/07/2015 10:43 AM CDT) Alpha-Fetoprotei n Tumor Marker 1.3 0.0 - 8.3 ng/mL 09/08/2015 5:15 AM CDT [facility] ([facility]) Comment:Elizabeth ECLIA methodol ogy Blood specimen (specimen) BLOOD SPECIMEN / Unknown Lab Venipuncture / Unknown 09/07/2015 10:43 AM CDT 09/07/2015 11:03 AM CDT Narrative [facility] ([facility]) - 09/08/2015 5:15 AM CDT Performed at: - [facility] [address] [place], [place] [id number] Specialty Trimmer: Zurdo Lira PhD, Phone: [phone] Yohana Watters APRN-COMPLEX DIRECTOR LAB - CHEMIS TRY ORDERABLES Performing Organization Address [facility] Co de Phone Number [facility] ([facility]) [address] [place] [address] * PT PTT PANEL (09/07/2015 10:43 AM CDT) Pathologist [facility] PT 9.5 9.5 - 11.6 sec 09/07/2015 2:18 PM CDT [facility] INR 0.9 0.9 - 1.1 09/07/2015 2:18 PM CDT [facility] PTT 24.3 21.0 - 32.0 sec 09/07/2015 2:18 PM CDT [facility] Blood BLOOD SPECIMEN / Unknown Lab Venipuncture / Unknown 09/07/2015 10:43 AM CDT 09/07/2015 11:03 AM CDT Narrative [facility] - 09/07/2015 2:18 PM CDT Conventional Warfarin Anticoagulant Therapy: INR Reference Range: 2.0-3.0 Intensive Warfarin Anticoagulant Therapy: INR Reference Range: 2.5-3.5 Heparin Therapeutic Range for PTT: 47.7 - 68.6 seconds. Yohana Watters APRN-COMPLEX DIRECTOR LAB - COAGUL ATION ORDERABLES Performing Organization Address City/[facility] Co de Phone Number [facility] [address] [place] [phone] * HEPATIC FUNCTION PANEL (09/07/2015 10:43 AM CDT) Alkaline Phosphatase 113 100 - 390 U/L 09/07/2015 11:42 AM CDT [facility] ALT 21 8 - 65 U/L 09/07/2015 11:42 AM CDT [facility] AST 15 3 - 35 U/L 09/07/2015 11:42 AM CDT [facility] Protein Total 7.5 6.3 - 8.2 gm/dL 09/07/2015 11:42 AM CDT [facility] Albumin 4.0 3.3 - 4.9 gm/dL 09/07/2015 11:42 AM CDT [facility] Bilirubin Total 0.4 0.3 - 1.2 mg/dL 09/07/2015 11:42 AM CDT [facility] Bilirubin Direct 0.15 0.11 - 0.64 mg/dL 09/07/2015 11:42 AM CDT [facility] Blood BLOOD SPECIMEN / Unknown Lab Venipuncture / Unknown 09/07/2015 10:43 AM CDT 09/07/2015 11:03 AM CDT Yohana Watters ROUTING EQUIPMENT TENDER-COMPLEX DIRECTOR LAB - CHEMIS TRY ORDERABLES Performing Organization Address [facility]/ZIP Co de Phone Number [facility] [address] [place] [address] * (ABNORMAL) LDH BLOOD (09/07/2015 10:43 AM CDT) LDH 274(H) 140 - 260 U/L 09/07/2015 11:42 AM CDT [facility] Blood BLOOD SPECIMEN / Unknown Lab Venipuncture / Unknown 09/07/2015 10:43 AM CDT 09/07/2015 11:03 AM CDT Yohana Watters ROUTING EQUIPMENT TENDER-COMPLEX DIRECTOR LAB - CHEMIS TRY ORDERABLES Performing Organization Address [facility] Co de Phone Number [facility] [address] [place] [address] * GGT (09/07/2015 10:43 AM CDT) GGT 28 8 - 69 U/L 09/07/2015 11:42 AM CDT [facility] Blood BLOOD SPECIMEN / Unknown Lab Venipuncture / Unknown 09/07/2015 10:43 AM CDT 09/07/2015 11:03 AM CDT Yohana Watters ROUTING EQUIPMENT TENDER-COMPLEX DIRECTOR LAB - CHEMIS TRY ORDERABLES [facility] [address] [place] [address] * UROFLOWMETRY (09/06/2015 11:15 AM CDT) Narrative [...] information. Report dictated by Tiara Frey MD (campus president). Fluoroscopy Time: 1.5 minute Dose Area Prod: [...] No prior study is available for comparison. Cloth Tester Quality radiograph demonstrates a nonspecific bowel gas pattern. [...] No prior study is available for comparison. Cloth Tester Quality radiograph demonstrates a nonspecific bowel gas pattern. [...] information. Report dictated by Tiara Frey MD (campus president). Fluoroscopy Time: 1.5 minute Dose Area Prod: 157.63 (uGy*m^2) Entrance Dose: 4.8 (mGy) I, Chioma Benavides, have personally reviewed the images and I agree with this report. Yohana Watters ROUTING EQUIPMENT TENDER-COMPLEX DIRECTOR FLUOROSCOPY ORDERABLES * MRI PELVIS WITH AND [...] with severe renal parenchymal atrophy. Yohana Watters ROUTING EQUIPMENT TENDER-COMPLEX DIRECTOR MR ORDERABLE S * MRI ABDOMEN WITH [...] with severe renal parenchymal atrophy. Yohana Watters ROUTING EQUIPMENT TENDER-COMPLEX DIRECTOR MR ORDERABLE S * CHLAMYDIA + GC AMPLIFIED PROBE (08/10/2015 4:39 PM CDT) Chlamydia Amplified Probe Negative Negative 08/11/2015 8:[address] [facility] GC Amplified Probe Negative Negative 08/11/2015 8:[address] [facility] Urine URINE / Unknown 08/10/2015 4 :39 PM CDT 08/10/2015 5:[address] [facility] - 08/11/2015 8:43 AM CDT This test was developed and its performance characteristics determined by the [facility], [facility]. Female urine specimens tested by the [facility] [place] have not been cleared or approved by the U.S. Food and Drug Administration (FDA). The laboratory is regulated under the Clinical Laboratory Improvement Amendments (CLIA) as qualified to perform high-complexity testing. This test is used for clinical purposes. It should not be regarded as investigational or for research. Results based on detection/no detection of ribosomal RNA by amplified method. iG Jones MD LAB - MICROBIO LOGY ORDERABLES [facility] [address] [place] [address], [facility] [phone] * US PELVIS WITH TRANSVAG NON OB [...] without contrast should be considered. Siria Pizarro ROUTING EQUIPMENT TENDER-COMPLEX DIRECTOR US ORDERABLES * URINALYSIS - POCT (IP) MEIR (08/10/2015 3:25 PM CDT) Glucose UA Negative Negative [facility] T [facility] Bilirubin UA Negative Negative [facility] P OCT TESTING Ketone UA Negative Negative [facility] POCT TEST[facility] Specific [place] UA POCT 1.020 1.000 - 1.030 [facility] Blood UA Negative Negative [facility] pH UA 6.5 5.0 - 8.0 pH units [facility] Protein UA Negative Negative [facility] Urobilinogen UA 0.2 0.2 - 1.0 EU/dL [facility] Nitrite UA Negative Negative [facility] Leukocyte UA Negative Negative [facility] P OCT TESTING QC Verified Yes Yes [facility] PO CT TESTING Urine specimen (specimen) URINE / Unknown 08/10/2015 3:25 PM CDT Gi Jones MD LAB - POINT OF CARE ORDERABLES Performing Organization Address [facility]/ZIP Co de Phone Number [facility] PO[facility] TEST[facility] [address] [place] [phone] [place] [address] * HEMOGLOBIN A1C (07/15/2015 11:09 AM CDT) Hemoglobin A1c 4.9 3.4 - 6.1 % 07/17/2015 11:18 AM CDT [facility] Estimated Average Glucose 94 mg/dL 07/17/2015 11:18 AM CDT [facility] Whole Blood BLOOD SPECIMEN WITH EDTA / Unknown 07/15/2015 11:09 AM CDT 07/17/2015 9:27 AM CDT Siria Pizarro APRN-COMPLEX DIRECTOR LAB - CHEMISTR Y ORDERABLES Performing Organization Address City/[facility] Co de Phone Number [facility] [address] [place] [phone] * TSH (07/15/2015 11:09 AM CDT) Pathologist [facility] TSH 1.64 0.35 - 4.95 uIU/mL 07/15/2015 12:47 PM CDT [facility] Blood BLOOD SPECIMEN / Unknown Lab Venipuncture / Unknown 07/15/2015 11:09 AM CDT 07/15/2015 11:19 AM CDT Siria Pizarro ROUTING EQUIPMENT TENDER-COMPLEX DIRECTOR LAB - CHEMISTR Y ORDERABLES Performing Organization Address [facility] Co de Phone Number [facility] [address] [place] [phone] * T4 TOTAL (07/15/2015 11:09 AM CDT) T4 Total 11.11 4.87 - 11.7 ug/dL 07/15/2015 12:47 PM CDT [facility] Blood BLOOD SPECIMEN / Unknown Lab Venipuncture / Unknown 07/15/2015 11:09 AM CDT 07/15/2015 11:19 AM CDT Siria Pizarro ROUTING EQUIPMENT TENDER-COMPLEX DIRECTOR LAB - CHEMISTR Y ORDERABLES Performing Organization Address City/[facility]/ZIP Co de Phone Number [facility] [address] [place] [address] * (ABNORMAL) LIPID PROFILE (07/15/2015 11:09 AM CDT) Cholesterol 187(H) <170 mg/dL 07/15/2015 12:12 PM T [facility] Triglycerides 110 46 - 227 mg/dL 07/15/2015 12:12 PM T [facility] HDL Cholesterol 53 >40 mg/dL 07/15/2015 12:12 PM T [facility] LDL Calculated 112(H) <100 mg/dL 07/15/2015 12:12 PM T [facility] VLDL Calculated 22 12 - 38 mg/dL 07/15/2015 12:12 PM T [facility] Chol HDL Ratio 3.5 <=5.0 07/15/2015 12:12 PM T [facility] Blood BLOOD SPECIMEN / Unknown Lab Venipuncture / Unknown 07/15/2015 11:09 AM CDT 07/15/2015 11:19 AM CDT Narrative [facility] - 07/15/2015 12:12 PM T Lipid Profile Comment: Adult references ranges are the recommendation of the [place] [employer] , for those patients >18 [...] some of these results. Siria A Moira ROUTING EQUIPMENT TENDER-COMPLEX DIRECTOR LAB - CHEMISTR Y ORDERABLES Performing Organization Address City/[facility]/ZIP Co de Phone Number [facility] [address] [place] [address] * SPLIT NIGHT STUDY (09/17/2014) Siria Pizarro APRN-[facility] * LAB RESULTS ORDER (08/22/2014 3:54 PM CDT) Narrative 08/22/2014 3:54 PM CDT Ordered by an unspecified provider. Scanned Document LAB - THERAPEUTIC DR CONRAD MONITORING ORDERABLES Care Teams Epic [facility] Relationship Specialty Start Date End Date Brian Dela Cruz MD [address] [facility] [place] [address] PCP - General Family Medicine 07/13/20
[2024-05-14 04:02] VITALS: BP 122/78; PULSE 90; RESP 17; TEMP 36.7; O2SAT 99
[2024-05-14 04:06] VITALS: BP 125/76; PULSE 87; RESP 16; TEMP 36.7; O2SAT 97
== END 2024-05-14 04:08 | disposition home or self-care (01) ==
PROVIDERS: Physician Assistant; Emergency Provider Emergency Medicine; PCP Family Medicine
DX: O20.0 Threatened abortion (principal); G47.33 Obstructive sleep apnea (adult) (pediatric); F41.8 Other specified anxiety disorders; N31.9 Neuromuscular dysfunction of bladder, unspecified
CPT/HCPCS: 36415; 80053; 84702; 85025; 85461; 85610; 85730; 86850; 86900; 86901; 90384; 99284; J2790

== ENCOUNTER 2024-05-20 00:13 | Day surgery (SDC) | payer OTHER, SELFPAY ==
[2024-05-19 09:45] VITALS: BMI 62.8
--- NOTE | 2024-05-19 09:54 | PC.NURSE ---
Report to the Outpatient Waiting Room, entrance under the green pavilion located off [facility], at time _1200_ on date _67-10-2522_. Planned Procedure Time: _2pm_.? Time changes happen often and if your time is changed the preop area will call you the afternoon before. - You and your visitor will be asked to self-screen and do not enter if you have any COVID symptoms. Please call surgeon if you need to reschedule. - A mask is optional within the hospital at this time. Patients may have clear liquids (water, carbonated beverages, clear teas, apple juice) until 3 hours prior to surgery with a maximum of 20 ounces. - No food from midnight until time of surgery and no smoking, or chewing tobacco (or any form of nicotine). No chewing gum, candy or mints. Take only the following medications with a SIP of water on the morning of surgery: ___Propanolol and Sertraline DO NOT STOP ANY OF YOUR OTHER PRESCRIPTION MEDICATIONS PRIOR TO SURGERY EXCEPT THE FOLLOWING Hold all vitamins and supplements for 3 days per anesthesiologist. Medications to discontinue per physician Date to take last dose Please no make-up, nail maori, hairspray, perfume, deodorant, or body powder the day of surgery.? No jewelry (including any body piercings) or valuables the day of surgery, leave them at home.? Please take a shower or bath the night before, or the morning of, surgery with an antibacterial soap.? Wear comfortable, loose fitting clothing.? - Jewelry must be removed prior to entering the operating room.? Rings and piercings that are not removed may be cut off. - The hospital will not accept responsibility for valuables.? - Please leave all valuables, including medications, at home the day of surgery. If you are going home after surgery, a licensed auto carrier driver must drive you home.? - NO public transportation without another adult if you receive anesthesia. - We recommend that an adult stay with you for 24 hours following discharge. - We also recommend that you do not drive, make important decision, drink alcoholic beverages, or take any drugs that were not prescribed by your health care provider for at least 24 hours after your discharge time. Follow any additional instructions given to you from your surgeon. Telephone instructions given to __Radha__and asked if any additional questions and then verbalized understanding. Patient advised to call surgeon office or pre surgery nurse liaison [phone] if any additional questions.
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
--- OUTSIDE RECORDS SUMMARY | 2024-05-20 00:17 | XMS_ITS | Clinical Summary ---
Author Organization [facility] Address [address] [place] [address] Phone Care Team Providers Care Business Development Representative Name Role Phone Brian Dela Cruz MD Primary Care Provider + [phone] Allergies Active Allergy Reactions Criticality Noted Date [...] to complete this topic Insurance Care Teams Business Development Representative Relationship Specialty Start Date End Date Brian Dela Cruz MD [address] [place] [address] PCP - General Family Medicine 11/05/21
--- OUTSIDE RECORDS SUMMARY | 2024-05-20 00:17 | XMS_ITS | Patient Health Summary ---
Author Organization [facility] Address [address] [place] [address] Care Team Providers Care Rag Grader Name Role Phone Brian Dela Cruz MD Primary Care Provider [phone] Note from [facility],non-owned Affiliates and Associated Physician Practices is amultiple site organization consisting of ambulatory clinics and hospital sitesin [place], [place], [place]. This disclosure is being madepursuant to the Care Everywhere program and may not contain all information available regarding this patient. Last updated 17.[facility] Allergies * Methylprednisolone(Hematologic) -High Criticality Medications [...] propionate (FLONASE) 50 MCG/ACT nasal spray(Started 06/12/2016) Prescott 1 Prescott into each nostril once daily 5 refills [...] 2 times daily * Heparin Sodium, [place], [address] UNIT/ML injection Inject 1 mL subcutaneously 2 [...] CDT Respiratory Rate 22 03/13/2016 9:50 AM MINE ENGINEERING SUPERINTENDENT Oxygen Saturation 100% 07/13/2020 8:30 AM CDT Inhaled Oxygen Concentration - - Weight 115.4 kg (254 lb 6.4 oz) 07/13/2020 8:30 AM CDT Height 152.1 cm (4' 11.9 ) 04/13/2020 8:44 AM CS T Body Mass Index 49.85 04/13/2020 8:44 AM MINE ENGINEERING SUPERINTENDENT Procedures * SONOGRAM - COMPLETE(Performed 05/14/2024) Performed for BMI 50.0-59.9, adult ([facility]), Encounter to determine viability of , single or unspecified fetus ([facility]) * SONOGRAM - COMPLETE(Performed 05/03/2024) Performed for BMI 50.0-59.9, adult ([facility]), hydronephrosis during , antepartum, singleor unspecified fetus ([facility]), Maternal morbid obesity, antepartum ([facility]), Uncertain dates, antepartum,unspecified trimester ([facility]) * LUPUS ANTICOAGULANT PANEL(Performed 07/13/2020) Performed for Chronic hypertension affecting ([facility]) * BETA-2 GLYCOPROTEIN 1 ANTIBODY IGG/IGM PANEL(Performed 07/13/2020) Performed for Chronic hypertension affecting ([facility]), Supervision of high-risk ofyoung multigravida ([facility]), Family history of DVT * CARDIOLIPIN ANTIBODY IGG/IGM PANEL(Performed 07/13/2020) Performed for Chronic hypertension affecting ([facility]), Supervision of high-risk ofyoung multigravida ([facility]), Family history of DVT * FACTOR V LEIDEN MUTATION PANEL(Performed 07/13/2020) Performed for Chronic hypertension affecting ([facility]), Supervision of high-risk ofyoung multigravida ([facility]), Family history of DVT * PROTHROMBIN [id number] PANEL(Performed 07/13/2020) Performed for Chronic hypertension affecting ([facility]), Supervision of high-risk ofyoung multigravida (HCC), Family history of DVT * COMPREHENSIVE METABOLIC PANEL(Performed 07/13/2020) Performed for Chronic hypertension affecting (H[facility]), Supervision of high-risk ofyoung multigravida (HCC), Bilious [...] for Enureses Results * SONOGRAM - COMPLETE (05/14/2024 1:24 PM MINE ENGINEERING SUPERINTENDENT) Only the most recent of5 resultswithin the time period is included. 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 Gutierres : Thank you for referring Ms Ronquillo for US Testing in the [place] office on 04/13/2024 Day. Abd and TVUS ultrasound shows no intrauterine Quant HcG falling -4415 on 05/06; now 1161 on 05/14 No tissues seen 2d/ Mmode / color doppler Adnexa appear normal Size estimate appears to be consistent with inevitable Spontaneous miscarriage Early cramping /bleeding has begun Spoke with Ms Ronquillo via phone ? Discussed Causes, natural course [...] ======== Miscarriage in progress Coding ====== Procedures 74411: 1st Trimester [employer]Star PACS Anatomical Region Laterality Modality Other 05/14/2024 1:24 PM MINE ENGINEERING SUPERINTENDENT Prakash Gutierres MD [facility] ORDERABLES * LUPUS ANTICOAGULANT PANEL (07/13/2020 2:04 PM CDT) APTT 29.8 23.0 - 38.4 Seconds 07/14/2020 4:09 PM [facility] PT 12.8 12.1 - 14.8 Seconds [...] Noa Jiang MD LAB - HEMATOLOGY ORDERABLES [facility] [address] [place] [address], [facility] [phone] * PROTHROMBIN [id number] PANEL (07/13/2020 1:55 PM CDT) [facility] Factor II DNA Analysis Comment 07/18/2020 5:08 PM CDT [facility] ([facility]) Comment: NEGATIVE No mutation identified. Comment: A point mutation ([id number]) in the factor II (prothrombin) gene is [...] mutations. This assay detects only the prothrombin [id number] mutation and does not measure genetic abnormalities [...] health care providers to discuss results at [phone] ([phone]). Methodology: DNA analysis of the Factor II gene was performed by PCR amplification followed by restriction analysis. The diagnostic sensitivity is >99% for both. All the tests must be combined with clinical information for the most accurate interpretation. Molecular-based testing is highly accurate, but as in any laboratory test, diagnostic errors may occur. This test was developed and its performance characteristics determined by [facility]. It has not been cleared or approved by the Food and Drug Administration. Johnt SR, et al. Blood. 1996; 88:5551-4795. Magy EA. Circulation. 2004; 110:e15-e18. Marek I, et al. Arterioscler Thromb Vasc Biol. 1999; 19:700-703. Donell Wolff, PhD, FACMG Luisa Murphy, PhD, FACMG Carmen Spivey, PhD, FAC Gill Rodriguez, PhD, FAC Giorgi Davis, PhD, FAC Devon Shea, PhD, FACMG Blood BLOOD SPECIMEN / Unknown Lab Venipuncture / Unknown 07/13/2020 1:55 PM CDT 07/13/2020 1:55 PM CDT [facility] - 07/18/2020 5:08 PM CDT Performed at: 01 - [facility] RTP [address], [place], [place] [id number] Telephone Order Dispatcher: Ольга Wise Formerly [facility], Phone: [phone] Noa Jiang MD LAB - COAGULATION ORDERABLES [facility] ([facility]) [address] [place] [address] * FACTOR V LEIDEN MUTATION PANEL (07/13/2020 1:55 PM CDT) [facility] Factor V Leiden Comment 11:09 AM CDT [facility] ([facility]) Comment: Result: Negative (no mutation found) [...] the workup for venous thrombosis include the [id number] mutation in the factor II (prothrombin) gene, protein S and C deficiency, and antithrombin deficiencies. Anticardiolipin antibody and lupus anticoagulant analysis may be appropriate for certain patients, as well as homocysteine levels. Contact your local [facility] for information on how to order additional testing if desired. Genetic counselors are available for health care providers to discuss results at [phone] ([phone]). Methodology: DNA analysis of the Factor V gene was performed by allele-specific PCR. The diagnostic sensitivity and specificity is >99% for both. Molecular-based testing is highly accurate, but as in any laboratory test, diagnostic errors may occur. All test results must be combined with clinical information for the most accurate interpretation. This test was developed and its performance characteristics determined by [facility]. It has not been cleared or approved by the Food and Drug Administration. References: Yoel Pineda (1996). Clin Lab Med 16:169-186. Donell Wolff, PhD, FAC Luisa Murphy, PhD, [facility] Carmen Spivey, PhD, FAC Gill Rodriguez, PhD, [facility] Giorgi Davis, PhD, FAC Devon Shea PhD, FAC Blood BLOOD SPECIMEN / Unknown Lab Venipuncture / Unknown 07/13/2020 1:55 PM CDT 07/13/2020 1:55 PM CDT Narrative [facility] ([facility]) - 07/20/2020 11:09 AM CDT Performed at: [address] [place] [address] [address] [place], [place] [id number] Telephone Order Dispatcher: Ольга Wise Former[facility], Phone: [phone] Noa Jiang MD LAB - COAGULATION ORDERABLES Performing Organization Address City/[facility]/ZIP Co de Phone Number [facility] ([facility]) [address] [place] [address] * (ABNORMAL) CARDIOLIPIN ANTIBODY IGG/IGM PANEL (07/13/2020 1:55 PM CDT) [facility] Cardiolipin Antibody IgG <9 0 - 14 GPL U/mL 07/15/2020 3:07 PM CDT [facility] ([facility]) Comment: Negative: <15 Indeterminate: 15 - 20 Low-Med Positive: >20 - 80 High Positive: >80 Cardiolipin Antibody IgM 22(H) 0 - 12 MPL U/mL 07/15/2020 3:07 PM CDT [facility] ([facility]) Comment: Negative: <13 Indeterminate: 13 - 20 Low-Med Positive: >20 - 80 High Positive: >80 Blood BLOOD SPECIMEN / Unknown Lab Venipuncture / Unknown 07/13/2020 1:55 PM CDT 07/13/2020 1:56 PM CDT Narrative [facility] ([facility]) - 07/15/2020 3:07 PM CDT Performed at: [address] [place] [id number] Telephone Order Dispatcher: Zurdo Lira PhD, Phone: [phone] Noa Jiang MD LAB - SEROLOGY OR DERABLES Performing Organization Address City/[facility]/ZIP Co de Phone Number [facility] ([facility]) [address] [place] [address] * BETA-2 GLYCOPROTEIN 1 ANTIBODY IGG/IGM PANEL (07/13/2020 1:55 PM CDT) [facility] Beta-2 Glycoprotein I Antibody IgG <9 0 - 20 GPI IgG units 07/16/2020 10:06 PM CDT [facility] ([facility]) Comment: The reference interval reflects a 3SD or 99th percentile interval, which is thought to represent a potentially clinically significant result in accordance with the International Consensus Statement on the classification criteria for definitive antiphospholipid syndrome (APS). J Thromb Haem 2006;4:295-306. Beta-2 Glycoprotein I Antibody IgM <9 0 - 32 GPI IgM units 07/16/2020 10:06 PM CDT [facility] ([facility]) Comment: The reference interval reflects a 3SD or 99th percentile interval, which is thought to represent a potentially clinically significant result in accordance with the International Consensus Statement on the classification criteria for definitive antiphospholipid syndrome (APS). J Thromb Haem 2006;4:295-306. Blood BLOOD SPECIMEN / Unknown Lab Venipuncture / Unknown 07/13/2020 1:55 PM CDT 07/13/2020 1:56 PM CDT [facility] ([facility]) - 07/16/2020 10:06 PM CDT Performed at: [address] [place] [id number] Telephone Order Dispatcher: Ivy Menchaca MD, Phone: [phone] Noa Jiang MD LAB - CHEMISTRY O RDERABLES [facility] ([facility]) [address] [place] [address] * (ABNORMAL) COMPREHENSIVE METABOLIC PANEL (07/13/2020 1:55 PM CDT) Only the most recent of3 resultswithin the time period is included. [facility] Glucose 74 70 - 105 mg/dL 07/13/2020 3:30 PM CDT [facility] Sodium 133(L) 136 - 145 mmol/L 07/13/2020 3:30 PM CDT [facility] Potassium 4.3 3.5 - 5.1 mmol/L 07/13/2020 3:30 PM CDT [facility] Chloride 101 98 - 107 mmol/L 07/13/2020 3:30 PM CDT [facility] CO2 18(L) 23 - 31 mmol/L 07/13/2020 3:30 PM CDT [facility] Calcium 9.7 8.4 - 10.4 mg/dL 07/13/2020 3:30 PM CDT [facility] Anion Gap 14 8 - 18 mmol/L 07/13/2020 3:30 PM CDT [facility] Comment:Attention clinician: Reference Range change. BUN 12 7 - 18.7 mg/dL 07/13/2020 3:30 PM CDT [facility] Creatinine 0.86 0.57 - 1.11 mg/dL 07/13/2020 3:30 PM CDT [facility] Alkaline Phosphatase 165(H) 40 - 150 U/L 07/13/2020 3:30 PM CDT [facility] Comment:Attention clinician: Reference Range change. ALT 13 0 - 61 U/L 07/13/2020 3:30 PM CDT [facility] AST 13 5 - 34 U/L 07/13/2020 3:30 PM CDT [facility] Protein Total 7.6 6.4 - 8.3 gm/dL 07/13/2020 3:30 PM CDT [facility] Albumin 3.3(L) 3.5 - 5.2 gm/dL 07/13/2020 3:30 PM CDT [facility] Bilirubin Total 0.3 0.2 - 1.2 mg/dL 07/13/2020 3:30 PM CDT [facility] Comment:Attention clinician: Reference Range change. eGFR by MDRD >60 >60 mL/min/1.7 3m2 07/13/2020 3:30 PM CDT [facility] eGFR by MDRD >60 >60 mL/min/1.7 3m2 07/13/2020 3:30 PM CDT [facility] Blood BLOOD SPECIMEN / Unknown Lab Venipuncture / Unknown 07/13/2020 1:55 PM CDT 07/13/2020 1:55 PM CDT oNa Jiang MD LAB - CHEMISTRY O RDERABLES [facility] [address] [place] [address] * (ABNORMAL) PROTEIN C FUNCTIONAL (07/13/2020 1:54 PM CDT) Protein C Activity >199(H) % 07/18/2020 4:10 PM CDT [facility] ([facility]) Comment: Elevated protein C activity is of no known clinical significance. Reference Range: 17 years and older: 73 - 180 Blood BLOOD SPECIMEN / Unknown Lab Venipuncture / Unknown 07/13/2020 1:54 PM CDT 07/13/2020 1:55 PM CDT Narrative [facility] ([facility]) - 07/18/2020 4:10 PM CDT Performed at: [facility] [employer] [address] [id number] Telephone Order Dispatcher: Cali Ford MD, Phone: [phone] Noa Jiang MD LAB - COAGULATION ORDERABLES [facility] ([facility]) [address] [place] [address] * (ABNORMAL) CBC WITH DIFFERENTIAL (07/13/2020 1:53 PM CDT) Only the most recent of3 resultswithin the time period is included. WBC 12.4(H) 4.4 - 10.7 x10E9/L 07/13/2020 2:29 PM CDT [facility] WBC Corrected 07/13/2020 2:29 PM CDT [facility] RBC 4.43 3.80 - 5.20 x10E12/L 07/13/2020 2:29 PM CDT [facility] Hemoglobin 13.6 12.0 - 15.6 gm/dL 07/13/2020 2:29 PM CDT [facility] Hematocrit 40.0 35.9 - 45.5 % 07/13/2020 2:29 PM CDT [facility] MCV 90.3 80.7 - 98.3 fl 07/13/2020 2:29 PM CDT [facility] MCH 30.7 26.7 - 34.0 pg 07/13/2020 2:29 PM CDT [facility] MCHC 34.0 30.8 - 35.9 gm/dL 07/13/2020 2:29 PM CDT [facility] Platelet Count 369 153 - 416 x10E9/L 07/13/2020 2:29 PM CDT [facility] RDW-CV 13.1 12.1 - 14.9 % 07/13/2020 2:29 PM CDT [facility] MPV 10.9 9.4 - 12.9 fl 07/13/2020 2:29 PM T [facility] Neutrophils % 70.1 44.0 - 73.0 % 07/13/2020 2:29 PM T [facility] Lymphocytes % 21.7 20.0 - 43.0 % 07/13/2020 2:29 PM T [facility] Monocytes % 6.2 5.0 - 13.0 % 07/13/2020 2:29 PM T [facility] Eosinophils % 0.7 0.0 - 6.0 % 07/13/2020 2:29 PM T [facility] Basophils % 0.3 0.0 - 2.0 % 07/13/2020 2:29 PM [facility] Immature Granulocytes 1.0 0 - 1 % 07/13/2020 2:29 PM T [facility] Neutrophil Absolute 8.66(H) 2.01 - 7.14 x10E9/L 07/13/2020 2:29 PM T [facility] Lymphocytes Absolute 2.68 1.07 - 3.94 x10E9/L 07/13/2020 2:29 PM T [facility] Monocytes Absolute 0.76 0.26 - 1.07 x10E9/L 07/13/2020 2:29 PM [facility] Eosinophils Absolute 0.09 0 - 0.47 x10E9/L 07/13/2020 2:29 PM T [facility] Basophils Absolute 0.04 0 - 0.08 x10E9/L 07/13/2020 2:29 PM [facility] Immature Granulocytes Absolute 0.12(H) 0.00 - 0.06 x10E9/L 07/13/2020 2:29 PM [facility] nRBC Auto 0 /100 WBC 07/13/2020 2:29 PM [facility] Blood BLOOD SPECIMEN / Unknown Lab Venipuncture / Unknown 07/13/2020 1:53 PM CDT 07/13/2020 1:53 PM CDT Cordelia Diaz JANITOR CUSTODIAN-POLE INSPECTOR LAB - HEMATOLOG Y ORDERABLES [facility] [address] [place] [id number] * BIOPHYSICAL PROFILE W NST (07/10/2020 1:08 PM CDT) Only the most recent of5 resultswithin the time period is included. Anatomical Region Laterality Modality Other 07/10/2020 1:08 PM CDT Narrative 07/10/2020 1:57 PM CDT [facility] PHONE: FAX: Pat. Name: LEVY RONQUILLO Geno. No: [id number] Study Date: 07/10/2020 1:08pm , Age: 10 2000, 20 Pregnancies: 2, Para 0, Ab 1 Height: 58 in Weight: 217 lb LMP: 10/30/2019 GA by LMP: 36w2d GA by Base: 36w2d MOHSEN: 08/05/2020 GA by US: 34w0d MOHSEN: 08/21/2020 GA Selected: 36w2d (LMP) MOHSEN: 08/05/2020 Referring MD: Prakash Gutierres MD [employer]: Winter Hirsch RDMS CPT4: 72483,46948 BMI: 45.35 Hist/Ind: MOB non-functioning right kidney Class III Obesity (BMI 45 ECHO: Left Persistant SVC Normal ECHO MEASUREMENTS & AGE GROWTH EVALUATION Measurement GA Range Srce %for GA Ratios ----- ---- ------- BPD 8.3 cm 33w2d (60i4g-31c9n) Hadl BPD 1% FL/BPD 0.80 (0.71 - 0.87) HC 30.2 cm 33w4d (95j3f-56f8a) Hadl HC <01 FL/AC 0.20 (0.20 - 0.24) AC 33.0 cm 36w6d (93o0o-52p2m) Hadl AC 76% HC/AC 0.92 (0.92 - 1.11* FL 6.6 cm 34w1d (17v8m-09d9w) Hadl FL 5% CI 0.76 (0.70 - 0.86) HL 5.8 cm 33w4d (34n8p-58v1d) Mendez HL 6% GA for sonogram 34w0d (74y1m-47h0s) Weight Estimate: based on (BPD,HC,AC,FL) Hadlock Weight: [...] <Electronic Signature> 07/10/2020 01:57pm Prakash Gutierres MD [facility] ORDERABLES * ECHO CONSULT - (04/27/2020 11:04 AM MINE ENGINEERING SUPERINTENDENT) 04/27/2020 11:0 4 AM MINE ENGINEERING SUPERINTENDENT Narrative Procedure Note Svetlana Connelly MD - 04/27/[address] [place] [address] Fax Echocardiogram Report Pat.Name: LEVY RONQUILLO Pat.ID: [id number] .Date: 04/27/2020 Refer.MD: Hai Islas Exam Time: 11:04:00 AM Study Type: Echo Age: 10 2000,20Y Sex: FEMALE Sonogrphr: Angeles Murillo RDCS Pat. Stat.:Outpatient CPT - 4: 66938, 88857, 55878, 69610, 42424 Reason for Study: Suspected Cardiac Abnormality SUMMARY: [...] Connelly MD Hai Islas MD ECHO ORDERABLES [facility] [address] [place] [address] * URIC ACID BLOOD (04/13/2020 9:57 AM MINE ENGINEERING SUPERINTENDENT) Uric Acid 4.4 2.6 - 7.2 mg/dL 04/13/2020 10:55 AM [facility] Blood BLOOD SPECIMEN / Unknown Lab Venipuncture / Unknown 04/13/2020 9:57 AM MINE ENGINEERING SUPERINTENDENT 04/13/2020 10:24 AM MINE ENGINEERING SUPERINTENDENT Vesta Guido MD LAB - CHEMISTRY ORDE RABLES Performing Organization Address [facility]/ZIP Co de Phone Number [address] [address], [facility] [phone] * MICROALB/CREAT RATIO URINE RANDOM PANEL (04/13/2020 9:57 AM MINE ENGINEERING SUPERINTENDENT) Albumin Random Urine 15.9 Not Established mcg/mL 04/13/2020 10:56 AM [facility] Creatinine Urine 91 Not Established mg/dL 04/13/2020 10:56 AM [facility] Comment:Result obtained by trent marino. Urine Albumin/Creati nine Ratio 17 <30 mg/g 04/13/2020 10:56 AM [facility] Urine URINE SPECIMEN OBTAINED BY CLEAN CATCH PROCEDURE / Unknown Collection / Unknown 04/13/2020 9:57 AM MINE ENGINEERING SUPERINTENDENT 04/13/2020 10:24 AM MINE ENGINEERING SUPERINTENDENT Vesta Guido MD LAB - URINE CHEMISTR Y ORDERABLES Performing Organization Address [facility] Co de Phone Number [address] [address], [facility] [phone] * (ABNORMAL) URINALYSIS REFLEX TO MICROSCOPIC NO CULTURE (04/13/2020 9:57 AM MINE ENGINEERING SUPERINTENDENT) Only the most recent of5 resultswithin the time period is included. Color UA Yellow Straw, Yellow, Colorless 04/13/2020 10:43 AM [facility] Clarity UA Slt Cloudy Clear, Slt Cloudy 04/13/2020 10:43 AM [facility] Specific [place] UA 1.013 1.005 - 1.030 04/13/2020 10:43 AM [facility] pH UA 6.0 5.0 - 8.0 pH 04/13/2020 10:43 AM [facility] Protein UA Negative Negative mg/dL 04/13/2020 10:43 AM [facility] Glucose UA Negative Negative mg/dL 04/13/2020 10:43 AM [facility] Ketone UA Negative Negative mg/dL 04/13/2020 10:43 AM [facility] Bilirubin UA Negative Negative mg/dL 04/13/2020 10:43 AM [facility] Blood UA Negative Negative 04/13/2020 10:43 AM [facility] Nitrite UA Negative Negative 04/13/2020 10:43 AM [facility] Leukocyte Esterase Negative Negative 04/13/2020 10:43 AM [facility] Urobilinogen UA Negative Negative mg/dL 04/13/2020 10:43 AM [facility] RBC UA 0-2 None Seen, 0-2, 3-5 /HPF 04/13/2020 10:43 AM [facility] WBC UA 0-5 None Seen, 0-5 /HPF 04/13/2020 10:43 AM [facility] Bacteria UA Trace None, Trace /HPF 04/13/2020 10:43 AM [facility] Squamous Epithelial Cells UA 6-10(A) None Seen, 0-2 /HPF 04/13/2020 10:43 AM [facility] Mucus UA 1+ None, 1+ /LPF 04/13/2020 10:43 AM [facility] Urine URINE SPECIMEN OBTAINED BY CLEAN CATCH PROCEDURE / Unknown Collection / Unknown 04/13/2020 9:57 AM [facility] 04/13/2020 10:24 AM [facility] - 04/13/2020 10:43 AM [facility] Vesta Guido MD LAB - URINALYSIS ORD ERABLES [address] [address], [facility] [phone] * PROTEIN URINE RANDOM QUANTITATIVE (04/13/2020 9:57 AM [facility]) Protein Urine 14 Not Established mg/dL 04/13/2020 10:56 AM MINE ENGINEERING SUPERINTENDENT [facility] Urine URINE SPECIMEN OBTAINED BY CLEAN CATCH PROCEDURE / Unknown Collection / Unknown 04/13/2020 9:57 AM MINE ENGINEERING SUPERINTENDENT 04/13/2020 10:24 AM MINE ENGINEERING SUPERINTENDENT Vesta Guido MD LAB - URINE CHEMISTR Y ORDERABLES Performing Organization Address [facility] Co de Phone Number [facility] [address] [place] [address], [facility] [phone] * (ABNORMAL) VITAMIN D (25-HYDROXY) (06/12/2016 9:27 AM CDT) Only the most recent of2 resultswithin the time period is included. Vitamin D, 25 Hydroxy 8.54(L) 30 - 100 ng/mL 06/12/2016 3:18 PM CDT [facility] Blood BLOOD SPECIMEN / Unknown Lab Venipuncture / Unknown 06/12/2016 9:27 AM CDT 06/12/2016 10:16 AM CDT Narrative [facility] - 06/12/2016 3:18 PM CDT Vitamin D Status: Deficiency <20 ng/mL Insufficiency 20-30 ng/mL Sufficiency 30-100 ng/mL Toxicity >100 ng/mL Stella Pike JANITOR CUSTODIAN-POLE INSPECTOR LAB - CHEMISTR Y ORDERABLES Performing Organization Address [facility] Co de Phone Number [facility] [address] [place] [address] * FERRITIN (06/12/2016 9:27 AM CDT) Only the most recent of3 resultswithin the time period is included. Ferritin 53 10 - 120 ng/mL 06/12/2016 11:13 AM CDT [facility] Blood BLOOD SPECIMEN / Unknown Lab Venipuncture / Unknown 06/12/2016 9:27 AM CDT 06/12/2016 10:16 AM CDT Stella Pike JANITOR CUSTODIAN-POLE INSPECTOR LAB - CHEMISTR Y ORDERABLES [facility] [address] [place] [address] * (ABNORMAL) URINALYSIS MICROSCOPIC ONLY (01/11/2016 5:12 PM CDT) Only the most recent of4 resultswithin the time period is included. RBC UA 0-2 0-2, 2-5 # /hpf 01/11/2016 10:39 PM CDT [facility] WBC UA 2-5 0-2, 2-5 # /hpf 01/11/2016 10:39 PM CDT [facility] Bacteria UA 2+(A) None Seen, Trace 01/11/2016 10:39 PM CDT [facility] Epithelial Cell UA 10-20(A) 0-2, 2-5 # /hpf 01/11/2016 10:39 PM CDT [facility] Mucus UA 1+ 01/11/2016 10:39 PM CDT [facility] Urine URINE SPECIMEN OBTAINED BY CLEAN CATCH PROCEDURE / Unknown 01/11/2016 5:12 PM CDT 01/11/2016 6:35 PM CDT Siria Pizarro APRN-POLE INSPECTOR LAB - URINALYS IS ORDERABLES [facility] [address] [place] [phone] * CULTURE URINE (01/11/2016 5:12 PM CDT) Only the most recent of4 resultswithin the time period is included. Culture 10,000-50,000 CFU/mL urogenital nora ESSENCE 01/13/2016 9:32 AM CDT [facility] Urine URINE SPECIMEN OBTAINED BY CLEAN CATCH PROCEDURE / Unknown 01/11/2016 5:12 PM CDT 01/11/2016 6:35 PM CDT Siria Pizarro APRN-POLE INSPECTOR LAB - MICROBIO LOGY ORDERABLES [facility] [address] [place] [address], [facility] [phone] * CALCIUM/CREAT RATIO URINE RANDOM PANEL (01/11/2016 5:12 PM CDT) Only the most recent of3 resultswithin the time period is included. Calcium Urine 6.61 mg/dL 01/11/2016 8:53 PM CDT [facility] Creatinine Urine 180.44 mg/dL 01/11/2016 8:53 PM CDT [facility] Calcium/Creatin ine Ratio Urine 0.04 01/11/2016 8:53 PM CDT [facility] Urine URINE SPECIMEN OBTAINED BY CLEAN CATCH PROCEDURE / Unknown 01/11/2016 5:12 PM CDT 01/11/2016 6:35 PM CDT Narrative [facility] - 01/11/2016 8:53 PM CDT Normal <0.16 Borderline 0.16-0.20 Abnormal >0.20 Siria Pizarro [facility] LAB - URINE CH EMISTRY ORDERABLES [facility] [address] [place] [phone] * CPAP/BIPAP TITRATION (11/10/2015) Linked Results See Linked Results SLEEP [facility]ENTER 11/10/2015 Stella Pike [facility] O RDERABLES SLEEP CENTER * [...] by Fidel Muro on 09/28/2015 1:02 PM Lolita Anderson DO, have personally reviewed the images and [...] information. RECOMMENDATIONS: Consider anticholingergic medications Yohana Watters JANITOR CUSTODIAN-POLE INSPECTOR PROCEDURE ORDERABLES * CYSTOMETROGRAM ACC (09/22/2015 12:33 [...] information. RECOMMENDATIONS: Consider anticholingergic medications Yohana Watters JANITOR CUSTODIAN-POLE INSPECTOR FLUOROSCOPY ORDERABLES * ALPHA FETOPROTEIN BLOOD TUMOR (09/07/2015 10:43 AM CDT) Alpha-Fetoprotei n Tumor Marker 1.3 0.0 - 8.3 ng/mL 09/08/2015 5:15 AM CDT [facility] ([facility]) Comment:Elizabeth ECLIA methodol ogy Blood specimen (specimen) BLOOD SPECIMEN / Unknown Lab Venipuncture / Unknown 09/07/2015 10:43 AM CDT 09/07/2015 11:03 AM CDT Narrative [facility] ([facility]) - 09/08/2015 5:15 AM CDT Performed at: [address] [place] [phone] Telephone Order Dispatcher: Zurdo Lira PhD, Phone: [phone] Yohana Watters JANITOR CUSTODIAN-[facility] LAB - CHEMIS TRY ORDERABLES [facility] ([facility]) [address] [place] [address] * PT PTT PANEL (09/07/2015 10:43 AM CDT) PT 9.5 9.5 - 11.6 sec 09/07/2015 2:18 PM CDT [facility] INR 0.9 0.9 - 1.1 09/07/2015 2:18 PM CDT [facility] PTT 24.3 21.0 - 32.0 sec 09/07/2015 2:18 PM CDT [facility] Blood BLOOD SPECIMEN / Unknown Lab Venipuncture / Unknown 09/07/2015 10:43 AM CDT 09/07/2015 11:03 AM CDT Narrative [facility] - 09/07/2015 2:18 PM CDT Conventional Warfarin Anticoagulant Therapy: INR Reference Range: 2.0-3.0 Intensive Warfarin Anticoagulant Therapy: INR Reference Range: 2.5-3.5 Heparin Therapeutic Range for PTT: 47.7 - 68.6 seconds. Yohana Watters [facility] LAB - COAGUL ATION ORDERABLES Performing Organization Address [facility] Co de Phone Number [facility] [address] [place] [phone] * HEPATIC FUNCTION PANEL (09/07/2015 10:43 AM CDT) Pathologist [facility] Alkaline Phosphatase 113 100 - 390 U/L 09/07/2015 11:42 AM CDT [facility] ALT 21 8 - 65 U/L 09/07/2015 11:42 AM T [facility] AST 15 3 - 35 U/L 09/07/2015 11:42 AM T [facility] Protein Total 7.5 6.3 - 8.2 gm/dL 09/07/2015 11:42 AM T [facility] Albumin 4.0 3.3 - 4.9 gm/dL 09/07/2015 11:42 AM T [facility] Bilirubin Total 0.4 0.3 - 1.2 mg/dL 09/07/2015 11:42 AM T [facility] Bilirubin Direct 0.15 0.11 - 0.64 mg/dL 09/07/2015 11:42 AM T [facility] Blood BLOOD SPECIMEN / Unknown Lab Venipuncture / Unknown 09/07/2015 10:43 AM CDT 09/07/2015 11:03 AM CDT Yohana Watters [facility] LAB - CHEMIS TRY ORDERABLES Performing Organization Address [facility] Co de Phone Number [facility] [address] [place] [phone] * (ABNORMAL) LDH BLOOD (09/07/2015 10:43 AM CDT) [facility] LDH 274(H) 140 - 260 U/L 09/07/2015 11:42 AM T [facility] Blood BLOOD SPECIMEN / Unknown Lab Venipuncture / Unknown 09/07/2015 10:43 AM CDT 09/07/2015 11:03 AM CDT Yohana Jordan Erinn JANITOR CUSTODIAN-POLE INSPECTOR LAB - CHEMIS TRY ORDERABLES Performing Organization Address [facility]/ZIP Co de Phone Number [facility] [address] [place] [address] * GGT (09/07/2015 10:43 AM CDT) GGT 28 8 - 69 U/L 09/07/2015 11:42 AM CDT [facility] Blood BLOOD SPECIMEN / Unknown Lab Venipuncture / Unknown 09/07/2015 10:43 AM CDT 09/07/2015 11:03 AM CDT Yohana Lugo Julian Plasencia JANITOR CUSTODIAN-POLE INSPECTOR LAB - CHEMIS TRY ORDERABLES Performing Organization Address [facility] Co de Phone Number [facility] [address] [place] [phone] * UROFLOWMETRY (09/06/2015 11:15 AM CDT) Narrative [...] dictated by Tiara Frey MD (vice president residential solar sales). Fluoroscopy Time: 1.5 minute Dose Area [...] No prior study is available for comparison. [employer] Assembler radiograph demonstrates a nonspecific bowel gas pattern. [...] No prior study is available for comparison. [employer] As[employer]er radiograph demonstrates a nonspecific bowel gas pattern. [...] dictated by Tiara Frey MD (vice president residential [employer]). Fluoroscopy Time: 1.5 minute Dose Area Prod: 157.63 (uGy*m^2) Entrance Dose: 4.8 (mGy) I, Chioma Benavides, have personally reviewed the images and I agree with this report. Yohana Watters JANITOR CUSTODIAN-POLE INSPECTOR FLUOROSCOPY ORDERABLES * MRI PELVIS WITH AND [...] with severe renal parenchymal atrophy. Yohana Watters JANITOR CUSTODIAN-POLE INSPECTOR MR ORDERABLE S * MRI ABDOMEN WITH [...] with severe renal parenchymal atrophy. Yohana Watters JANITOR CUSTODIAN-POLE INSPECTOR MR ORDERABLE S * CHLAMYDIA + GC AMPLIFIED PROBE (08/10/2015 4:39 PM CDT) Chlamydia Amplified Probe Negative Negative 08/11/2015 8:43 AM CDT [facility] GC Amplified Probe Negative Negative 08/11/2015 8:43 AM CDT [facility] Urine URINE / Unknown 08/10/2015 4 :39 PM CDT 08/10/2015 5:15 PM CDT Narrative [facility] - 08/11/2015 8:43 AM CDT This test was developed and its performance characteristics determined by the [facility], [facility]. Female urine specimens tested by the [facility] [place] have not been cleared or approved by [...] MICROBIOLOGY [address] [place], [place] [address], [facility] [phone] * US PELVIS WITH TRANSVAG NON OB [...] and without contrast should be considered. Siria MORENO US ORDERABLES * URINALYSIS - POCT () BEAKER (08/10/2015 3:25 PM CDT) Glucose UA Negative Negative [facility] T [facility] Bilirubin UA Negative Negative [facility] P OCT TESTING Ketone UA Negative Negative [facility] POCT TEST[facility] Specific [place] UA POCT 1.020 1.000 - 1.030 [facility] Blood UA Negative Negative [facility] pH UA 6.5 5.0 - 8.0 pH units [facility] Protein UA Negative Negative [facility] P[facility] T TESTING Urobilinogen UA 0.2 0.2 - 1.0 EU/dL [facility] Nitrite UA Negative Negative [facility] POC T TESTING Leukocyte UA Negative Negative [facility] P OCT TESTING QC Verified Yes Yes [facility] PO CT TESTING Urine specimen (specimen) URINE / Unknown 08/10/2015 3:25 PM CDT Gi Jones MD LAB - POINT OF CARE ORDERABLES Performing Organization Address City/[facility]/ZIP Co de Phone Number [facility] POCT TESTING [address] [phone] * HEMOGLOBIN A1C (07/15/2015 11:09 AM CDT) Hemoglobin A1c 4.9 3.4 - 6.1 % 07/17/2015 11:18 AM CDT [facility] Estimated Average Glucose 94 mg/dL 07/17/2015 11:18 AM CDT [facility] Whole Blood BLOOD SPECIMEN WITH EDTA / Unknown 07/15/2015 11:09 AM CDT 07/17/2015 9:27 AM CDT Siria Pizarro [facility] LAB - CHEMISTR Y ORDERABLES Performing Organization Address City/[facility]/ZIP Co de Phone Number [facility] [address] [place] [address] * TSH (07/15/2015 11:09 AM CDT) TSH 1.64 0.35 - 4.95 uIU/mL 07/15/2015 12:47 PM T [facility] Blood BLOOD SPECIMEN / Unknown Lab Venipuncture / Unknown 07/15/2015 11:09 AM CDT 07/15/2015 11:19 AM CDT Siria Pizarro JANITOR CUSTODIAN-POLE INSPECTOR LAB - CHEMISTR Y ORDERABLES Performing Organization Address [facility] de Phone Number [facility] [address] [place] [phone] * T4 TOTAL (07/15/2015 11:09 AM CDT) Pathologist [facility] T4 Total 11.11 4.87 - 11.7 ug/dL 07/15/2015 12:47 PM T [facility] Blood BLOOD SPECIMEN / Unknown Lab Venipuncture / Unknown 07/15/2015 11:09 AM CDT 07/15/2015 11:19 AM CDT Siria Pizarro JANITOR CUSTODIAN-POLE INSPECTOR LAB - CHEMISTR Y ORDERABLES Performing Organization Address [facility] de Phone Number [facility] [address] [place] [phone] * (ABNORMAL) LIPID PROFILE (07/15/2015 11:09 AM CDT) Cholesterol 187(H) <170 mg/dL 07/15/2015 12:12 PM T [facility] Triglycerides 110 46 - 227 mg/dL 07/15/2015 12:12 PM T [facility] HDL Cholesterol 53 >40 mg/dL 07/15/2015 12:12 PM T [facility] LDL Calculated 112(H) <100 mg/dL 07/15/2015 12:12 PM [facility] VLDL Calculated 22 12 - 38 mg/dL 07/15/2015 12:12 PM T [facility] Chol HDL Ratio 3.5 <=5.0 07/15/2015 12:12 PM T [facility] Blood BLOOD SPECIMEN / Unknown Lab Venipuncture / Unknown 07/15/2015 11:09 AM CDT 07/15/2015 11:19 AM CDT Narrative [facility] - 07/15/2015 12:12 PM CDT Lipid Profile Comment: Adult references ranges are the recommendation of the [place] [employer] , for those patients >18 [...] alter some of these results. Siria Pizarro [facility] LAB - CHEMISTR Y ORDERABLES [facility] [address] [place] [address] * SPLIT NIGHT STUDY (09/17/2014) Siria Pizarro [facility] O RDERABLES * LAB RESULTS ORDER (08/22/2014 3:54 PM CDT) Narrative 08/22/2014 3:54 PM CDT Ordered by an unspecified provider. Scanned Document LAB - THERAPEUTIC DR CONRAD MONITORING ORDERABLES Care Teams Rag Grader Relationship Specialty Start Date End Date Brian Dela Cruz MD [address] [place] [address] PCP - General Family Medicine 07/13/20
--- NOTE | 2024-05-20 07:57 | P.HP_ITS ---
H&P: HPI History of Present Illness Date/Time: 05/20/24 07:57 Chief Complaint: spontaneous missed Narrative: 24 yo who presents for suction D&C for management of spontaneous missed . Patient initially had viability scan in our office at 04/14/2024. Exam was limited by body habitus. Suspected IUP with no discernible cardiac activity at that time. Patient was sent to [facility] for repeat scanning. Patient had repeat dating/viability scan on 05/03/2024. Ultrasound at that time showed an intrauterine gestational sac measuring 7 weeks. There was no pole or cardiac activity. Patient is asymptomatic. She denies any vaginal bleeding, cramping, pain. [facility] recommended trending beta HCG levels and repeating ultrasound. Repeat US showed no interval growth and no cardiac activity. Review of Systems Cardiovascular: Cardiovascular: Denies chest pain, Denies leg edema, Denies palpitations, Denies dyspnea and Denies dyspnea on exertion Respiratory: Respiratory: Denies cough, Denies dyspnea and Denies dyspnea on exertion Gastrointestinal: Gastrointestinal: Denies abdominal pain, Denies constipation, Denies diarrhea, Denies nausea and Denies vomiting Genitourinary: Genitourinary: Denies hematuria, Denies urinary frequency, Denies dysuria, Denies pelvic pain, Denies urinary incontinence and Denies vaginal discharge Neurologic: Reports system reviewed and no additional complaints, except as documented Psychiatric: Psychiatric: Reports no additional psychiatric complaints Endocrine: Endocrine: Denies palpitations PMFSH Past Medical History Medical History Encounter for IUD removal 12/31/23 Obstructive sleep apnea She never followed up to obtain CPAP Morbid obesity with BMI of 50.0-59.9, adult Neurogenic bladder 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 Family History Family History Mother Diabetes mellitus Social History Social History Social History: She reports that she lives at home with her mother, vikram and her son (born 2020). 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 She is a lifelong nonsmoker and denies any significant alcohol use history. Surrogate medical decision maker: Melyssa Burch, mother. Code status: Full code. Smoking status: Never smoker Tobacco type: cigarettes Second hand tobacco smoke exposure: No Alcohol intake: never Substance use: never Substance use type: does not use Do You Feel Safe in your Home?: Yes Lack of Transportation: YES Lack of Food: Never True Current Housing: Decline to Answer Concerned About Future Housing: YES Difficulty Paying Gas/Electric Bills: No Difficulty Paying for Meds: No Currently Unemployed: YES Education: High School Diploma/GED Difficulty w/ Childcare or Family Care: No Living arrangements: with family Additional living arrangements comments: She lives with her mother, vikram and child. 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 Gender identity (if verbalized by the patient): Female Sexual Orientation (if Verbalized by the Patient): Bisexual Spiritual care concerns: No Meds Home Medications and Allergies Home Medications ?Medication ?Instructions ?Recorded ?Confirmed ?Type propranolol 20 mg tablet 20 mg PO Q12H 12/24/23 05/19/24 History sertraline 100 mg tablet 100 mg PO DAILY 12/24/23 05/19/24 History Allergies Allergy/AdvReac Type Severity Reaction Status Date / Time Latex, Natural Rubber Allergy Mild Itching Verified 05/19/24 09:44 medroxyprogesterone (From AdvReac Severe Other Verified 05/19/24 09:44 Depo-Provera) adhesive tape AdvReac Itching Verified 05/19/24 09:44 Exam Const: General: no acute distress Eyes: EOM: EOMs intact bilaterally Neck: Neck: supple Thyroid: thyroid normal Chest: Breast/axilla inspection: normal inspection of the breasts Breast/axilla palpation: normal palpation of the breasts, normal palpation of the axillae and no axillary lymphadenopathy Resp: Effort & Inspection: normal respiratory effort Auscultation: clear to auscultation bilaterally Cardio: Rate: regular rate Rhythm: regular rhythm GI: Inspection: non-distended GI Palp: Yes Soft to palpation, No Tenderness to palpation present (GI) and No Guarding due to palpation present (GI) Auscultation: normal bowel sounds : General: No bladder normal to palpation External Female Exam: normal external appearance Speculum Exam - Vagina: normal vaginal discharge and No vaginal bleeding Speculum Exam - Cervix: nontender Bimanual exam- vagina & uterus: No bladder normal to palpation and No Cervical tenderness present OB/external & speculum: No vaginal bleeding Skin: General skin exam: normal color and no rashes or lesions noted Neuro: Cognition (Neuro): normal cognition Speech: normal speech Extrem: General: normal to inspection and no edema Psych: Mental Status: mental status grossly normal Affect: normal affect Assessment and Plan Assessment and plan (1) Spontaneous : Code(s): O03.9 - Complete or unspecified spontaneous without complication Status: Acute Assessment and Plan: 24-year-old female who presents for suction D&C for management of spontaneous missed Patient was diagnosed with missed via ultrasound Patient remains asymptomatic Management options reviewed with patient Patient elects for surgical management Risks, benefits, alternatives discussed Patient is Rh negative and will need RhoGAM after procedure
[2024-05-20] MEDS: DOXYCYCLINE 100 MG/NS 100 ML 100 MG/100 ML BAG IVPB (13:00)
[2024-05-20 13:16] VITALS: BMI 63.4
--- NOTE | 2024-05-20 13:16 | WPDANESEPPF ---
Anes - Initial Pre Proc Eval Procedure: Operation Date: 05/20/24 14:00 Proposed Procedures p Suction Dilation and Curettage - Casimiro Pineda MD Date/Time: 05/20/24 13:16 Surgeon: Casimiro Pineda MD Pre Op Diagnosis: missed ab Patient Data Age: 24 Gender: F Height: 1.47 m Weight: 136.4 kg Allergies Allergy/AdvReac Type Severity Reaction Status Date / Time Latex, Natural Rubber Allergy Mild Itching Verified 05/20/24 13:15 medroxyprogesterone (From AdvReac Severe Other Verified 05/20/24 13:15 Depo-Provera) adhesive tape AdvReac Itching Verified 05/20/24 13:15 Home Medications ?Medication ?Instructions ?Recorded ?Confirmed ?Type propranolol 20 mg tablet 20 mg PO Q12H 12/24/23 05/19/24 History sertraline 100 mg tablet 100 mg PO DAILY 12/24/23 05/19/24 History Patient hx anesthesia problems: none Family hx anesthesia problems: none Results Review: All pre-operative results and documents have been reviewed as part of the pre-operative evaluation. 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 Family History Family History Mother Diabetes mellitus Social History Social History Social History: She reports that she lives at home with her mother, vikram and her son (born 2020). 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 She is a lifelong nonsmoker and denies any significant alcohol use history. Surrogate medical decision maker: Melyssayolanda Burch, mother. Code status: Full code. Smoking status: Never smoker Tobacco type: cigarettes Second hand tobacco smoke exposure: No Alcohol intake: never Substance use: never Substance use type: does not use Do You Feel Safe in your Home?: Yes Lack of Transportation: YES Lack of Food: Never True Current Housing: Decline to Answer Concerned About Future Housing: YES Difficulty Paying Gas/Electric Bills: No Difficulty Paying for Meds: No Currently Unemployed: YES Education: High School Diploma/GED Difficulty w/ Childcare or Family Care: No Living arrangements: with family Additional living arrangements comments: She lives with her mother, fiance and child. 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 Gender identity (if verbalized by the patient): Female Sexual Orientation (if Verbalized by the Patient): Bisexual Spiritual care concerns: No Anes - Eval Final PreProcedure Day of Procedure 05/20/24 13:16 Patient weight: super morbidly obese Heart: regular rate and rhythm Lungs: clear to auscultation Airway: Mallampati scale class 1 Neurological: alert and oriented Last oral intake: >/= 8 hours ASA classification: IV Emergent: no Anesthetic plan: proceed Anesthesia type and monitoring: general LMA and standard monitoring Results Review: All pre-operative results and documents have been reviewed as part of the pre-operative evaluation. Informed Consent: The patient's anesthetic plan and its attendant risks and benefits were discussed with the patient/family/POA. Questions were solicited and answers provided to the satisfaction of the patient/family/POA.
[2024-05-20 13:18] VITALS: BP 135/85; PULSE 70; TEMP 36.7; O2SAT 97
[2024-05-20] MEDS: ACETAMINOPHEN 500 MG TABLET 1000 MG PO (13:18)
[2024-05-20] MEDS: LACTATED RINGERS 1,000 ML 30 ML IV CONT (13:19)
--- NOTE | 2024-05-20 13:34 | WPDHPUPDATE1 ---
History and Physical Update Update Date/Time: 05/20/24 13:34 History and Physical has been reviewed, including an updated exam of the patient. There are NO changes in the patient's condition. Risks, benefits, and alternatives have been discussed and questions answered. Patient agrees to proceed with procedure.
--- NOTE | 2024-05-20 14:38 | W.PM.PROC2 ---
Procedure Note - Detailed Date of Procedure 05/20/24 Pre-op Diagnosis missed ab Post-op Diagnosis Same Procedure Performed Suction Dilation & curettage Surgeon Casimiro Pineda MD Anesthesia General Indications spontaneous missed on pelvic US Findings intrauterine products of conception Description of Procedure The patient was taken to the operating room after a missed had been noted on on transvaginal ultrasound. The risks, benefits and alternatives of the procedure were reviewed with the patient and informed consent was obtained. The patient was taken to the OR and anesthesia was noted to be adequate. The patient was placed in the dorsolithotomy position. Pelvic exam was performed with findings noted above. The patient was prepped and draped in the usual sterile fashion. Sterile speculum was placed in the vagina and the cervix was grasped with a tenaculum. The cervix was dilated further to allow for passage of a 7 mm suction curette. The 7 mm suction curette was gently advanced to the fundus, suction was activated, and the tip was rotated while being withdrawn to clear the uterus of products. This suction process was repeated 3 additional times due to the quantity of material in the uterus. The sharp curette was introduced and advanced to the fundus to remove any remaining products. The suction curette was reintroduced one final time to ensure all products had been removed. The above procedure was performed under direct visualization by bedside US. The procedure was complicated due to body habitus. The tenaculum was removed. Good hemostasis was noted. Instrument, sponge, and sharp counts were correct. Patient tolerated the procedure well and was taken to the recovery room in stable condition. Estimated Blood Loss 50 Drains No Packing No Pathology Yes (products of conception) Complications No immediate complications Condition Stable Disposition PACU [facility] Billing Surgery - Charge Forward: Surgery Billing
[2024-05-20 14:41] VITALS: BP 148/85; PULSE 87; RESP 20; O2SAT 98
[2024-05-20] MEDS: RHO(D) IMMUNE GLOBULIN 300 MCG/2 ML SYRINGE IM (14:57)
[2024-05-20 15:10] VITALS: BP 138/77; PULSE 56; RESP 18; O2SAT 100
[2024-05-20] MEDS: DOXYCYCLINE HYCLATE 100 MG TABLET 200 MG PO (15:16)
[2024-05-20 15:35] VITALS: BP 140/73; PULSE 55; RESP 18
== END 2024-05-20 15:43 | disposition home or self-care (01) ==
PROVIDERS: PCP Family Medicine; Visit Provider Student in an Organized Health Care Education/Training Program
PROC: (CPT 59812; principal; 2024-05-20 14:00)
DX: O03.9 Complete or unspecified spontaneous abortion without complication (principal); G47.33 Obstructive sleep apnea (adult) (pediatric); F32.A Depression, unspecified; F41.9 Anxiety disorder, unspecified; N31.2 Flaccid neuropathic bladder, not elsewhere classified; Z87.798 Personal history of other (corrected) congenital malformations
CPT/HCPCS: 59812; 36415; 85461; 86850; 86880; 86900; 86901; 86902; 88305; 90384; A9270; J2003; J2250; J2704; J2790; J3010; J7120

== ENCOUNTER 2024-10-19 14:41 | Outpatient (CLI) | payer OTHER, SELFPAY ==
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
--- OUTSIDE RECORDS SUMMARY | 2024-10-19 15:09 | XMS_ITS | Clinical Summary ---
Author Organization [facility] Address [address] [place] [address] Phone Care Team Providers Care Supervisor Tank Storage Name Role Phone Brian Dela Cruz MD Primary Care Provider + [phone] Allergies Active Allergy Reactions Criticality Noted Date [...] 12:27 PM CDT Height 147.3 cm (4' 10) 11/05/2021 12:27 PM CDT Body Mass Index 43.89 11/05/2021 12:27 PM CDT Plan of Treatment Health Maintenance Due Date Last Done Comments Hepatitis C Virus (HCV) Screening 1998 Hepatitis B Immunization (2 of 3 - 3-dose series) 1998 1998 SARS-COV-2 Immunization ( season) 2023 Influenza Immunization (#1) 2024 09/0 08/2015, 01/09/2015, 11/22/2010 Respiratory Syncytial Virus (RSV) Immunization (Adult) (1 [...] to complete this topic Insurance Care Teams Supervisor Tank Storage Relationship Specialty Start Date End Date Brian Dela Cruz MD [address] [place] [id number] PCP - General Family Medicine 11/05/21
[2024-10-19 15:27] LABS: Beta HCG Quantitative < 2.39 mIU/ML
== END 2024-10-19 14:42 | disposition home or self-care (01) ==
LOC: ANHLAB 14:42
PROVIDERS: PCP Family Medicine; Visit Provider Obstetrics & Gynecology
DX: N91.2 Amenorrhea, unspecified (principal)
CPT/HCPCS: 36415; 84702

== ENCOUNTER 2024-10-20 15:52 | Outpatient (CLI) | payer OTHER, SELFPAY ==
--- OUTSIDE RECORDS SUMMARY | 2024-10-20 15:56 | XMS_ITS | Clinical Summary ---
Author Organization [facility] Address [address] [place] [address] Phone Care Team Providers Care Interstate Bus Dispatcher Name Role Phone Brian Dela Cruz MD Primary Care Provider + [phone] Allergies Active Allergy Reactions Criticality Noted Date [...] to complete this topic Insurance Care Teams Interstate Bus Dispatcher Relationship Specialty Start Date End Date Brian Dela Cruz MD [address] [place] [id number] PCP - General Family Medicine 11/05/21
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
[2024-10-20 17:24] LABS: Beta HCG Quantitative < 2.39 mIU/ML
[2024-10-20 17:29] LABS: Thyroid Stimulating Hormone Reflex 1.870 uIU/mL (0.465-4.68)
[2024-10-20 17:31] LABS: Hemoglobin A1C 5.6 % (<5.7)
[2024-10-22 08:08] LABS: LH 4.7 mIU/mL (.)
[2024-10-27 15:09] LABS: Estradiol, Sensitive 134.6 pg/mL (.)
== END 2024-10-20 15:53 | disposition home or self-care (01) ==
LOC: ANHLAB 15:53
PROVIDERS: Visit Provider Obstetrics & Gynecology
DX: N91.1 Secondary amenorrhea (principal); E66.01 Morbid (severe) obesity due to excess calories; Z68.43 Body mass index [BMI] 50.0-59.9, adult
CPT/HCPCS: 36415; 82166; 82627; 82670; 83002; 83036; 83498; 83525; 83527; 84144; 84146; 84443; 84702